=== PATIENT | female | born 1965 | race Caucasian/White ===

== ENCOUNTER 2018-09-11 09:31 | Observation (INO) | payer OTHER ==
--- NOTE | 2018-09-11 10:10 | RAD REPORT ---
EXAM DESCRIPTION: Roxy Single View09/11/2018 10:02 am CLINICAL HISTORY: Chest pain COMPARISON: 2014 FINDINGS: The lungs appear clear of acute infiltrate. The heart is mildly enlarged. Postsurgical changes involve the chest. IMPRESSION: No acute abnormalities displayed
[2018-09-11 10:14] LABS: Absolute Lymphocytes (CBC) 1.2 K/uL (0.7-4.9); Absolute Monocytes 0.4 K/uL (0.1-1.3); Absolute Neutrophil 3.2 K/uL (1.8-8.0); Basophils % 0.8 % (0-1.3); Eosinophils % 5.9 % (0-4.4); Lymphocytes % 23.7 % (15.3-44.8); MPV 9.1 fL (7.6-11.3); Monocytes % 7.4 % (3.3-12.3); Protime INR 0.99; RBC Red Blood Cell Count 4.22 M/uL (3.86-4.86)
[2018-09-11 10:28] LABS: ALT/SGPT 31 U/L (12-78); AST/SGOT 16 U/L (15-37); Albumin 3.8 g/dL (3.4-5.0); Alkaline Phosphatase 115 U/L (45-117); BUN Blood Urea Nitrogen 18 mg/dL (7-18); Bicarbonate 33 mmol/L (21-32); Bilirubin Direct 0.1 mg/dL (0-0.2); Bilirubin Total 0.5 mg/dL (0.2-1.0); Glucose Level 87 mg/dL (74-106); Magnesium 2.1 mg/dL (1.8-2.4); NT PRO-BNP 124 pg/mL (<125); Protein, Total 7.9 g/dL (6.4-8.2); Sodium Level 139 mmol/L (136-145); Troponin (Emerg Dept Use Only) < 0.02 ng/mL (0.0-0.045)
--- NOTE | 2018-09-11 10:39 | ER ---
Nurse's Notes [facility] Name: Julienne Tucker Age: 52 yrs Sex: Female : 1965 Arrival Date: 09/11/2018 Time: 09:32 Bed 8 Private MD: Diagnosis: Chest pain, unspecified Presentation: 09/11 09:34 Presenting complaint: EMS states: R SHOULDER PAIN AND SOB x4 DAYS. Transition of care: bp patient was not received from another setting of care. Onset of symptoms is unknown. Risk Assessment: Do you want to hurt yourself or someone else? Patient reports no desire to harm self or others. Initial Sepsis Screen: Does the patient meet any 2 criteria? No. Patient's initial sepsis screen is negative. Does the patient have a suspected source of infection? No. Patient's initial sepsis screen is negative. Care prior to arrival: Medication(s) given: ASA, 81 mg, x 4. 09:34 Method Of Arrival: EMS: [facility] bp 09:34 Acuity: RJ 3 bp Triage Assessment: 09:39 General: Appears in no apparent distress. comfortable, obese, Behavior is cooperative, bp appropriate for age, anxious. Pain: Complains of pain in anterior aspect of right shoulder. EENT: No deficits noted. Neuro: Level of Consciousness is awake, alert, obeys commands, Oriented to person, place, time, situation, Appropriate for age. Cardiovascular: No deficits noted. Respiratory: Reports shortness of breath at rest Onset: The symptoms/episode began/occurred 4 DAYS, the patient has mild shortness of breath. GI: No signs and/or symptoms were reported involving the gastrointestinal system. : No signs and/or symptoms were reported regarding the genitourinary system. Derm: No deficits noted. Musculoskeletal: Circulation, motion, and sensation intact. Range of motion: intact in all extremities. 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 - Social history:: Smoking status: Patient/guardian denies using tobacco, Patient/guardian denies using alcohol, street drugs, The patient lives with family. - Ebola Screening: : Patient negative for fever greater than or equal to 101.5 degrees Fahrenheit, and additional compatible Ebola Virus Disease symptoms Patient denies exposure to infectious person Patient denies travel to an Ebola-affected area in the 21 days before illness onset No symptoms or risks identified at this time. - Family history:: not pertinent. Screenin:42 Abuse screen: Denies threats or abuse. Denies injuries from another. Nutritional bp screening: No deficits noted. Tuberculosis screening: No symptoms or risk factors identified. Fall Risk None identified. Assessment: 09:42 General: SEE TRIAGE NOTE. Cardiovascular: Rhythm is sinus rhythm. Respiratory: Airway bp is patent Respiratory effort is even, unlabored, Respiratory pattern is regular, symmetrical, Breath sounds are clear bilaterally. Vital Signs: 09:39 BP 135 / 60; Pulse 63; Resp 21; Temp 98; Pulse Ox 96% ; Weight 181.44 kg; Height 5 ft. bp 9 in. (175.26 cm); 11:16 BP 123 / 68; Pulse 63; Resp 20; Pulse Ox 97% ; bp 11:47 BP 143 / 69; Pulse 65; Resp 18; Pulse Ox 97% ; bp 09:39 Body Mass Index 59.07 (181.44 kg, 175.26 cm) bp ED Course: 09:32 Patient arrived in ED. bp 09:34 Jorge Lawrence MD is Attending Physician. ma2 09:35 Triage completed. bp 09:39 Arm band placed on. bp 09:42 Patient has correct armband on for positive identification. Bed in low position. Call bp light in reach. Side rails up X2. 10:01 Tyrone Pringle, THOMAS is Primary Nurse. bp 10:02 XRAY Chest (1 view) In Process Unspecified. EDMS 10:02 Inserted saline lock: 22 gauge in right antecubital area, using aseptic technique. bp Blood collected. 10:05 X-ray completed. Portable x-ray completed in exam room. Patient tolerated procedure ls3 well. 10:38 Buddy French MD is Hospitalizing Provider. ma2 12:25 No provider procedures requiring assistance completed. Patient admitted, IV remains in bp place. Administered Medications: No medications were administered Outcome: 10:38 Decision to Hospitalize by Provider. ma2 12:28 Admitted to Tele accompanied by tech, via wheelchair, room 218, with chart, Report bp called to REGINALD GUZMAN 12:28 Condition: stable 12:28 Instructed on the need for admit. 12:40 Patient left the ED. bp Signatures: Dispatcher [employer] EDTyrone Tracey, RN RN bp Jorge Lawrence MD MD ma2 Marcy Fletcher ls3
--- NOTE | 2018-09-11 10:39 | EDPHYS ---
Physician Documentation [facility] Name: Julienne Tucker Age: 52 yrs Sex: Female : 1965 Arrival Date: 09/11/2018 Time: 09:32 Bed 8 Private MD: ED Physician Jorge Lawrence HPI: 09/11 10:35 This 52 yrs old Female presents to ER via EMS with complaints of Shoulder ma2 Pain, Shortness Of Breath. 10:35 right trapezius. Onset: The symptoms/episode began/occurred gradually, 1 day(s) ago. ma2 Associated signs and symptoms: Pertinent positives: chest pain, Pertinent negatives: dyspnea, neck pain, tingling. Severity of symptoms: At their worst the symptoms were mild, in the emergency department the symptoms are unchanged. Treatment prior to arrival includes: given 4 baby asa by ems . The patient has experienced similar episodes in the past. 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 - Social history:: Smoking status: Patient/guardian denies using tobacco, Patient/guardian denies using alcohol, street drugs, The patient lives with family. - Ebola Screening: : Patient negative for fever greater than or equal to 101.5 degrees Fahrenheit, and additional compatible Ebola Virus Disease symptoms Patient denies exposure to infectious person Patient denies travel to an Ebola-affected area in the 21 days before illness onset No symptoms or risks identified at this time. - Family history:: not pertinent. ROS: 10:35 Constitutional: Negative for fever, chills, and weight loss, Respiratory: Negative for ma2 shortness of breath, cough, wheezing, and pleuritic chest pain, Abdomen/GI: Negative for abdominal pain, nausea, diarrhea, and constipation, MS/Extremity: Negative for injury and deformity, Psych: Negative for depression, anxiety, suicide ideation, homicidal ideation, and hallucinations, Allergy/Immunology: Negative for hives, rash, and allergies. 10:35 Cardiovascular: Positive for chest pain, Negative for edema, orthopnea, paroxysmal nocturnal dyspnea. 10:35 All other systems are negative. Exam: 10:35 Constitutional: This is a well developed, well nourished patient who is awake, alert, ma2 and in no acute distress. Chest/axilla: Normal chest wall appearance and motion. Nontender with no deformity. No lesions are appreciated. Cardiovascular: Regular rate and rhythm with a normal S1 and S2. No gallops, murmurs, or rubs. Normal PMI, no JVD. No pulse deficits. Respiratory: Lungs have equal breath sounds bilaterally, clear to auscultation and percussion. No rales, rhonchi or wheezes noted. No increased work of breathing, no retractions or nasal flaring. Abdomen/GI: Soft, non-tender, with normal bowel sounds. No distension or tympany. No guarding or rebound. No evidence of tenderness throughout. MS/ Extremity: Pulses equal, no cyanosis. Neurovascular intact. Full, normal range of motion. Neuro: Awake and alert, GCS 15, oriented to person, place, time, and situation. Cranial nerves II-XII grossly intact. Motor strength 5/5 in all extremities. Sensory grossly intact. Cerebellar exam normal. Normal gait. Vital Signs: 09:39 BP 135 / 60; Pulse 63; Resp 21; Temp 98; Pulse Ox 96% ; Weight 181.44 kg; Height 5 ft. bp 9 in. (175.26 cm); 11:16 BP 123 / 68; Pulse 63; Resp 20; Pulse Ox 97% ; bp 11:47 BP 143 / 69; Pulse 65; Resp 18; Pulse Ox 97% ; bp 09:39 Body Mass Index 59.07 (181.44 kg, 175.26 cm) bp MDM: 09:34 Patient medically screened. ma2 10:35 Differential diagnosis: chest pain will admit for acs rule out discussed with dr. gloria rivero recommends admission and cards consult. Data reviewed: vital signs, nurses notes. Counseling: I had a detailed discussion with the patient and/or guardian regarding: the historical points, exam findings, and any diagnostic results supporting the discharge/admit diagnosis, the presence of at least one elevated blood pressure reading (>120/80) during this emergency department visit, the need for further work-up and treatment in the hospital. Response to treatment: the patient's symptoms have markedly improved after treatment. 09/11 09:34 Order name: Basic Metabolic Panel; Complete Time: 10:34 09/11 09:34 Order name: CBC with Diff; Complete Time: 10:34 09/11 09:34 Order name: LFT's; Complete Time: 10:34 09/11 09:34 Order name: Magnesium; Complete Time: 10:34 09/11 09:34 Order name: NT PRO-BNP; Complete Time: 10:34 09/11 09:34 Order name: PT-INR; Complete Time: 10:34 09/11 09:34 Order name: Troponin (emerg Dept Use Only); Complete Time: 10:34 [facility] 09/11 10:47 Order name: Basic Metabolic Panel [facility] 09/11 10:47 Order name: Basic Metabolic Panel [facility] 09/11 10:47 Order name: CBC with Automated Diff [facility] 09/11 10:47 Order name: CBC with Automated Diff [facility] 09/11 10:47 Order name: Troponin I [facility] 09/11 10:47 Order name: Troponin I [facility] 09/11 10:47 Order name: Troponin I [facility] 09/11 09:34 Order name: XRAY Chest (1 view); Complete Time: 10:34 nm09/11 09:34 Order name: EKG; Complete Time: 09:35 09/11 09:34 Order name: Cardiac monitoring; Complete Time: 10:02 09/11 09:34 Order name: EKG - Nurse/Tech; Complete Time: 09:43 09/11 09:34 Order name: IV Saline Lock; Complete Time: 10:01 09/11 09:34 Order name: Labs collected and sent; Complete Time: 10:02 09/11 09:34 Order name: O2 Per Protocol; Complete Time: 09:45 09/11 09:34 Order name: O2 Sat Monitoring; Complete Time: 09:44 09/11 10:47 Order name: CONS Physician Consult [facility] 09/11 10:47 Order name: Consistent Carb (ADA) 2000 Adarsh EDMS 09/11 10:47 Order name: EKG Electrocardiogram EDMS 09/11 10:47 Order name: EKG Electrocardiogram EDMS 09/11 10:47 Order name: EKG Electrocardiogram EDMS 09/11 10:47 Order name: EKG Electrocardiogram EDMS Administered Medications: No medications were administered Disposition: 09/11/18 10:38 Hospitalization ordered by Buddy French for Observation. Preliminary diagnosis is Chest pain, unspecified. - Bed requested for Telemetry/MedSurg (observation). - Status is Observation. bp - Condition is Stable. - Problem is new. - Symptoms are unchanged. UTI on Admission? No Signatures: Dispatcher [employer] EDWV Josseline Miner RN RN Tyrone Franco RN RN Jorge Cornejo MD MD ma2 Tammi Oliver Corrections: (The following items were deleted from the chart) 10:47 10:38 Hospitalization Ordered by Buddy French MD for Observation. Preliminary diagnosis eb is Chest pain, unspecified. Bed requested for Telemetry/MedSurg (observation). Status is Observation. Condition is Stable. Problem is new. Symptoms are unchanged. UTI on Admission? No. ma2 11:41 10:47 09/11/2018 10:38 Hospitalization Ordered by Buddy French MD for Observation. dw Preliminary diagnosis is Chest pain, unspecified. Bed requested for Telemetry/MedSurg (observation). Status is Observation. Condition is Stable. Problem is new. Symptoms are unchanged. UTI on Admission? No. eb 12:40 11:41 09/11/2018 10:38 Hospitalization Ordered by Buddy French MD for Observation. bp Preliminary diagnosis is Chest pain, unspecified. Bed requested for Telemetry/MedSurg (observation). Status is Observation. Condition is Stable. Problem is new. Symptoms are unchanged. UTI on Admission? No. dw
[2018-09-11] MEDS ORDERED: ACETAMINOPHEN 500 MG TAB PO PRN (10:42)
--- NOTE | 2018-09-11 11:19 | EKG ---
Test Date: 2018-09-11 Test Time: 09:36:42 Installer Molding And Trim: CÉSAR MEASUREMENT RESULTS: Intervals: Rate: 62 OK: 154 QRSD: 130 QT: 480 QTc: 487 [place]: P: 118 OK: 154 QRS: 63 T: 88 INTERPRETIVE STATEMENTS: Normal sinus rhythm Right bundle branch block Abnormal ECG Compared to ECG 08/27/2018 13:29:41 No significant changes Electronically Signed On 09-11-18 11:19:04 CDT by Mao Charles
[2018-09-11 12:51] VITALS: BMI 58.9
--- NOTE | 2018-09-11 14:23 | P.SSS ---
Patient History Date of Service: 09/11/18 Reason for admission: DYSPNEA History of Present Illness: MS. MARTINEZ IS A CARDIAC PATIENT WHO HAS DYSPNEA LATELY MORE THAN BEFORE. THIS IS ON EXERSION. SHE HAS NO ORTHOPNEA OR PND. SHE HAS R SHOULDER PAIN. SHE HAS SLEEP APNEA BUT CAN'T USE CPAP. SHE HAS TRIED ALL KINDS OF EQUIPMENTS. I SENT HER TO DR. WEBSTER FOR EZEKIEL SURGERY BUT HE SAID SHE DOES NOT QUALIFY PER HER THROAT CONFIGURATION. Allergies aluminum hydroxide [From Maalox] Allergy (Verified 07/12/16 09:00) Hives calcium carbonate [From Maalox] Allergy (Verified 07/12/16 09:00) Hives erythromycin base [Erythromycin Base] Allergy (Verified 07/12/16 09:00) Hives levofloxacin [From Levaquin] Allergy (Verified 09/11/18 13:42) Hives/Rash lidocaine [Lidocaine] Allergy (Verified 07/12/16 09:00) Hives? magnesium hydroxide [From Maalox] Allergy (Verified 07/12/16 09:00) Hives meperidine HCl [From Demerol] Allergy (Verified 07/12/16 09:00) Hives prochlorperazine edisylate [From Compazine] Allergy (Verified 07/12/16 09:00) Hives prochlorperazine maleate [From Compazine] Allergy (Verified 07/12/16 09:00) Hives simethicone [From Maalox] Allergy (Verified 07/12/16 09:00) Hives tetracycline [Tetracycline] Allergy (Verified 07/12/16 09:00) Hives Home Medications: Metoprolol Tartrate [Lopressor*] 50 mg PO BID 03/31/12 Atorvastatin Calcium [Lipitor] 20 mg PO DAILY #0 04/01/12 Lisinopril [Prinivil*] 20 mg PO BID #0 tab 04/01/12 Bupropion HCl [Bupropion HCl Sr] 150 mg PO TID 09/11/18 Cholecalciferol (Vitamin D3) [Vitamin D 5,000 IU Cap*] 5,000 mg PO DAILY Metoprolol Tartrate [Lopressor*] 25 mg PO BID 09/11/18 Naltrexone HCl/Bupropion HCl [Contrave ER 8-90 mg Tablet] 50 mg PO BID 09/11/18 Venlafaxine HCl [Effexor*] 37.5 mg PO DAILY 09/11/18 hydroCHLOROthiazide [Hydrochlorothiazide*] 12.5 mg PO DAILY 09/11/18 - Past Medical/Surgical History Has patient received pneumonia vaccine in the past: No Diabetic: No -: HPN -: Depression -: Cervical Cancer- survivor -: Hysterectomy - Social History Smoking Status: Never smoker Alcohol use: No CD- Drugs: No Caffeine use: Yes Place of Residence: Home Review of Systems 10-point ROS is otherwise unremarkable Respiratory: Shortness of Breath Physical Examination - Vital Signs Temperature: 97.1 F Blood Pressure: 149/67 Pulse: 76 Respirations: 19 Pulse Ox (%): 95 - Physical Exam General: Alert, In no apparent distress, Obese HEENT: Atraumatic, PERRLA, Mucous membr. moist/pink, EOMI, Sclerae nonicteric Neck: Supple, 2+ carotid pulse no bruit, No LAD, Without JVD or thyroid abnormality Respiratory: Clear to auscultation bilaterally, Normal air movement Cardiovascular: Regular rate/rhythm, Normal S1 S2 Gastrointestinal: Normal bowel sounds, No tenderness Musculoskeletal: No tenderness Integumentary: No rashes Neurological: Normal gait, Normal speech, Normal strength at 5/5 x4 extr, Normal tone, Normal affect Lymphatics: No axilla or inguinal lymphadenopathy - Studies Laboratory Data (last 24 hrs) 09/11/18 10:01: PT 11.7, INR 0.99 09/11/18 10:01: WBC 5.2, Hgb 13.0, Hct 38.0, Plt Count 245 09/11/18 10:01: Sodium 139, Potassium 4.0, BUN 18, Creatinine 0.98, Glucose 87, Magnesium 2.1, Total Bilirubin 0.5, AST 16, ALT 31, Alkaline Phosphatase 115 - Diagnosis (Problem(s)) (1) Dyspnea Current Visit: Yes Status: Acute Plan: ER DOCTOR INSISTED ON ADMISSION. I SEE NO REAL ACUTE REASON FOR ADMISSION. SHE CANHAVE DYSPNEA FROM SLEEP APNEA THAT IS NOT CONTROLLED, PULMONARY HYPERTENSION OR OBESITY ITSELF. SHE MAY HAVE ASTHMA BUT NO SIGNS OF WHEEZES. 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 CHECK CT ANGIO CHEST. ORDER 2D ECHO. - Disposition Disposition: ROUTINE DISCHARGE
--- NOTE | 2018-09-11 14:37 | RAD REPORT ---
EXAM DESCRIPTION: CT - Chest Angio - 09/11/2018 2:25 pm CLINICAL HISTORY: Chest pain, shortness of breath COMPARISON: Chest film same date, PE study 2007 TECHNIQUE: Dynamically enhanced 3 mm thick images of the chest were obtained during administration o f approximately 150mL Isovue 370 IV contrast. Coronal and oblique MIP reconstruction images were gene rated and reviewed. Exam utilizes a protocol to evaluate the pulmonary arterial tree. All CT scans are performed using dose optimization technique as appropriate and may include automated exposure control or mA/KV adjustment according to patient size. FINDINGS: No pulmonary emboli are identified. Motion and body habitus limitations are present. Far p eripheral branch assessment is limited but no PE suspected. The aorta as imaged shows no acute or suspicious finding. No pericardial thickening or effusion. Card iomegaly is present. No infiltrate or mass in the lung parenchyma. No pleural effusion or pleural thickening. No mediastinal or hilar suspicious masses. No chest wall masses or abnormal axillary lymphadenopathy. IMPRESSION: No pulmonary emboli identified. Cardiomegaly without pericardial thickening or effusion.
[2018-09-11 15:32] LABS: Arterial Blood Carboxyhemoglob 1.5 % (0-1.5); Blood Gas Oxyhemoglobin 91.3 % (94-97); Blood O2 Saturation 93.1 % (92-98.5)
[2018-09-11] MEDS ORDERED: CODEINE 30MG/APAP 300MG TAB PO PRN (20:35)
[2018-09-12 06:03] LABS: Absolute Lymphocytes (CBC) 1.4 K/uL (0.7-4.9); Absolute Monocytes 0.3 K/uL (0.1-1.3); Absolute Neutrophil 2.2 K/uL (1.8-8.0); Basophils % 0.8 % (0-1.3); Eosinophils % 6.3 % (0-4.4); Hematocrit 34.3 % (36.0-45.0); Lymphocytes % 33.7 % (15.3-44.8); MPV 9.4 fL (7.6-11.3); Monocytes % 6.9 % (3.3-12.3); RBC Red Blood Cell Count 3.79 M/uL (3.86-4.86)
[2018-09-12 06:21] LABS: Potassium 3.7 mmol/L (3.5-5.1)
[2018-09-12 08:59] VITALS: O2SAT 95
[2018-09-12] MEDS ORDERED: ASPIRIN EC 81 MG TAB PO SCH (09:00)
--- NOTE | 2018-09-12 10:52 | RAD REPORT ---
EXAM DESCRIPTION: RAD - Shoulder Right 2 View - 09/12/2018 10:43 am CLINICAL HISTORY: Right shoulder pain FINDINGS: No fracture or dislocation is seen. Mild to moderate osteoarthritis AC joint consisting of osteophytes and joint space narrowing
[2018-09-12 15:00] VITALS: BP 135/70; TEMP 97.9
[2018-09-12] MEDS ORDERED: NALTREXONE HCL PO SCH (21:00)
[2018-09-12] MEDS ORDERED: BUPROPION HCL PO SCH (21:00)
[2018-09-12] MEDS ORDERED: METOPROLOL TAR 25 MG TAB PO SCH (21:00)
[2018-09-13] MEDS ORDERED: ATORVASTATIN 10 MG TAB PO SCH (09:00)
[2018-09-13] MEDS ORDERED: VENLAFAXINE HCL 37.5 MG TAB PO SCH (09:00)
[2018-09-13] MEDS ORDERED: VITAMIN D 5,000 UNIT CAP PO SCH (09:00)
--- NOTE | 2018-09-13 14:08 | CON ---
Date of Consultation: 09/12/2018 The patient was admitted to Dr. French's service on 09/11/2018. The patient was seen on 09/12/2018. Reason For Consultation: Chest pain. History Of Present Illness: Ms. Tucker is a 52-year-old woman who has a history of bypass surgery al though this is kind of vague. Her surgery was done by Dr. Jung at [facility]. She was being f ollowed by Dr. Iqbal at that point. 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 She also has a history of hypertension, depression, morbid obe sity, and dyslipidemia. She has recently started Contrave for weight loss, but she has actually gain ed weight on it. She was recently started on Effexor as well. She typically takes Lipitor, lisinopr il, metoprolol, and hydrochlorothiazide at home. She apparently mostly complained of right-sided lyndsey ulder pain and chest pain. She is chronically short of breath, but she stated she has been extremely fatigued lately. History Of Present Illness: Ms. Tucker is still working. Denied any syncope. Has chronic pedal evette ma that has not worsened. Allergies: INCLUDE LEVAQUIN, ERYTHROMYCIN, LIDOCAINE, CALCIUM, MAGNESIUM, AND ALUMINUM. Medications: Listed earlier. Family History: Noncontributory. Social History: Noncontributory. Physical Examination: General: Ms. Tucker was not in any acute distress at that point. Her chief complaint to me was fati antoni. Her weight was 400 pounds. Her PO2 was 69, pCO2 was 49, pH of 7.40. HEENT: Negative. Neck: Supple. No bruit. Chest: Clear. Cardiac: Revealed regular rhythm and rate. No murmurs, gallops, or rubs. Abdomen: Obese, but benign. Extremities: Revealed 1+ edema. Diagnostic Data: Otherwise unremarkable. Impression And Plan: I think, Ms. Tucker's symptoms of shortness of breath and fatigue certainly cou ld be related to her weight, her CO2 retention and possibly related to metoprolol, and maybe her new medication Contrave and Effexor as well. I discussed the case with Dr. French. An echocardiogram has been done but not read yet. I would back off the metoprolol slowly. I will see what the echocardio gram shows. No further cardiac workup is indicated as far as I am concerned. Her chest pain and lyndsey ulder pain are definitely noncardiac in nature. I think Mrs. Tucker is on the right track as far as weight loss. She is on the right medication and apparently is trying to watch her diet. Her blood p ressure and dyslipidemia seemed to be well controlled. I am going to investigate her open-heart surg red further with Dr. Jung and Dr. Iqbal. She can go home whenever it is okay with Dr. French. ALF/RICA Voice ID: [id number] Report ID: [id number]
== END 2018-09-12 12:50 | disposition home or self-care (01) ==
LOC: ER 09:31 → ERHOLD 10:42 → 2ND 12:32
PROVIDERS: ADMIT Internal Medicine; ATTEND Internal Medicine
DX: E66.2 Morbid (severe) obesity with alveolar hypoventilation (principal); Z68.43 Body mass index [BMI] 50.0-59.9, adult; M25.511 Pain in right shoulder; G47.30 Sleep apnea, unspecified; F32.9 Major depressive disorder, single episode, unspecified; Z85.41 Personal history of malignant neoplasm of cervix uteri; I45.10 Unspecified right bundle-branch block
CPT/HCPCS: 36415; 71045; 71275; 80048; 80076; 82805; 83735; 83880; 84484; 85025; 85610; 93005; 93306; 99285; G0378; Q9967

== ENCOUNTER 2019-06-08 06:29 | Day surgery (SDC) | payer OTHER ==
[2019-06-07 11:06] LABS: Absolute Lymphocytes (CBC) 1.2 K/uL (0.7-4.9); Basophils % 1.2 % (0-1.3); Hematocrit 35.1 % (36.0-45.0); Lymphocytes % 22.4 % (15.3-44.8); MPV 8.8 fL (7.6-11.3); RBC Red Blood Cell Count 3.87 M/uL (3.86-4.86)
--- NOTE | 2019-06-07 11:10 | RAD REPORT ---
EXAM DESCRIPTION: Roxy Marcus (2 Views)06/07/2019 10:53 am CLINICAL HISTORY: Preop/hypertension COMPARISON: August 2018 FINDINGS: The lungs appear clear of acute infiltrate. The heart is mildly enlarged. Postsurgical changes involve the chest. IMPRESSION: No acute abnormalities displayed
[2019-06-07 11:11] LABS: Protime INR 0.9
[2019-06-07 11:17] LABS: Potassium 4.1 mmol/L (3.5-5.1)
[2019-06-08] MEDS ORDERED: NA CHLORIDE 0.9% 500 ML ONE (06:49)
[2019-06-08] MEDS ORDERED: NA CHLORIDE 0.9% 0 ML IV ONE (07:37)
[2019-06-08] MEDS ORDERED: MIDAZOLAM HCL 2 MG/2 ML INJ ONE ×2 (07:37→07:43)
[2019-06-08] MEDS ORDERED: FENTANYL CITR 100 MCG/2 ML ONE (07:37)
[2019-06-08] MEDS ORDERED: ATROPINE SULF 1 MG/10 ML SYR IV ONE (07:37)
[2019-06-08] MEDS ORDERED: HEPA 1000U/500MLS 2,000 UNIT/1,000 ML BAG IV ONE (08:20)
[2019-06-08] MEDS ORDERED: LIDOCAINE 1% MPF 30 ML VIAL ONE (08:20)
[2019-06-08 08:53] VITALS: TEMP 97
[2019-06-08 10:57] VITALS: O2SAT 100
[2019-06-08 12:04] VITALS: BP 113/53
--- NOTE | 2019-06-08 22:50 | OP ---
Surgeon: Mao Charles MD Mine Safety Director: Kizzy Jimenez History: Ms. Tucker is 53-year-old with history of CABG, obesity, hypertension, dyslipidemia, no stephan betes with recurrent unstable angina symptoms. She has had CABG x1 in the past by Dr. Morrison at [facility] in 2013, set up for an outpatient catheterization because of unstable angina. Procedures: Left heart catheterization, selective coronary arteriogram, injection of the GALINDO and ao rtic root shot. Description Of Procedure: A 6-[place] sheath was introduced in the right common femoral artery succes yaredy. Angio-Seal was used to close the case. Angiography there was normal. Carrington catheter left and right were used to inject the left main and the right main. She had perfectly normal coronaries without any focal stenosis. She had a mid LAD myocardial bridge. I looked for graft with an aortic root shot and I did not find any vein graft. Her RCA was perfectly normal. Her GALINDO was injected w ith JR4 and it showed that it was never used for bypass. I am actually at a loss of what kind of byp ass she had considering she had normal coronary, the GALINDO was not used. There was no graft. Neverth eless, a detailed operative report was not available to me, although we have tried to get it in the p ast. I will try to get it again. Patient had no complications. Blood Loss: 5 mL. 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 Plan: To continue medical therapy. Anesthesia: Total conscious sedation was 30 minutes. Patient will remain at bedrest for 4 hours and go home and I will see her in the office in about 2 we eks. ALF/RICA Voice ID: [id number] Report ID: [id number]
== END 2019-06-08 12:23 | disposition home or self-care (01) ==
LOC: CCL 06:29
DX: R07.9 Chest pain, unspecified (principal); Q24.5 Malformation of coronary vessels; R55 Syncope and collapse; R06.00 Dyspnea, unspecified; I10 Essential (primary) hypertension; E78.5 Hyperlipidemia, unspecified; E66.01 Morbid (severe) obesity due to excess calories; F32.9 Major depressive disorder, single episode, unspecified; Z95.1 Presence of aortocoronary bypass graft; Z88.1 Allergy status to other antibiotic agents; Z88.3 Allergy status to other anti-infective agents; Z88.6 Allergy status to analgesic agent; Z85.41 Personal history of malignant neoplasm of cervix uteri; Z82.49 Family history of ischemic heart disease and other diseases of the circulatory system
CPT/HCPCS: 85025; 80048; 36415; 85610; 85730; 71046; 93567; 93455; C1893; C1760; J2250 ×2; J3010; J7040; J0583

== ENCOUNTER 2019-12-19 12:49 | Emergency (ER) | payer OTHER ==
[2019-12-19] MEDS ORDERED: METOCLOPRAMIDE 10 MG/2mL INJ ONE ×2 (15:01→15:02)
[2019-12-19] MEDS ORDERED: KETOROLAC 30 MG/ML INJ ONE (15:02)
[2019-12-19] MEDS ORDERED: DIPHENHYDRAMINE 50 MG/ML VIAL ONE ×2 (15:02→15:04)
[2019-12-19] MEDS ORDERED: NA CHLORIDE 0.9% 1,000 ML ONE (15:02)
[2019-12-19 15:17] LABS: Absolute Lymphocytes (CBC) 1.8 K/uL (0.7-4.9); Basophils % 1.1 % (0-1.3); Hematocrit 38.6 % (36.0-45.0); Lymphocytes % 32.3 % (15.3-44.8); RBC Red Blood Cell Count 4.35 M/uL (3.86-4.86)
[2019-12-19 15:19] LABS: Protime INR 0.99
--- NOTE | 2019-12-19 15:25 | RAD REPORT ---
EXAM DESCRIPTION: CT - Head Brain Wo Cont - 12/19/2019 3:14 pm CLINICAL HISTORY: Headache COMPARISON: 2019 TECHNIQUE: Computed axial tomography of the head was obtained. IV contrast was not requested. All CT scans are performed using dose optimization technique as appropriate and may include automated exposure control or mA/KV adjustment according to patient size. FINDINGS: An intracranial bleed is not seen . The ventricles are normal in caliber. No extra-axial fluid collection is noted. Fluid within the sinuses/ mastoids is not seen. IMPRESSION: No acute intracranial abnormality is seen. If patient's symptoms persist MRI of the bra in would be recommended.
[2019-12-19 15:36] LABS: ALT/SGPT 48 U/L (12-78); AST/SGOT 24 U/L (15-37); Albumin 3.6 g/dL (3.4-5.0); Alkaline Phosphatase 127 U/L (45-117); BUN Blood Urea Nitrogen 14 mg/dL (7-18); Bicarbonate 28 mmol/L (21-32); Bilirubin Direct 0.1 mg/dL (0-0.2); Bilirubin Total 0.5 mg/dL (0.2-1.0); Glucose Level 124 mg/dL (74-106); Magnesium 1.9 mg/dL (1.8-2.4); NT PRO-BNP 115 pg/mL (<125); Potassium 3.7 mmol/L (3.5-5.1); Protein, Total 8.3 g/dL (6.4-8.2); Sodium Level 138 mmol/L (136-145); Troponin (Emerg Dept Use Only) < 0.02 ng/mL (0.0-0.045)
--- NOTE | 2019-12-19 15:50 | RAD REPORT ---
EXAM DESCRIPTION: Roxy Single View12/19/2019 3:28 pm CLINICAL HISTORY: congestion COMPARISON: May 2019 FINDINGS: The lungs appear clear of acute infiltrate. The heart is normal size Postsurgical changes involve the chest. IMPRESSION: No acute abnormalities displayed
[2019-12-19] MEDS ORDERED: HYDROMORPHONE HCL 1 MG/ML INJ ONE (17:07)
--- NOTE | 2019-12-19 17:49 | EDPHYS ---
Physician Documentation [facility] Name: Julienne Tucker Age: 54 yrs Sex: Female : 1965 Arrival Date: 12/19/2019 Time: 12:55 Bed 2 Private MD: ED Physician Jorge Lawrence HPI: 12/18 14:54 This 54 yrs old Female presents to ER via Ambulatory with complaints of Pain ma2 from Ear to collar bone. 14:54 The patient complains of pain to the forehead, left ear and left jaw. The patient ma2 describes the headache as aching. Onset: The symptoms/episode began/occurred gradually, 1 week(s) ago. Associated signs and symptoms: Pertinent negatives: dizziness, fever, neck stiffness, paresthesias, rash, vision loss, vomiting. Severity of symptoms: At its worst the pain was mild, in the emergency department the pain is unchanged. The patient has experienced similar episodes in the past. Historical: - Allergies: 13:14 Demerol; ll1 13:14 Erythromycin; ll1 13:14 Tetracycline; ll1 13:14 Vancomycin; ll1 - PMHx: 13:14 Hypertension; Depression; ll1 - PSHx: 13:14 CABG; Hysterectomy; ll1 - Immunization history:: Flu vaccine is up to date. - Social history:: Smoking status: Patient denies any tobacco usage or history of. Patient/guardian denies using alcohol, street drugs, tobacco products, Patient/guardian denies using The patient lives with family. - Family history:: not pertinent. ROS: 14:54 Constitutional: Negative for fever, chills, and weight loss, Cardiovascular: Negative ma2 for chest pain, palpitations, and edema, Respiratory: Negative for shortness of breath, cough, wheezing, and pleuritic chest pain, Abdomen/GI: Negative for abdominal pain, nausea, diarrhea, and constipation. 14:54 All other systems are negative. Exam: 14:54 Constitutional: This is a well developed, well nourished patient who is awake, alert, ma2 and in no acute distress. Neck: Trachea midline, no thyromegaly or masses palpated, and no cervical lymphadenopathy. Supple, full range of motion without nuchal rigidity, or vertebral point tenderness. No Meningismus. Chest/axilla: Normal chest wall appearance and motion. Nontender with no deformity. No lesions are appreciated. Cardiovascular: Regular rate and rhythm with a normal S1 and S2. No gallops, murmurs, or rubs. Normal PMI, no JVD. No pulse deficits. Respiratory: Lungs have equal breath sounds bilaterally, clear to auscultation and percussion. No rales, rhonchi or wheezes noted. No increased work of breathing, no retractions or nasal flaring. Abdomen/GI: Soft, non-tender, with normal bowel sounds. No distension or tympany. No guarding or rebound. No evidence of tenderness throughout. Skin: Warm, dry with normal turgor. Normal color with no rashes, no lesions, and no evidence of cellulitis. Neuro: Awake and alert, GCS 15, oriented to person, place, time, and situation. Cranial nerves II-XII grossly intact. Motor strength 5/5 in all extremities. Sensory grossly intact. Cerebellar exam normal. Normal gait. Vital Signs: 13:13 BP 166 / 86; Pulse 80; Resp 20; Temp 98.2; Pulse Ox 100% ; Weight 174.63 kg; Height 5 ll1 ft. 8 in. (172.72 cm); Pain 8/10; 15:45 BP 156 / 82; Pulse 76; Resp 16; Pulse Ox 99% on R/A; hb 16:45 BP 148 / 78; Pulse 74; Resp 15; Pulse Ox 100% on R/A; Pain 8/10; hb 13:13 Body Mass Index 58.54 (174.63 kg, 172.72 cm) ll1 [place] Coma Score: 14:54 Eye Response: spontaneous(4). Verbal Response: oriented(5). Motor Response: obeys ma2 commands(6). Total: 15. MDM: 14:33 Patient medically screened. ma2 14:54 Differential diagnosis: migraine, sinusitis, tension headache, traumatic injuries, ma2 uremia. Data reviewed: vital signs, nurses notes. Counseling: I had a detailed discussion with the patient and/or guardian regarding: the historical points, exam findings, and any diagnostic results supporting the discharge/admit diagnosis, the presence of at least one elevated blood pressure reading (>120/80) during this emergency department visit. 12/18 14:48 Order name: Basic Metabolic Panel; Complete Time: 16:20 ma2 12/18 14:48 Order name: CBC with Diff; Complete Time: 15:36 12/18 14:48 Order name: LFT's; Complete Time: 16:20 12/18 14:48 Order name: Magnesium; Complete Time: 16:20 12/18 14:48 Order name: NT PRO-BNP; Complete Time: 16:20 12/18 14:48 Order name: PT-INR; Complete Time: 15:36 12/18 14:48 Order name: XRAY Chest (1 view); Complete Time: 16:20 12/18 14:48 Order name: Troponin (emerg Dept Use Only); Complete Time: 16:20 12/18 14:48 Order name: CT Head Brain wo Cont; Complete Time: 15:36 12/18 14:48 Order name: EKG; Complete Time: 14:48 12/18 14:48 Order name: Cardiac monitoring; Complete Time: 15:11 12/18 14:48 Order name: EKG - Nurse/Tech; Complete Time: 15:11 12/18 14:48 Order name: IV Saline Lock; Complete Time: 15:11 12/18 14:48 Order name: Labs collected and sent; Complete Time: 15:11 12/18 14:48 Order name: O2 Per Protocol; Complete Time: 15:11 12/18 14:48 Order name: O2 Sat Monitoring; Complete Time: 15:11 ma2 Administered Medications: 15:07 Drug: NS 0.9% 1000 ml Route: IV; Rate: 1 bolus; Site: left antecubital; hb 16:54 Follow up: Response: No adverse reaction; IV Status: Completed infusion [id number] 15:07 Drug: Reglan 20 mg Route: IVP; Site: left antecubital; hb 15:33 Follow up: Response: No adverse reaction hb 15:07 Drug: Benadryl 50 mg Route: IVP; Site: left antecubital; hb 15:33 Follow up: Response: No adverse reaction hb 15:07 Drug: TORadol 30 mg Route: IVP; Site: left antecubital; hb 15:33 Follow up: Response: No adverse reaction hb 16:59 Drug: Dilaudid 1 mg Route: IVP; Site: left antecubital; 17:30 Follow up: Response: No adverse reaction hb Disposition: 12/19/19 17:49 Discharged to Home. Impression: Headache. - Condition is Stable. - Discharge Instructions: Migraine Headache, Form - Excuse from Work, School, or Physical Activity. - Prescriptions for Reglan 10 mg Oral Tablet - take 1 tablet by ORAL route every 6 hours take 30 minutes before meals and at bedtime; 20 tablet. Diclofenac Sodium 75 mg Oral Tablet Sustained Release - take 1 tablet by ORAL route 2 times per day; 30 tablet. - Medication Reconciliation Form, Thank You Letter, Antibiotic Education, Prescription Opioid Use, Work release form form. - Follow up: Private Physician; When: Tomorrow; Reason: Continuance of care. Signatures: Dispatcher [employer] EDMS Ayesha Avila RN RN Jorge Mcginnis MD MD ma2 Akua Dickson RN RN ll1 [place] RN [email or web address] Corrections: (The following items were deleted from the chart) 18:15 17:49 12/19/2019 17:49 Discharged to Home. Impression: Headache. Condition is Stable. Prescriptions for Reglan 10 mg Oral Tablet - take 1 tablet by ORAL route every 6 hours take 30 minutes before meals and at bedtime; 20 tablet, Diclofenac Sodium 75 mg Oral Tablet Sustained Release - take 1 tablet by ORAL route 2 times per day; 30 tablet. and Forms are Medication Reconciliation Form, Thank You Letter, Antibiotic Education, Prescription Opioid Use. Follow up: Private Physician; When: Tomorrow; Reason: Continuance of care. ma2
--- NOTE | 2019-12-19 17:49 | ER ---
Nurse's Notes [facility] Name: Julienne Tucker Age: 54 yrs Sex: Female : 1965 Arrival Date: 12/19/2019 Time: 12:55 Bed 2 Private MD: Diagnosis: Headache Presentation: 12/18 13:13 Coronavirus screen: Client denies travel out of the [place] in the last 14 days. At this ll1 time, the client does not indicate any symptoms associated with coronavirus-19. Ebola Screen: Patient denies travel to an Ebola-affected area in the 21 days before illness onset. Initial Sepsis Screen: Does the patient meet any 2 criteria? No. Patient's initial sepsis screen is negative. Risk Assessment: Do you want to hurt yourself or someone else? Patient reports no desire to harm self or others. Onset of symptoms was December 12, 2019. 13:13 Method Of Arrival: Ambulatory ll1 13:13 Acuity: RJ 3 ll1 13:15 Chief complaint: Patient states: [place] PAZ for 1 week. Severe pain left side of head down to ll1 left collar bone area. No fever. No cough. Sent in by telemed doctor. Historical: - Allergies: 13:14 Demerol; ll1 13:14 Erythromycin; ll1 13:14 Tetracycline; ll1 13:14 Vancomycin; ll1 - PMHx: 13:14 Hypertension; Depression; ll1 - PSHx: 13:14 CABG; Hysterectomy; ll1 - Immunization history:: Flu vaccine is up to date. - Social history:: Smoking status: Patient denies any tobacco usage or history of. Patient/guardian denies using alcohol, street drugs, tobacco products, Patient/guardian denies using The patient lives with family. - Family history:: not pertinent. Screenin:11 Abuse screen: Denies threats or abuse. Denies injuries from another. Nutritional hb screening: No deficits noted. Tuberculosis screening: No symptoms or risk factors identified. Fall Risk None identified. Assessment: 14:40 General: Appears in no apparent distress. Behavior is calm, cooperative. Pain: Pain hb currently is 8 out of 10 on a pain scale. Neuro: Level of Consciousness is awake, alert, obeys commands, Oriented to person, place, time, situation, Reports headache in left. Cardiovascular: Capillary refill < 3 seconds Patient's skin is warm and dry. Respiratory: Airway is patent Respiratory effort is even, unlabored, Respiratory pattern is regular, symmetrical. GI: No signs and/or symptoms were reported involving the gastrointestinal system. : No signs and/or symptoms were reported regarding the genitourinary system. EENT: No signs and/or symptoms were reported regarding the EENT system. Derm: Skin is pink, warm \T\ dry. Musculoskeletal: No signs and/or symptoms reported regarding the musculoskeletal system. 15:30 Reassessment: Patient appears in no apparent distress at this time. Patient and/or hb family updated on plan of care and expected duration. Pain level reassessed. Patient is alert, oriented x 3, equal unlabored respirations, skin warm/dry/pink. 16:21 Reassessment: Patient appears in no apparent distress at this time. Patient and/or hb family updated on plan of care and expected duration. Pain level reassessed. Patient is alert, oriented x 3, equal unlabored respirations, skin warm/dry/pink. 17:15 Reassessment: Patient appears in no apparent distress at this time. Patient and/or hb family updated on plan of care and expected duration. Pain level reassessed. Patient is alert, oriented x 3, equal unlabored respirations, skin warm/dry/pink. 18:00 Reassessment: Patient appears in no apparent distress at this time. Patient and/or hb family updated on plan of care and expected duration. Pain level reassessed. Patient is alert, oriented x 3, equal unlabored respirations, skin warm/dry/pink. Vital Signs: 13:13 BP 166 / 86; Pulse 80; Resp 20; Temp 98.2; Pulse Ox 100% ; Weight 174.63 kg; Height 5 ll1 ft. 8 in. (172.72 cm); Pain 8/10; 15:45 BP 156 / 82; Pulse 76; Resp 16; Pulse Ox 99% on R/A; hb 16:45 BP 148 / 78; Pulse 74; Resp 15; Pulse Ox 100% on R/A; Pain 8/10; hb 13:13 Body Mass Index 58.54 (174.63 kg, 172.72 cm) ll1 [place] Coma Score: 14:54 Eye Response: spontaneous(4). Verbal Response: oriented(5). Motor Response: obeys ma2 commands(6). Total: 15. ED Course: 12:55 Patient arrived in ED. bp1 13:14 Triage completed. ll1 13:14 Arm band placed on Patient notified of wait time. ll1 14:33 Jorge Lawrence MD is Attending Physician. ma2 14:45 Ayesha Avila, RN is Primary Nurse. hb 15:06 Inserted saline lock: 20 gauge in left antecubital area, using aseptic technique. Blood hb collected. 15:11 Patient has correct armband on for positive identification. Bed in low position. Call hb light in reach. 15:14 CT Head Brain wo Cont In Process Unspecified. EDMS 15:25 XRAY Chest (1 view) In Process Unspecified. EDMS 18:14 No provider procedures requiring assistance completed. IV discontinued, intact, hb bleeding controlled, No redness/swelling at site. Administered Medications: 15:07 Drug: NS 0.9% 1000 ml Route: IV; Rate: 1 bolus; Site: left antecubital; hb 16:54 Follow up: Response: No adverse reaction; IV Status: Completed infusion [id number] 15:07 Drug: Reglan 20 mg Route: IVP; Site: left antecubital; hb 15:33 Follow up: Response: No adverse reaction hb 15:07 Drug: Benadryl 50 mg Route: IVP; Site: left antecubital; hb 15:33 Follow up: Response: No adverse reaction hb 15:07 Drug: TORadol 30 mg Route: IVP; Site: left antecubital; hb 15:33 Follow up: Response: No adverse reaction hb 16:59 Drug: Dilaudid 1 mg Route: IVP; Site: left antecubital; hb 17:30 Follow up: Response: No adverse reaction hb Outcome: 17:49 Discharge ordered by . ma2 18:14 Discharged to home ambulatory. hb 18:14 Condition: stable 18:14 Discharge instructions given to patient, Instructed on discharge instructions, follow up and referral plans. medication usage, Demonstrated understanding of instructions, follow-up care, medications, Prescriptions given X 2. 18:15 Patient left the ED. hb Signatures: Dispatcher [employer] EDMS Ayesha Avila, RN RN hb Jorge Lawrence MD MD ma2 Akua Dcikson RN RN ll1 Gertrude Wong Jessica, RN RN [email or web address]
[2019-12-19 18:27] VITALS: TEMP 98.2
[2019-12-19 18:37] VITALS: BP 148/78; O2SAT 100
--- NOTE | 2019-12-21 11:07 | EKG ---
Test Date: 2019-12-19 Test Time: 15:06:06 Shipping Lead: ERIKA MEASUREMENT RESULTS: Intervals: Rate: 77 [place]: 174 QRSD: 160 QT: 458 QTc: 518 [place]: P: 35 OH: 174 QRS: 25 T: 46 INTERPRETIVE STATEMENTS: Normal sinus rhythm Right bundle branch block Abnormal ECG Compared to ECG 09/11/2018 09:36:42 No significant changes Electronically Signed On 12-21-19 11:03:12 CDT by Mao Charles
== END 2019-12-19 18:15 | disposition home or self-care (01) ==
LOC: ER 12:49
DX: R51 Headache (principal); Z95.1 Presence of aortocoronary bypass graft; Z88.1 Allergy status to other antibiotic agents; Z88.3 Allergy status to other anti-infective agents; Z88.5 Allergy status to narcotic agent
CPT/HCPCS: 96361; 93005; 85025; 80048; 36415; 83735; 85610; 80076; 84484; 83880; 70450; 71045; 96375; 96374; 99284; J2765 ×2; J1200 ×2; J1170; J7030

== ENCOUNTER 2022-02-15 07:48 | Day surgery (SDC) | payer OTHER ==
[2022-02-14 11:47] LABS: Absolute Lymphocytes (CBC) 1.6 K/uL (0.7-4.9); Hematocrit 36.7 % (36.0-45.0); Lymphocytes % 21.7 % (15.3-44.8); MCV 88.7 fL (80-100); MPV 8.5 fL (7.6-11.3); RBC Red Blood Cell Count 4.14 M/uL (3.86-4.86)
[2022-02-14 11:58] LABS: SARS-CoV-2 Antigen Rapid Res Negative (Negative)
--- NOTE | 2022-02-14 11:58 | RAD REPORT ---
EXAM DESCRIPTION: RAD - Chest Pa And Lat (2 Views) - 02/14/2022 11:50 am CLINICAL HISTORY: pre op for surgery COMPARISON: Chest Single View dated 12/19/2019; Chest Pa And Lat (2 Views) dated 06/07/2019; Chest Sing le View dated 09/11/2018; CHEST PA AND LAT 2 VIEW dated 12/20/2014 FINDINGS: Lines: None. Lungs: No evidence of edema or pneumonia. Pleural: No significant pleural effusions or pneumothorax. Cardiac: The heart size is within normal limits. Mediastinum: Within normal limits. Bones: No acute fractures. Sternotomy. Other: None IMPRESSION: No acute cardiopulmonary disease.
[2022-02-14 12:02] LABS: Potassium 3.9 mmol/L (3.5-5.1)
[2022-02-15] MEDS ORDERED: CEFAZOLIN SODIUM 1 GM/VIAL ONE (08:11)
[2022-02-15] MEDS ORDERED: Ringers Lactate 1,000 ML IV ONE (08:11)
[2022-02-15] MEDS ORDERED: BUPIVACAINE 0.5% PF 10 ML VIAL ONE (08:42)
[2022-02-15] MEDS ORDERED: HYDROCODONE/APAP 7.5/325 MG TAB PO PRN (10:57)
--- NOTE | 2022-02-15 11:02 | P.OP ---
Date of Service: 02/15/22 Preop diagnosis: Infected mass back Postop diagnosis: Same Procedure performed: Wide excision infected mass on the back 10 x 4 cm with layered closure Surgeon: Tony Rojas MD Salesperson [employer]: Cassandra JOSEPH Estimated blood loss: Minimal Specimen: Pus and cyst Findings: As above Anesthesia: General Complications: None Drains: Half-inch Deep Gap Fluids and blood products: Not applicable Disposition: Recovery room Operative note: Patient brought to the OR and placed in the supine position. General anesthesia begun. Patient placed in the left lateral position. Patient prepped and draped in usual sterile fashion. Marcaine 0.5% infiltrated locally for postop pain control. Then 15 blade used to make a 10 x 4 cm incision around this raised mass that was read, warm and fluctuant. The entire cyst was excised as 1 piece. There was moderate amount of pus present inside the cyst which was cultured. The cyst was sent to pathology. Wound irrigated and bleeding controlled with cautery. Flaps created. #1 chromic suture used to reapproximate the deep subcutaneous tissue. 0 chromic suture used to reapproximate the superficial subcutaneous tissue. Half inch Tomas drain was placed in the bed of the wound prior to this. The drain was secured with 3-0 nylon. 2-0 nylon used to close the skin loosely. Sterile dressing applied. Patient awakened and taken to recovery room in good general condition. CC: Dr. Rodriguez's office
[2022-02-15 14:01] VITALS: BP 131/61; O2SAT 92
[2022-02-15 14:04] VITALS: TEMP 97
--- NOTE | 2022-02-17 07:49 | EKG ---
Test Date: 2022-02-14 Test Time: 11:36:48 Thermal Intelligence Analyst: CAROLE MEASUREMENT RESULTS: Intervals: Rate: 73 AK: 138 QRSD: 150 QT: 442 QTc: 486 [place]: P: 22 AK: 138 QRS: 45 T: 66 INTERPRETIVE STATEMENTS: Normal sinus rhythm Right bundle branch block Abnormal ECG Compared to ECG 12/19/2019 15:06:06 No significant changes Electronically Signed On 02-17-22 07:44:52 CDT by Mao Charles
== END 2022-02-15 13:08 | disposition home or self-care (01) ==
LOC: OR 07:48
PROVIDERS: ATTEND Surgery
PROC: 0JB70ZZ Excision of Back Subcutaneous Tissue and Fascia, Open Approach (ICD-10-PCS; principal; 2022-02-15 10:15)
DX: L72.0 Epidermal cyst (principal); Z20.822 Contact with and (suspected) exposure to COVID-19
CPT/HCPCS: 93005; 87070; 85025; 80048; 36415; 87205 ×2; 88304; 87075; 71046; 87811; 11406; J7120; J0690

== ENCOUNTER 2022-05-29 14:28 | Observation (INO) | payer OTHER ==
--- OUTSIDE RECORDS SUMMARY | 2022-05-29 14:33 | XMS REPORT | Continuity of Care Document ---
:1965 Author Organization [facility] t Address [address] [place] [address] Care Team Providers Name Role Phone PRACHI RODRIGUEZ Attending Clinician Unavailable JUAN BAZAN Attending Clinician Unavailable JASSON AVALOS Attending Clinician Unavailable [id number] Attending Clinician Unavailable LAB90 Attending Clinician Unavailable Prachi Rodriguez DO Attending Clinician Payers Payer Name Policy Type Policy Number Effective Date Expiration Date [facility] 3 [id number] 2021 00:00:00 Problems Condition Condition Condition Status Onset Resolution Last Treating Co mments Source Name Details Category Date Date Treatment Clinician Date Acute Acute Disease Active 2021-05 Apurva left-sided left-sided 1-30 Se ybold low back low back 00:00: - pain with pain with 00 Exte rna left-sided left-sided l sciatica sciatica Infected Infected Disease Active Kelse y sebaceous sebaceous 02-12 Seyb old cyst cyst 00:00: - 00 Externa l Fatty Fatty Disease Active Apurva liver liver 02-12 Seybold 00:00: - 00 Externa l Prediabete Prediabete Disease Active Overview : Apurva hammonds s 01-16 Formattin Seybold 00:00: g of this note Externa might be l different from the original. 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 episode episode PSYC-Kailey n Class 3 Class 3 Disease Active Apurva severe severe 8-30 Seybold obesity obesity 00:00: - with with 00 Externa serious serious l comorbidit comorbidit y and body y and body mass index mass index (BMI) of (BMI) of 60.0 to 60.0 to 69.9 in 69.9 in adult adult EZEKIEL EZEKIEL Disease Active Apurva (obstructi (obstructi 8-30 Se ybold ve sleep ve sleep 00:00: - apnea) apnea) 00 Externa l Chronic Chronic Disease Active Apurva right right 8-30 Seybold shoulder shoulder 00:00: - pain pain 00 Externa l Allergies, Adverse Reactions, Alerts Allergy Allergy Status Severity Reaction(s) Onset Inactive Treating Comm ents Source Name Type Date Date Clinician Aluminum Propensi Active 2021-05 Other Apurva Hydroxid ty to 1-22 reaction( Seybo ld e adverse 00:00: s): Hives - reaction 00 Externa s l Calcium Propensi Active 2021-05 Other Apurva Carbonat ty to 1-22 reaction( Seybo ld e adverse 00:00: s): Hives - reaction 00 Externa s l Dimethic Propensi Active 2021-05 Other Apurva one ty to 1-22 reaction( Seybold Copolyol adverse 00:00: s): Hives - reaction 00 Externa s l Erythrom Propensi Active 2021-05 Other Apurva ycin ty to 1-22 reaction( Seybold Base adverse 00:00: s): Hives - reaction 00 Externa s l Levoflox Propensi Active 2021-05 Other Apurva acin ty to 06-09 reaction( Seybold adverse 00:00: s): - reaction 00 Hives/Bernard Exter na s h l Lidocain Propensi Active 2021-05 Other Apurva e Hcl ty to 06-09 reaction( Seybold adverse 00:00: s): - reaction 00 Hives? Exter na s l Magnesiu Propensi Active 2021-05 Other Apurva m ty to 06-09 reaction( Seybold Hydroxid adverse 00:00: s): Hives - e reaction 00 Externa s l Meperidi Propensi Active 2021-05 Other Apurva ne Hcl ty to 06-09 reaction( Seybold adverse 00:00: s): Hives - reaction 00 Externa s l Prochlor Propensi Active 2021-05 Other Apurva perazine ty to 06-09 reaction( Seybo ld Edisylat adverse 00:00: s): Hives - e reaction 00 Externa s l Prochlor Propensi Active 2021-05 Other Apurva perazine ty to 06-09 reaction( Seybo ld Maleate adverse 00:00: s): Hives - reaction 00 Externa s l Azithrom Propensi Active Rash 0 Apurva ycin ty to 8-30 Seybold adverse 00:00: - reaction 00 Externa s l Penicill Propensi Active Nausea Only 0 K elsey ins ty to 8-30 Seybold adverse 00:00: - reaction 00 Externa s l Tetracyc Propensi Active Rash 0 Apurva lines ty to 8-30 Seybold adverse 00:00: - reaction 00 Externa s l Social History Social Habit Start Date Stop Date Quantity Comments Source Tobacco use and 2022-05-27 2022-05-27 Smokeless tobacco Fili white Seybold - exposure 00:00:00 00:00:00 non-user External Alcohol intake 2022-05-27 2022-05-27 Ex-drinker Apurva logan - 00:00:00 00:00:00 (finding) External Education 2022-01-15 2022-01-15 13 Apurva Seybold - 00:00:00 00:00:00 External Sex [birth year] At [birth year] Apurva Se ybold - 00:00:00 00:00:00 External Smoking Status Start Date Stop Date Source Never smoked tobacco Apurva Mcmillanyb old - External Medications Ordered Filled Start Stop Current Ordering Indication Dosage Frequency Signature Comments Components Source Medication Medication Date Date Medication? Clinician (SIG) Name Name Metoprolol Yes 50mg Take 50 mg K elsey Tartrate 50 1-09 by mouth 2 Se ybold MG oral 15:41: times - Tablet 41 daily Externa l Guaifenesin Yes [id number] 1200mg Take 2 Apurva (Mucinex) -09 tablets Seybold 600 MG oral 00:00: (1,200 mg - Tablet 12 total) by Exter na Hour mouth 2 l Sustained times Release daily Amoxicillin Yes [id number] 500mg Take 1 Apurva 500 MG oral -09 capsule Seybo ld Capsule 00:00: (500 mg - 00 total) by Externa mouth 3 l times daily Albuterol Yes [id number] 2.5mg Take 2.5 Apurva Sulfate 2.5 -09 mg by Seybold MG/0.5ML 00:00: nebulizati - inhalation 00 on once [employer] a Inhalant for 1 dose l Solution guaiFENesin Yes [id number] 5mL [id number] Take 5 mL Apurva -Codeine - [id number] by mouth 3 Seybold (Cheratussi 00:00: 3D times - n AC) 00 daily as Externa 100-10 needed for l MG/5ML oral cough Syrup Semaglutide Yes [id number] 1mg Inject 1 Apurva (1 mg/dose) 1-03 mg into Seybo ld 2 mg/1.5 mL 00:00: the skin - SQ Solution 00 once a [employer] a Pen-Injecto week l r OZEMPIC (1 Yes Apurva mg/dose) 4 1-03 Seybold mg/3 mL SQ 00:00: - Solution 00 Externa Pen-Injecto l r Benzonatate Yes 200mg Take 200 K elsey 200 MG oral 1-02 mg by Seybold Capsule 00:00: mouth - 00 every 8 Externa hours l Metoprolol 2021-05 Yes 50mg Take 50 mg K elsey Tartrate 50 2-23 by mouth 2 Se ybold MG oral 09:43: times - Tablet 00 daily Externa l Losartan 2021-05 Yes [id number] 50mg Take 1 Arvin sey Potassium 2-23 tablet (50 Seyb old 50 MG oral 00:00: mg total) - Tablet 00 by mouth Externa daily l Losartan 2021-05 Yes [id number] 50mg Take 1 Arvin sey Potassium 2-23 tablet (50 Seyb old 50 MG oral 00:00: mg total) - Tablet 00 by mouth Externa daily l Losartan 2021-05- No [id number] 25mg Take 1 Ke lsey Potassium 2-14 12-23 tablet (25 Sey bold 25 MG oral 00:00: 00:00 mg total) - Tablet 00 :00 by mouth Externa daily l Metoprolol 2021-05 Yes 50mg Take 50 mg K elsey Tartrate 50 2-12 by mouth 2 Se ybold MG oral 16:31: times - Tablet 17 daily Externa l Losartan 2021-05 Yes [id number] 25mg Take 1 Arvin sey Potassium 2-12 tablet (25 Seyb old 25 MG oral 00:00: mg total) - Tablet 00 by mouth Externa daily l Cyclobenzap 2021-05 Yes [id number] 10mg Q.5D Take 1 Apurva rine HCl 10 2-12 tablet (10 Se ybold MG oral 00:00: mg total) - Tablet 00 by mouth 2 Externa times l daily as needed for muscle spasms Cyclobenzap 2021-05 Yes [id number] 10mg Q.5D Take 1 Apurva rine HCl 10 2-12 tablet (10 Se ybold MG oral 00:00: mg total) - Tablet 00 by mouth 2 Externa times l daily as needed for muscle spasms Cyclobenzap 2021-05 Yes [id number] 10mg Q.5D Take 1 Apurva rine HCl 10 2-12 tablet (10 Se ybold MG oral 00:00: mg total) - Tablet 00 by mouth 2 Externa times l daily as needed for muscle spasms Metoprolol 2021-05 Yes 50mg Take 50 mg K elsey Tartrate 50 1-30 by mouth 2 Se ybold MG oral 13:28: times - Tablet 16 daily Externa l Cyclobenzap 2021-05 Yes [id number] 10mg Q.5D Take 1 Apurva rine HCl 10 1-30 tablet (10 Se ybold MG oral 00:00: mg total) - Tablet 00 by mouth 2 Externa times l daily as needed for muscle spasms Tramadol 2021-05 Yes [id number] 50mg Q.5D Take 1 Ke lsey HCl 50 MG 1-30 tablet (50 Seyb old oral Tablet 00:00: mg total) - 00 by mouth 2 Externa times l daily as needed for pain Tramadol 2021-05 Yes [id number] 50mg Q.5D Take 1 Ke lsey HCl 50 MG 1-30 tablet (50 Seyb old oral Tablet 00:00: mg total) - 00 by mouth 2 Externa times l daily as needed for pain Tramadol 2021-05 Yes [id number] 50mg Q.5D Take 1 Ke lsey HCl 50 MG 1-30 tablet (50 Seyb old oral Tablet 00:00: mg total) - 00 by mouth 2 Externa times l daily as needed for pain Tramadol 2021-05 Yes [id number] 50mg Q.5D Take 1 Ke lsey HCl 50 MG 1-30 tablet (50 Seyb old oral Tablet 00:00: mg total) - 00 by mouth 2 Externa times l daily as needed for pain Cyclobenzap 2021-05- No [id number] 10mg Q.5D Take 1 Apurva rine HCl 10 1-30 12-12 tablet (10 S eybold MG oral 00:00: 00:00 mg total) - Tablet 00 :00 by mouth 2 Externa times l daily as needed for muscle spasms Metoprolol 2021-05 Yes 50mg Take 50 mg K elsey Tartrate 50 1-28 by mouth 2 Se ybold MG oral 13:48: times - Tablet 44 daily Externa l Semaglutide 2021-05 Yes [id number] .5mg Inject 0.5 Apurva (0.25 or 1-22 mg into Seybold 0.5 00:00: the skin - mg/dose) 2 00 once a Externa mg/1.5 mL week l SQ Solution Pen-Injecto r Semaglutide 2021-05 Yes [id number] .5mg Inject 0.5 Apurva (0.25 or 1-22 mg into Seybold 0.5 00:00: the skin - mg/dose) 2 00 once a Externa mg/1.5 mL week l SQ Solution Pen-Injecto r Semaglutide 2021-05 Yes [id number] .5mg Inject 0.5 Apurva (0.25 or 1-22 mg into Seybold 0.5 00:00: the skin - mg/dose) 2 00 once a Externa mg/1.5 mL week l SQ Solution Pen-Injecto r Semaglutide 2021-05 Yes [id number] .5mg Inject 0.5 Apurva (0.25 or 1-22 mg into Seybold 0.5 00:00: the skin - mg/dose) 2 00 once a Externa mg/1.5 mL week l SQ Solution Pen-Injecto r Semaglutide 2021-05 Yes [id number] .5mg Inject 0.5 Apurva (0.25 or 1-22 mg into Seybold 0.5 00:00: the skin - mg/dose) 2 00 once a Externa mg/1.5 mL week l SQ Solution Pen-Injecto r Sodium 2021-05 Yes USE Apurva Chloride 0-26 DIRECTED Seybold 0.9 % 00:00: FOR WET TO - irrigation 00 DRY Externa Solution DRESSING l CHANGES Sodium 2021-05 Yes USE Apurva Chloride 0-26 DIRECTED Seybold 0.9 % 00:00: FOR WET TO - irrigation 00 DRY Externa Solution DRESSING l CHANGES Sodium 2021-05 Yes USE Apurva Chloride 0-26 DIRECTED Seybold 0.9 % 00:00: FOR WET TO - irrigation 00 DRY Externa Solution DRESSING l CHANGES Sodium 2021-05- No USE Apurva Chloride 0-26 12-12 DIRECTED Seybol d 0.9 % 00:00: 00:00 FOR WET TO - irrigation 00 :00 DRY Externa Solution DRESSING l CHANGES Venlafaxine 2021-05- No 75mg Take 75 mg Apurva HCl 75 MG 0-25 10-25 by mouth Seybo ld oral 15:05: 00:00 daily - Capsule 24 13 :00 Externa Hour l Sustained Release Venlafaxine 2021-05 Yes [id number] 75mg Take 1 Apurva HCl 75 MG 0-25 capsule Seybold oral 00:00: (75 mg - Capsule 24 00 total) by Exte rna Hour mouth l Sustained daily Release Venlafaxine 2021-05 Yes [id number] 75mg Take 1 Apurva HCl 75 MG 0-25 capsule Seybold oral 00:00: (75 mg - Capsule 24 00 total) by Exte rna Hour mouth l Sustained daily Release Venlafaxine 2021-05 Yes [id number] 75mg Take 1 Apurva HCl 75 MG 0-25 capsule Seybold oral 00:00: (75 mg - Capsule 24 00 total) by Exte rna Hour mouth l Sustained daily Release Venlafaxine 2021-05 Yes [id number] 75mg Take 1 Apurva HCl 75 MG 0-25 capsule Seybold oral 00:00: (75 mg - Capsule 24 00 total) by Exte rna Hour mouth l Sustained daily Release Venlafaxine 2021-05 Yes [id number] 75mg Take 1 Apurva HCl 75 MG 0-25 capsule Seybold oral 00:00: (75 mg - Capsule 24 00 total) by Exte rna Hour mouth l Sustained daily Release Semaglutide 2021-05 Yes [id number] .25mg Inject Apurva (0.25 or 0-25 104 0.25 mg Seybold 0.5 00:00: into the - mg/dose) 2 00 skin once Exte rna mg/1.5 mL a week l SQ Solution Pen-Injecto r Venlafaxine 2021-05 Yes [id number] 75mg Take 1 Apurva HCl 75 MG 0-25 capsule Seybold oral 00:00: (75 mg - Capsule 24 00 total) by Exte rna Hour mouth l Sustained daily Release Venlafaxine 2021-05 Yes [id number] 75mg Take 1 Apurva HCl 75 MG 0-25 capsule Seybold oral 00:00: (75 mg - Capsule 24 00 total) by Exte rna Hour mouth l Sustained daily Release Semaglutide 2021-05- No [id number] .25mg Inject Apurva (0.25 or 0-25 11-22 104 0.25 mg Seybold 0.5 00:00: 00:00 into the - mg/dose) 2 00 :00 skin once Exte rna mg/1.5 mL a week l SQ Solution Pen-Injecto r Ciprofloxac 2021-05- No Shelly y in HCl 500 04-09 Seybold MG oral 00:00: 00:00 - Tablet 00 :00 Externa l Venlafaxine Yes 75mg Take 75 mg Apurva HCl 75 MG 02-12 by mouth Seybol d oral 13:50: daily - Capsule 24 48 Externa Hour l Sustained Release Metoprolol Yes 50mg Take 50 mg K elsey Tartrate 50 02-12 by mouth 2 Se ybold MG oral 13:50: times - Tablet 48 daily Externa l Metoprolol Yes 50mg Take 50 mg K elsey Tartrate 50 02-12 by mouth 2 Se ybold MG oral 13:50: times - Tablet 48 daily Externa l Metoprolol Yes 50mg Take 50 mg K elsey Tartrate 50 02-12 by mouth 2 Se ybold MG oral 13:50: times - Tablet 48 daily Externa l Lisdexamfet 2021- No 60mg Take 60 mg Apurva amine 02-12 by mouth Seybold Dimesylate 13:50: 00:00 every - (Vyvanse) 37 :00 morning Externa 60 MG oral l Capsule Mupirocin Yes [id number] Apply 1 Apurva (BACTROBAN) 02-12 applicatio Se ybold 2 % apply 00:00: n - externally 00 topically Exte rna Ointment 2 times l daily Mupirocin Yes [id number] Apply 1 Apurva (BACTROBAN) 02-12 applicatio Se ybold 2 % apply 00:00: n - externally 00 topically Exte rna Ointment 2 times l daily Mupirocin 0 2021- No [id number] Apply 1 Apurva (BACTROBAN) 02-12 applicatio S eybold 2 % apply 00:00: 00:00 n - externally 00 :00 topically Exte rna Ointment 2 times l daily TRIMETHOPRI 2021- No [id number] 1{tbl} Take 1 Apurva M-SULFAMETH 02-12 1005 tablet by Se ybold OXAZOLE 00:00: 04:59 mouth 2 - 800-160 MG 00 :00 times Externa oral Tablet daily for l 7 days Blood 2021- No [id number] Check BP Arvin sey Pressure 01-15 daily Seybold does not 00:00: 00:00 - apply Kit 00 :00 Externa l Immunizations Ordered Immunization Filled Immunization Date Status Commen ts Source Name Name Tdap- (Boostrix, 2022-01-15 Completed Apurva sen Adacel) 00:00:00 - External Tdap- (Boostrix, 2022-01-15 Completed Apurva sen Adacel) 00:00:00 - External Tdap- (Boostrix, 2022-01-15 Completed Apurva sen Adacel) 00:00:00 - External Tdap- (Boostrix, 2022-01-15 Completed Apurva sen Adacel) 00:00:00 - External Tdap- (Boostrix, 2022-01-15 Completed Apurva sen Adacel) 00:00:00 - External Tdap- (Boostrix, 2022-01-15 Completed Apurva sen Adacel) 00:00:00 - External Tdap- (Boostrix, 2022-01-15 Completed Apurva sen Adacel) 00:00:00 - External Tdap- (Boostrix, 2022-01-15 Completed Apurva sen Adacel) 00:00:00 - External Vital Signs Vital Name Observation Time Observation Value Comments Source Systolic blood 2022-05-27 21:36:00 134 mm[Hg] Apurva Mcmillanybold - pressure External Diastolic blood 2022-05-27 21:36:00 81 mm[Hg] Shelly mcelroy Seybold - pressure External Heart rate 2022-05-27 21:36:00 70 /min Apurva sen - External Body temperature 2022-05-27 21:36:00 37.33 Kimi Dot ey Seybold - External Respiratory rate 2022-05-27 21:36:00 14 /min Dot john Seybold - External Body height 2022-05-27 21:36:00 172.7 cm Apurva sen - External Body weight 2022-05-27 21:36:00 185.975 kg Apurva S eybold - External BMI 2022-05-27 21:36:00 62.34 kg/m2 Apurva S eybold - External Oxygen saturation in 2022-05-27 21:36:00 99 /min Apurva Seybold - Arterial blood by External Pulse oximetry Systolic blood 2022-05-10 15:39:00 148 mm[Hg] Apurva Seybold - pressure External Diastolic blood 2022-05-10 15:39:00 78 mm[Hg] Arvinse y Seybold - pressure External Heart rate 2022-05-10 15:39:00 87 /min Apurva S eybold - External Body temperature 2022-05-10 15:39:00 36 Kimi Dot ey Seybold - External Respiratory rate 2022-05-10 15:39:00 16 /min Dot ey Seybold - External Body height 2022-05-10 15:39:00 172.7 cm Apurva S eybold - External Body weight 2022-05-10 15:39:00 188.243 kg Apurva S eybold - External BMI 2022-05-10 15:39:00 63.10 kg/m2 Apurva S eybold - External Body weight 2022-04-29 22:51:00 188.243 kg Apurva S eybold - External BMI 2022-04-29 22:51:00 63.10 kg/m2 Apurva S eybold - External Systolic blood 2022-04-29 22:35:00 150 mm[Hg] Apurva Seybold - pressure External Diastolic blood 2022-04-29 22:35:00 88 mm[Hg] Arvinse y Seybold - pressure External Body temperature 2022-04-29 22:29:00 36.83 Kimi Dot ey Seybold - External Respiratory rate 2022-04-29 22:29:00 14 /min Dot ey Seybold - External Body height 2022-04-29 22:29:00 172.7 cm Apurva S eybold - External Oxygen saturation in 2022-04-29 22:29:00 99 /min Apurva Seybold - Arterial blood by External Pulse oximetry Systolic blood 2022-04-17 19:25:00 143 mm[Hg] Apurva Seybold - pressure External Diastolic blood 2022-04-17 19:25:00 82 mm[Hg] Kelse y Seybold - pressure External Heart rate 2022-04-17 19:25:00 71 /min Apurva S eybold - External Body temperature 2022-04-17 19:25:00 36.56 Kimi Dot ey Seybold - External Respiratory rate 2022-04-17 19:25:00 14 /min Dot ey Seybold - External Body height 2022-04-17 19:25:00 172.7 cm Apurva S eybold - External Body weight 2022-04-17 19:25:00 190.057 kg Apurva S eybold - External BMI 2022-04-17 19:25:00 63.71 kg/m2 Apurva S eybold - External Oxygen saturation in 2022-04-17 19:25:00 99 /min Apurva Seybold - Arterial blood by External Pulse oximetry Systolic blood 2022-04-15 19:47:00 205 mm[Hg] Apurva Seybold - pressure External Diastolic blood 2022-04-15 19:47:00 98 mm[Hg] Kelse y Seybold - pressure External Heart rate 2022-04-15 19:47:00 102 /min Apurva S eybold - External Body temperature 2022-04-15 19:47:00 36.44 Kimi Dot ey Seybold - External Respiratory rate 2022-04-15 19:47:00 22 /min Dot ey Seybold - External Body height 2022-04-15 19:47:00 172.7 cm Apurva S eybold - External Body weight 2022-04-15 19:47:00 187.245 kg Apurva S eybold - External BMI 2022-04-15 19:47:00 62.77 kg/m2 Apurva S eybold - External Oxygen saturation in 2022-04-15 19:47:00 93 /min Apurva Seybold - Arterial blood by External Pulse oximetry Body weight 2022-04-09 21:51:00 190.511 kg Apurva S eybold - External BMI 2022-04-09 21:51:00 63.86 kg/m2 Apurva S eybold - External Oxygen saturation in 2022-04-09 21:51:00 99 /min Apurva Seybold - Arterial blood by External Pulse oximetry Systolic blood 2022-04-09 21:51:00 154 mm[Hg] Apurva Seybold - pressure External Diastolic blood 2022-04-09 21:51:00 83 mm[Hg] Kelse y Seybold - pressure External Heart rate 2022-04-09 21:51:00 68 /min Apurva S eybold - External Body temperature 2022-04-09 21:51:00 36.83 Kimi Dot ey Seybold - External Respiratory rate 2022-04-09 21:51:00 14 /min Dot ey Seybold - External Body height 2022-04-09 21:51:00 172.7 cm Apurva S eybold - External Systolic blood 2022-03-12 19:49:00 147 mm[Hg] Apurva Seybold - pressure External Diastolic blood 2022-03-12 19:49:00 74 mm[Hg] Arvinse y Seybold - pressure External Heart rate 2022-03-12 19:49:00 84 /min Apurva S eybold - External Body temperature 2022-03-12 19:49:00 36.56 Kimi Dot ey Seybold - External Respiratory rate 2022-03-12 19:49:00 14 /min Dot ey Seybold - External Body height 2022-03-12 19:49:00 172.7 cm Apurva Hammonds eybold - External Body weight 2022-03-12 19:49:00 192.779 kg Apurva S eybold - External BMI 2022-03-12 19:49:00 64.62 kg/m2 Apurva S eybold - External Oxygen saturation in 2022-03-12 19:49:00 99 /min Apurva Mcmillanybold - Arterial blood by External Pulse oximetry Systolic blood 2022-02-12 18:46:00 164 mm[Hg] Apurva Seybold - pressure External Diastolic blood 2022-02-12 18:46:00 80 mm[Hg] Kelse y Seybold - pressure External Heart rate 2022-02-12 18:46:00 101 /min Apurva S eybold - External Body temperature 2022-02-12 18:46:00 36.56 Kimi Dot Yanes - External Respiratory rate 2022-02-12 18:46:00 16 /min Dot Yanes - External Body height 2022-02-12 18:46:00 172.7 cm Apurva sen - External Body weight 2022-02-12 18:46:00 191.872 kg Apurva sen - External BMI 2022-02-12 18:46:00 64.32 kg/m2 Apurva sen - External Procedures This patient has no known procedures. Encounters Start End Encounter Admission Attending Care Care Encounter Source Date/Time Date/Time Type Type Clinicians Facility Department ID 2022-06-21 2022-06-21 Outpatient APURVA RODRIGUEZ [id number] Apurva 13:45:00 13:45:00 PRACHI Seybol d 2022-05-29 2022-05-29 Outpatient APURVA BAZAN [id number] Apurva 00:00:00 00:00:00 JUAN Seybol d 2022-05-27 2022-05-27 Outpatient APURVA BAZAN [id number] Apurva 15:30:00 15:30:00 JUAN Seybol d 2022-05-24 2022-05-24 Outpatient APURVA RODRIGUEZ [id number] Apurva 00:00:00 00:00:00 PRACHI Seybol d 2022-05-21 2022-05-21 Outpatient APURVA RODRIGUEZ [id number] Apurva 00:00:00 00:00:00 PRACHI Seybol d 2022-05-21 2022-05-21 Outpatient APURVA RODRIGUEZ [id number] Apurva 00:00:00 00:00:00 PRACHI Seybol d 2022-05-19 2022-05-19 Outpatient APURVA RODRIGUEZ [id number] Apurva 00:00:00 00:00:00 PRACHI Seybol d 2022-05-10 2022-05-10 Outpatient APURVA RODRIGUEZ [id number] Apurva 09:45:00 09:45:00 PRACHI Seybol d 2022-05-07 2022-05-07 Outpatient APURVA RODRIGUEZ [id number] Apurva 16:15:00 16:15:00 PRACHI Seybol d 2022-05-01 2022-05-01 Outpatient PREZAS, APURVA HARVEY [id number] Apurva 00:00:00 00:00:00 PRACHI Seybol d 2022-05-01 2022-05-01 Outpatient ROBBIECAROLYNArnol HARVEY [id number] Apurva 00:00:00 00:00:00 Seybol d 2022-04-29 2022-04-29 Outpatient PREZAS, APURVA HARVEY [id number] Apurva 16:30:00 16:30:00 PRACHI Seybol d 2022-04-17 2022-04-17 Outpatient PREZAS, APURVA HARVEY [id number] Apurva 13:30:00 13:30:00 PRACHI Seybol d 2022-04-17 2022-04-17 Outpatient PREZASAPURVA [id number] Apurva 00:00:00 00:00:00 PRACHI Seybol d 2022-04-15 2022-04-15 Outpatient LAB53 APURVA HARVEY [id number] Apurva 14:35:00 14:35:00 Seybol d 2022-04-15 2022-04-15 Outpatient ROBBIE, JASSON APURVA HARVEY [id number] Apurva 14:00:00 14:00:00 Seybol d 2022-04-09 2022-04-09 Outpatient PREZAS, APURVA HARVEY [id number] Apurva 16:15:00 16:15:00 PRACHI Seybol d 2022-03-12 2022-03-12 Outpatient PREZASAPURVA [id number] Apurva 15:00:00 15:00:00 PRACHI Seybol d 2022-02-12 2022-02-12 Outpatient PREZASAPURVA [id number] Apurva 15:15:00 15:15:00 PRACHI Seybol d 2022-02-12 2022-02-12 Outpatient PREZASAPURVA [id number] Apurva 13:45:00 13:45:00 PRACHI Seybol d 2022-01-31 2022-01-31 Outpatient APURVA RODRIGUEZ [id number] Apurva 00:00:00 00:00:00 PRACHI Seybol d 2022-01-22 2022-01-22 Outpatient LAB90 APURVA HARVEY [id number] Apurva 08:50:00 08:50:00 Seybol d 2022-01-16 2022-01-16 Outpatient APURVA RODRIGUEZ [id number] Apurva 00:00:00 00:00:00 PRACHI Seybol d 2022-01-15 2022-01-15 Outpatient LAB90 APURVA HARVEY [id number] Apurva 08:55:00 08:55:00 Seybol d 2022-01-15 2022-01-15 Office Terry Rodriguez [id number] Apurva 08:00:00 08:30:00 Visit Prachi Mora [id number] Se grider [id number] Results This patient has no known results.
[2022-05-29] MEDS ORDERED: NA CHLORIDE 0.9% 1,000 ML ONE (15:06)
[2022-05-29 15:07] LABS: Absolute Lymphocytes (CBC) 1.5 K/uL (0.7-4.9); Hematocrit 38.5 % (36.0-45.0); Lymphocytes % 29.4 % (15.3-44.8); MCV 90.9 fL (80-100); MPV 8.1 fL (7.6-11.3); RBC Red Blood Cell Count 4.23 M/uL (3.86-4.86)
[2022-05-29] MEDS ORDERED: ONDANSETRON 4 MG/2 ML VIAL ONE (15:07)
[2022-05-29 15:23] LABS: Albumin 3.5 g/dL (3.4-5.0); Bilirubin Total 0.5 mg/dL (0.2-1.0); Protein, Total 8.3 g/dL (6.4-8.2)
--- NOTE | 2022-05-29 15:58 | RAD REPORT ---
EXAM DESCRIPTION: RAD - Chest Pa And Lat (2 Views) - 05/29/2022 3:37 pm CLINICAL HISTORY: Cough COMPARISON: Chest Pa And Lat (2 Views) dated 02/14/2022; Chest Single View dated 12/19/2019; Chest Pa A nd Lat (2 Views) dated 06/07/2019; Chest Single View dated 09/11/2018 FINDINGS: Lines: None. Lungs: No evidence of edema or pneumonia. Pleural: No significant pleural effusions or pneumothorax. Cardiac: The heart size is within normal limits. Mediastinum: Within normal limits. Bones: No acute fractures. Sternotomy. Other: None IMPRESSION: No acute cardiopulmonary disease.
[2022-05-29 16:07] LABS: Urine Blood Trace-intact (Negative); Urine Glucose Negative (Negative); Urine Protein Negative (Negative); Urine Specific Gravity <=1.005 (1.005-1.030)
[2022-05-29 16:19] LABS: Urine Bacteria <20 /HPF (<20); Urine Crystals Unidentified Few /HPF (None Seen)
[2022-05-29] MEDS ORDERED: FLUCONAZOLE 100 MG TAB ONE (17:05)
[2022-05-29 17:43] LABS: Troponin High Sensitivity 7.8 pg/mL (<58.9)
--- NOTE | 2022-05-29 19:19 | EDPHYS ---
Physician Documentation [facility] Name: Julienne Tucker Age: 56 yrs Sex: Female : 1965 Arrival Date: 05/29/2022 Time: 14:31 Bed 9 Private MD: Karan Rodriguez ED Physician Karlie Vaughn HPI: 05/29 19:08 This 56 yrs old Female presents to ER via Ambulatory with complaints of Fever, Nausea, kb Dizziness, Cough. 19:09 The patient or guardian reports cough, that is intermittent, described as moderate, kb difficulty breathing. Onset: The symptoms/episode began/occurred 7 day(s) ago. Severity of symptoms: At their worst the symptoms were moderate, in the emergency department the symptoms are unchanged. Modifying factors: The symptoms are alleviated by nothing, the symptoms are aggravated by exertion. Associated signs and symptoms: Pertinent positives: chest pain, with movement, nausea, vomiting. The patient has not experienced similar symptoms in the past. The patient has been recently seen by a physician: with similar presenting complaints, and apparently given a diagnosis of rsv, strep. Patient reports shortness of breath, cough, congestion, sore throat that started 7 days ago, was seen at urgent care, diagnosed with RSV and strep, given amoxicillin. Patient reports symptoms have not gotten any better, nausea and vomiting began last night and has been having chest pain upon exertion with increased shortness of breath.. CORRECTIONAL CAPTAIN: 20:50 LMP N/A - control method 5 Historical: - Allergies: 14:47 Demerol; aa5 14:47 Erythromycin; aa5 14:47 Tetracycline; aa5 14:47 Vancomycin; aa5 14:49 Compazine; aa5 - Home Meds: 14:49 Effexor Oral [Active]; Metoprolol Tartrate Oral [Active]; losartan oral [Active]; aa5 Ozempic subcutaneous [Active]; venlafaxine oral [Active]; - PMHx: 14:47 Depression; Hypertension; aa5 - Immunization history:: Adult Immunizations unknown. - Social history:: Smoking status: Patient denies any tobacco usage or history of. ROS: 17:16 Constitutional: Negative for fever, chills, and weight loss. kb 17:16 Cardiovascular: Positive for chest pain, Negative for edema, orthopnea, palpitations, paroxysmal nocturnal dyspnea. 17:16 Respiratory: Positive for cough, dyspnea on exertion, shortness of breath. 17:16 Abdomen/GI: Positive for nausea and vomiting, Negative for abdominal pain. 17:16 Neuro: Positive for dizziness. 17:16 All other systems are negative. Exam: 19:07 Constitutional: This is a well developed, well nourished patient who is awake, alert, kb and in no acute distress. Head/Face: Normocephalic, atraumatic. ENT: Moist Mucous membranes Cardiovascular: Regular rate and rhythm with a normal S1 and S2. No gallops, murmurs, or rubs. No pulse deficits. Respiratory: Respirations even and unlabored. No increased work of breathing. Talking in full sentences Abdomen/GI: Soft, non-tender. No distention Skin: Warm, dry with normal turgor. Normal color. MS/ Extremity: Pulses equal, no cyanosis. Neurovascular intact. Full, normal range of motion. Neuro: Awake and alert, GCS 15, oriented to person, place, time, and situation. Moves all extremities. Normal gait. Psych: Awake, alert, with orientation to person, place and time. Behavior, mood, and affect are within normal limits. 19:27 ECG was reviewed by the Attending Physician. kb Vital Signs: 14:45 BP 169 / 100; Pulse 86; Resp 20 S; Temp 97.7(TE); Pulse Ox 99% on R/A; Weight 185.97 kg aa5 (R); Height 5 ft. 8 in. (172.72 cm) (R); 15:20 Pulse 92; Resp 26; Pulse Ox 88% ; jh5 16:30 BP 166 / 94; Pulse 89; Resp 24; Pulse Ox 92% ; jh5 16:42 Pulse Ox 86% ; jh5 14:45 Body Mass Index 62.34 (185.97 kg, 172.72 cm) aa5 MDM: 14:48 Patient medically screened. kb 17:35 External Records Reviewed: Old EKG reviewed to compare. Right Bundle Branch Block seen kb on both. 19:07 Differential diagnosis: viral Infection, bacterial infection, URI, bronchitis, kb pneumonia. Data reviewed: vital signs, nurses notes. Management of patient was discussed with the following: Hospitalist: Beverly accepts pt for admission. Counseling: I had a detailed discussion with the patient and/or guardian regarding: the historical points, exam findings, and any diagnostic results supporting the discharge/admit diagnosis, lab results, radiology results, the need for further work-up and treatment in the hospital. ED course: Increased work of breathing noted upon exertion, decreased oxygen saturation to 86%, chest pain on exertion. Patient will be admitted for observation.. 05/29 14:48 Order name: CBC with Diff; Complete Time: 15:30 kb 05/29 14:48 Order name: CMP; Complete Time: 15:30 kb 05/29 14:48 Order name: Lipase; Complete Time: 15:30 kb 05/29 14:48 Order name: Urine Microscopic Only; Complete Time: 16:21 kb 05/29 16:07 Order name: Urine Dipstick-Ancillary; Complete Time: 16:11 EDMS 05/29 17:23 Order name: Troponin High Sensitivity; Complete Time: 17:51 kb 05/29 14:48 Order name: IV Saline Lock; Complete Time: 15:02 kb 05/29 14:49 Order name: Chest Pa And Lat (2 Views) XRAY; Complete Time: 15:59 kb 05/29 17:06 Order name: EKG; Complete Time: 17:06 kb 05/29 17:23 Order name: BNP; Complete Time: 17:51 kb 05/29 17:34 Order name: COVID-19/FLU A+B/RSV; Complete Time: 20:02 kb 05/29 14:48 Order name: Labs collected and sent; Complete Time: 15:02 kb 05/29 14:48 Order name: Urine Dipstick-Ancillary (obtain specimen); Complete Time: 16:06 kb 05/29 16:57 Order name: PO challenge; Complete Time: 17:07 kb 05/29 17:06 Order name: EKG - Nurse/Tech; Complete Time: 17:38 kb EC:27 Rate is 93 beats/min. Rhythm is regular. QRS [place] is Normal. NV interval is normal at kb 180 msec. QRS interval is normal at 144 msec. QT interval is prolonged at 509 msec. Administered Medications: 15:12 Drug: NS 0.9% 1000 ml Route: IV; Rate: 1 bolus; Site: left antecubital; jh5 15:12 Drug: Zofran (Ondansetron) 4 mg Route: IVP; Site: left antecubital; jh5 17:07 Drug: DiFLUcan (fluconazole) 150 mg Route: PO; ss Disposition Summary: 05/29/22 19:19 Hospitalization Ordered Hospitalization Status: Observation kb Provider: Jorge Cervantes Location: Telemetry/MedSurg (observation) kb Condition: Stable kb Problem: new kb Symptoms: are unchanged kb Bed/Room Type: Standard Room Assignment: [facility](05/29/22 20:40) cg Diagnosis - Chest pain, unspecified kb Forms: - Medication Reconciliation Form kb - SBAR form kb Signatures: Dispatcher [employer] EDMS Justina Mora, SCHOOL AIDE-C Briana Terrell RN RN aa5 Lo Hines RN RN Pamela Guajardo RN RN Mer Matias RN RN jh5 Gayathri Lowry PABetoC PAAngelica sb4 Corrections: (The following items were deleted from the chart) 20:40 19:19 kb cg
--- NOTE | 2022-05-29 19:19 | ER ---
Nurse's Notes [facility] Name: Julienne Tucker Age: 56 yrs Sex: Female : 1965 Arrival Date: 05/29/2022 Time: 14:31 Bed 9 Private MD: Karan Rodriguez Diagnosis: Chest pain, unspecified Presentation: 05/29 14:45 Chief complaint: Patient states: cough, vomiting. Reports was seen by Dr. Rodriguez and aa5 was prescribed Amoxicillin, pt reports tested positive for RSV. 14:45 Coronavirus screen: cough unrelated to allergies. Ebola Screen: Patient denies travel aa5 to an Ebola-affected area in the 21 days before illness onset. Initial Sepsis Screen: Does the patient meet any 2 criteria? No. Patient's initial sepsis screen is negative. Does the patient have a suspected source of infection? Yes:. Risk Assessment: Do you want to hurt yourself or someone else? Patient reports no desire to harm self or others. Onset of symptoms was 2022. 14:45 Acuity: RJ 3 aa5 14:45 Method Of Arrival: Ambulatory [facility] Triage Assessment: 20:50 General: Appears in no apparent distress. obese, well groomed, Behavior is calm, jh5 cooperative, appropriate for age. Pain: Denies pain. GI: Reports. IT LEAD: 20:50 LMP N/A - control method [facility] Historical: - Allergies: 14:47 Demerol; aa5 14:47 Erythromycin; aa5 14:47 Tetracycline; aa5 14:47 Vancomycin; aa5 14:49 Compazine; aa5 - Home Meds: 14:49 Effexor Oral [Active]; Metoprolol Tartrate Oral [Active]; losartan oral [Active]; aa5 Ozempic subcutaneous [Active]; venlafaxine oral [Active]; - PMHx: 14:47 Depression; Hypertension; aa5 - Immunization history:: Adult Immunizations unknown. - Social history:: Smoking status: Patient denies any tobacco usage or history of. Screenin:47 [facility] ED Fall Risk Assessment (Adult) History of falling in the last 3 months, [facility] including since admission No falls in past 3 months (0 pts) Confusion or Disorientation No (0 pts) Intoxicated or Sedated No (0 pts) Impaired Gait No (0 pts) Mobility Assist Device Used No (0 pt) Altered Elimination No (0 pt) Score/Fall Risk Level 0 - 2 = Low Risk. Abuse screen: Denies threats or abuse. Denies injuries from another. Nutritional screening: No deficits noted. Tuberculosis screening: No symptoms or risk factors identified. Assessment: 17:35 Reassessment: Pt has complained of chest pain on and off x3 since arriving; pt states jh5 the chest pain worsens after ambulating. Pt does become pale and SOB easily, and more so with ambulation. 17:37 Reassessment: Pt oxygen saturation drops periodically but she is able to come back up jh5 to 94-98% without oxygen when she is coached about slowing her breathing. 20:51 GI: jh5 Vital Signs: 14:45 BP 169 / 100; Pulse 86; Resp 20 S; Temp 97.7(TE); Pulse Ox 99% on R/A; Weight 185.97 kg aa5 (R); Height 5 ft. 8 in. (172.72 cm) (R); 15:20 Pulse 92; Resp 26; Pulse Ox 88% ; jh5 16:30 BP 166 / 94; Pulse 89; Resp 24; Pulse Ox 92% ; jh5 16:42 Pulse Ox 86% ; jh5 14:45 Body Mass Index 62.34 (185.97 kg, 172.72 cm) aa5 ED Course: 14:31 Patient arrived in ED. as 14:31 Karan Rodriguez DO is Private Physician. as 14:34 Justina [facility] F[facility]-C [facility] kb 14:34 Karlie Vaughn MD is Attending Physician. kb 14:47 Arm band placed on. aa5 14:49 Triage completed. aa5 15:02 CBC with Diff Sent. jh5 15:02 CMP Sent. jh5 15:02 Lipase Sent. jh5 15:02 Urine Microscopic Only Sent. jh5 15:03 Mer Amezquita, THOMAS is Primary Nurse. jh5 15:39 Chest Pa And Lat (2 Views) XRAY In Process Unspecified. EDMS 19:19 Jorge Cervantes MD is Hospitalizing Provider. kb 20:47 Patient has correct armband on for positive identification. Call light in reach. Side [facility] rails up X 1. Adult w/ patient. 20:47 No provider procedures requiring assistance completed. Inserted saline lock: 20 gauge. 5 Administered Medications: 15:12 Drug: NS 0.9% 1000 ml Route: IV; Rate: 1 bolus; Site: left antecubital; [facility] 15:12 Drug: Zofran (Ondansetron) 4 mg Route: IVP; Site: left antecubital; [facility] 17:07 Drug: DiFLUcan (fluconazole) 150 mg Route: PO; Medication: 20:51 VIS not applicable for this client. [facility] Outcome: 19:19 Decision to Hospitalize by Provider. kb 21:46 Patient left the ED. bb Signatures: Dispatcher [employer] EDMS Justina Mora, PAPITO-C EXTERIOR WORK HELPER-Josselin Parrish Brenda RN RN bb Briana Phelan, THOMAS RN aa5 Lo Hines RN RN ss Mer Amezquita RN RN jh5
--- NOTE | 2022-05-29 19:58 | P.HP ---
Certification for Inpatient Patient admitted to: Observation With expected LOS: <2 Midnights Patient will require the following post-hospital care: None Practitioner: I am a practitioner with admitting privileges, knowledge of patient current condition, hospital course, and medical plan of care. Services: Services provided to patient in accordance with Admission requirements found in Title 42 Section 412.3 of the Code of Federal Regulations Patient History Date of Service: 05/29/22 Primary Care Provider: Jennifer Reason for admission: Hypoxia, Chest Pain History of Present Illness: Patient is a 56-year-old female with past medical history of hypertension, depression, and morbid obesity who presented to the emergency department with complaints of fever, nausea, dizziness, and cough. Patient reports that she started experiencing the symptoms about 7 days ago, went to an urgent care where she was diagnosed with RSV and strep throat and prescribed amoxicillin. Patient reports that her symptoms have not gotten any better and she started experiencing nausea and vomiting last night. She states that when she walks around she starts experiencing shortness of breath and chest pain. COVID flu RSV are negative today. Chest x-ray negative. She was noted to desaturate to 86% when walking but saturating 96% on resting. No significant lab abnormalities. ED provider wishes admit patient for observation. Allergies aluminum hydroxide [From Maalox] Allergy (Verified 02/15/22 08:29) Hives calcium carbonate [From Maalox] Allergy (Verified 02/15/22 08:29) Hives erythromycin base [Erythromycin Base] Allergy (Verified 02/15/22 08:29) Hives levofloxacin [From Levaquin] Allergy (Verified 02/15/22 08:29) Hives/Rash lidocaine [Lidocaine] Allergy (Verified 02/15/22 08:29) Hives? magnesium hydroxide [From Maalox] Allergy (Verified 02/15/22 08:29) Hives meperidine HCl [From Demerol] Allergy (Verified 02/15/22 08:29) Hives prednisone Allergy (Verified 02/15/22 08:29) Hives prochlorperazine edisylate [From Compazine] Allergy (Verified 02/15/22 08:29) Hives prochlorperazine maleate [From Compazine] Allergy (Verified 02/15/22 08:29) Hives simethicone [From Maalox] Allergy (Verified 02/15/22 08:29) Hives tetracycline [Tetracycline] Allergy (Verified 02/15/22 08:29) Hives zpac Allergy (Uncoded 02/15/22 08:29) Hives Home medications list reviewed: Yes Home Medications: Metoprolol Tartrate [Lopressor*] 25 mg PO BID 09/11/18 Codeine/APAP [Tylenol #3*] 1 tab PO QID 02/14/22 Sulfamethoxazole/Trimethoprim [Bactrim 400-80 mg Tablet] 1 tab PO BID 02/14/22 Venlafaxine HCl [Effexor] 1 tab PO DAILY 02/14/22 - Past Medical/Surgical History Diabetic: No -: Hypertension -: Depression -: Cervical Cancer -: Obesity Hypoventilation Syndrome -: Hysterectomy -: CABG Psychosocial/ Personal History: Patient is . - Social History Smoking Status: Never smoker Alcohol use: No CD- Drugs: No Caffeine use: Yes Place of Residence: Home Review of Systems General: Fever ENT: Throat Pain Respiratory: Shortness of Breath, SOB with Excertion Cardiovascular: Chest Pain Gastrointestinal: Nausea, Vomiting Physical Examination - Vital Signs Temperature: 97.7 F Blood Pressure: 166/94 Pulse: 89 Respirations: 24 Pulse Ox (%): 92 - Physical Exam General: Alert, In no apparent distress, Obese HEENT: Atraumatic, PERRLA, EOMI, Sclerae nonicteric Neck: Supple, 2+ carotid pulse no bruit Respiratory: Clear to auscultation bilaterally, Normal air movement Cardiovascular: Regular rate/rhythm, Normal S1 S2 Gastrointestinal: Normal bowel sounds, No tenderness Musculoskeletal: No tenderness Integumentary: No rashes Neurological: Normal speech, Normal strength at 5/5 x4 extr, Normal tone, Normal affect - Studies Laboratory Data (last 24 hrs) 05/29/22 15:01: Sodium 136, Potassium 4.0, BUN 12, Creatinine 0.93, Glucose 120 H, Total Bilirubin 0.5, AST 40 H, ALT 72 H, Alkaline Phosphatase 99, Lipase 102 05/29/22 15:01: WBC 5.20, Hgb 13.2, Hct 38.5, Plt Count 259 Assessment and Plan - Problems (Diagnosis) (1) Hypoxia Current Visit: Yes Status: Acute (2) Chest pain Current Visit: Yes Status: Acute Qualifiers: Chest pain type: unspecified Qualified Code(s): R07.9 - Chest pain, unspecified (3) Morbid obesity Current Visit: Yes Status: Chronic (4) Hypertension Current Visit: Yes Status: Chronic Qualifiers: Hypertension type: primary hypertension Qualified Code(s): I10 - Essential (primary) hypertension - Plan Patient is admitted for observation for hypoxia/dyspnea on exertion. Continue with supportive measuressupplemental O2 as needed, antitussives, breathing treatments, decongestions, antipyretics. Patient has an allergy to prednisone, will hold off on steroid therapy. Physical therapy consult to have patient ambulate. Patient states that she is supposed to wear CPAP at night but cannot tolerate the mask. Will likely require nasal cannula while sleeping. Will repeat troponin morning given her chest pain with exertion. Unlikely cardiac. Monitor and replete electrolytes per protocol. Reconcile and continue home medications. Lovenox for VTE prophylaxis. Full code Discharge Plan: Home Plan to discharge in: 24 Hours - Advance Directives Does patient have a Living Will: No Does patient have a Durable POA for Healthcare: No - Code Status/Comfort Care Code Status Assessed: Yes Code Status: Full Code Physician Review: Patient Assessed, Agree with Above Assessment and Plan Critical Care: No Time Spent Managing Pts Care (In Minutes): 50
[2022-05-29 20:00] LABS: SARS-COV-2 RT PCR NEGATIVE (NEGATIVE)
[2022-05-29] MEDS ORDERED: IPRATROPIUM BROM 0.5MG/2.5ML NEB PRN (21:11)
[2022-05-29] MEDS ORDERED: ALBUTEROL 2.5 MG/3 ML NEB SOL NEB PRN (21:11)
[2022-05-29] MEDS ORDERED: MUCINEX DM 12HR.SR TAB PO PRN (21:11)
[2022-05-29 21:53] VITALS: BMI 60.9
[2022-05-29] MEDS ORDERED: VENLAFAXINE 50 MG PO SCH (22:18)
[2022-05-29] MEDS ORDERED: BENZONATATE 100 MG CAP PO PRN (22:18)
[2022-05-29] MEDS ORDERED: VENLAFAXINE HCL XR 75 MG CAP PO SCH (22:59)
[2022-05-29] MEDS: METOPROLOL TAR 25 MG TAB PO SCH (23:09)
[2022-05-29 23:58] VITALS: O2SAT 94
[2022-05-30] MEDS: ONDANSETRON 4 MG/2 ML VIAL IV PRN ×2 (01:48→08:49)
[2022-05-30] MEDS: ACETAMINOPHEN 500 MG TAB PO PRN ×3 (01:48→14:32)
[2022-05-30 06:12] LABS: Troponin High Sensitivity 7.4 pg/mL (<58.9)
[2022-05-30] MEDS: METOPROLOL TAR 25 MG TAB PO SCH (08:08)
[2022-05-30] MEDS ORDERED: ENOXAPARIN 40 MG/0.4 ML SQ SCH (09:00)
[2022-05-30] MEDS ORDERED: LOSARTAN POTASSIUM 50 MG TABLET PO SCH (09:00)
--- NOTE | 2022-05-30 11:03 | RAD REPORT ---
EXAM DESCRIPTION: CT - Chest For Pe Angio - 05/30/2022 10:42 am CLINICAL HISTORY: Hypoxia COMPARISON: 2019 TECHNIQUE: Dynamically enhanced axial 3 mm thick images of the chest were obtained during administra tion of <100> mL Isovue 370 IV contrast. Coronal and oblique reconstruction images were generated and reviewed. Exam utilizes a protocol for optimal evaluation of pulmonary arterial tree. Maximum intensity projections 3D imaging was utilized All CT scans are performed using dose optimization technique as appropriate and may include automated exposure control or mA/KV adjustment according to patient size. FINDINGS: A pulmonary embolus is not seen. A thoracic aortic aneurysm is not noted. A pleural effusion is not seen. A pericardial effusion is not seen. A lung consolidation is not present. IMPRESSION: Negative for a pulmonary embolism.
--- NOTE | 2022-05-30 12:20 | P.DS ---
Admission Date: 05/29/22 Discharge Date: 05/30/22 Primary Care Provider: Jennifer Disposition: [facility] HOME/HOME HEALTH CARE Discharge Condition: FAIR Reason for Admission: Hypoxia, Chest Pain - Problems (1) Upper respiratory infection Current Visit: Yes Status: Acute (2) Hypoxia Current Visit: Yes Status: Acute (3) Hypertension Current Visit: Yes Status: Chronic Qualifiers: Hypertension type: primary hypertension Qualified Code(s): I10 - Essential (primary) hypertension (4) Morbid obesity Current Visit: Yes Status: Chronic Brief History of Present Illness: Patient is a 56-year-old female with past medical history of hypertension, depression, and morbid obesity who presented to the emergency department with complaints of fever, nausea, dizziness, and cough. Patient reports that she started experiencing the symptoms about 7 days ago, went to an urgent care where she was diagnosed with RSV and strep throat and prescribed amoxicillin. Patient reports that her symptoms did not get any better and she started experiencing nausea and vomiting last night. She reported shortness of breath with exertion. COVID flu RSV are negative today. Chest x-ray negative. She was noted to desaturate to 86% when walking but saturating 96% on resting. No significant l ab abnormalities. Patient placed under observation for further management. Hospital Course: Patient placed on observation on the medical floor and treated with bronchodilators and other supportive treatment including antiemetics. Her troponin trended negative. Patient clinically improved and tolerated her diet. She was seen and evaluated by PT. She was able to ambulate. Her oxygen saturation was stable with ambulation, no hypoxia. CTA thorax was negative for pulmonary embolism or infiltrate or edema. Patient is deemed stable for discharge. She feels the nebulizers helped her shortness of breath. She is prescribed nebulizers for acute infective bronchitis. Vital Signs/Physical Exam: Temp Pulse Resp BP Pulse Ox 96.8 F 66 18 142/79 H 98 05/30/22 12:00 05/30/22 12:00 05/30/22 12:00 05/30/22 12:05/30/22 12:00 General: Alert, In no apparent distress, Oriented x3, Obese HEENT: Mucous membr. moist/pink Neck: JVD not distended Respiratory: Clear to auscultation bilaterally, Diminished Cardiovascular: Regular rate/rhythm, Normal S1 S2 Gastrointestinal: Soft and benign Musculoskeletal: No tenderness Integumentary: No cyanosis Neurological: Normal strength at 5/5 x4 extr Laboratory Data at Discharge: WBC 5.20 K/uL (4.3-10.9) 05/29/22 15:01 Hgb 13.2 g/dL (12.0-15.0) 05/29/22 15:01 Hct 38.5 % (36.0-45.0) 05/29/22 15:01 Plt Count 259 K/uL (152-406) 05/29/22 15:01 Sodium 136 mmol/L (136-145) 05/29/22 15:01 Potassium 4.0 mmol/L (3.5-5.1) 05/29/22 15:01 BUN 12 mg/dL (7-18) 05/29/22 15:01 Creatinine 0.93 mg/dL (0.55-1.02) 05/29/22 15:01 Glucose 120 mg/dL (74-106) H 05/29/22 15:01 Total Bilirubin 0.5 mg/dL (0.2-1.0) 05/29/22 15:01 AST 40 U/L (15-37) H 05/29/22 15:01 ALT 72 U/L (13-56) H 05/29/22 15:01 Alkaline Phosphatase 99 U/L (45-117) 05/29/22 15:01 Triglycerides 100 mg/dL (<150) 05/30/22 05:35 Cholesterol 165 mg/dL (<200) 05/30/22 05:35 HDL Cholesterol 37 mg/dL (40-60) L 05/30/22 05:35 Cholesterol/HDL Ratio 4.46 05/30/22 05:35 Lipase 102 U/L (73-393) 05/29/22 15:01 Home Medications: Metoprolol Tartrate [Lopressor*] 25 mg PO BID 09/11/18 Amoxicillin 500 mg PO TID 05/29/22 Losartan Potassium [Cozaar*] 50 mg PO DAILY 05/29/22 Venlafaxine HCl [Venlafaxine HCl ER] 75 mg PO BEDTIME 05/29/22 Albuterol Neb [Proventil 0.083% Neb Soln] 2.5 mg NEB Q6HP PRN #120 amp 05/30/22 Benzonatate [Tessalon Perle*] 100 mg PO TID PRN #30 cap 05/30/22 Ipratropium Neb [Atrovent*] 0.5 mg NEB [id number] PRN #120 amp 05/30/22 Nebulizer 1 each QID #1 kit 05/30/22 traMADol HCL [Ultram*] 50 mg PO Q6H PRN #15 tab 05/30/22 New Medications: Ipratropium Neb [Atrovent*] 0.5 mg NEB [id number] PRN #120 amp PRN Reason: Shortness Of Breath Albuterol Neb [Proventil 0.083% Neb Soln] 2.5 mg NEB Q6HP PRN #120 amp PRN Reason: Shortness Of Breath Nebulizer 1 each QID #1 kit Benzonatate [Tessalon Perle*] 100 mg PO TID PRN #30 cap PRN Reason: Cough traMADol HCL [Ultram*] 50 mg PO Q6H PRN #15 tab PRN Reason: Pain Diet: AHA Activity: Ad bobbi Followup: NONE,NONE [Primary Care Provider] -
--- NOTE | 2022-05-30 14:23 | EKG ---
Test Date: 2022-05-29 Test Time: 17:12:17 Pizza Cook: LOLLY MEASUREMENT RESULTS: Intervals: Rate: 93 VT: 180 QRSD: 144 QT: 410 QTc: 509 [place]: P: 60 VT: 180 QRS: 18 T: 43 INTERPRETIVE STATEMENTS: Normal sinus rhythm Right bundle branch block Abnormal ECG Compared to ECG 02/14/2022 11:36:48 No significant changes Electronically Signed On 05-30-22 14:21:16 GARDENING INSTRUCTOR by Eleazar Antonio
[2022-05-30 16:35] VITALS: BP 142/63; TEMP 96.9
== END 2022-05-30 16:46 | disposition home health service (06) ==
LOC: ER 14:28 → ERHOLD 19:50 → 2ND 20:58
PROVIDERS: ADMIT Internal Medicine; ATTEND Internal Medicine
DX: J06.9 Acute upper respiratory infection, unspecified (principal); R09.02 Hypoxemia; R07.9 Chest pain, unspecified; I10 Essential (primary) hypertension; E66.01 Morbid (severe) obesity due to excess calories; F32.A Depression, unspecified; Z68.44 Body mass index [BMI] 60.0-69.9, adult; Z88.1 Allergy status to other antibiotic agents; Z88.8 Allergy status to other drugs, medicaments and biological substances; Z85.41 Personal history of malignant neoplasm of cervix uteri; Z20.822 Contact with and (suspected) exposure to COVID-19
CPT/HCPCS: 93005; 85025; 36415; 80061; 84484 ×2; 83690; 80053; 83880; 0241U; 71275; 71046; 97161; 97530; 94010; 94760 ×2; 96374; 99284; Q9967; J1650; J7030; J2405 ×3; G0378 ×3; 81003; 81015

== ENCOUNTER 2023-01-29 10:01 | Emergency (ER) | payer BC, OTHER, SELFPAY ==
--- OUTSIDE RECORDS SUMMARY | 2023-01-29 10:06 | XMS REPORT | Continuity of Care Document ---
:1965 Author Organization [facility] t Address [address] [place] [address] Care Team Providers Name Role Phone PRACHI RODRIGUEZ Attending Clinician Unavailable JASSON AVALOS Attending Clinician Unavailable LAB90 Attending Clinician Unavailable TESTING, LJ TERESA FOWLER Attending Clinician Unavailable JUAN BAZAN Attending Clinician Unavailable LAB53 Attending Clinician Unavailable Prachi Rodriguez DO Attending Clinician Payers Payer Name Policy Type Policy Number Effective Date Expiration Date S marbin [facility] 2 [id number] 2022 00:00:00 [facility] 3 [id number] 2021 00:00:00 Problems Condition Condition Condition Status Onset Resolution Last Treating Co mments Source Name Details Category Date Date Treatment Clinician Date Ganglion Ganglion Disease Active Kelse y cyst cyst 12-24 Seybold 00:00: - 00 Externa l Acute Acute Disease Active 2021-05 Apurva left-sided [...] Disease Active Overview : Apurva hammonds s 8-31 Formattin Seybold 00:00: g of this - 00 note Externa might be l different from the original. Lab 01/07 A1c 5.8 Well adult Well adult Disease Active K elsey exam exam 8-30 Seybold 00:00: - 00 Externa l Primary [...] Externa s l Calcium Propensi Active 2021-05 Maryam Mixon Carbonat ty to 1-22 reaction( Seybo ld e adverse 00:00: s): Hives - reaction 00 Externa s l Dimethic Propensi Active 2021-05 Other Apurva one ty to 1-22 reaction( Seybold Copolyol adverse 00:00: s): Hives - reaction 00 Externa s l Erythrom Propensi Active 2021-05 Other Apurva ycin ty to 06-09 reaction( Seybold Base adverse 00:00: s): Hives [...] Externa s l Azithrom Propensi Active Rash Apurva ycin ty to 830 Seybold adverse 00:00: - reaction 00 Externa s l Penicill Propensi Active Nausea Only K elsey ins ty to 8-30 Seybold adverse 00:00: - reaction 00 Externa s l Tetracyc Propensi Active Rash Apurva lines ty to 8-30 Seybold adverse 00:00: - reaction 00 Externa s l Social History Social Habit Start Date Stop Date Quantity Comments Source History of tobacco Passive smoker Fili white Seybold use - External Gender identity Apurva Se ybold - External Sexual orientation Apurva Seybold - External Tobacco use and 2022-12-24 2022-12-24 Smokeless tobacco Ke cindy Yanes exposure 00:00:00 00:00:00 non-user - External Alcohol intake 2022-12-24 2022-12-24 Ex-drinker Apurva logan 00:00:00 00:00:00 (finding) - External History of Social 2022-12-24 2022-12-24 Apurva Yanes function 00:00:00 00:00:00 - External Education 2022-01-15 2022-01-15 13 Apurva Yanes 00:00:00 00:00:00 - External Sex [birth year] At [birth year] Apurva grider 00:00:00 00:00:00 - External Smoking Status Start Date Stop Date Source Never smoked tobacco Apurva Pelaez old - External Medications Ordered Filled Start Stop Current Ordering Indication Dosage Frequency Signature Comments Components Source Medication Medication Date Date Medication? Clinician (SIG) Name Name Metoprolol Yes 50mg Take 1 Kelse y Tartrate 50 8-08 tablet (50 Se ybold MG oral 08:39: mg total) - Tablet 22 by mouth 2 Externa times l daily Venlafaxine Yes [id number] 150mg Take 1 Apurva HCl 150 MG 8-08 capsule Seybol d oral 00:00: (150 mg - Capsule 24 00 total) by Exte rna Hour mouth l Sustained daily Release Alprazolam Yes [id number] .5mg QD Take 1 Apurva 0.5 MG oral 8-08 tablet Seybol d Tablet 00:00: (0.5 mg - 00 total) by Externa mouth l nightly as needed for sleep or anxiety Metoprolol Yes 50mg Take 50 mg K elsey Tartrate 50 2-28 by mouth 2 Se ybold MG oral 09:21: times - Tablet 40 daily Externa l Semaglutide Yes [id number] 2mg Inject 2 Apurva (2 mg/dose) 2-28 mg into Seybo ld 8 mg/3 mL 00:00: the skin - SQ Solution 00 once a Canned Food Reconditioning Inspector a Pen-Injecto week l r Semaglutide 2022- No [id number] 2mg Inject 2 Apurva (2 mg/dose) 2-28 08-08 mg into Seyb old 8 mg/3 mL 00:00: 00:00 the skin - SQ Solution 00 :00 once a Canned Food Reconditioning Inspector a Pen-Injecto week l r Benzonatate 2022-0 Yes TAKE 1 Dot ey 100 MG oral 05-30 TABLET Seybol d Capsule 00:00: (100MG) BY - 00 MOUTH Externa THREE l TIMES A DAY NEEDED FOR COUGH Ipratropium 2022-0 Yes USE 0.5 MG Apurva (ATROVENT) 05-30 VIA NEB Seybol d 0.02 % 00:00: EVERY 6 - inhalation 00 HOURS Exter na Solution NEEDED FOR l SHORTNESS OF BREATH Nebulizers 2022-0 Yes USE Shelly y (InnoSpire 05-30 DIRECTED Seybo ld Essence 00:00: FOUR TIMES - Nebulizer) 00 A DAY Externa does not l apply Misc Benzonatate 2022-0 202- No TAKE 1 Arvin sey 100 MG oral 05-30 TABLET Seybo ld Capsule 00:00: 00:00 (100MG) BY - 00 :00 MOUTH Externa THREE l TIMES A DAY NEEDED FOR COUGH Ipratropium 2022-0 202- No USE 0.5 MG Apurva (ATROVENT) 05-30- VIA NEB Seybo ld 0.02 % 00:00: 00:00 EVERY 6 - inhalation 00 :00 HOURS Exter na Solution NEEDED FOR l SHORTNESS OF BREATH Nebulizers 2022-0 2023- No USE Dot ey (InnoSpire 05-30 DIRECTED Seyb old Essence 00:00: 00:00 FOUR TIMES - Nebulizer) 00 :00 A DAY Externa does not l apply Misc Metoprolol 2022-0 Yes 50mg Take 50 mg K elsey Tartrate 50 -09 by mouth 2 Se ybold MG oral 15:41: times - Tablet 41 daily Externa l Guaifenesin 2022-0 Yes [id number] 1200mg Take 2 Apurva (Mucinex) -09 tablets Seybold 600 MG oral 00:00: (1,200 mg - Tablet 12 total) by Exter na Hour mouth 2 l Sustained times Release daily Amoxicillin 2022-0 Yes [id number] 500mg Take 1 Apurva 500 MG oral -09 capsule Seybo ld Capsule 00:00: (500 mg - 00 total) by Externa mouth 3 l times daily Albuterol 2022-0 Yes [id number] 2.5mg Take 2.5 Apurva Sulfate 2.5 -09 mg by Seybold MG/0.5ML 00:00: nebulizati - inhalation 00 on once Canned Food Reconditioning Inspector a Inhalant for 1 dose l Solution guaiFENesin 2022-0 Yes [id number] 5mL Q.[id number] Take 5 mL Apurva -Codeine 05-27 [id number] by mouth 3 Seybold (Cheratussi 00:00: 3D times - n AC) 00 daily as Externa 100-10 needed for l MG/5ML oral cough Syrup Guaifenesin 2022-0 2022- No [id number] 1200mg Take 2 Apurva (Mucinex) 05-27 tablets Seybol d 600 MG oral 00:00: 00:00 (1,200 mg - Tablet 12 00 :00 total) by Exter na Hour mouth 2 l Sustained times Release daily Amoxicillin 2022-0 2022- No [id number] 500mg Take 1 Apurva 500 MG oral 05-27 capsule Seyb old Capsule 00:00: 00:00 (500 mg - 00 :00 total) by Externa mouth 3 l times daily guaiFENesin 2022-0 2022- No [id number] 5mL Q.[id number] Take 5 mL Apurva -Codeine 05-27 [id number] by mouth 3 Seybold (Cheratussi 00:00: 00:00 3D times - n AC) 00 :00 daily as Externa 100-10 needed for l MG/5ML oral cough Syrup Albuterol 2022-0 2022- No [id number] 2.5mg Q4H Take 2.5 Apurva (PROVENTIL) 05-27 mg by Seybol d (2.5 00:00: 00:00 nebulizati - MG/3ML) 00 :00 on every 4 Canned Food Reconditioning Inspector a 0.083% hours as l inhalation needed for Inhalant wheezing Solution Semaglutide 2022-0 Yes [id number] 1mg Inject 1 Apurva (1 mg/dose) 1-03 mg into Seybo ld 2 mg/1.5 mL 00:00: the skin - SQ Solution 00 once a Canned Food Reconditioning Inspector a Pen-Injecto week l r OZEMPIC ( Yes Apurva mg/dose) 4 1-03 Seybold mg/3 mL SQ 00:00: - Solution 00 Externa Pen-Injecto l r Semaglutide 2022- No [id number] 1mg Inject 1 Apurva (1 mg/dose) 05-21-28 mg into Seyb old 2 mg/1.5 mL 00:00: 00:00 the skin - SQ Solution 00 :00 once a Canned Food Reconditioning Inspector a Pen-Injecto week l r OZEMPIC (2022- No Apurva mg/dose) 4 - 02-28 Seybold mg/3 mL SQ 00:00: 00:00 - Solution 00 :00 Externa Pen-Injecto l r Benzonatate Yes 200mg Take 200 K elsey 200 MG oral 1-02 mg by Seybold Capsule 00:00: mouth - 00 every 8 Externa hours l Benzonatate 2022- No 200mg Take 200 Apurva 200 MG oral -02 02-28 mg by Seybol d Capsule 00:00: 00:00 mouth - 00 :00 every 8 Externa hours l Metoprolol 2021-05 Yes 50mg Take 50 mg K elsey Tartrate 50 2-23 by mouth 2 Se ybold MG oral 09:43: times - Tablet 00 daily Externa l Losartan 2021-05 Yes [id number] 50mg Take 1 Arvin sey Potassium 2-23 tablet (50 Seyb old 50 MG oral 00:00: mg total) - Tablet 00 by mouth Externa daily l Losartan 2021-05 Yes [id number] 50mg Take 1 Arvin sey Potassium 2-23 tablet (50 Seyb old 50 MG oral 00:00: mg total) - Tablet 00 by mouth Externa daily l Losartan 2021-05 Yes [id number] 50mg Take 1 Arvin sey Potassium 2-23 tablet (50 Seyb old 50 MG oral 00:00: mg total) - Tablet 00 by mouth Externa daily l Losartan 2021-05- No [id number] 50mg Take 1 Ke lsey Potassium 2-23 08-08 tablet (50 Sey bold 50 MG oral 00:00: 00:00 mg total) - Tablet 00 :00 by mouth Externa daily l Losartan 2021-05- No [id number] 25mg Take 1 Ke lsey Potassium 2-14 12-23 tablet (25 Sey bold 25 MG oral 00:00: 00:00 mg total) - Tablet 00 :00 by mouth Externa daily l Metoprolol 2021-05 Yes 50mg Take 50 mg K elsey Tartrate 50 2-12 by mouth 2 Se ybold MG oral 16:31: times - Tablet 17 daily Externa l Losartan 2021-05 Yes [id number] 25mg Take 1 Arvin sey Potassium 2-12 tablet (25 Seyb old 25 MG oral 00:00: mg total) - Tablet 00 by mouth Externa daily l Cyclobenzap 2021-05 Yes [id number] 10mg Q.5D Take 1 Apurva rine HCl 10 2-12 tablet (10 Se ybold MG oral 00:00: mg total) - Tablet 00 by mouth 2 Externa times l daily as needed for muscle spasms Cyclobenzap 2021-05 Yes [id number] 10mg Q.5D Take 1 Apurva rine HCl 10 2-12 tablet (10 Se ybold MG oral 00:00: mg total) - Tablet 00 by mouth 2 Externa times l daily as needed for muscle spasms Cyclobenzap 2021-05 Yes [id number] 10mg Q.5D Take 1 Auprva rine HCl 10 2-12 tablet (10 Se ybold MG oral 00:00: mg total) - Tablet 00 by mouth 2 Externa times l daily as needed for muscle spasms Cyclobenzap 2021-05 Yes [id number] 10mg Q.5D Take 1 Apurva rine HCl 10 2-12 tablet (10 Se ybold MG oral 00:00: mg total) - Tablet 00 by mouth 2 Externa times l daily as needed for muscle spasms Cyclobenzap 2021-05- No [id number] 10mg Q.5D Take 1 Apurva rine HCl 10 2-12 08-08 tablet (10 S eybold MG oral 00:00: 00:00 mg total) - Tablet 00 :00 by mouth 2 Externa times l daily as needed for muscle spasms Metoprolol 2021-05 Yes 50mg Take 50 mg K elsey Tartrate 50 1-30 by mouth 2 Se ybold MG oral 13:28: times - Tablet 16 daily Externa l Cyclobenzap 2021-05 Yes [id number] 10mg Q.5D Take 1 Apurva rine HCl 10 1-30 tablet (10 Se ybold MG oral 00:00: mg total) - Tablet 00 by mouth 2 Externa times l daily as needed for muscle spasms Tramadol 2021-05 Yes [id number] 50mg Q.5D Take 1 Ke lsey HCl 50 MG 1-30 tablet (50 Seyb old oral Tablet 00:00: mg total) - 00 by mouth 2 Externa times l daily as needed for pain Tramadol 2021-05 Yes [id number] 50mg Q.5D Take 1 Ke lsey HCl 50 MG 1-30 tablet (50 Seyb old oral Tablet 00:00: mg total) - 00 by mouth 2 Externa times l daily as needed for pain Tramadol 2021-05 Yes [id number] 50mg Q.5D Take 1 Ke lsey HCl 50 MG 1-30 tablet (50 Seyb old oral Tablet 00:00: mg total) - 00 by mouth 2 Externa times l daily as needed for pain Tramadol 2021-05 Yes [id number] 50mg Q.5D Take 1 Ke lsey HCl 50 MG 1-30 tablet (50 Seyb old oral Tablet 00:00: mg total) - 00 by mouth 2 Externa times l daily as needed for pain Tramadol 2021-05 Yes [id number] 50mg Q.5D Take 1 Ke lsey HCl 50 MG 1-30 tablet (50 Seyb old oral Tablet 00:00: mg total) - 00 by mouth 2 Externa times l daily as needed for pain Tramadol 2021-05- No [id number] 50mg Q.5D Take 1 K elsey HCl 50 MG 1-30 08-08 tablet (50 Sey bold oral Tablet 00:00: 00:00 mg total) - 00 :00 by mouth 2 Externa times l daily as needed for pain Cyclobenzap 2021-05- No [id number] 10mg Q.5D Take 1 Apurva rine HCl [...] 44 daily Externa l Semaglutide 2021-05 Yes [id number] .5mg Inject 0.5 Apurva (0.25 or 1-22 mg into Seybold 0.5 00:00: the skin - mg/dose) 2 00 once a Externa mg/1.5 mL week l SQ Solution Pen-Injecto r Semaglutide 2021-05 Yes [id number] .5mg Inject 0.5 Apurva (0.25 or 1-22 mg into Seybold 0.5 00:00: the skin - mg/dose) 2 00 once a Externa mg/1.5 mL week l SQ Solution Pen-Injecto r Semaglutide 2021-05 Yes [id number] .5mg Inject 0.5 Apurva (0.25 or 1-22 mg into Seybold 0.5 00:00: the skin - mg/dose) 2 00 once a Externa mg/1.5 mL week l SQ Solution Pen-Injecto r Semaglutide 2021-05 Yes [id number] .5mg Inject 0.5 Apurva (0.25 or 1-22 mg into Seybold 0.5 00:00: the skin - mg/dose) 2 00 once a Externa mg/1.5 mL week l SQ Solution Pen-Injecto r Semaglutide 2021-05 Yes [id number] .5mg Inject 0.5 Apurva (0.25 or 1-22 [...] Externa Solution DRESSING l CHANGES Sodium 2021-05 USE Apurva Chloride 0-26 12-12 DIRECTED Seybol d 0.9 % 00:00: 00:00 FOR WET TO - irrigation 00 :00 DRY Externa Solution DRESSING l CHANGES Venlafaxine 2021-05- No 75mg Take 75 mg Apurva HCl 75 MG 0-25 10-25 by mouth Seybo ld oral 15:05: 00:00 daily - Capsule 24 13 :00 Externa Hour l Sustained Release Venlafaxine 2021-05 Yes [id number] 75mg Take 1 Apurva HCl 75 MG 0-25 capsule Seybold oral 00:00: (75 mg - Capsule 24 00 total) by Exte rna Hour mouth l Sustained daily Release Venlafaxine 2021-05 Yes [id number] 75mg Take 1 Apurva HCl 75 MG 0-25 capsule Seybold oral 00:00: (75 mg - Capsule 24 00 total) by Exte rna Hour mouth l Sustained daily Release Venlafaxine 2021-05 Yes [id number] 75mg Take 1 Apurva HCl 75 MG 0-25 capsule Seybold oral 00:00: (75 mg - Capsule 24 00 total) by Exte rna Hour mouth l Sustained daily Release Venlafaxine 2021-05 Yes [id number] 75mg Take 1 Apurva HCl 75 MG 0-25 capsule Seybold oral 00:00: (75 mg - Capsule 24 00 total) by Exte rna Hour mouth l Sustained daily Release Venlafaxine 2021-05 Yes [id number] 75mg Take 1 Apurva HCl 75 MG 0-25 capsule Seybold oral 00:00: (75 mg - Capsule 24 00 total) by Exte rna Hour mouth l Sustained daily Release Venlafaxine 2021-05 Yes [id number] 75mg Take 1 Apurva HCl 75 MG 0-25 capsule Seybold oral 00:00: (75 mg - Capsule 24 00 total) by Exte rna Hour mouth l Sustained daily Release Semaglutide 2021-05 Yes [id number] .25mg Inject Apurva (0.25 or 0-25 104 0.25 mg Seybold 0.5 00:00: into the - mg/dose) 2 00 skin once Exte rna mg/1.5 mL a week l SQ Solution Pen-Injecto r Venlafaxine 2021-05 Yes [id number] 75mg Take 1 Apurva HCl 75 MG 0-25 capsule Seybold oral 00:00: (75 mg - Capsule 24 00 total) by Exte rna Hour mouth l Sustained daily Release Venlafaxine 2021-05 Yes [id number] 75mg Take 1 Apurva HCl 75 MG 0-25 capsule Seybold oral 00:00: (75 mg - Capsule 24 00 total) by Exte rna Hour mouth l Sustained daily Release Venlafaxine 2021-05- No [id number] 75mg Take 1 Apurva HCl 75 MG 0-25 08-08 capsule Seybol d oral 00:00: 00:00 (75 mg - Capsule 24 00 :00 total) by Exte rna Hour mouth l Sustained daily Release Semaglutide 2021-05- No [id number] .25mg Inject Apurva (0.25 or 0-25 - 104 0.25 mg Seybold 0.5 00:00: 00:00 into the - mg/dose) 2 00 :00 skin once Exte rna mg/1.5 mL a week l SQ Solution Pen-Injecto r Ciprofloxac 2021-05- No Kelse y in HCl 500 0-17 - Seybold MG oral 00:00: 00:00 - Tablet 00 :00 Externa l Venlafaxine Yes 75mg Take 75 mg Apurva HCl 75 MG 02-12 by mouth Seybol d oral 13:50: daily - Capsule 24 48 Externa Hour l Sustained Release Metoprolol Yes 50mg Take 50 mg K elsey Tartrate 50 - by mouth 2 Se ybold MG oral 13:50: times - Tablet 48 daily Externa l Metoprolol Yes 50mg Take 50 mg K elsey Tartrate 50 9- by mouth 2 Se ybold MG oral 13:50: times - Tablet 48 daily Externa l Metoprolol Yes 50mg Take 50 mg K elsey Tartrate 50 9- by mouth 2 Se ybold MG oral 13:50: times - Tablet 48 daily Externa l Lisdexamfet 2021- No 60mg Take 60 mg Apurva amine 02-12- by mouth Seybold Dimesylate 13:50: 00:00 every - (Vyvanse) 37 :00 morning Externa 60 MG oral l Capsule Mupirocin Yes [id number] Apply 1 Apurva (BACTROBAN) 02-12 applicatio Se ybold 2 % apply 00:00: n - externally 00 topically Exte rna Ointment 2 times l daily Mupirocin Yes [id number] Apply 1 Apurva (BACTROBAN) 02-12 applicatio Se ybold 2 % apply 00:00: n - externally 00 topically Exte rna Ointment 2 times l daily Mupirocin 2021- No [id number] Apply 1 Apurva (BACTROBAN) 02-12 applicatio S eybold 2 % apply 00:00: 00:00 n - externally 00 :00 topically Exte rna Ointment 2 times l daily TRIMETHOPRI 2021- No [id number] 1{tbl} Take 1 Apurva M-SULFAMETH 02-12 tablet by marni OXAZOLE 00:00: 04:59 mouth 2 - 800-160 MG 00 :00 times Externa oral Tablet daily for l 7 days Blood 2021- No [id number] Check BP Arvin sey Pressure 01-15 daily [...] - External Tdap- (Boostrix, 2022-01-15 Completed Apurva Hammonds eybold Adacel) 00:00:00 - External Tdap- (Boostrix, 2022-01-15 Completed Apurva johnbold Adacel) 00:00:00 - External Tdap- (Boostrix, 2022-01-15 Completed Apurva Hammonds eybold Adacel) 00:00:00 - External Tdap- (Boostrix, 2022-01-15 Completed Apurva Hammonds eybold Adacel) 00:00:00 - External Vital Signs Vital Name Observation Time Observation Value Comments Source Systolic blood 2022-12-24 13:39:00 137 mm[Hg] Apurva Seybold - pressure External Diastolic blood 2022-12-24 13:39:00 84 mm[Hg] Shelly mcelroy Seybold - pressure External Heart rate 2022-12-24 13:39:00 59 /min Apurva Hammonds eybold - External Body temperature 2022-12-24 13:39:00 36.89 Kimi Dot john Seybold - External Respiratory rate 2022-12-24 13:39:00 21 /min Dot john Seybold - External Body height 2022-12-24 13:39:00 172.7 cm Apurva johnbopriyanka - External Body weight 2022-12-24 13:39:00 183.707 kg Apurva johnbopriyanka - External BMI 2022-12-24 13:39:00 61.58 kg/m2 Apurva johnbold - External Oxygen saturation in 2022-12-24 13:39:00 98 /min Apurva Seemilynehal - Arterial blood by External Pulse oximetry Systolic blood 2022-07-16 15:18:00 140 mm[Hg] Apurva Mcmillanybold - pressure External Diastolic blood 2022-07-16 15:18:00 78 mm[Hg] Arvinse navi Seybold - pressure External Heart rate 2022-07-16 15:18:00 82 /min Apurva johnbold - External Body temperature 2022-07-16 15:18:00 37.11 Kimi Dot ey Seybold - External Respiratory rate 2022-07-16 15:18:00 14 /min Dot john Seybold - External Body height 2022-07-16 15:18:00 172.7 cm Apurva S eybold - External Body weight 2022-07-16 15:18:00 184.16 kg Apurva S eybold - External BMI 2022-07-16 15:18:00 61.73 kg/m2 Apurva S eybold - External Oxygen saturation in 2022-07-16 15:18:00 99 /min Apurva Seybold - Arterial blood by External Pulse oximetry Systolic blood 2022-05-27 21:36:00 134 mm[Hg] Apurva Seybold - pressure External Diastolic blood 2022-05-27 21:36:00 81 mm[Hg] Arvinse y Seybold - pressure External Heart rate 2022-05-27 21:36:00 70 /min Apurva S eybold - External Body temperature 2022-05-27 21:36:00 37.33 Kimi Dot ey Seybold - External Respiratory rate 2022-05-27 21:36:00 14 /min Dot ey Seybold - External Body height 2022-05-27 21:36:00 172.7 cm Apurva S eybold - External Body weight 2022-05-27 21:36:00 185.975 [...] External Diastolic blood 2022-04-29 22:35:00 88 mm[Hg] Kelse y Seybold - pressure External Body temperature 2022-04-29 22:29:00 36.83 Kimi Dot ey Seybold - External Respiratory rate 2022-04-29 22:29:00 14 /min Dot ey Seybold - External Body height 2022-04-29 22:29:00 172.7 cm Apurva Hammonds eybold - External Oxygen saturation in 2022-04-29 22:29:00 99 /min Apurav Benignoold - Arterial blood by External Pulse oximetry Systolic blood 2022-04-17 19:25:00 143 mm[Hg] Apurva Seybold - pressure External Diastolic blood 2022-04-17 19:25:00 82 mm[Hg] Arvinse y Seybold - pressure External Heart rate 2022-04-17 19:25:00 71 /min Apurva S eybold - External Body temperature 2022-04-17 19:25:00 36.56 Kimi Dot ey Seybold - External Respiratory rate 2022-04-17 19:25:00 14 /min Dot ey Seybold - External Body height 2022-04-17 19:25:00 172.7 cm Apurva Hammonds eybold - External Body weight 2022-04-17 19:25:00 190.057 kg Apurva Hammonds eybold - External BMI 2022-04-17 19:25:00 63.71 kg/m2 Apurva Hammonds eybold - External Oxygen saturation in 2022-04-17 19:25:00 99 /min Apurva Seybold - Arterial blood by External Pulse oximetry Systolic blood 2022-04-15 19:47:00 205 mm[Hg] Apurva Seybold - pressure External Diastolic blood 2022-04-15 19:47:00 98 mm[Hg] Arvinse y Seybold - pressure External [...] External Diastolic blood 2022-04-09 21:51:00 83 mm[Hg] Shelly y Seybold - pressure External Heart rate [...] Body height 2022-03-12 19:49:00 172.7 cm Apurva S eybold - External Body weight 2022-03-12 19:49:00 192.779 kg Apurva S eybold - External BMI 2022-03-12 19:49:00 64.62 kg/m2 Apurva S eybold - External Oxygen saturation in 2022-03-12 19:49:00 99 /min Apurva Mcmillanemilynehal - Arterial blood by External Pulse oximetry Systolic blood 2022-02-12 18:46:00 164 mm[Hg] Apurva Seybold - pressure External Diastolic blood 2022-02-12 18:46:00 80 mm[Hg] Arvinse y Seybold - pressure External Heart rate 2022-02-12 18:46:00 101 /min Apurva S eybold - External Body temperature 2022-02-12 18:46:00 36.56 Kimi Dot ey Seybold - External Respiratory rate 2022-02-12 18:46:00 16 /min Dot ey Seybold - External Body height 2022-02-12 18:46:00 172.7 cm Apurva Hammonds eybold - External Body weight 2022-02-12 18:46:00 191.872 kg Apurva Hammonds eybold - External BMI 2022-02-12 18:46:00 64.32 kg/m2 Apurva Hammonds eybold - External Procedures This patient has no known procedures. Encounters Start End Encounter Admission Attending Care Care Encounter Source Date/Time Date/Time Type Type Clinicians Facility Department ID 2023-02-13 2023-02-13 Outpatient APURVA RODRIGUEZ [id number] Apurva 11:15:00 11:15:00 PRACHI nava 2023-01-22 2023-01-22 Outpatient APURVA RODRIGUEZ [id number] Apurva 11:15:00 11:15:00 PRACHI Pelaezol elijah 2023-01-15 2023-01-15 Outpatient PREZAS, APURVA MIXON [id number] Apurva 00:00:00 00:00:00 PRACHI Seybol d 2023-01-15 2023-01-15 Outpatient PREZAS, APURVA MIXON [id number] Apurva 00:00:00 00:00:00 PRACHI Seybol d 2023-01-15 2023-01-15 Outpatient PREZAS, APURVA MIXON [id number] Apurva 00:00:00 00:00:00 PRACHI Seybol d 2022-12-31 2022-12-31 Outpatient PREZAS, APURVA MIXON [id number] Apurva 00:00:00 00:00:00 PRACHI Seybol d 2022-12-25 2022-12-25 Outpatient ROBBIE, JASSON MIXON [id number] Apurva 00:00:00 00:00:00 Seybol d 2022-12-24 2022-12-24 Outpatient LAB90 APURVA MIXON [id number] Apurva 09:20:00 09:20:00 Seybol d 2022-12-24 2022-12-24 Outpatient PREZAS, APURVA MIXON [id number] Apurva 08:45:00 08:45:00 PRACHI Seybol d 2022-10-07 2022-10-07 Outpatient PREZAS, APURVA MIXON [id number] Apurva 15:45:00 15:45:00 PRACHI Seybol d 2022-08-26 2022-08-26 Outpatient TESTING, CAMILLE MIXON [id number] Apurva 14:00:00 14:00:00 Seybol d 2022-08-26 2022-08-26 Outpatient PREZAS, APURVA MIXON [id number] Apurva 00:00:00 00:00:00 PRACHI Seybol d 2022-08-07 2022-08-07 Outpatient ROBBIE, JASSON MIXON [id number] Apurva 00:00:00 00:00:00 Seybol d 2022-07-30 2022-07-30 Outpatient LAB90 APURVA MIXON [id number] Apurva 10:00:00 10:00:00 Seybol d 2022-07-16 2022-07-16 Outpatient PREZAS, APURVA MIXON [id number] Apurva 09:30:00 09:30:00 PRACHI Seybol d 2022-07-09 2022-07-09 Outpatient LAB90 APURVA MIXON [id number] Apurva 08:10:00 08:10:00 Seybol d 2022-06-21 2022-06-21 Outpatient PREZAS, APURVA MIXON [id number] Apurva 13:45:00 13:45:00 PRACHI Seybol d 2022-05-29 2022-05-29 Outpatient HUNDL, APURVA MIXON [id number] Paurva 00:00:00 00:00:00 JUAN Seybol d 2022-05-27 2022-05-27 Outpatient HUNDL, APURVA MIXON [id number] Apurva 15:30:00 15:30:00 JUAN Seybol d 2022-05-24 2022-05-24 Outpatient PREZAS, APURVA MIXON [id number] Apurva 00:00:00 00:00:00 PRACHI Seybol d 2022-05-21 2022-05-21 Outpatient PREZAS, APURVA MIXON [id number] Apurva 00:00:00 00:00:00 PRACHI Seybol d 2022-05-21 2022-05-21 Outpatient PREZAS, APURVA MIXON [id number] Apurva 00:00:00 00:00:00 PRACHI Seybol d 2022-05-19 2022-05-19 Outpatient PREZAS, APURVA MIXON [id number] Ap[facility] 00:00:00 00:00:00 PRACHI Seybol d 2022-05-10 2022-05-10 Outpatient PREZAS, APURVA MIXON [id number] Apurva 09:45:00 09:45:00 PRACHI Seybol d 2022-05-07 2022-05-07 Outpatient PREZAS, APURVA MIXON [id number] [facility] 16:15:00 16:15:00 PRACHI Seybol d 2022-05-01 2022-05-01 Outpatient PREZAS, APURVA MIXON [id number] [facility] 00:00:00 00:00:00 PRACHI Seybol d 2022-05-01 2022-05-01 Outpatient ROBBIEJASSON APURVA MIXON [id number] [facility] 00:00:00 00:00:00 Seybol d 2022-04-29 2022-04-29 Outpatient PREZAS APURVA MIXON [id number] [place] 16:30:00 16:30:00 PRACHI Seybol d 2022-04-17 2022-04-17 Outpatient PREZAS, APURVA MIXON [id number] [place] 13:30:00 13:30:00 PRACHI Seybol d 2022-04-17 2022-04-17 Outpatient PREZAS, APURVA MIXON [id number] Ap[facility] 00:00:00 00:00:00 PRACHI Seybol d 2022-04-15 2022-04-15 Outpatient [facility]53 APURVA MIXON [id number] [place] 14:35:00 14:35:00 Seybol d 2022-04-15 2022-04-15 Outpatient ROBBIE, JASSON APURVA MIXON [id number] [place] 14:00:00 14:00:00 Seybol d 2022-04-09 2022-04-09 Outpatient PREZAS, APURVA MIXON [id number] [place] 16:15:00 16:15:00 PRACHI Seybol d 2022-03-12 2022-03-12 Outpatient PREZAS, APURVA MIXON [id number] [place] 15:00:00 15:00:00 PRACHI Seybol d 2022-02-12 2022-02-12 Outpatient PREZAS, APURVA MIXON [id number] [place] 15:15:00 15:15:00 PRACHI Seybol d 2022-02-12 2022-02-12 Outpatient PREZAS, APURVA MIXON [id number] [place] 13:45:00 13:45:00 PRACHI Seybol d 2022-01-31 2022-01-31 Outpatient PREZAS, APURVA MIXON [id number] [place] 00:00:00 00:00:00 PRACHI Seybol d 2022-01-22 2022-01-22 Outpatient LAB90 APURVA MIXON [id number] [place] 08:50:00 08:50:00 Seybol d 2022-01-16 2022-01-16 Outpatient APURVA RODRIGUEZ [id number] [place] 00:00:00 00:00:00 PRACHI nava 2022-01-15 2022-01-15 Outpatient LAB90 APURVA MIXON [id number] [place] 08:55:00 08:55:00 Seybol d 2022-01-15 2022-01-15 Office Terry Rodriguez [id number] [place] 08:00:00 08:30:00 Visit Prachi Morgan [id number] Se grider [id number] Results This patient has no known results.
[2023-01-29 10:41] LABS: Absolute Lymphocytes (CBC) 1.6 K/uL (0.7-4.9); Hematocrit 41.3 % (36.0-45.0); Lymphocytes % 36.3 % (15.3-44.8); MCV 91.4 fL (80-100); MPV 8.4 fL (7.6-11.3); Platelets 216 thou/uL (152-406); RBC Red Blood Cell Count 4.52 M/uL (3.86-4.86)
[2023-01-29 10:41] LABS: Specific Gravity 1.019 (1.005-1.030); Urine Bacteria <20 /HPF (<20); Urine Bilirubin NEGATIVE (Negative); Urine Blood Negative (Negative); Urine Clarity Turbid (Clear); Urine Color Yellow (Yellow); Urine Glucose NEGATIVE (Negative); Urine Mucus 2+ /HPF (None Seen); Urine Protein TRACE (Negative); Urine RBC <5 /HPF (None Seen); Urine Urobilinogen 1+ (Normal); Urine pH 5.5 (5.0-7.0)
[2023-01-29 10:49] LABS: Protime INR 1.03
[2023-01-29 10:54] LABS: Barbiturates NEGATIVE (NEGATIVE); Benzodiazepines POSITIVE (NEGATIVE); Cocaine NEGATIVE (NEGATIVE); METHAMPHETAM NEGATIVE (NEGATIVE); Methadone NEGATIVE (NEGATIVE); Opiates NEGATIVE (NEGATIVE); Phencyclidine NEGATIVE (NEGATIVE); THC Cannibis NEGATIVE (NEGATIVE)
[2023-01-29 11:03] LABS: ALT/SGPT 83 U/L (13-56); AST/SGOT 50 U/L (15-37); Albumin 3.5 g/dL (3.4-5.0); Alkaline Phosphatase 95 U/L (45-117); BUN Blood Urea Nitrogen 7 mg/dL (7-18); Bicarbonate 32 mEq/L (21-32); Bilirubin Direct 0.2 mg/dL (0-0.2); Bilirubin Indirect, Calculated 0.4 mg/dL (0.2-0.8); Bilirubin Total 0.6 mg/dL (0.2-1.0); Glomerular Filtration Rate 64 ml/min (=/>90); Glucose Level 120 mg/dL (74-106); Potassium 3.8 mEq/L (3.5-5.1); Protein, Total 7.9 g/dL (6.4-8.2); Sodium Level 139 mEq/L (136-145)
--- NOTE | 2023-01-29 12:27 | EDPHYS ---
Physician Documentation [facility] Name: Julienne Tucker Age: 57 yrs Sex: Female : 1965 Arrival Date: 01/29/2023 Time: 10:01 Bed 8 Private MD: ED Physician Samson Sagastume HPI: 01/29 10:35 This 57 yrs old Female presents to ER via EMS with complaints of Suicidal Ideation. rt 10:35 Patient presents to the ED with suicidal ideation. Patient reportedly took about 12 rt Xanax pills yesterday at about 9 PM. Patient stated that she wished to go to sleep and not wake up. She does report depression but denies HI, A/V hallucinations. She reports that she has tried to overdose in the past. Patient denies any physical symptoms at this time. Symptoms are moderate in severity, no other aggravating or alleviating factors.. Historical: - Allergies: 10:09 Compazine; ld1 10:09 Demerol; ld1 10:09 Erythromycin; ld1 10:09 Tetracycline; ld1 10:09 Vancomycin; ld1 - PMHx: 10:09 Depression; Hypertension; ld1 - Immunization history:: Adult Immunizations up to date. - Social history:: Smoking status: Patient denies any tobacco usage or history of. - Family history:: not pertinent. ROS: 10:35 Constitutional: Negative for fever, chills, and weight loss, Cardiovascular: Negative rt for chest pain, palpitations, and edema, Respiratory: Negative for shortness of breath, cough, wheezing, and pleuritic chest pain, Abdomen/GI: Negative for abdominal pain, nausea, vomiting, diarrhea, and constipation, Skin: Negative for injury, rash, and discoloration, Neuro: Negative for headache, weakness, numbness, tingling, and seizure. 10:35 Psych: Positive for suicidal ideation, Negative for auditory hallucinations, visual hallucinations. Exam: 10:35 Constitutional: This is a well developed, well nourished patient who is awake, alert, rt and in no acute distress. Head/Face: Normocephalic, atraumatic. Chest/axilla: Normal chest wall appearance and motion. Nontender with no deformity. No lesions are appreciated. Cardiovascular: Regular rate and rhythm with a normal S1 and S2. No gallops, murmurs, or rubs. Normal PMI, no JVD. No pulse deficits. Respiratory: Lungs have equal breath sounds bilaterally, clear to auscultation and percussion. No rales, rhonchi or wheezes noted. No increased work of breathing, no retractions or nasal flaring. Abdomen/GI: Soft, non-tender, with normal bowel sounds. No distension or tympany. No guarding or rebound. No evidence of tenderness throughout. Skin: Warm, dry with normal turgor. Normal color with no rashes, no lesions, and no evidence of cellulitis. MS/ Extremity: Pulses equal, no cyanosis. Neurovascular intact. Full, normal range of motion. Neuro: Awake and alert, GCS 15, oriented to person, place, time, and situation. Cranial nerves II-XII grossly intact. Motor strength 5/5 in all extremities. Sensory grossly intact. Cerebellar exam normal. Normal gait. 10:35 ECG was reviewed by the Attending Physician. 10:35 Psych: Mood depressed, affect congruent, positive for suicidal ideation. Vital Signs: 10:15 BP 162 / 92; Pulse 103; Resp 18; Pulse Ox 97% on R/A; ld1 10:16 Weight 176.9 kg; ld1 11:16 BP 159 / 86; Pulse 99; Resp 18; Pulse Ox 98% on R/A; ld1 13:24 BP 156 / 88; Pulse 95; Resp 18; Pulse Ox 97% on R/A; ld1 13:24 Temp 97.9(O); ld1 MDM: 10:06 Patient medically screened. rt 12:27 Differential diagnosis: depression, Intentional overdose. Data reviewed: vital signs, rt nurses notes. Consideration of Admission/Observation Patient requires transfer for psychiatric stabilization. Care significantly affected by the following chronic conditions: Hypertension. Counseling: I had a detailed discussion with the patient and/or guardian regarding the historical points, exam findings, and any diagnostic results supporting the discharge/admit diagnosis, lab results, the need to transfer to another facility. 01/29 10:14 Order name: Acetaminophen; Complete Time: 11: rt 01/29 10:14 Order name: Basic Metabolic Panel; Complete Time: 11: rt 01/29 10:14 Order name: CBC with Diff; Complete Time: 11: rt 01/29 10:14 Order name: ETOH Level; Complete Time: 11: rt 01/29 10:14 Order name: Hepatic Function; Complete Time: 11:09 rt 01/29 10:14 Order name: PT-INR; Complete Time: 11: rt 01/29 10:14 Order name: Ptt, Activated; Complete Time: 11: rt 01/29 10:14 Order name: Salicylate; Complete Time: 11:09 rt 01/29 10:14 Order name: Urinalysis w/ reflexes; Complete Time: 11: rt 01/29 10:14 Order name: Urine Drug Screen; Complete Time: 11: rt 01/29 10:14 Order name: EKG; Complete Time: 10:16 rt 01/29 10:39 Order name: Diet Finger Food; Complete Time: 10:40 db 01/29 10:14 Order name: EKG - Nurse/Tech; Complete Time: 10:19 rt 01/29 10:14 Order name: IV Saline Lock; Complete Time: 10:42 rt 01/29 10:14 Order name: Labs collected and sent; Complete Time: 10:42 rt 01/29 10:14 Order name: Suicide Precautions; Complete Time: 10: rt 01/29 10:14 Order name: Suicide Screening ([place]); Complete Time: 10:42 rt EC:35 Rate is 104 beats/min. Rhythm is regular, Normal Sinus Rhythm with Right bundle branch rt block. QRS [place] is Normal. DE interval is normal. QT interval is normal. No Q waves. T waves are Normal. Administered Medications: No medications were administered Disposition Summary: 01/29/23 12:27 Transfer Ordered Transfer Location: [facility] Facility rt Reason: Higher level of care rt Condition: Stable rt Problem: new rt Symptoms: have improved rt Accepting Physician: (01/29/23 13:26) ld1 Diagnosis - Suicidal ideations rt - Intentional overdose of benzodiazepines rt Forms: - Medication Reconciliation Form rt - SBAR form rt Signatures: Dispatcher [employer] EDKenia Bermudez RN RN ld1 Samson Sagastume MD MD rt Corrections: (The following items were deleted from the chart) 13:26 12:27 rt ld1
--- NOTE | 2023-01-29 12:27 | ER ---
Nurse's Notes [facility] Name: Julienne Tucker Age: 57 yrs Sex: Female : 1965 Arrival Date: 01/29/2023 Time: 10:01 Bed 8 Private MD: Diagnosis: Suicidal ideations;Intentional overdose of benzodiazepines Presentation: 01/29 10:06 Chief complaint: EMS states: toned out to patient home for female who took 10-12 Xanax ld1 at 2200 last night. Upon arrival to pt home - sternal rub woke up patient. Upon arrival to ER pt AAOx4 - reports "I took them and wanted to go to sleep and not wake up.". Coronavirus screen: At this time, the client does not indicate any symptoms associated with coronavirus-19. Ebola Screen: No symptoms or risks identified at this time. Initial Sepsis Screen: Does the patient meet any 2 criteria? No. Patient's initial sepsis screen is negative. Does the patient have a suspected source of infection? No. Patient's initial sepsis screen is negative. Risk Assessment: Do you want to hurt yourself or someone else? Patient reports no desire to harm self or others. Onset of symptoms was January 29, 2023. 10:06 Method Of Arrival: EMS: [facility] ld1 10:06 Acuity: RJ 2 ld1 Triage Assessment: 10:09 General: Appears in no apparent distress. comfortable, Behavior is calm, cooperative, ld1 appropriate for age. Pain: Denies pain. EENT: No signs and/or symptoms were reported regarding the EENT system. Neuro: Level of Consciousness is awake, alert, obeys commands, Oriented to person, place, time, situation. Cardiovascular: Capillary refill < 3 seconds Patient's skin is warm and dry. Rhythm is sinus rhythm. Respiratory: Airway is patent Respiratory effort is even, unlabored. GI: Abdomen is round non-distended. : No signs and/or symptoms were reported regarding the genitourinary system. Derm: No signs and/or symptoms reported regarding the dermatologic system. Musculoskeletal: No signs and/or symptoms reported regarding the musculoskeletal system. Historical: - Allergies: 10: Compazine; ld1 10:09 Demerol; ld1 10:09 Erythromycin; ld1 10:09 Tetracycline; ld1 10:09 Vancomycin; ld1 - PMHx: 10:09 Depression; Hypertension; ld1 - Immunization history:: Adult Immunizations up to date. - Social history:: Smoking status: Patient denies any tobacco usage or history of. - Family history:: not pertinent. Screenin:[facility] ED Fall Risk Assessment (Adult) History of falling in the last 3 months, ld1 including since admission No falls in past 3 months (0 pts). Abuse screen: Denies threats or abuse. Denies injuries from another. Nutritional screening: No deficits noted. Tuberculosis screening: No symptoms or risk factors identified. Assessment: 10:10 Reassessment: See triage assessmet. ld1 10:10 Reassessment: ERP at bedside assessing patient. ld1 10:17 Reassessment: Poison control - medically clear patient for psych - lab results, UDS, ld1 psych workup. No need for observation period. Clara - . 11:16 Reassessment: Patient appears in no apparent distress at this time. No changes from ld1 previously documented assessment. Patient and/or family updated on plan of care and expected duration. Pain level reassessed. Patient is alert, oriented x 3, equal unlabored respirations, skin warm/dry/pink. 11:17 Reassessment: Pt resting in bed. RR 18 - sitter at bedside. SI documentation completed, ld1 SI precautions initiated. Pt belongings with security at this time. 13:12 Reassessment: Patient denies pain at this time. Report given to [facility]. [facility] 13:24 Reassessment: Patient appears in no apparent distress at this time. No changes from ld1 previously documented assessment. Patient and/or family updated on plan of care and expected duration. Pain level reassessed. Patient is alert, oriented x 3, equal unlabored respirations, skin warm/dry/pink. Psych: 10:15 [place] Suicide Severity Screening: In the past month, have you wished you were ld1 or wished you could go to sleep and not wake up? Patient responds "yes." "In the past month, have you actually had any thoughts of killing yourself?" Patient responds "yes." "In your lifetime, have you ever done anything, started to do anything, or prepared to do anything to end your life?" Patient responds "yes.". Subjective: Patient's mood is sad. Objective: Speech is normal. Interventions: Removed personal items and placed in bag. Patient placed in hospital gown. Searched person for dangerous items. Urine collected and sent for urine drug test. Belonging list filled out. Safety Checks: Personal items have been removed. Door is open. Visitors are present. Patient uses benzodiazepines 12 Last use was 1 days ago. Commitment: Patient will be a voluntary commitment. Vital Signs: 10:15 BP 162 / 92; Pulse 103; Resp 18; Pulse Ox 97% on R/A; ld1 10:16 Weight 176.9 kg; ld1 11:16 BP 159 / 86; Pulse 99; Resp 18; Pulse Ox 98% on R/A; ld1 13:24 BP 156 / 88; Pulse 95; Resp 18; Pulse Ox 97% on R/A; ld1 13:24 Temp 97.9(O); ld1 ED Course: 10:05 Patient arrived in ED. ld1 10:06 Samson Sagastume MD is Attending Physician. rt 10:09 Triage completed. ld1 10:09 Arm band placed on right wrist. ld1 10:10 Patient has correct armband on for positive identification. Bed in low position. Call ld1 light in reach. Side rails up X2. court recording monitor on. Pulse ox on. NIBP on. Sitter at bedside. Noise minimized. Warm blanket given. Patient is placed in psych hold. 10:10 No provider procedures requiring assistance completed. ld1 10:19 Urinalysis w/ reflexes Sent. ld1 10:19 Urine Drug Screen Sent. ld1 11:16 Kenia Moreno, THOMAS is Primary Nurse. ld1 11:16 PT belongings given to security. ds4 11:41 faxed chart to [facility]. bd 13:14 pt accepted in transfer to [facility]. bd 13:26 Patient transferred, IV remains in place. ld1 Administered Medications: No medications were administered Medication: 10:10 VIS not applicable for this client. ld1 Outcome: 12:27 ER care complete, transfer ordered by MD. rt 13:25 Transferred by ground EMS EMS . Transfer form completed. Note: [facility] 13:25 Condition: stable 13:25 Instructed on the need for transfer. 13:26 Patient left the ED. ld1 Signatures: Maryse Donaldson Irene, RN RN iw Joaquín Pelayo ds4 Kenia Moreno RN RN ld1 Wen Minaya RN RN mb9 Samson Sagastume MD MD rt Corrections: (The following items were deleted from the chart) 14:34 13:25 Transferred by helicopter ld1 alesia
[2023-01-29 13:49] VITALS: BP 156/88; TEMP 97.9; O2SAT 97
--- NOTE | 2023-01-30 13:04 | EKG ---
Test Date: 2023-01-29 Test Time: 10:21:35 Maintenance Technician 2Nd Shift: GUS MEASUREMENT RESULTS: Intervals: Rate: 104 KS: 180 QRSD: 144 QT: 388 QTc: 510 [place]: P: 63 KS: 180 QRS: 30 T: 76 INTERPRETIVE STATEMENTS: Sinus tachycardia Right bundle branch block Inferior infarct, age undetermined Abnormal ECG Compared to ECG 05/29/2022 17:12:17 Myocardial infarct finding now present Sinus rhythm no longer present Electronically Signed On 01-30-23 13:01:22 CDT by Eleazar Antonio
== END 2023-01-29 13:26 ==
LOC: ER 10:01
DX: T42.4X2A Poisoning by benzodiazepines, intentional self-harm, initial encounter (principal); F32.A Depression, unspecified; Z88.1 Allergy status to other antibiotic agents; Z88.3 Allergy status to other anti-infective agents; Z88.5 Allergy status to narcotic agent
CPT/HCPCS: 36415; 80048; 80076; 80143; 80179; 80307; 81001; 82077; 85025; 85610; 85730; 93005; 99285

== ENCOUNTER → 2023-05-25 | Emergency (ER) | payer BC ==
[~2023-05-25] MED LIST: ASPIRIN 81 MG CHEWABLE TABLET ONE; FAMOTIDINE 20 MG/2 ML VIAL IV ONE; Levofloxacin 750mg IV 750 MG/150 ML BAG IV ONE; METHYLPREDNISOLONE 125 MG INJ ONE; NA CHLORIDE 0.9% 1,000 ML ONE; NA CHLORIDE 0.9% 2,000 ML ONE; OSELTAMIVIR 75 MG CAP PO ONE; POTASSIUM 25 MEQ EFFERV TAB ONE
--- OUTSIDE RECORDS SUMMARY | 2023-05-25 19:16 | XMS REPORT | Continuity of Care Document ---
Author Name Unknown Address [address] [facility] [address] [place] [address] [facility] Address [address] [facility] [address] [place] [address] Care Team Providers Care Bench Assembly Inspector Name Role Phone PRACHI RODRIGUEZ Attending Clinician Unavailable MD LAUREN Attending Clinician Unavailab JASSON Beltrán Attending Clinician Unavailable LAB90 Attending Clinician Unavailable TESTING, CAMILLE FOWLER Attending Clinician U JUAN Alva Attending Clinician Unavailable LAB53 Attending Clinician Unavailable Prachi Rodriguez DO Attending Clinician Payers Payer Name Policy Type Policy Number Effective Date Expirati on Date Source [facility] 2 [id number] 2022 00:00:00 [facility] 3 [id number] 2021 00:00:00 Problems Condition Name Condition Details Condition Category Status Onset Date Resolution Date Last Treatment Date Treating Clinician Comments Source Ganglion cyst Ganglion cyst Disease Active 12-24 00:00: 00 Apurva simeon Acute left-sided low back pain with left-sided sciatica Acute left-sided low back pain with left-sided sciatica Disease Active 2021-05 00:00: 00 Apurva simeon Infected sebaceous cyst Infected sebaceous cyst Disease Active 02-12 00:00: 00 Apurva Seybold - Externa l Fatty liver Fatty liver Disease Active 9- 00:00: 00 Apurva Yanes - Externa l Prediabete s Prediabete s Disease Active 01-16 00:00: 00 Overview: Formattin g of this note might be different from the original. Lab 01/07 A1c 5.8 Apurva Yanes - Externa cailin Well adult exam Well adult exam Disease Active 01-15 00:00: 00 Apurva Yanes - Externa l Primary hypertensi on Primary hypertensi on Disease Active 01-15 00:00: 00 Apurva Yanes - Externa l Attention deficit hyperactiv ity disorder (ADHD), predominan tly inattentiv e type Attention deficit hyperactiv ity disorder (ADHD), predominan tly inattentiv e type Disease Active 01-15 00:00: 00 Apurva Yanes - Externa l Current mild episode of major depressive disorder without prior episode Current mild episode of major depressive disorder without prior episode Disease Active 01-15 00:00: 00 Overview: Formattin g of this note might be different from the original. PSYC-Kailey n Apurva Yanes - Externa l Class 3 severe obesity with serious comorbidit y and body mass index (BMI) of 60.0 to 69.9 in adult Class 3 severe obesity with serious comorbidit y and body mass index (BMI) of 60.0 to 69.9 in adult Disease Active 01-15 00:00: 00 Apurva Pérez Externa l EZEKIEL (obstructi ve sleep apnea) EZEKIEL (obstructi ve sleep apnea) Disease Active 01-15 00:00: 00 Apurva Yanes - Externa l Chronic right shoulder pain Chronic right shoulder pain Disease Active 01-15 00:00: 00 Apurva Yanes - Externa l Allergies, Adverse Reactions, Alerts Allergy Name Allergy Type Status Severity Reaction(s) Onset Date Inactive Date Treating Clinician Comments Source Aluminum Hydroxid e Propensi ty to adverse reaction s Active 2021-05 00:00: 00 Other reaction( s): Hives Apurva Yanes - Externa l Calcium Carbonat e Propensi ty to adverse reaction s Active 2021-05 00:00: 00 Other reaction( s): Alma simeon Dimethic one Copolyol Propensi ty to adverse reaction s Active 2021-05 00:00: 00 Other reaction( s): Alma Ramireza cailin Erythrom ycin Base Propensi ty to adverse reaction s Active 2021-05 00:00: 00 Other reaction( s): Alma Ramireza l Levoflox acin Propensi ty to adverse reaction s Active 2021-05 00:00: 00 Other reaction( s): Hives/Bernard danitza Yanes - Jamesa l Lidocain e Hcl Propensi ty to adverse reaction s Active 2021-05 00:00: 00 Other reaction( s): Hives? Apurva Ramireza l Magnesiu m Hydroxid e Propensi ty to adverse reaction s Active 2021-05 00:00: 00 Other reaction( s): Alma Ramireza l Meperidi ne Hcl Propensi ty to adverse reaction s Active 2021-05 00:00: 00 Other reaction( s): Alma simeon Prochlor perazine Edisylat e Propensi ty to adverse reaction s Active 2021-05 00:00: 00 Other reaction( s): Alma simeon Prochlor perazine Maleate Propensi ty to adverse reaction s Active 2021-05 00:00: 00 Other reaction( s): Alma Pérez Externa l Azithrom ycin Propensi ty to adverse reaction s Active Rash 01-15 00:00: 00 Apurva Mcmillanmarni Ramireza cailin Penicill ins Propensi ty to adverse reaction s Active Nausea Only 01-15 00:00: 00 Apurva Farzana Pérez Externa l Tetracyc lines Propensi ty to adverse reaction s Active Rash 01-15 00:00: 00 Apurva Farzana Ramireza cailin Social History Social Habit Start Date Stop Date Quantity Comments Source History of tobacco use Passive smoker Apurva nava - External Gender identity Dot john Farzana - External Sexual orientation Dustin culver Farzana - External Alcohol intake 2023-03-18 00:00:00 2023-03-18 00:00:00 Ex-drinker (finding) Apurva Yanes - External Tobacco use and exposure 2022-12-24 00:00:00 2022-12-24 00:00:00 Smokeless tobacco non-user Apurva Yanes - External History of Social function 2022-12-24 00:00:00 2022-12-24 00:00:00 Apurva Yanes - External Education 2022-01-15 00:00:00 2022-01-15 00:00:00 13 Apurva Yanes - External Sex Ass[birth year] At 1965 00:00:00 1965 00:00:00 Apurva Yanes - External Smoking Status Start Date Stop Date Source Never smoked tobacco Apurva Yanes - External Medications Ordered Medication Name Filled Medication Name Start Date Stop Date Current Medication? Ordering Clinician Indication Dosage Frequency Signature (SIG) Comments Components Source Aspirin 81 MG oral Tablet Delayed Response 2022-05 11:29: 43 03-18 00:00 :00 No 81mg Take 1 tablet (81 mg total) by mouth daily. Apurva simeon hydrOXYzine HCl 50 MG oral Tablet 2022-05 00:00: 00 Yes [id number] 50mg QD Take 1 tablet (50 mg total) by mouth nightly as needed for anxiety (insomnia) . Apurva simeon Ketoconazol e 2 % apply externally Cream 2022-05 00:00: 00 Yes [id number] Apply to the skin twice daily. Apurva simeon Duloxetine HCl [address] Particles 2022-05 00:00: 00 Yes [id number] 60mg Take 1 capsule (60 mg total) by mouth daily. Apurva simeon Folic Acid 1 MG oral tablet 2022-05 00:00: 00 Yes [id number] 1mg Take 1 tablet (1 mg total) by mouth daily. Apurva simeon Aspirin 81 MG oral Tablet Delayed Response 2022-05 00:00: 00 Yes [id number] 81mg Take 1 tablet (81 mg total) by mouth daily. Apurva simeon Duloxetine HCl [address] Particles 02-14 00:00: 00 03-18 00:00 :00 No 60mg Take 1 capsule (60 mg total) by mouth daily. Apurva simeon hydrOXYzine HCl 50 MG oral Tablet 02-13 00:00: 00 03-18 00:00 :00 No 50mg [id number] 3D Take 1 tablet (50 mg total) by mouth every 8 hours as needed. Apurva simeon Folic Acid 1 MG oral tablet 02-13 00:00: 00 03-18 00:00 :00 No 1mg Take 1 tablet (1 mg total) by mouth daily. Apurva simeon Venlafaxine HCl 150 MG oral Capsule 24 Hour Sustained Release 01-15 00:00: 00 03-18 00:00 :00 No [id number] 150mg Take 1 capsule (150 mg total) by mouth daily. Apurva simeon Metoprolol Tartrate 50 MG oral Tablet 12-24 08:39: 22 Yes 50mg Take 1 tablet (50 mg total) by mouth 2 times daily Apurva simeon Metoprolol Tartrate 50 MG oral Tablet 12-24 08:39: 22 Yes 50mg Take 1 tablet (50 mg total) by mouth 2 times daily Apurva simeon Venlafaxine HCl 150 MG oral Capsule 24 Hour Sustained Release 12-24 00:00: 00 Yes [id number] 150mg Take 1 capsule (150 mg total) by mouth daily Apurva simeon Alprazolam 0.5 MG oral Tablet 12-24 00:00: 00 Yes [id number] .5mg QD Take 1 tablet (0.5 mg total) by mouth nightly as needed for sleep or anxiety Apurva simeon Alprazolam 0.5 MG oral Tablet 12-24 00:00: 00 03-18 00:00 :00 No [id number] .5mg QD Take 1 tablet (0.5 mg total) by mouth nightly as needed for sleep or anxiety Apurva Yanes - Externa l Metoprolol Tartrate 50 MG oral Tablet 07-16 09:21: 40 Yes 50mg Take 50 mg by mouth 2 times daily Apurva Yanes - Jamesa l Semaglutide (2 mg/dose) 8 mg/3 mL SQ Solution Pen-Injecto r 07-16 00:00: 00 Yes [id number] 2mg Inject 2 mg into the skin once a week Apurva Yanes - Externa l Semaglutide (2 mg/dose) 8 mg/3 mL SQ Solution Pen-Injecto r 07-16 00:00: 00 12-24 00:00 :00 No [id number] 2mg Inject 2 mg into the skin once a week Apurva Yanes - Externa l Benzonatate 100 MG oral Capsule 05-30 00:00: 00 Yes TAKE 1 TABLET (100MG) BY MOUTH THREE TIMES A DAY NEEDED FOR COUGH Apurva Pérez Externa l Ipratropium (ATROVENT) 0.02 % inhalation Solution 05-30 00:00: 00 Yes USE 0.5 MG VIA NEB EVERY 6 HOURS NEEDED FOR SHORTNESS OF BREATH Apurva Yanes - Externa l Nebulizers (AkippaoSpire Essence Nebulizer) does not apply [facility] 05-30 00:00: 00 Yes USE DIRECTED FOUR TIMES A DAY Apurva Yanes - Externa l Benzonatate 100 MG oral Capsule 05-30 00:00: 00 12-24 00:00 :00 No TAKE 1 TABLET (100MG) BY MOUTH THREE TIMES A DAY NEEDED FOR COUGH Apurva Yanes - Externa l Ipratropium (ATROVENT) 0.02 % inhalation Solution 05-30 00:00: 00 12-24 00:00 :00 No USE 0.5 MG VIA NEB EVERY 6 HOURS NEEDED FOR SHORTNESS OF BREATH Apurva Yanes - Externa l Nebulizers (AkippaoSpire Essence Nebulizer) does not apply Misc 05-30 00:00: 00 12-24 00:00 :00 No USE DIRECTED FOUR TIMES A DAY Apurva simeon Metoprolol Tartrate 50 MG oral Tablet 05-27 15:41: 41 Yes 50mg Take 50 mg by mouth 2 times daily Apurva simeon Guaifenesin (Mucinex) 600 MG oral Tablet 12 Hour Sustained Release 05-27 00:00: 00 Yes [id number] 1200mg Take 2 tablets (1,200 mg total) by mouth 2 times daily Apurva simeon Amoxicillin 500 MG oral Capsule 05-27 00:00: 00 Yes [id number] 500mg Take 1 capsule (500 mg total) by mouth 3 times daily Apurva simeon Albuterol Sulfate 2.5 MG/0.5ML inhalation Inhalant Solution 05-27 00:00: 00 Yes [id number] 2.5mg Take 2.5 mg by nebulizati on once for 1 dose Apurva simeon guaiFENesin -Codeine (Cheratussi n AC) 100-10 MG/5ML oral Syrup 05-27 00:00: 00 Yes [id number] 5mL Q.[id number] 3D Take 5 mL by mouth 3 times daily as needed for cough Apurva simeon Guaifenesin (Mucinex) 600 MG oral Tablet 12 Hour Sustained Release 05-27 00:00: 00 07-16 00:00 :00 No [id number] 1200mg Take 2 tablets (1,200 mg total) by mouth 2 times daily Apurva simeon Amoxicillin 500 MG oral Capsule 05-27 00:00: 00 07-16 00:00 :00 No [id number] 500mg Take 1 capsule (500 mg total) by mouth 3 times daily Apurva simeon guaiFENesin -Codeine (Cheratussi n AC) 100-10 MG/5ML oral Syrup 05-27 00:00: 00 07-16 00:00 :00 No [id number] 5mL Q.[id number] 3D Take 5 mL by mouth 3 times daily as needed for cough Apurva simeon Albuterol (PROVENTIL) (2.5 MG/3ML) 0.083% inhalation Inhalant Solution 1-09 00:00: 00 07-16 00:00 :00 No [id number] 2.5mg Q4H Take 2.5 mg by nebulizati on every 4 hours as needed for wheezing Apurva simeon Semaglutide (1 mg/dose) 2 mg/1.5 mL SQ Solution Pen-Injecto r 05-21 00:00: 00 Yes [id number] 1mg Inject 1 mg into the skin once a week Apurva simeon OZEMPIC (1 mg/dose) 4 mg/3 mL SQ Solution Pen-Injecto r 05-21 00:00: 00 Yes Apurva simeon Semaglutide (1 mg/dose) 2 mg/1.5 mL SQ Solution Pen-Injecto r - 00:00: 00 07-16 00:00 :00 No [id number] 1mg Inject 1 mg into the skin once a week Apurva simeon OZEMPIC (1 mg/dose) 4 mg/3 mL SQ Solution Pen-Injecto r - 00:00: 00 07-16 00:00 :00 No Apurva simeon Benzonatate 200 MG oral Capsule 05-20 00:00: 00 Yes 200mg Take 200 mg by mouth every 8 hours Apurva simeon Benzonatate 200 MG oral Capsule 05-20 00:00: 00 07-16 00:00 :00 No 200mg Take 200 mg by mouth every 8 hours Apurva simeon Metoprolol Tartrate 50 MG oral Tablet 2021-05 09:43: 00 Yes 50mg Take 50 mg by mouth 2 times daily pAurva simeon Losartan Potassium 50 MG oral Tablet 2021-05 00:00: 00 Yes [id number] 50mg Take 1 tablet (50 mg total) by mouth daily Apurva Pérez Externa cailin Losartan Potassium 50 MG oral Tablet 2021-05 00:00: 00 Yes [id number] 50mg Take 1 tablet (50 mg total) by mouth daily Apurva Yanes - Externa l Losartan Potassium 50 MG oral Tablet 2021-05 00:00: 00 Yes [id number] 50mg Take 1 tablet (50 mg total) by mouth daily Apurva Pérez Externa l Losartan Potassium 50 MG oral Tablet 2021-05 00:00: 00 12-24 00:00 :00 No [id number] 50mg Take 1 tablet (50 mg total) by mouth daily Apurva Pérez Externa cailin Losartan Potassium 25 MG oral Tablet 2021-05 00:00: 00 05-10 00:00 :00 No [id number] 25mg Take 1 tablet (25 mg total) by mouth daily Apurva Pérez Externa l Metoprolol Tartrate 50 MG oral Tablet 2021-05 16:31: 17 Yes 50mg Take 50 mg by mouth 2 times daily Apurva Pérez Externa l Losartan Potassium 25 MG oral Tablet 2021-05 00:00: 00 Yes [id number] 25mg Take 1 tablet (25 mg total) by mouth daily Apurva Pérez Externa l Cyclobenzap rine HCl 10 MG oral Tablet 2021-05 00:00: 00 Yes [id number] 10mg Q.5D Take 1 tablet (10 mg total) by mouth 2 times daily as needed for muscle spasms Apurva Yanes - Externa l Cyclobenzap rine HCl 10 MG oral Tablet 2021-05 00:00: 00 Yes [id number] 10mg Q.5D Take 1 tablet (10 mg total) by mouth 2 times daily as needed for muscle spasms Apurva Yanes - Externa l Cyclobenzap rine HCl 10 MG oral Tablet 2021-05 00:00: 00 Yes [id number] 10mg Q.5D Take 1 tablet (10 mg total) by mouth 2 times daily as needed for muscle spasms Apurva Yanes - Externa l Cyclobenzap rine HCl 10 MG oral Tablet 2021-05 00:00: 00 Yes [id number] 10mg Q.5D Take 1 tablet (10 mg total) by mouth 2 times daily as needed for muscle spasms Apurva Seybold - Externa l Cyclobenzap rine HCl 10 MG oral Tablet 2021-05 00:00: 00 12-24 00:00 :00 No [id number] 10mg Q.5D Take 1 tablet (10 mg total) by mouth 2 times daily as needed for muscle spasms Apurva Seybold - Externa l Metoprolol Tartrate 50 MG oral Tablet 2021-05 13:28: 16 Yes 50mg Take 50 mg by mouth 2 times daily Apurva Seybold - Externa l Cyclobenzap rine HCl 10 MG oral Tablet 2021-05 00:00: 00 Yes [id number] 10mg Q.5D Take 1 tablet (10 mg total) by mouth 2 times daily as needed for muscle spasms Apurva Seybold - Externa l Tramadol HCl 50 MG oral Tablet 2021-05 00:00: 00 Yes [id number] 50mg Q.5D Take 1 tablet (50 mg total) by mouth 2 times daily as needed for pain Apurva Seybold - Externa l Tramadol HCl 50 MG oral Tablet 2021-05 00:00: 00 Yes [id number] 50mg Q.5D Take 1 tablet (50 mg total) by mouth 2 times daily as needed for pain Apurva Seybold - Externa l Tramadol HCl 50 MG oral Tablet 2021-05 00:00: 00 Yes [id number] 50mg Q.5D Take 1 tablet (50 mg total) by mouth 2 times daily as needed for pain Apurva Seybold - Externa l Tramadol HCl 50 MG oral Tablet 2021-05 00:00: 00 Yes [id number] 50mg Q.5D Take 1 tablet (50 mg total) by mouth 2 times daily as needed for pain Apurva Seybold - Externa l Tramadol HCl 50 MG oral Tablet 2021-05 00:00: 00 Yes [id number] 50mg Q.5D Take 1 tablet (50 mg total) by mouth 2 times daily as needed for pain Apurva Seybold - Externa l Tramadol HCl 50 MG oral Tablet 2021-05 00:00: 00 12-24 00:00 :00 No [id number] 50mg Q.5D Take 1 tablet (50 mg total) by mouth 2 times daily as needed for pain Apurva Seemilyold - Externa l Cyclobenzap rine HCl 10 MG oral Tablet 2021-05 00:00: 00 04-29 00:00 :00 No [id number] 10mg Q.5D Take 1 tablet (10 mg total) by mouth 2 times daily as needed for muscle spasms Apurva Seybold - Externa l Metoprolol Tartrate 50 MG oral Tablet 2021-05 13:48: 44 Yes 50mg Take 50 mg by mouth 2 times daily Apurva Benignoold - Externa l Semaglutide (0.25 or 0.5 mg/dose) 2 mg/1.5 mL SQ Solution Pen-Injecto r 2021-05 00:00: 00 Yes [id number] .5mg Inject 0.5 mg into the skin once a week Apurva Pelaezold - Externa l Semaglutide (0.25 or 0.5 mg/dose) 2 mg/1.5 mL SQ Solution Pen-Injecto r 2021-05 00:00: 00 Yes [id number] .5mg Inject 0.5 mg into the skin once a week Apurva Seybold - Externa l Semaglutide (0.25 or 0.5 mg/dose) 2 mg/1.5 mL SQ Solution Pen-Injecto r 2021-05 00:00: 00 Yes [id number] .5mg Inject 0.5 mg into the skin once a week Apurva Seybold - Externa l Semaglutide (0.25 or 0.5 mg/dose) 2 mg/1.5 mL SQ Solution Pen-Injecto r 2021-05 00:00: 00 Yes [id number] .5mg Inject 0.5 mg into the skin once a week Apurva Seemilyold - Externa l Semaglutide (0.25 or 0.5 mg/dose) 2 mg/1.5 mL SQ Solution Pen-Injecto r 2022-1 1-22 00:00: 00 Yes [id number] .5mg Inject 0.5 mg into the skin once a week Apurva Mcmillanemilynehal Ramireza cailin Sodium Chloride 0.9 % irrigation Solution 2021-05 0 00:00: 00 Yes USE DIRECTED FOR WET TO DRY DRESSING CHANGES Apurva simeon Sodium Chloride 0.9 % irrigation Solution 2021-05 0- 00:00: 00 Yes USE DIRECTED FOR WET TO DRY DRESSING CHANGES Apurva Jacob l Sodium Chloride 0.9 % irrigation Solution 2021-05 0 00:00: 00 Yes USE DIRECTED FOR WET TO DRY DRESSING CHANGES Apurva simeon Sodium Chloride 0.9 % irrigation Solution 2021-05 0 00:00: 00 04-29 00:00 :00 No USE DIRECTED FOR WET TO DRY DRESSING CHANGES Apurva Semarni simeon Venlafaxine HCl 75 MG oral Capsule 24 Hour Sustained Release 2021-05 0 15:05: 13 03-12 00:00 :00 No 75mg Take 75 mg by mouth daily Apurva Ramireza cailin Venlafaxine HCl 75 MG oral Capsule 24 Hour Sustained Release 2021-05 0-25 00:00: 00 Yes [id number] 75mg Take 1 capsule (75 mg total) by mouth daily Apurva simeon Venlafaxine HCl 75 MG oral Capsule 24 Hour Sustained Release 2021-05 0-25 00:00: 00 Yes [id number] 75mg Take 1 capsule (75 mg total) by mouth daily Apurva Ramireza cailin Venlafaxine HCl 75 MG oral Capsule 24 Hour Sustained Release 2021-05 0-25 00:00: 00 Yes [id number] 75mg Take 1 capsule (75 mg total) by mouth daily Apurva Pérez Externa cailin Venlafaxine HCl 75 MG oral Capsule 24 Hour Sustained Release 2021-05 0-25 00:00: 00 Yes [id number] 75mg Take 1 capsule (75 mg total) by mouth daily Apurva Pérez Externa cailin Venlafaxine HCl 75 MG oral Capsule 24 Hour Sustained Release 2021- 0-25 00:00: 00 Yes [id number] 75mg Take 1 capsule (75 mg total) by mouth daily Apurva simeon Venlafaxine HCl 75 MG oral Capsule 24 Hour Sustained Release 2021-05 0- 00:00: 00 Yes [id number] 75mg Take 1 capsule (75 mg total) by mouth daily Apurva simeon Semaglutide (0.25 or 0.5 mg/dose) 2 mg/1.5 mL SQ Solution Pen-Injecto r 2021-05 0-25 00:00: 00 Yes [id number] 104 .25mg Inject 0.25 mg into the skin once a week Apurva simeon Venlafaxine HCl 75 MG oral Capsule 24 Hour Sustained Release 2021-05 0 00:00: 00 Yes [id number] 75mg Take 1 capsule (75 mg total) by mouth daily Apurva simeon Venlafaxine HCl 75 MG oral Capsule 24 Hour Sustained Release 2021-05 0 00:00: 00 Yes [id number] 75mg Take 1 capsule (75 mg total) by mouth daily Apurva simeon Venlafaxine HCl 75 MG oral Capsule 24 Hour Sustained Release 2021-05 0 00:00: 00 12-24 00:00 :00 No [id number] 75mg Take 1 capsule (75 mg total) by mouth daily Apurva simeon Semaglutide (0.25 or 0.5 mg/dose) 2 mg/1.5 mL SQ Solution Pen-Injecto r 2021-05 0 00:00: 00 04-09 00:00 :00 No [id number] 104 .25mg Inject 0.25 mg into the skin once a week Apurva simeon Ciprofloxac in HCl 500 MG oral Tablet 2021-05 00:00: 00 04-09 00:00 :00 No Apurva simeon Venlafaxine HCl 75 MG oral Capsule 24 Hour Sustained Release 02-12 13:50: 48 Yes 75mg Take 75 mg by mouth daily Apurva simeon Metoprolol Tartrate 50 MG oral Tablet 02-12 13:50: 48 Yes 50mg Take 50 mg by mouth 2 times daily Apurva simeon Metoprolol Tartrate 50 MG oral Tablet 02-12 13:50: 48 Yes 50mg Take 50 mg by mouth 2 times daily Apurva simeon Metoprolol Tartrate 50 MG oral Tablet 02-12 13:50: 48 Yes 50mg Take 50 mg by mouth 2 times daily Apurva Ramireza cailin Lisdexamfet amine Dimesylate (Vyvanse) 60 MG oral Capsule 02-12 13:50: 37 02-12 00:00 :00 No 60mg Take 60 mg by mouth every morning Apurva simeon Mupirocin (BACTROBAN) 2 % apply externally Ointment 02-12 00:00: 00 Yes [id number] Apply 1 applicatio n topically 2 times daily Apurva simeon Mupirocin (BACTROBAN) 2 % apply externally Ointment 02-12 00:00: 00 Yes [id number] Apply 1 applicatio n topically 2 times daily Apurva simeon Mupirocin (BACTROBAN) 2 % apply externally Ointment 02-12 00:00: 00 04-09 00:00 :00 No [id number] Apply 1 applicatio n topically 2 times daily Apurva simeon TRIMETHOPRI M-SULFAMETH OXAZOLE 800-160 MG oral Tablet 02-12 00:00: 00 02-20 04:59 :00 No [id number] 1{tbl} Take 1 tablet by mouth 2 times daily for 7 days Apurva simeon Blood Pressure does not apply Kit 01-15 00:00: 00 02-12 00:00 :00 No [id number] Check BP daily Apurva simeon Immunizations Ordered Immunization Name Filled Immunization Name Date Status Comments Source Tdap- (Boostrix, Adacel) 2022-01-15 00:00:00 Completed Apurva Pérez External Tdap- (Boostrix, Adacel) 2022-01-15 00:00:00 Completed Apurva Seybold - External Tdap- (Boostrix, Adacel) 2022-01-15 00:00:00 Completed Apurva Seybold - External Tdap- (Boostrix, Adacel) 2022-01-15 00:00:00 Completed Apurva Seybold - External Tdap- (Boostrix, Adacel) 2022-01-15 00:00:00 Completed Apurva Seybold - External Tdap- (Boostrix, Adacel) 2022-01-15 00:00:00 Completed Apurva Seybold - External Tdap- (Boostrix, Adacel) 2022-01-15 00:00:00 Completed Apurva Seybold - External Tdap- (Boostrix, Adacel) 2022-01-15 00:00:00 Completed Apurva Seybold - External Tdap- (Boostrix, Adacel) 2022-01-15 00:00:00 Completed Apurva Seybold - External Tdap- (Boostrix, Adacel) 2022-01-15 00:00:00 Completed Apurva Seybold - External Tdap- (Boostrix, Adacel) Unknown Completed Apurva Seybold - External Vital Signs Vital Name Observation Time Observation Value Comments S ource Systolic blood pressure 2023-03-18 16:12:00 158 mm[Hg] Apurva Seybo ld - External Diastolic blood pressure 2023-03-18 16:12:00 75 mm[Hg] Apurva Mcmillanybo ld - External Heart rate 2023-03-18 16:12:00 57 /min Shelly mcelroy Seybold - External Body temperature 2023-03-18 16:12:00 37.06 Kimi Apurva Seybold - External Respiratory rate 2023-03-18 16:12:00 20 /min Apurva Seybold - External Body height 2023-03-18 16:12:00 172.7 cm Dot john Seybold - External Body weight 2023-03-18 16:12:00 179.624 kg Dot ey Seybold - External BMI 2023-03-18 16:12:00 60.21 kg/m2 Dot ey Seybold - External Oxygen saturation in Arterial blood by Pulse oximetry 2023-03-18 16:12:00 99 /min Apurva Mcmillanybo ld - External Systolic blood pressure 2022-12-24 13:39:00 137 mm[Hg] Apurva Seybo ld - External Diastolic blood pressure 2022-12-24 13:39:00 84 mm[Hg] Apurva Seybo ld - External Heart rate 2022-12-24 13:39:00 59 /min Kelse y Seybold - External Body temperature 2022-12-24 13:39:00 36.89 Kimi Apurva Seybold - External Respiratory rate 2022-12-24 13:39:00 21 /min Apurva Seybold - External Body height 2022-12-24 13:39:00 172.7 cm Dot ey Seybold - External Body weight 2022-12-24 13:39:00 183.707 kg Dot ey Seybold - External BMI 2022-12-24 13:39:00 61.58 kg/m2 Dot ey Seybold - External Oxygen saturation in Arterial blood by Pulse oximetry 2022-12-24 13:39:00 98 /min Apurva Seybo ld - External Systolic blood pressure 2022-07-16 15:18:00 140 mm[Hg] Apurva Seybo ld - External Diastolic blood pressure 2022-07-16 15:18:00 78 mm[Hg] Apurva Seybo ld - External Heart rate 2022-07-16 15:18:00 82 /min Shelly y Seybold - External Body temperature 2022-07-16 15:18:00 37.11 Kimi Apurva Seybold - External Respiratory rate 2022-07-16 15:18:00 14 /min Apurva Seybold - External Body height 2022-07-16 15:18:00 172.7 cm Dot ey Seybold - External Body weight 2022-07-16 15:18:00 184.16 kg Dot ey Seybold - External BMI 2022-07-16 15:18:00 61.73 kg/m2 Dot ey Seybold - External Oxygen saturation in Arterial blood by Pulse oximetry 2022-07-16 15:18:00 99 /min Apurva Seybo ld - External Systolic blood pressure 2022-05-27 21:36:00 134 mm[Hg] Apurva Seybo ld - External Diastolic blood pressure 2022-05-27 21:36:00 81 mm[Hg] Apurva Seybo ld - External Heart rate 2022-05-27 21:36:00 70 /min Kelse y Seybold - External Body temperature 2022-05-27 21:36:00 37.33 Kimi Apurva Seybold - External Respiratory rate 2022-05-27 21:36:00 14 /min Apurva Seybold - External Body height 2022-05-27 21:36:00 172.7 cm Dot ey Seybold - External Body weight 2022-05-27 21:36:00 185.975 kg Dot ey Seybold - External BMI 2022-05-27 21:36:00 62.34 kg/m2 Dot ey Seybold - External Oxygen saturation in Arterial blood by Pulse oximetry 2022-05-27 21:36:00 99 /min Apurva Seybo ld - External Systolic blood pressure 2022-05-10 15:39:00 148 mm[Hg] Apurva Seybo ld - External Diastolic blood pressure 2022-05-10 15:39:00 78 mm[Hg] Apurva Seybo ld - External Heart rate 2022-05-10 15:39:00 87 /min Arvinse y Seybold - External Body temperature 2022-05-10 15:39:00 36 Kimi Apurva Seybold - External Respiratory rate 2022-05-10 15:39:00 16 /min Apurva Seybold - External Body height 2022-05-10 15:39:00 172.7 cm Dot ey Seybold - External Body weight 2022-05-10 15:39:00 188.243 kg Dot ey Seybold - External BMI 2022-05-10 15:39:00 63.10 kg/m2 Dot ey Seybold - External Body weight 2022-04-29 22:51:00 188.243 kg Dot ey Seybold - External BMI 2022-04-29 22:51:00 63.10 kg/m2 Dot ey Seybold - External Systolic blood pressure 2022-04-29 22:35:00 150 mm[Hg] Apurva Seybo ld - External Diastolic blood pressure 2022-04-29 22:35:00 88 mm[Hg] Apurva Seybo ld - External Body temperature 2022-04-29 22:29:00 36.83 Kimi Apurva Seybold - External Respiratory rate 2022-04-29 22:29:00 14 /min Apurva Seybold - External Body height 2022-04-29 22:29:00 172.7 cm Dot ey Seybold - External Oxygen saturation in Arterial blood by Pulse oximetry 2022-04-29 22:29:00 99 /min Apurva Seybo ld - External Systolic blood pressure 2022-04-17 19:25:00 143 mm[Hg] Apurva Seybo ld - External Diastolic blood pressure 2022-04-17 19:25:00 82 mm[Hg] Apurva Seybo ld - External Heart rate 2022-04-17 19:25:00 71 /min Kelse y Seybold - External Body temperature 2022-04-17 19:25:00 36.56 Kimi Apurva Seybold - External Respiratory rate 2022-04-17 19:25:00 14 /min Apurva Seybold - External Body height 2022-04-17 19:25:00 172.7 cm Dot ey Seybold - External Body weight 2022-04-17 19:25:00 190.057 kg Dot ey Seybold - External BMI 2022-04-17 19:25:00 63.71 kg/m2 Dot ey Seybold - External Oxygen saturation in Arterial blood by Pulse oximetry 2022-04-17 19:25:00 99 /min Apurva Seybo ld - External Systolic blood pressure 2022-04-15 19:47:00 205 mm[Hg] Apurva Seybo ld - External Diastolic blood pressure 2022-04-15 19:47:00 98 mm[Hg] Apurva Seybo ld - External Heart rate 2022-04-15 19:47:00 102 /min Kelse y Seybold - External Body temperature 2022-04-15 19:47:00 36.44 Kimi Apurva Seybold - External Respiratory rate 2022-04-15 19:47:00 22 /min Apurva Seybold - External Body height 2022-04-15 19:47:00 172.7 cm Dot ey Seybold - External Body weight 2022-04-15 19:47:00 187.245 kg Dot ey Seybold - External BMI 2022-04-15 19:47:00 62.77 kg/m2 Dot ey Seybold - External Oxygen saturation in Arterial blood by Pulse oximetry 2022-04-15 19:47:00 93 /min Apurva Mcmillanybo ld - External Body weight 2022-04-09 21:51:00 190.511 kg Dot ey Seybold - External BMI 2022-04-09 21:51:00 63.86 kg/m2 Dot ey Seybold - External Oxygen saturation in Arterial blood by Pulse oximetry 2022-04-09 21:51:00 99 /min Apurva Seybo ld - External Systolic blood pressure 2022-04-09 21:51:00 154 mm[Hg] Apurva Seybo ld - External Diastolic blood pressure 2022-04-09 21:51:00 83 mm[Hg] Apurva Seybo ld - External Heart rate 2022-04-09 21:51:00 68 /min Kelse y Seybold - External Body temperature 2022-04-09 21:51:00 36.83 Kimi Apurav Seybold - External Respiratory rate 2022-04-09 21:51:00 14 /min Apurva Seybold - External Body height 2022-04-09 21:51:00 172.7 cm Dot ey Seybold - External Systolic blood pressure 2022-03-12 19:49:00 147 mm[Hg] Apurva Seybo ld - External Diastolic blood pressure 2022-03-12 19:49:00 74 mm[Hg] Apurva Seybo ld - External Heart rate 2022-03-12 19:49:00 84 /min Kelse y Seybold - External Body temperature 2022-03-12 19:49:00 36.56 Kimi Apurva Seybold - External Respiratory rate 2022-03-12 19:49:00 14 /min Apurva Seybold - External Body height 2022-03-12 19:49:00 172.7 cm Dot ey Seybold - External Body weight 2022-03-12 19:49:00 192.779 kg Dot ey Seybold - External BMI 2022-03-12 19:49:00 64.62 kg/m2 Dot ey Seybold - External Oxygen saturation in Arterial blood by Pulse oximetry 2022-03-12 19:49:00 99 /min Apurva Bell ld - External Systolic blood pressure 2022-02-12 18:46:00 164 mm[Hg] Apurva Pelaezo ld - External Diastolic blood pressure 2022-02-12 18:46:00 80 mm[Hg] Apurva Pelaezo ld - External Heart rate 2022-02-12 18:46:00 101 /min Shelly y Seemilyold - External Body temperature 2022-02-12 18:46:00 36.56 Kimi Apurva Mcmillanybold - External Respiratory rate 2022-02-12 18:46:00 16 /min Apurva Yanes - External Body height 2022-02-12 18:46:00 172.7 cm Dot ey Seybold - External Body weight 2022-02-12 18:46:00 191.872 kg Dot ey Seybold - External BMI 2022-02-12 18:46:00 64.32 kg/m2 Dot ey Seybold - External Encounters Start Date/Time End Date/Time Encounter Type Admission Type Attending Rust Care Department Encounter ID Source 2023-04-22 00:00:00 2023-04-22 00:00:00 Outpatient PRACHI RODRIGUEZ [id number] Apurva Yanes 2023-04-16 00:00:00 2023-04-16 00:00:00 Outpatient MD APURVA MOLINA [id number] Apurva Yanes 2023-03-18 11:00:00 2023-03-18 11:00:00 Outpatient PRACHI RODRIGUEZ [id number] Apurva Yanes 2023-02-13 11:15:00 2023-02-13 11:15:00 Outpatient PRACHI RODRIGUEZ [id number] Apurva Yanes 2023-01-22 11:15:00 2023-01-22 11:15:00 Outpatient PRACHI RODRIGUEZ [id number] Apurva Yanes 2023-01-15 00:00:00 2023-01-15 00:00:00 Outpatient PREZAS, PRACHI HARVEY APURVA [id number] [facility] 2023-01-15 00:00:00 2023-01-15 00:00:00 Outpatient PREZAS, PRACHI HARVEY APURVA [id number] [facility] 2023-01-15 00:00:00 2023-01-15 00:00:00 Outpatient PREZAS, PRACHI APURVA APURVA [id number] [facility] 2022-12-31 00:00:00 2022-12-31 00:00:00 Outpatient PREZAS, PRACHI HARVEY APURVA [id number] [facility] 2022-12-25 00:00:00 2022-12-25 00:00:00 Outpatient ROBBIE, JASSONArnol HARVEY [id number] [facility] 2022-12-24 09:20:00 2022-12-24 09:20:00 Outpatient LAB90 APURVA HARVEY [id number] Apurva [facility] 2022-12-24 08:45:00 2022-12-24 08:45:00 Outpatient PREZAS, PRACHI APURVA APURVA [id number] Ap[facility]va [facility] 2022-10-07 15:45:00 2022-10-07 15:45:00 Outpatient PREZAS, PRACHI APURVA HARVEY [id number] [facility] 2022-08-26 14:00:00 2022-08-26 14:00:00 Outpatient TESTING, CAMILLE HARVEY [id number] [facility] 2022-08-26 00:00:00 2022-08-26 00:00:00 Outpatient PREZAS, PRACHI APURVA HARVEY [id number] Apurva [facility] 2022-08-07 00:00:00 2022-08-07 00:00:00 Outpatient ROBBIE, JASSONArnol HARVE[facility] [id number] [facility]22-07-30 10:00:00 2022-07-30 10:00:00 Outpatient LAB90 APURVA HARVEY [id number] Apurva [facility] 2022-07-16 09:30:00 2022-07-16 09:30:00 Outpatient PREZAS, PRACHI AHRVEY [id number] [facility] 2022-07-09 08:10:00 2022-07-09 08:10:00 Outpatient NATHAN [facility] [id number] [facility] 2022-06-21 13:45:00 2022-06-21 13:45:00 Outpatient PREZAS, PRACHI [facility]VA [facility] [id number] [facility] 2022-05-29 00:00:00 2022-05-29 00:00:00 Outpatient HUNDL, JUAN APURVA HAR[facility] [id number] [facility] 2022-05-27 15:30:00 2022-05-27 15:30:00 Outpatient HUNDL, JUAN [facility] [id number] [facility] 2022-05-24 00:00:00 2022-05-24 00:00:00 Outpatient PREZAS, PRACHI [facility]VA [facility] [id number] [facility] 2022-05-21 00:00:00 2022-05-21 00:00:00 Outpatient PREZAS, PRACHI [facility]VA [facility] [id number] [facility]22-05-21 00:00:00 2022-05-21 00:00:00 Outpatient PREZAS, PRACHI [facility]VA [facility] [id number] [facility] 2022-05-19 00:00:00 2022-05-19 00:00:00 Outpatient PREZAS, PRACHI [facility] [id number] [facility] 2022-05-10 09:45:00 2022-05-10 09:45:00 Outpatient PREZAS, PRACHI APURVA HARVEY [id number] Apurva Seybold 2022-05-07 16:15:00 2022-05-07 16:15:00 Outpatient PREZAS, PRACHI HARVEY [id number] Apurva Seybold 2022-05-01 00:00:00 2022-05-01 00:00:00 Outpatient PREZAS, PRACHI HARVEY [id number] Apurva Seybold 2022-05-01 00:00:00 2022-05-01 00:00:00 Outpatient ROBBIE, JASSON HARVEY [id number] Apurva Seybold 2022-04-29 16:30:00 2022-04-29 16:30:00 Outpatient PREZAS, PRACHI HARVEY APURVA [id number] Apurva [facility] 2022-04-17 13:30:00 2022-04-17 13:30:00 Outpatient PREZAS, PRACHI HARVEY APURVA [id number] Apurva [facility] 2022-04-17 00:00:00 2022-04-17 00:00:00 Outpatient PREZAS, PRACHI HARVEY APURVA [id number] Ap[facility]va [facility] 2022-04-15 14:35:00 2022-04-15 14:35:00 Outpatient LAB53 APURVA APURVA [id number] Apurva [facility] 2022-04-15 14:00:00 2022-04-15 14:00:00 Outpatient ROBBIE, JASSON APURVA HARVEY [id number] [facility] 2022-04-09 16:15:00 2022-04-09 16:15:00 Outpatient PREZAS, PRACHI HARVEY APURVA [id number] [facility] 2022-03-12 15:00:00 2022-03-12 15:00:00 Outpatient PREZAS, PRACHI HARVEY APURVA [id number] [facility] 2022-02-12 15:15:00 2022-02-12 15:15:00 Outpatient PREZAS, PRACHI APURVA HARVEY [id number] [facility] 2022-02-12 13:45:00 2022-02-12 13:45:00 Outpatient PREZAS, PRACHI HARVEY APURVA [id number] [facility] 2022-01-31 00:00:00 2022-01-31 00:00:00 Outpatient PREZAS, PRACHI APURVA HARVEY [id number] Apurva [facility] 2022-01-22 08:50:00 2022-01-22 08:50:00 Outpatient LAB90 [facility]URVA HARVEY [id number] [facility] 2022-01-16 00:00:00 2022-01-16 00:00:00 Outpatient PREZAS, PRACHI [facility]VA HARVYE [id number] [facility] 2022-01-15 08:55:00 2022-01-15 08:55:00 Outpatient LAB90 APURVA HARVEY [id number] Apurva Yanes 2022-01-15 08:00:00 2022-01-15 08:30:00 Office Visit Prachi Rodriguez Jackson [id number] Apurva Yanes
[2023-05-25 20:01] LABS: Hematocrit 38.6 % (36.0-45.0); MCV 89.2 fL (80-100); MPV 8.1 fL (7.6-11.3); Platelets 189 thou/uL (152-406); RBC Red Blood Cell Count 4.33 M/uL (3.86-4.86)
[2023-05-25 20:05] LABS: SARS-CoV-2 Antigen Rapid Res Negative (Negative)
[2023-05-25 20:11] LABS: Protime INR 1.21
[2023-05-25 20:20] LABS: Albumin 3.3 g/dL (3.4-5.0); Bilirubin Direct 0.2 mg/dL (0-0.2); Bilirubin Indirect, Calculated 0.6 mg/dL (0.2-0.8); Bilirubin Total 0.8 mg/dL (0.2-1.0); Magnesium 1.7 mg/dL (1.6-2.4); Potassium 3.3 mEq/L (3.5-5.1); Protein, Total 7.9 g/dL (6.4-8.2)
--- NOTE | 2023-05-25 20:41 | RAD REPORT ---
EXAM DESCRIPTION: RADChest Single View05/25/2023 8:32 pm CLINICAL HISTORY: Chest pain;Congestion COMPARISON: Chest Pa And Lat (2 Views) dated 05/29/2022; Chest Pa And Lat (2 Views) dated 02/14/2022; Chest Single View dated 12/19/2019; Chest Pa And Lat (2 Views) dated 06/07/2019 TECHNIQUE: Portable AP view of the chest. FINDINGS: The lungs are clear. No pneumothorax or effusion. The cardiomediastinal contours are unre markable. IMPRESSION: No acute cardiopulmonary process.
--- NOTE | 2023-05-25 21:20 | RAD REPORT ---
EXAM DESCRIPTION: CT - Chest For Pe Angio - 05/25/2023 8:53 pm CLINICAL HISTORY: Chest pain;Dyspnea COMPARISON: Chest For Pe Angio dated 05/30/2022; Chest Angio dated 09/11/2018; CTANGIO CHEST FOR PE da kayden 12/31/2007; Chest Single View dated 05/25/2023 TECHNIQUE: Thin axial CT images of the chest were obtained following administration of 100 mL Isovue 370 IV contrast. Multiplanar reconstructions, and maximum intensity projection reconstructions were generated and reviewed. Exam utilizes a protocol for optimal evaluation of pulmonary arterial tree. All CT scans are performed using dose optimization technique as appropriate and may include automated exposure control or mA/KV adjustment according to patient size. FINDINGS: Main pulmonary artery is prominent in caliber, exceeding caliber of the aorta. No emboli o r other suspicious finding. No acute or significant aorta findings. No mass or infiltrate in the lung parenchyma. No pleural thickening or pleural effusion. No pneumotho rax. No abnormal mediastinal or hilar masses or lymphadenopathy seen. No chest wall mass or abnormal axill iary lymphadenopathy. No suspicious osseous abnormality. Sternal plating results in some streak artifact somewhat limits ev aluation despite attempts to remedy the artifact. IMPRESSION: No evidence of acute central pulmonary emboli. Prominent caliber of the main pulmonary artery, may suggest pulmonary hypertension in the appropriate clinical setting.
--- NOTE | 2023-05-25 21:53 | ER ---
Nurse's Notes [facility] Name: Julienne Tucker Age: 57 yrs Sex: Female : 1965 Arrival Date: 05/25/2023 Time: 19:11 Bed 4 Private MD: Karan Rodriguez Diagnosis: Acute upper respiratory infection, unspecified;Cough;Influenza due to identified novel influenza A virus with other respiratory manifestations;Obesity, unspecified;Hypokalemia;Dehydration Presentation: 05/25 19:26 Chief complaint: Patient states: Cough, congestion, nausea onset 1 week ago. Pt also cm10 reports generalized body aches. Coronavirus screen: Vaccine status: Patient reports receiving the 2nd dose of the covid vaccine. Client denies travel out of the [place] in the last 14 days. Ebola Screen: Patient denies travel to an Ebola-affected area in the 21 days before illness onset. No symptoms or risks identified at this time. Initial Sepsis Screen: Does the patient meet any 2 criteria? HR > 90 bpm. Does the patient have a suspected source of infection? No. Patient's initial sepsis screen is negative. Risk Assessment: Do you want to hurt yourself or someone else? Patient reports no desire to harm self or others. Onset of symptoms was May 25, 2023. 19:26 Method Of Arrival: Ambulatory cm10 19:26 Acuity: RJ 3 cm10 Historical: - Allergies: 19:28 Compazine; cm10 19:28 Demerol; cm10 19:28 Erythromycin; cm10 19:28 Tetracycline; cm10 19:28 Vancomycin; cm10 19:28 Amoxicillin; cm10 19:28 Azithromycin; cm10 - PMHx: 19:28 Depression; Hypertension; cm10 - PSHx: 19:28 Coronary artery bypass graft; cm10 - Immunization history:: Adult Immunizations unknown. - Social history:: Smoking status: Patient denies any tobacco usage or history of. Screenin:29 [facility] ED Fall Risk Assessment (Adult) History of falling in the last 3 months, rv including since admission No falls in past 3 months (0 pts) Score/Fall Risk Level 0 - 2 = Low Risk Oriented to surroundings, Maintained a safe environment, Educated pt \T\ family on fall prevention, incl call for assistance when getting out of bed, Assessed \T\ reinforced patient's understanding of fall precautions. Abuse screen: Denies threats or abuse. Denies injuries from another. Nutritional screening: No deficits noted. Tuberculosis screening: No symptoms or risk factors identified. Assessment: 20:29 VAN Scoring: Arm Drift: Patients demonstrates NO arm weakness. Patient is VAN Negative. rv [place] Swallow Protocol Brief Cognitive Screen What is your name? Normal, Where are you right now? Normal, What year is it? Normal. Oral Mechanism Examination Facial Symmetry: Normal, Motion: Normal, Lip Closure: Normal, Oral Mechanism Result: Normal. 3 oz Water Swallow Challenge: Pt able to drink all water without stopping, coughing, choking or throat clearing: Yes Result: PASS Notified: Alex Johnson MD. TNKase (Tenecteplase) Screening: Contraindications: Other: not appllicable at this time. General: Appears in no apparent distress. comfortable, Behavior is calm, cooperative. Pain: Complains of pain in head. Neuro: Level of Consciousness is awake, alert, obeys commands, Oriented to person, place, time, situation. Cardiovascular: Capillary refill < 3 seconds Patient's skin is warm and dry. Respiratory: Reports shortness of breath cough that is Airway is patent Respiratory effort is even, unlabored. GI: No signs and/or symptoms were reported involving the gastrointestinal system. : No signs and/or symptoms were reported regarding the genitourinary system. Derm: Skin is intact. 21:15 Reassessment: Patient and/or family updated on plan of care and expected duration. Pain tm6 level reassessed. Patient is alert, oriented x 3, equal unlabored respirations, skin warm/dry/pink. 21:57 Reassessment: Patient appears in no apparent distress at this time. No changes from tm6 previously documented assessment. 22:53 Reassessment: Patient appears in no apparent distress at this time. No changes from tm6 previously documented assessment. Vital Signs: 19:26 BP 179 / 97; Pulse 124; Resp 18; Temp 98.5(O); Pulse Ox 97% on R/A; Weight 181.44 kg cm10 (R); Height 5 ft. 8 in. (R); Pain 8/10; 20:36 Weight 174.18 kg; rv 21:07 BP 131 / 82; Pulse 103; Resp 20; Pulse Ox 99% on R/A; rv 21:15 BP 131 / 82; Pulse 99; Pulse Ox 97% on R/A; tm6 21:56 BP 144 / 75; Pulse 96; Resp 19; Pulse Ox 99% on R/A; tm6 22:52 BP 157 / 69; Pulse 95; Pulse Ox 100% on R/A; tm6 19:26 Body Mass Index 60.82 (174.18 kg, 172.72 cm) cm10 19:26 Pain Scale: Adult cm10 [place] Coma Score: 21:07 Eye Response: spontaneous(4). Motor Response: obeys commands(6). Verbal Response: rv oriented(5). Total: 15. NIH Stroke Scale Scores: 20:29 NIHSS Score: 0 rv ED Course: 19:17 Patient arrived in ED. gm2 19:20 Karan Rodriguez DO is Private Physician. gm2 19:28 Triage completed. cm10 19:29 Arm band placed on Patient placed in an exam room, on a stretcher. cm10 19:30 Alex Johnson MD is Attending Physician. catracho 19:45 Inserted saline lock: 20 gauge in left antecubital area, using aseptic technique. Blood rv collected. 20:03 Inserted saline lock: 20 gauge in right forearm, using aseptic technique. Blood rv collected. 20:28 Ata Moraes, THOMAS is Primary Nurse. rv 20:34 XRAY Chest (1 view) In Process Unspecified. EDMS 20:54 CT Chest For PE Angio In Process Unspecified. EDMS 21:35 US Extremity Venous W Compression Anthony In Process Unspecified. EDMS 21:52 Karan Rodriguez DO is Referral Physician. catracho 21:52 Edenilson Cruz MD is Referral Physician. catracho 22:53 No provider procedures requiring assistance completed. IV discontinued, intact, tm6 bleeding controlled, No redness/swelling at site. Pressure dressing applied. Administered Medications: 20:12 Drug: levofloxacin IVPB 750 mg 150 ml IVPB once over 90 mins Volume: 150 ml; Route: rv IVPB; Infused Over: 90 mins; Site: right forearm; 20:13 Drug: NS 0.9% IV 1000 ml IV at 1 bolus Per protocol; 1000 mL bolus Route: IV; Rate: 1 rv bolus; Site: right forearm; 22:55 Follow up: Response: No adverse reaction; IV Intake: 1000ml tm6 20:13 Drug: Famotidine IVP 20 mg IVP once; dilute with 10 mL 0.9% NaCl; give over 2 minutes rv Route: IVP; Site: right forearm; 21:07 Drug: Oseltamivir PO 75 mg PO once Route: PO; rv 21:07 Drug: Potassium PO Effervescent Tablet 50 mEq PO once; dissolve in 4 ounces of water or rv juice Route: PO; 21:07 Drug: NS 0.9% IV 1000 ml IV at 1 bolus Per protocol; 1000 mL bolus Route: IV; Rate: 1 rv bolus; Site: left antecubital; 22:54 Follow up: Response: No adverse reaction; IV Intake: 1000ml tm6 21:07 Drug: NS 0.9% IV 1000 ml IV at 1 bolus Per protocol; 1000 mL bolus Route: IV; Rate: 1 rv bolus; Site: left antecubital; 22:54 Follow up: Response: No adverse reaction; IV Intake: 1000ml tm6 Medication: 20:29 VIS not applicable for this client. rv Intake: 22:54 IV: 1000ml; Total: 1000ml. tm6 22:54 IV: 1000ml; Total: 2000ml. tm6 22:55 IV: 1000ml; Total: 3000ml. tm6 Outcome: 21:52 Discharge ordered by . catracho 22:53 Discharged to home ambulatory, with family, tm6 22:53 Condition: stable 22:53 Discharge instructions given to patient, Instructed on discharge instructions, follow up and referral plans. medication usage, 22:54 Patient left the ED. tm6 NIH Stroke Scale - NIH Stroke Score Date: 05/25/2023 Time: 20:29 Total Score = 0 10. Dysarthria (speech clarity - read or repeat words) - 0(Normal) 11. Extinction and Inattention (visual/tactile/auditory/spatial/personal) - 0(No abnormality) 1a. Level of Consciousness (LOC) - 0(Alert) 1b. Level of Consciousness (LOC) (Month \T\ Age) - 0(Both) 1c. LOC Commands (Open \T\ Closes Eyes/Car Hostler) - 0(Both) 2. Best Gaze (Lateral Gaze Paresis) - 0(Normal) 3. Visual Field Loss - 0(No visual loss) 4. Facial Palsy - 0(Normal) 5a. Left Arm: Motor (10-second hold) - 0(No drift) 5b. Right Arm: Motor (10-second hold) - 0(No drift) 6a. Left Leg: Motor (5-second hold - always test supine) - 0(No drift) 6b. Right Leg: Motor (5-second hold - always test supine) - 0(No drift) 7. Limb Ataxia (finger/nose \T\ heel/black - test with eyes open) - 0(Absent) 8. Sensory Loss (pinprick arms/legs/face) - 0(Normal) 9. Best Language: Aphasia (description/naming/reading) - 0(No aphasia) Initials: rv Signatures: Dispatcher [employer] EDAlex Hall MD MD cha Vicente, Ronaldo RN RN rv Emma Castro RN RN cm10 Sunita Dominguez 2 Ani Zaman RN RN tm6 Corrections: (The following items were deleted from the chart) 19:28 19:26 Chief complaint: Patient states: Cough, congestion, nausea onset 1 week cm10 ago. cm10
--- NOTE | 2023-05-25 21:53 | EDPHYS ---
Physician Documentation [facility] Name: Julienne Tucker Age: 57 yrs Sex: Female : 1965 Arrival Date: 05/25/2023 Time: 19:11 Bed 4 Private MD: Kaarn Rodriguez ED Physician Alex Johnson HPI: 05/25 20:46 This 57 yrs old Female presents to ER via Ambulatory with complaints of catracho Cough, Chest Congestion, Weakness, Dizziness. 20:46 The patient or guardian reports airway noise, cough, flu symptoms, arthralgias, catracho low-grade fever, myalgias. Onset: The symptoms/episode began/occurred 2 day(s) ago. Severity of symptoms: At their worst the symptoms were moderate, in the emergency department the symptoms are unchanged. Modifying factors: The symptoms are alleviated by nothing, the symptoms are aggravated by nothing. Associated signs and symptoms: Pertinent positives: fever, rhinorrhea, sore throat. The patient has experienced similar episodes in the past, a few times. Historical: - Allergies: 19:28 Compazine; cm10 19:28 Demerol; cm10 19:28 Erythromycin; cm10 19:28 Tetracycline; cm10 19:28 Vancomycin; cm10 19:28 Amoxicillin; cm10 19:28 Azithromycin; cm10 - PMHx: 19:28 Depression; Hypertension; cm10 - PSHx: 19:28 Coronary artery bypass graft; cm10 - Immunization history:: Adult Immunizations unknown. - Social history:: Smoking status: Patient denies any tobacco usage or history of. ROS: 20:48 Constitutional: Negative for fever, chills, and weight loss, Eyes: Negative for injury, catracho pain, redness, and discharge, ENT: Negative for injury, pain, and discharge, Neck: Negative for injury, pain, and swelling, Cardiovascular: Negative for chest pain, palpitations, and edema, Abdomen/GI: Negative for abdominal pain, nausea, vomiting, diarrhea, and constipation, Back: Negative for injury and pain, : Negative for injury, bleeding, discharge, and swelling, MS/Extremity: Negative for injury and deformity, Skin: Negative for injury, rash, and discoloration, Neuro: Negative for headache, weakness, numbness, tingling, and seizure, Psych: Negative for depression, anxiety, suicide ideation, homicidal ideation, and hallucinations, Allergy/Immunology: Negative for hives, rash, and allergies, Endocrine: Negative for neck swelling, polydipsia, polyuria, polyphagia, and marked weight changes, Hematologic/Lymphatic: Negative for swollen nodes, abnormal bleeding, and unusual bruising, 20:48 Cardiovascular: Positive for palpitations, 20:48 Respiratory: Positive for cough, "sounds productive", 20:48 Neuro: Positive for weakness, Exam: 20:48 Constitutional: This is a well developed, well nourished patient who is awake, alert, catracho and in no acute distress. Head/Face: Normocephalic, atraumatic. Eyes: Pupils equal round and reactive to light, extra-ocular motions intact. Lids and lashes normal. Conjunctiva and sclera are non-icteric and not injected. Cornea within normal limits. Periorbital areas with no swelling, redness, or edema. ENT: Nares patent. No nasal discharge, no septal abnormalities noted. Tympanic membranes are normal and external auditory canals are clear. Oropharynx with no redness, swelling, or masses, exudates, or evidence of obstruction, uvula midline. Mucous membranes moist. Neck: Trachea midline, no thyromegaly or masses palpated, and no cervical lymphadenopathy. Supple, full range of motion without nuchal rigidity, or vertebral point tenderness. No Meningismus. Chest/axilla: Normal chest wall appearance and motion. Nontender with no deformity. No lesions are appreciated. Respiratory: Lungs have equal breath sounds bilaterally, clear to auscultation and percussion. No rales, rhonchi or wheezes noted. No increased work of breathing, no retractions or nasal flaring. Abdomen/GI: Soft, non-tender, with normal bowel sounds. No distension or tympany. No guarding or rebound. No evidence of tenderness throughout. Back: No spinal tenderness. No costovertebral tenderness. Full range of motion. Skin: Warm, dry with normal turgor. Normal color with no rashes, no lesions, and no evidence of cellulitis. MS/ Extremity: Pulses equal, no cyanosis. Neurovascular intact. Full, normal range of motion. Neuro: Awake and alert, GCS 15, oriented to person, place, time, and situation. Cranial nerves II-XII grossly intact. Motor strength 5/5 in all extremities. Sensory grossly intact. Cerebellar exam normal. Normal gait. Psych: Awake, alert, with orientation to person, place and time. Behavior, mood, and affect are within normal limits. 20:48 Cardiovascular: Rate: tachycardic, actual rate is 124 bpm, Rhythm: regular, Pulses: Pulses are 4+ in bilateral radial, brachial, femoral, popliteal, posterior tibial and and dorsalis pedis arteries.. Heart sounds: normal, Edema: is not appreciated, JVD: is not appreciated, 20:48 ECG was reviewed by the Attending Physician. 20:48 Musculoskeletal/extremity: ROM: no acute changes, intact in all extremities, full active range of motion, full passive range of motion, Circulation is intact in all extremities. Sensation intact. Compartment Syndrome exam of affected extremity: is normal. Weight bearing: able to fully bear weight, DVT Exam: No signs of deep vein thrombosis. no pain, no swelling, no tenderness, negative Homans' sign noted on exam, no appreciated bluish discoloration, no erythema, no increased warmth, Vital Signs: 19:26 BP 179 / 97; Pulse 124; Resp 18; Temp 98.5(O); Pulse Ox 97% on R/A; Weight 181.44 kg cm10 (R); Height 5 ft. 8 in. (R); Pain 8/10; 20:36 Weight 174.18 kg; rv 21:07 BP 131 / 82; Pulse 103; Resp 20; Pulse Ox 99% on R/A; rv 21:15 BP 131 / 82; Pulse 99; Pulse Ox 97% on R/A; tm6 21:56 BP 144 / 75; Pulse 96; Resp 19; Pulse Ox 99% on R/A; tm6 22:52 BP 157 / 69; Pulse 95; Pulse Ox 100% on R/A; tm6 19:26 Body Mass Index 60.82 (174.18 kg, 172.72 cm) cm10 19:26 Pain Scale: Adult cm10 NIH Stroke Scale Scores: 20:29 NIHSS Score: 0 rv Yuli Coma Score: 21:07 Eye Response: spontaneous(4). Motor Response: obeys commands(6). Verbal Response: rv oriented(5). Total: 15. MDM: 19:30 Patient medically screened. catracho 20:52 Differential diagnosis: tracheal injury, bronchitis, flu, URI. Antibiotic catracho administration: The patient is discharged and will get outpatient antibiotics, Levaquin. Differential Diagnosis: Obstructed Airway Bronchitis Influenza Upper Respiratory Infection Sinusitis Asthma Exacerbation Viral Syndrome Pneumonia Tracheal Injury. Data reviewed: vital signs, nurses notes, lab test result(s), EKG, radiologic studies, CT scan, plain films. Consideration of Admission/Observation Escalation of care including admission/observation considered. I considered the following discharge prescriptions or medication management in the emergency department Medications were administered in the Emergency Department. See MAR. Independent interpretation of the following test(s) in the Emergency Department EKG: See my EKG interpretation above. Test considered but Not performed: Ultrasound no usg of legs. MRI: . 21:00 Care significantly affected by the following chronic conditions: Hypertension, obese, catracho depression. Counseling: I had a detailed discussion with the patient and/or guardian regarding the historical points, exam findings, and any diagnostic results supporting the discharge/admit diagnosis, lab results, radiology results, the need for outpatient follow up, for definitive care, a family practitioner. 05/25 19:32 Order name: Basic Metabolic Panel; Complete Time: 20:44 [facility] 05/25 19:32 Order name: CBC with Diff; Complete Time: 20:44 [facility] 05/25 19:32 Order name: LFT's; Complete Time: 20:44 [facility] 05/25 19:32 Order name: Magnesium; Complete Time: 20:44 [facility] 05/25 19:32 Order name: NT PRO-BNP; Complete Time: 20:44 [facility] 05/25 19:32 Order name: PT-INR; Complete Time: 20:44 [facility] 05/25 19:32 Order name: Troponin HS; Complete Time: 20:44 [facility] 05/25 19:32 Order name: Blood Culture Adult (2) [facility] 05/25 19:32 Order name: SARS RAPID; Complete Time: 20:44 [facility] 05/25 19:32 Order name: Flu; Complete Time: 20:44 [facility] 05/25 19:32 Order name: Strep; Complete Time: 20:44 [facility] 05/25 19:32 Order name: Lactate w/ 2H reflex if indic.; Complete Time: 21:51 [facility] 05/25 19:33 Order name: Lipase; Complete Time: 20:44 [facility] 05/25 20:08 Order name: Throat Culture EDGA 05/25 22:03 Order name: Lactate w/ 2H reflex if indic.; Complete Time: 22:31 05/25 19:32 Order name: XRAY Chest (1 view); Complete Time: 20:44 [facility] 05/25 19:32 Order name: CT Chest For PE Angio; Complete Time: 21:51 [facility] 05/25 21:08 Order name: US Extremity Venous W Compression Anthony; Complete Time: 22:31 [facility] 05/25 19:32 Order name: Cardiac monitoring; Complete Time: 20:12 [facility] 05/25 19:32 Order name: EKG - Nurse/Tech; Complete Time: 20:12 [facility] 05/25 19:32 Order name: IV Saline Lock; Complete Time: 20:12 [facility] 05/25 19:32 Order name: Labs collected and sent; Complete Time: 20:12 [facility] 05/25 19:32 Order name: O2 Per Protocol; Complete Time: 20:12 [facility] 05/25 19:32 Order name: O2 Sat Monitoring; Complete Time: 20:12 [facility] 05/25 21:30 Order name: Misc. Order: repeat lactate, protocol; Complete Time: 21:39 [facility] EC:48 Rate is 102 beats/min. Rhythm is regular. QRS [place] is Normal. MI interval is normal. [facility] QRS interval is normal. QT interval is normal. No Q waves. T waves are Normal. No ST changes noted. Clinical impression: NSR w/ Non-specific ST/T Changes, Abnormal EKG without significant change, and No evidence of ischemia. Interpreted by me. Reviewed by me. Administered Medications: 20:12 Drug: levofloxacin IVPB 750 mg 150 ml IVPB once over 90 mins Volume: 150 ml; Route: rv IVPB; Infused Over: 90 mins; Site: right forearm; 20:13 Drug: NS 0.9% IV 1000 ml IV at 1 bolus Per protocol; 1000 mL bolus Route: IV; Rate: 1 rv bolus; Site: right forearm; 22:55 Follow up: Response: No adverse reaction; IV Intake: 1000ml tm6 20:13 Drug: Famotidine IVP 20 mg IVP once; dilute with 10 mL 0.9% NaCl; give over 2 minutes rv Route: IVP; Site: right forearm; 21:07 Drug: Oseltamivir PO 75 mg PO once Route: PO; rv 21:07 Drug: Potassium PO Effervescent Tablet 50 mEq PO once; dissolve in 4 ounces of water or rv juice Route: PO; 21:07 Drug: NS 0.9% IV 1000 ml IV at 1 bolus Per protocol; 1000 mL bolus Route: IV; Rate: 1 rv bolus; Site: left antecubital; 22:54 Follow up: Response: No adverse reaction; IV Intake: 1000ml tm6 21:07 Drug: NS 0.9% IV 1000 ml IV at 1 bolus Per protocol; 1000 mL bolus Route: IV; Rate: 1 rv bolus; Site: left antecubital; 22:54 Follow up: Response: No adverse reaction; IV Intake: 1000ml tm6 Disposition Summary: 05/25/23 21:52 Discharge Ordered Notes: Location: Home [facility] Problem: new [facility] Symptoms: have improved catracho Condition: Stable catracho Diagnosis - Acute upper respiratory infection, unspecified catracho - Cough catracho - Influenza due to identified novel influenza A virus with other respiratory [facility] manifestations - Obesity, unspecified catracho - Hypokalemia catracho - Dehydration catracho Followup: [facility] - With: Karan Rodriguez DO - When: 1 - 2 days - Reason: Recheck today's complaints, Continuance of care, Re-evaluation by your physician Followup: [facility] - With: Edenilson Cruz MD - When: - Reason: Recheck today's complaints, Re-evaluation by your physician Discharge Instructions: - Discharge Summary Sheet catracho - Dehydration, Adult catracho - Potassium Content of Foods catracho - Influenza, Adult catracho - Obesity, Adult catracho - Upper Respiratory Infection, Adult catracho - Cool Mist Vaporizer catracho - Upper Respiratory Infection, Adult, [id number] catracho - Cough, Adult [facility] Forms: - Medication Reconciliation Form [facility] - Thank You Letter [facility] - Antibiotic Education [facility] - Prescription Opioid Use [facility] - Patient Portal Instructions [facility] - Leadership Thank You Letter [facility] Prescriptions: - albuterol sulfate 90 mcg/actuation Inhalation HFA Aerosol Inhaler - inhale 2 puff INHALATION route every 6-8 hours as needed for shortness of catracho breath or wheezing; until breathing returns to target peak flow/parameters; 1 unit; Refills: 0, Product Selection Permitted - Tessalon Perles 100 mg Oral capsule - take 2 capsule ORAL route every 8 hours As needed; 30 capsule; Refills: 0, [facility] Product Selection Permitted - Tamiflu 75 mg Oral capsule - take 1 tablet ORAL route every 12 hours for 5 days; 10 tablet; Refills: 0, [facility] Product Selection Permitted - levofloxacin 500 mg Oral tablet - take 1 tablet ORAL route once daily for 7 days; 7 tablet; Refills: 0, Product catracho Selection Permitted NIH Stroke Scale - NIH Stroke Score Date: 05/25/2023 Time: 20:29 Total Score = 0 10. Dysarthria (speech clarity - read or repeat words) - 0(Normal) 11. Extinction and Inattention (visual/tactile/auditory/spatial/personal) - 0(No abnormality) 1a. Level of Consciousness (LOC) - 0(Alert) 1b. Level of Consciousness (LOC) (Month \\T\\ Age) - 0(Both) 1c. LOC Commands (Open \\T\\ Closes Eyes/Educational Resource Coordinator) - 0(Both) 2. Best Gaze (Lateral Gaze Paresis) - 0(Normal) 3. Visual Field Loss - 0(No visual loss) 4. Facial Palsy - 0(Normal) 5a. Left Arm: Motor (10-second hold) - 0(No drift) 5b. Right Arm: Motor (10-second hold) - 0(No drift) 6a. Left Leg: Motor (5-second hold - always test supine) - 0(No drift) 6b. Right Leg: Motor (5-second hold - always test supine) - 0(No drift) 7. Limb Ataxia (finger/nose \\T\\ heel/black - test with eyes open) - 0(Absent) 8. Sensory Loss (pinprick arms/legs/face) - 0(Normal) 9. Best Language: Aphasia (description/naming/reading) - 0(No aphasia) Initials: rv Signatures: Dispatcher [employer] Alex Jalloh MD MD cha Vicente, Ronaldo RN RN Emma Dow RN RN cm10 Ani Zaman RN tm6
--- NOTE | 2023-05-25 22:21 | RAD REPORT ---
EXAM DESCRIPTION: US - Extrem Venous W Compress Anthony - 05/25/2023 9:33 pm CLINICAL HISTORY: Pain, swelling COMPARISON: None. TECHNIQUE: Real-time sonographic evaluation of the bilateral lower extremity deep venous systems was performed. FINDINGS: Normal compressibility, flow augmentation, phasic flow and spontaneous flow is identified in both the left and right lower extremity deep venous systems. No intraluminal filling defects seen. IMPRESSION: No DVT in either lower extremity.
[2023-05-25 23:31] VITALS: TEMP 98.5
[2023-05-25 23:45] VITALS: BP 157/69; O2SAT 100
--- NOTE | 2023-05-26 12:21 | EKG ---
Test Date: 2023-05-25 Test Time: 20:17:01 Audio Visual Aide: RV MEASUREMENT RESULTS: Intervals: Rate: 102 NC: 156 QRSD: 140 QT: 396 QTc: 516 [place]: P: 53 NC: 156 QRS: -89 T: 58 INTERPRETIVE STATEMENTS: Sinus tachycardia Right bundle branch block Left anterior fascicular block Bifascicular block Possible Inferior infarct, age undetermined Abnormal ECG Compared to ECG 01/29/2023 10:21:35 Left anterior fascicular block now present Bifascicular block now present Myocardial infarct finding still present Electronically Signed On 05-26-23 12:19:07 C D STILL OPERATOR by Eleazar Antonio
== END ==
LOC: ER 19:11
DX: J10.1 Influenza due to other identified influenza virus with other respiratory manifestations (principal); E87.6 Hypokalemia; E86.0 Dehydration; Z11.52 Encounter for screening for COVID-19; E66.9 Obesity, unspecified; Z68.44 Body mass index [BMI] 60.0-69.9, adult; Z88.1 Allergy status to other antibiotic agents; Z88.3 Allergy status to other anti-infective agents; Z88.5 Allergy status to narcotic agent
CPT/HCPCS: 93005; 87040 ×2; 87070; 85025; 80048; 36415; 83735; 85610; 80076; 87081; 83605 ×2; 84484; 83690; 83880; 87804 ×2; 71275; 71045; 93970; 96375; 96374; 99285; 87811; Q9967; J7030 ×2

== ENCOUNTER 2023-05-26 15:25 | Inpatient (IN) | payer BC, SELFPAY ==
--- OUTSIDE RECORDS SUMMARY | 2023-05-26 15:29 | XMS REPORT | Continuity of Care Document ---
Author Name Unknown Address [address] [facility] [address] [place] [address] [facility] thconnect Address [address] [facility]. [address] [place] [address] Care Team Providers Care Account Services Coordinator Name Role Phone PRACHI RODRIGUEZ Attending Clinician Unavailable MD LAUREN Attending Clinician Unavailab JASSON Beltrán Attending Clinician Unavailable LAB90 Attending Clinician Unavailable TESTING, CAMILLE FOWLER Attending Clinician U JUAN Alva Attending Clinician Unavailable LAB53 Attending Clinician Unavailable Prachi Rodriguez DO Attending Clinician Payers Payer Name Policy Type Policy Number Effective Date Expirati on Date Source [facility] 2 [id number] 2022 00:00:00 [facility] 3 [id number] 2021 00:00:00 Problems Condition Name Condition Details [...] 01-15 00:00: 00 Apurva Pérez Externa l EZEKEIL (obstructi ve sleep apnea) EZEKIEL (obstructi ve [...] MG oral Tablet 2022-05 00:00: 00 Yes [id number] 50mg QD Take 1 tablet (50 mg total) by mouth nightly as needed for anxiety (insomnia) . Apurva simeon Ketoconazol e 2 % apply externally Cream 2022-05 00:00: 00 Yes [id number] Apply to the skin twice daily. Apurva simeon Duloxetine HCl [address] Particles 2022-05 00:00: 00 Yes [id number] 60mg Take 1 capsule (60 mg total) by mouth daily. Apurva simeon Folic Acid 1 MG oral tablet 2022-05 00:00: 00 Yes [id number] 1mg Take 1 tablet (1 mg total) by mouth daily. Apurva simeon Aspirin 81 MG oral Tablet Delayed Response 2022-05 00:00: 00 Yes [id number] 81mg Take 1 tablet (81 mg total) by mouth daily. Apurva simeon Duloxetine HCl [address] Particles 02-14 00:00: 00 03-18 00:00 :00 No 60mg Take 1 capsule (60 mg total) by mouth daily. Apurva simeon hydrOXYzine HCl 50 MG oral Tablet 02-13 00:00: 00 03-18 00:00 :00 No 50mg Q.[id number] 3D Take 1 tablet (50 mg total) by mouth every 8 hours as needed. Apurva simeon Folic Acid 1 MG oral tablet 02-13 00:00: 00 03-18 00:00 :00 No 1mg Take 1 tablet (1 mg total) by mouth daily. Apurva simeon Venlafaxine HCl 150 MG oral Capsule 24 Hour Sustained Release 01-15 00:00: 00 03-18 00:00 :00 No [id number] 150mg Take 1 capsule (150 mg total) [...] Hour Sustained Release 12-24 00:00: 00 Yes [id number] 150mg Take 1 capsule (150 mg total) by mouth daily Apurva simeon Alprazolam 0.5 MG oral Tablet 12-24 00:00: 00 Yes [id number] .5mg QD Take 1 tablet (0.5 mg total) by mouth nightly as needed for sleep or anxiety Apurva simeon Alprazolam 0.5 MG oral Tablet 12-24 00:00: 00 03-18 00:00 :00 No [id number] .5mg QD Take 1 tablet (0.5 mg total) by mouth nightly as needed for sleep or anxiety Apurva Yanes - Externa l Metoprolol Tartrate 50 MG oral Tablet 07-16 09:21: 40 Yes 50mg Take 50 mg by mouth 2 times daily Apurva Yanes - Jamesa l Semaglutide (2 mg/dose) 8 mg/3 mL SQ Solution Pen-Injecto r 07-16 00:00: 00 Yes [id number] 2mg Inject 2 mg into the skin once a week Apurva Yanes - Externa l Semaglutide (2 mg/dose) 8 mg/3 mL SQ Solution Pen-Injecto r 07-16 00:00: 00 12-24 00:00 :00 No [id number] 2mg Inject 2 mg into the skin [...] BREATH Apurva Yanes - Externa l Nebulizers (ALKALINE WATERoSpire Essence Nebulizer) does not apply [facility] 05-30 00:00: 00 Yes USE DIRECTED FOUR [...] BREATH Apurva Yanes - Externa l Nebulizers (ALKALINE WATERoSpire Essence Nebulizer) does not apply Misc 05-30 00:00: 00 12-24 00:00 :00 No USE DIRECTED FOUR TIMES A DAY Apurva simeon Metoprolol Tartrate 50 MG oral Tablet 05-27 15:41: 41 Yes 50mg Take 50 mg by mouth 2 times daily Apurva simeon Guaifenesin (Mucinex) 600 MG oral Tablet 12 Hour Sustained Release 05-27 00:00: 00 Yes [id number] 1200mg Take 2 tablets (1,200 mg total) by mouth 2 times daily Apurva simeon Amoxicillin 500 MG oral Capsule 05-27 00:00: 00 Yes [id number] 500mg Take 1 capsule (500 mg total) by mouth 3 times daily Apurva simeon Albuterol Sulfate 2.5 MG/0.5ML inhalation Inhalant Solution 05-27 00:00: 00 Yes [id number] 2.5mg Take 2.5 mg by nebulizati on once for 1 dose Apurva simeon guaiFENesin -Codeine (Cheratussi n AC) 100-10 MG/5ML oral Syrup 05-27 00:00: 00 Yes [id number] 5mL Q.[id number] 3D Take 5 mL by mouth 3 times daily as needed for cough Apurva simeon Guaifenesin (Mucinex) 600 MG oral Tablet 12 Hour Sustained Release 05-27 00:00: 00 07-16 00:00 :00 No [id number] 1200mg Take 2 tablets (1,200 mg total) by mouth 2 times daily Apurva simeon Amoxicillin 500 MG oral Capsule 05-27 00:00: 00 07-16 00:00 :00 No [id number] 500mg Take 1 capsule (500 mg total) by mouth 3 times daily Apurva simeon guaiFENesin -Codeine (Cheratussi n AC) 100-10 MG/5ML oral Syrup 05-27 00:00: 00 07-16 00:00 :00 No [id number] 5mL Q.[id number] 3D Take 5 mL by mouth 3 times daily as needed for cough Apurva simeon Albuterol (PROVENTIL) (2.5 MG/3ML) 0.083% inhalation Inhalant Solution 1-09 00:00: 00 07-16 00:00 :00 No [id number] 2.5mg Q4H Take 2.5 mg by nebulizati on every 4 hours as needed for wheezing Apurva simeon Semaglutide (1 mg/dose) 2 mg/1.5 mL SQ Solution Pen-Injecto r 05-21 00:00: 00 Yes [id number] 1mg Inject 1 mg into the skin once a week Apurva simeon OZEMPIC (1 mg/dose) 4 mg/3 mL SQ Solution Pen-Injecto r 05-21 00:00: 00 Yes Apurva simeon Semaglutide (1 mg/dose) 2 mg/1.5 mL SQ Solution Pen-Injecto r - 00:00: 00 07-16 00:00 :00 No [id number] 1mg Inject 1 mg into the skin [...] by mouth 2 times daily Apurva simeon Losartan Potassium 50 MG oral Tablet 2021-05 00:00: 00 Yes [id number] 50mg Take 1 tablet (50 mg total) by mouth daily Apurva Pérez Externa cailin Losartan Potassium 50 MG oral Tablet 2021-05 00:00: 00 Yes [id number] 50mg Take 1 tablet (50 mg total) by mouth daily Apurva Yanes - Externa l Losartan Potassium 50 MG oral Tablet 2021-05 00:00: 00 Yes [id number] 50mg Take 1 tablet (50 mg total) by mouth daily Apurva Pérez Externa l Losartan Potassium 50 MG oral Tablet 2021-05 00:00: 00 12-24 00:00 :00 No [id number] 50mg Take 1 tablet (50 mg total) by mouth daily Apurva Pérez Externa cailin Losartan Potassium 25 MG oral Tablet 2021-05 00:00: 00 05-10 00:00 :00 No [id number] 25mg Take 1 tablet (25 mg total) by mouth daily Apurva Pérez Externa l Metoprolol Tartrate 50 MG oral Tablet 2021-05 16:31: 17 Yes 50mg Take 50 mg by mouth 2 times daily Apurva Pérez Externa l Losartan Potassium 25 MG oral Tablet 2021-05 00:00: 00 Yes [id number] 25mg Take 1 tablet (25 mg total) by mouth daily Apurva Pérez Externa l Cyclobenzap rine HCl 10 MG oral Tablet 2021-05 00:00: 00 Yes [id number] 10mg Q.5D Take 1 tablet (10 mg total) by mouth 2 times daily as needed for muscle spasms Apurva Yanes - Externa l Cyclobenzap rine HCl 10 MG oral Tablet 2021-05 00:00: 00 Yes [id number] 10mg Q.5D Take 1 tablet (10 mg total) by mouth 2 times daily as needed for muscle spasms Apurva Yanes - Externa l Cyclobenzap rine HCl 10 MG oral Tablet 2021-05 00:00: 00 Yes [id number] 10mg Q.5D Take 1 tablet (10 mg total) by mouth 2 times daily as needed for muscle spasms Apurva Yanes - Externa l Cyclobenzap rine HCl 10 MG oral Tablet 2021-05 00:00: 00 Yes [id number] 10mg Q.5D Take 1 tablet (10 mg total) by mouth 2 times daily as needed for muscle spasms Apurva Seybold - Externa l Cyclobenzap rine HCl 10 MG oral Tablet 2021-05 00:00: 00 12-24 00:00 :00 No [id number] 10mg Q.5D Take 1 tablet (10 mg total) by mouth 2 times daily as needed for muscle spasms Apurva Seybold - Externa l Metoprolol Tartrate 50 MG oral Tablet 2021-05 13:28: 16 Yes 50mg Take 50 mg by mouth 2 times daily Apurva Seybold - Externa l Cyclobenzap rine HCl 10 MG oral Tablet 2021-05 00:00: 00 Yes [id number] 10mg Q.5D Take 1 tablet (10 mg total) by mouth 2 times daily as needed for muscle spasms Apurva Seybold - Externa l Tramadol HCl 50 MG oral Tablet 2021-05 00:00: 00 Yes [id number] 50mg Q.5D Take 1 tablet (50 mg total) by mouth 2 times daily as needed for pain Apurva Seybold - Externa l Tramadol HCl 50 MG oral Tablet 2021-05 00:00: 00 Yes [id number] 50mg Q.5D Take 1 tablet (50 mg total) by mouth 2 times daily as needed for pain Apurva Seybold - Externa l Tramadol HCl 50 MG oral Tablet 2021-05 00:00: 00 Yes [id number] 50mg Q.5D Take 1 tablet (50 mg total) by mouth 2 times daily as needed for pain Apurva Seybold - Externa l Tramadol HCl 50 MG oral Tablet 2021-05 00:00: 00 Yes [id number] 50mg Q.5D Take 1 tablet (50 mg total) by mouth 2 times daily as needed for pain Apurva Seybold - Externa l Tramadol HCl 50 MG oral Tablet 2021-05 00:00: 00 Yes [id number] 50mg Q.5D Take 1 tablet (50 mg total) by mouth 2 times daily as needed for pain Apurva Seybold - Externa l Tramadol HCl 50 MG oral Tablet 2021-05 00:00: 00 12-24 00:00 :00 No [id number] 50mg Q.5D Take 1 tablet (50 mg total) by mouth 2 times daily as needed for pain Apurva Seemilyold - Externa l Cyclobenzap rine HCl 10 MG oral Tablet 2021-05 00:00: 00 04-29 00:00 :00 No [id number] 10mg Q.5D Take 1 tablet (10 mg total) by mouth 2 times daily as needed for muscle spasms Apurva Seybold - Externa l Metoprolol Tartrate 50 MG oral Tablet 2021-05 13:48: 44 Yes 50mg Take 50 mg by mouth 2 times daily Apurva Benignoold - Externa l Semaglutide (0.25 or 0.5 mg/dose) 2 mg/1.5 mL SQ Solution Pen-Injecto r 2021-05 00:00: 00 Yes [id number] .5mg Inject 0.5 mg into the skin once a week Apurva Pelaezold - Externa l Semaglutide (0.25 or 0.5 mg/dose) 2 mg/1.5 mL SQ Solution Pen-Injecto r 2021-05 00:00: 00 Yes [id number] .5mg Inject 0.5 mg into the skin once a week Apurva Seybold - Externa l Semaglutide (0.25 or 0.5 mg/dose) 2 mg/1.5 mL SQ Solution Pen-Injecto r 2021-05 00:00: 00 Yes [id number] .5mg Inject 0.5 mg into the skin once a week Apurva Seybold - Externa l Semaglutide (0.25 or 0.5 mg/dose) 2 mg/1.5 mL SQ Solution Pen-Injecto r 2021-05 00:00: 00 Yes [id number] .5mg Inject 0.5 mg into the skin once a week Apurva Seemilyold - Externa l Semaglutide (0.25 or 0.5 mg/dose) 2 mg/1.5 mL SQ Solution Pen-Injecto r 2022-1 1-22 00:00: 00 Yes [id number] .5mg Inject 0.5 mg into the skin once a week Apurva Mcmillanemilynheal Ramireza cailin Sodium Chloride 0.9 % irrigation [...] Sustained Release 2021-05 0-25 00:00: 00 Yes [id number] 75mg Take 1 capsule (75 mg total) by mouth daily Apurva simeon Venlafaxine HCl 75 MG oral Capsule 24 Hour Sustained Release 2021-05 0-25 00:00: 00 Yes [id number] 75mg Take 1 capsule (75 mg total) by mouth daily Apurva Ramireza cailin Venlafaxine HCl 75 MG oral Capsule 24 Hour Sustained Release 2021-05 0-25 00:00: 00 Yes [id number] 75mg Take 1 capsule (75 mg total) by mouth daily Apurva Pérez Externa cailin Venlafaxine HCl 75 MG oral Capsule 24 Hour Sustained Release 2021-05 0-25 00:00: 00 Yes [id number] 75mg Take 1 capsule (75 mg total) by mouth daily Apurva Pérez Externa cailin Venlafaxine HCl 75 MG oral Capsule 24 Hour Sustained Release 2021- 0-25 00:00: 00 Yes [id number] 75mg Take 1 capsule (75 mg total) by mouth daily Apurva simeon Venlafaxine HCl 75 MG oral Capsule 24 Hour Sustained Release 2021-05 0- 00:00: 00 Yes [id number] 75mg Take 1 capsule (75 mg total) by mouth daily Apurva simeon Semaglutide (0.25 or 0.5 mg/dose) 2 mg/1.5 mL SQ Solution Pen-Injecto r 2021-05 0-25 00:00: 00 Yes [id number] 104 .25mg Inject 0.25 mg into the skin once a week Apurva simeon Venlafaxine HCl 75 MG oral Capsule 24 Hour Sustained Release 2021-05 0 00:00: 00 Yes [id number] 75mg Take 1 capsule (75 mg total) by mouth daily Apurva simeon Venlafaxine HCl 75 MG oral Capsule 24 Hour Sustained Release 2021-05 0 00:00: 00 Yes [id number] 75mg Take 1 capsule (75 mg total) by mouth daily Apurva simeon Venlafaxine HCl 75 MG oral Capsule 24 Hour Sustained Release 2021-05 0 00:00: 00 12-24 00:00 :00 No [id number] 75mg Take 1 capsule (75 mg total) by mouth daily Apurva simeon Semaglutide (0.25 or 0.5 mg/dose) 2 mg/1.5 mL SQ Solution Pen-Injecto r 2021-05 0 00:00: 00 04-09 00:00 :00 No [id number] 104 .25mg Inject 0.25 mg into the [...] apply externally Ointment 02-12 00:00: 00 Yes [id number] Apply 1 applicatio n topically 2 times daily Apurva simeon Mupirocin (BACTROBAN) 2 % apply externally Ointment 02-12 00:00: 00 Yes [id number] Apply 1 applicatio n topically 2 times daily Apurva simeon Mupirocin (BACTROBAN) 2 % apply externally Ointment 02-12 00:00: 00 04-09 00:00 :00 No [id number] Apply 1 applicatio n topically 2 times daily Apurva simeon TRIMETHOPRI M-SULFAMETH OXAZOLE 800-160 MG oral Tablet 02-12 00:00: 00 02-20 04:59 :00 No [id number] 1{tbl} Take 1 tablet by mouth 2 times daily for 7 days Apurva simeon Blood Pressure does not apply Kit 01-15 00:00: 00 02-12 00:00 :00 No [id number] Check BP daily Apurva simeon Immunizations Ordered [...] External Body temperature 2022-04-09 21:51:00 36.83 Kimi Apurva Seybold - External Respiratory rate 2022-04-09 21:51:00 [...] End Date/Time Encounter Type [facility] Encounter ID Source 2023-04-22 00:00:00 2023-04-22 00:00:00 Outpatient PRACHI RODRIGUEZ [id number] Apurva Yanes 2023-04-16 00:00:00 2023-04-16 00:00:00 Outpatient MD APURVA MOLINA [id number] Apurva Yanes 2023-03-18 11:00:00 2023-03-18 11:00:00 Outpatient PRACHI RODRIGUEZ [id number] Apurva Yanes 2023-02-13 11:15:00 2023-02-13 11:15:00 Outpatient PRACHI RODRIGUEZ [id number] Apurva Yanes 2023-01-22 11:15:00 2023-01-22 11:15:00 Outpatient PRACHI RODRIGUEZ [id number] Apurva Yanes 2023-01-15 00:00:00 2023-01-15 00:00:00 Outpatient PREZAS, PRACHI HARVEY APURVA [id number] [facility] 00:00:00 2023-01-15 00:00:00 Outpatient PREZAS, PRACHI HARVEY APURVA [id number] [facility] 2023-01-15 00:00:00 2023-01-15 00:00:00 Outpatient PREZAS, PRACHI APURVA APURVA [id number] [facility] 2022-12-31 00:00:00 2022-12-31 00:00:00 Outpatient PREZAS, PRACHI HARVEY APURVA [id number] [facility] 2022-12-25 00:00:00 2022-12-25 00:00:00 Outpatient ROBBIE, JASSONArnol HARVEY [id number] [facility] 2022-12-24 09:20:00 2022-12-24 09:20:00 Outpatient LAB90 APURVA HARVEY [id number] [facility] 2022-12-24 08:45:00 2022-12-24 08:45:00 Outpatient PREZAS, PRACHI APURVA APURVA [id number] [facility] 2022-10-07 15:45:00 2022-10-07 15:45:00 Outpatient PREZAS, PRACHI APUVRA HARVEY [id number] [facility] 2022-08-26 14:00:00 2022-08-26 14:00:00 Outpatient TESTING, CAMILLE HARVEY [id number] [facility] 2022-08-26 00:00:00 2022-08-26 00:00:00 Outpatient PREZAS, PRACHI APURVA HARVEY [id number] Apurva [facility] 2022-08-07 00:00:00 2022-08-07 00:00:00 Outpatient ROBBIE, JASSONArnol [facility]VE[facility] [id number] [facility]22-[facility]-30 10:00:00 2022-07-30 10:00:00 Outpatient LAB90 APURVA HARVEY [id number] Apurva [facility] 2022-07-16 09:30:00 2022-07-16 09:30:00 Outpatient PREZAS, PRACHI HAR[facility] [id number] [facility] 2022-07-09 08:10:00 2022-07-09 08:10:00 Outpatient NATHAN [facility]URVA [facility] [id number] [facility] 2022-06-21 13:45:00 2022-06-21 13:45:00 Outpatient PREZAS, PRACHI APURVA HAR[facility] [id number] [facility] 2022-05-29 00:00:00 2022-05-29 00:00:00 Outpatient HUNDL, JUAN APURVA HARVEY [id number] [facility] 2022-05-27 15:30:00 2022-05-27 15:30:00 Outpatient HUNDL, JUAN HARVE[facility] [id number] [facility] 2022-05-24 00:00:00 2022-05-24 00:00:00 Outpatient PREZAS, PRACHI APURVA HAR[facility] [id number] [facility] 2022-05-21 00:00:00 2022-05-21 00:00:00 Outpatient PREZAS, PRACHI APURVA HAR[facility] [id number] [facility] 2022-05-21 00:00:00 2022-05-21 00:00:00 Outpatient PREZAS, PRACHI APURVA HARVEY [id number] [facility] 2022-05-19 00:00:00 2022-05-19 00:00:00 Outpatient PREZAS, PRACHI APURVA HARVE[facility] [id number] [facility] 2022-05-10 09:45:00 2022-05-10 09:45:00 Outpatient PREZAS, PRACHI APURVA HARVEY [id number] Apurva Seybold 2022-05-07 16:15:00 2022-05-07 16:15:00 Outpatient PREZAS, PRACHI HARVEY [id number] Apurva Seybold 2022-05-01 00:00:00 2022-05-01 00:00:00 Outpatient PREZAS, PRACHI HARVEY [id number] Apurva Seybold 2022-05-01 00:00:00 2022-05-01 00:00:00 Outpatient ROBBIE, JASSON HARVEY [id number] Apurva Seybold 2022-04-29 16:30:00 2022-04-29 16:30:00 Outpatient PREZAS, PRACHI HARVEY APURVA [id number] Apurva [facility] 2022-04-17 13:30:00 2022-04-17 13:30:00 Outpatient PREZAS, PRACHI HARVEY APURVA [id number] Ap[facility]va [facility] 2022-04-17 00:00:00 2022-04-17 00:00:00 Outpatient PREZAS, PRACHI HARVEY APURVA [id number] Ap[facility]va [facility] 2022-04-15 14:35:00 2022-04-15 14:35:00 Outpatient LAB53 APURVA APURVA [id number] Apurva [facility] 2022-04-15 14:00:00 2022-04-15 14:00:00 Outpatient ROBBIE, JASSON APURVA HARVEY [id number] [facility] 2022-04-09 16:15:00 2022-04-09 16:15:00 Outpatient PREZAS, PRACHI HARVEY APURVA [id number] [facility] 2022-03-12 15:00:00 2022-03-12 15:00:00 Outpatient PREZAS, PRACHI HARVEY APURVA [id number] [facility] 2022-02-12 15:15:00 2022-02-12 15:15:00 Outpatient PREZAS, PRACHI APURVA HARVEY [id number] [facility] 2022-02-12 13:45:00 2022-02-12 13:45:00 Outpatient PREZAS, PRACHI HARVEY APURVA [id number] [facility] 2022-01-31 00:00:00 2022-01-31 00:00:00 Outpatient PREZAS, PRACHI APURVA HARVEY [id number] Apurva [facility] 2022-01-22 08:50:00 2022-01-22 08:50:00 Outpatient LAB90 APURVA HARVEY [id number] [facility] 2022-01-16 00:00:00 2022-01-16 00:00:00 Outpatient PREZAS, PRACHI [id number] [facility] 08:55:00 2022-01-15 08:55:00 Outpatient LAB90 APURVA HARVEY [id number] Apurva Yanes 2022-01-15 08:00:00 2022-01-15 08:30:00 Office Visit Prachi Rodriguez Jackson [id number] Apurva Yanes
[2023-05-26 16:47] LABS: Absolute Lymphocytes (CBC) 1.2 K/uL (0.7-4.9); Hematocrit 39.3 % (36.0-45.0); Lymphocytes % 27.5 % (15.3-44.8); MCV 89.6 fL (80-100); MPV 8.6 fL (7.6-11.3); Platelets 196 thou/uL (152-406); RBC Red Blood Cell Count 4.39 M/uL (3.86-4.86)
[2023-05-26 16:51] LABS: Protime INR 1.15
[2023-05-26] MEDS ORDERED: MORPHINE 4 MG/ML SYR ONE (17:00)
[2023-05-26] MEDS ORDERED: ONDANSETRON 4 MG/2 ML VIAL ONE (17:00)
[2023-05-26 17:12] LABS: Albumin 3.4 g/dL (3.4-5.0); Bilirubin Indirect, Calculated 0.6 mg/dL (0.2-0.8); Bilirubin Total 1.6 mg/dL (0.2-1.0); Potassium 3.3 mEq/L (3.5-5.1); Troponin High Sensitivity 15.3 pg/mL (<58.9)
--- NOTE | 2023-05-26 17:19 | RAD REPORT ---
EXAM DESCRIPTION: RADChest Single View05/26/2023 4:49 pm CLINICAL HISTORY: CHEST PAIN COMPARISON: Chest Single View dated 05/25/2023; Chest Pa And Lat (2 Views) dated 05/29/2022; Chest Pa A nd Lat (2 Views) dated 02/14/2022; Chest Single View dated 12/19/2019 TECHNIQUE: Portable AP view of the chest. FINDINGS: The lungs are clear. Decreased inspiratory effort somewhat limits evaluation. No pneumotho rax or effusion. The cardiomediastinal contours are unremarkable. IMPRESSION: No acute cardiopulmonary process.
--- NOTE | 2023-05-26 19:59 | RAD REPORT ---
EXAM DESCRIPTION: CT - Chest For Pe Angio - 05/26/2023 6:56 pm CLINICAL HISTORY: CHEST PAIN COMPARISON: Chest For Pe Angio dated 05/25/2023; Chest For Pe Angio dated 05/30/2022; Chest Angio dated 09/11/2018; CTANGIO CHEST FOR PE dated 12/31/2007 TECHNIQUE: Thin axial CT images of the chest were obtained following administration of 100 mL Isovue 370 IV contrast. Multiplanar reconstructions, and maximum intensity projection reconstructions were generated and reviewed. Exam utilizes a protocol for optimal evaluation of pulmonary arterial tree. All CT scans are performed using dose optimization technique as appropriate and may include automated exposure control or mA/KV adjustment according to patient size. FINDINGS: Motion artifact slightly suboptimal contrast evaluation. Streak artifact resulting from st ernal plating hardware is also seen. No central pulmonary emboli or other suspicious finding. Limited evaluation of the peripheral pulmonary vessels. No acute or significant aorta findings. No mass or infiltrate in the lung parenchyma. No pleural thickening or pleural effusion. No pneumotho rax. No abnormal mediastinal or hilar masses or lymphadenopathy seen. No chest wall mass or abnormal axill iary lymphadenopathy. IMPRESSION: No evidence of acute central pulmonary emboli for limitations mentioned above. No other acute pulmonary process.
--- NOTE | 2023-05-26 20:04 | RAD REPORT ---
EXAM DESCRIPTION: CT - Abdomen Pelvis W Contrast - 05/26/2023 6:57 pm CLINICAL HISTORY: elevated lfts COMPARISON: CT ABD PELVIS W CONTRAST dated 03/06/2008; CT ABD PELVIS W CONTRAST dated 11/04/2007; Cookie st For Pe Angio dated 05/26/2023 TECHNIQUE: Thin cut axial CT imaging of the abdomen and pelvis was performed following intravenous a dministration of 100 mL Isovue 370. Multiplanar reformats were generated and reviewed. All CT scans are performed using dose optimization technique as appropriate and may include automated exposure control or mA/KV adjustment according to patient size. FINDINGS: No suspicious findings in the lung bases. The liver again demonstrates diffuse parenchymal hypoattenuation suggesting steatosis. Adrenal glands and spleen show no suspicious findings. Gallbladder shows layering hyperdense noncalcified material suggestive sludge or possibly large burden of tiny calculi. Allowing for Some motion artifact in the upper abdomen, there appears be mild inflammatory stranding throughout the entirety of the pancreas. No appreciable fluid collections. Symmetric renal function is seen with no hydronephrosis or suspicious renal mass. No dilated bowel loops or bowel wall thickening. No free air, free fluid or inflammatory stranding. N o hernia, mass or bulky lymphadenopathy. The urinary bladder is without significant finding. No suspicious bony findings. IMPRESSION: Questionable mild inflammatory stranding throughout the entirety of the pancreas. Motion artifact somewhat limits limits evaluation. Please correlate clinically and with pancreatic enzyme l evels. Diffuse hepatic parenchymal hypoattenuation suggesting steatosis.
--- NOTE | 2023-05-26 20:12 | EDPHYS ---
Physician Documentation [facility] Name: Julienne Tucker Age: 57 yrs Sex: Female : 1965 Arrival Date: 05/26/2023 Time: 15:25 Bed 17 Private MD: Karan Rodriguez ED Physician Juan F Moreno HPI: 05/26 16:29 This 57 yrs old Female presents to ER via Ambulatory with complaints of Allergic sb4 Reaction. 18:50 Patient was seen at this facility last night and diagnosed with influenza A, given sb4 Levaquin and discharged with Tamiflu. She states that she forgot to mention that she has an allergy to Levaquin. She woke up today with a rash on her left hand. Later, she started developing chest pain and shortness of breath. Historical: - Allergies: 15:45 Amoxicillin; bp 15:45 Azithromycin; bp 15:45 Compazine; bp 15:45 Demerol; bp 15:45 Erythromycin; bp 15:45 Tetracycline; bp 15:45 Vancomycin; bp 16:29 Levofloxacin; sb4 - PMHx: 15:45 Depression; Hypertension; bp - PSHx: 15:45 Coronary artery bypass graft; bp - Immunization history:: Adult Immunizations up to date. - Social history:: Smoking status: unknown. ROS: 18:50 Constitutional: Negative for fever, chills, and weight loss, sb4 18:50 Cardiovascular: Positive for chest pain, 18:50 Respiratory: Positive for shortness of breath, 18:50 Abdomen/GI: Positive for nausea, 18:50 Skin: Positive for rash, 18:50 All other systems are negative, Exam: 18:50 Head/Face: Normocephalic, atraumatic. Eyes: Extra-ocular motions intact. Periorbital sb4 areas with no swelling, redness, or edema. ENT: Mucous membranes moist. Cardiovascular: Regular rate and rhythm with a normal S1 and S2. Respiratory: Lungs have equal breath sounds bilaterally, clear to auscultation and percussion. No rales, rhonchi or wheezes noted. No increased work of breathing, no retractions or nasal flaring. Abdomen/GI: Soft, non-tender, no distension. MS/ Extremity: Pulses equal, no cyanosis. Neurovascular intact. Full, normal range of motion. Neuro: Awake and alert, GCS 15, oriented to person, place, time, and situation. Motor strength 5/5 in all extremities. Sensory grossly intact. 18:50 Constitutional: The patient appears alert, awake, diaphoretic, obese, uncomfortable, 18:50 Skin: rash a mild rash is noted, on the left hand, Vital Signs: 15:41 BP 175 / 80; Pulse 77; Resp 16; Temp 98; Pulse Ox 96% ; bp 16:43 BP 117 / 61; Pulse 60; Resp 18 S; Pulse Ox 94% on R/A; kc6 18:22 BP 166 / 104; Pulse 84; Resp 19 S; Pulse Ox 93% on R/A; kc6 19:19 BP 183 / 105; Pulse 90; Resp 28; Pulse Ox 93% on R/A; tm6 19:19 Pain 0/10; tm6 19:46 Pulse Ox 88% on R/A; tm6 19:46 Pulse Ox 96% on 2 lpm NC; tm6 20:11 BP 179 / 124; Pulse 89; Resp 14; Pulse Ox 97% on R/A; tm6 20:17 Temp 98.2(O); tm6 21:44 BP 193 / 105; Pulse 92; Resp 19; Pulse Ox 95% on R/A; tm6 21:48 Weight 160.5 kg; Height 5 ft. 8 in. ; tm6 21:48 Body Mass Index 53.80 (160.50 kg, 172.72 cm) tm6 19:19 Pain Scale: Adult tm6 MDM: 15:53 Patient medically screened. sb4 18:50 Differential diagnosis: anaphylaxis, angioedema, Arrhythmias Myocardial Ischemia non sb4 IgE mediated drug reaction Status Asthmaticus. 20:10 Data reviewed: vital signs, nurses notes, lab test result(s), EKG, radiologic studies, sb4 and as a result, I will admit patient. Consideration of Admission/Observation Patient was admitted/placed on observation. Management of patient was discussed with the following: Hospitalist: dr. hassan. Counseling: I had a detailed discussion with the patient and/or guardian regarding the historical points, exam findings, and any diagnostic results supporting the discharge/admit diagnosis, the presence of at least one elevated blood pressure reading (>120/80) during this emergency department visit, lab results, radiology results, the need for further work-up and treatment in the hospital. 05/26 16:11 Order name: Basic Metabolic Panel; Complete Time: 17:42 sb4 05/26 16:11 Order name: CBC with Diff; Complete Time: 17:13 sb4 05/26 16:11 Order name: LFT's; Complete Time: 17:42 sb4 05/26 16:11 Order name: Magnesium; Complete Time: 17:42 sb4 05/26 16:11 Order name: NT PRO-BNP; Complete Time: 17:42 sb4 05/26 16:11 Order name: PT-INR; Complete Time: 17:13 sb4 05/26 16:11 Order name: Troponin HS; Complete Time: 17:42 sb4 05/26 16:38 Order name: Glucose, Ancillary Testing; Complete Time: 16:40 EDMS 05/26 19:40 Order name: Troponin High Sensitivity; Complete Time: 20:24 sb4 05/26 20:57 Order name: Lipase EDMS 05/26 21:03 Order name: Lactate w/ 2H reflex if indic. EDMS 05/26 21:04 Order name: Urinalysis w/ reflexes EDMS 05/26 21:04 Order name: CBC with Automated Diff EDMS 05/26 21:04 Order name: CBC with Automated Diff EDMS 05/26 21:04 Order name: Comprehensive Metabolic Panel EDMS 05/26 21:04 Order name: Comprehensive Metabolic Panel EDMS 05/26 16:11 Order name: XRAY Chest (1 view); Complete Time: 17:20 sb4 05/26 17:45 Order name: CT Chest For PE Angio; Complete Time: 20:01 sb4 05/26 17:45 Order name: CT Abd/Pelvis - IV Contrast Only; Complete Time: 20:04 sb4 05/26 21:00 Order name: Abdomen Exam Limited EDMS 05/26 16:11 Order name: EKG; Complete Time: 16:11 sb4 05/26 16:11 Order name: Cardiac monitoring; Complete Time: 16:41 sb4 05/26 16:11 Order name: EKG - Nurse/Tech; Complete Time: 16:41 sb4 05/26 16:11 Order name: IV Saline Lock; Complete Time: 16:41 sb4 05/26 16:11 Order name: Labs collected and sent; Complete Time: 16:41 sb4 05/26 16:11 Order name: O2 Per Protocol; Complete Time: : sb4 05/26 16:11 Order name: O2 Sat Monitoring; Complete Time: 16: sb4 EC:53 Rate is 83 beats/min. Rhythm is regular, Normal Sinus Rhythm with Right bundle branch sb4 block. IA interval is normal at 162 msec. QRS interval is normal at 144 msec. QT interval is normal at 454 msec. No Q waves. T waves are Normal. No ST changes noted. Clinical impression: Abnormal EKG without significant change. Interpreted by me. Reviewed by me. Administered Medications: 16:41 Drug: Aspirin PO Chewable Tablet 324 mg PO once; 81 mg tablets x 4 Route: PO; kc6 18:25 Follow up: Response: No adverse reaction kc6 16:41 Drug: MethylPrednisoLONE IVP 125 mg IVP once Route: IVP; Site: left antecubital; kc6 18:25 Follow up: Response: No adverse reaction 6 16:41 Drug: Famotidine IVP 20 mg IVP once; dilute with 10 mL 0.9% NaCl; give over 2 minutes kc6 Route: IVP; Site: left antecubital; 18:25 Follow up: Response: No adverse reaction kc6 17:06 Drug: morphine IVP or IV 4 mg IVP once over 4 mins Route: IVP; Infused Over: 4 mins; kc6 Site: left antecubital; 18:25 Follow up: Response: No adverse reaction; Pain is decreased; RASS: Alert and Calm (0) kc6 17:06 Drug: Ondansetron IVP 4 mg IVP once; over 2 minutes Route: IVP; Site: left antecubital; kc6 18:26 Follow up: Response: No adverse reaction; Nausea is decreased kc6 20:17 Drug: Oseltamivir PO 75 mg PO once Route: PO; tm6 20:17 Drug: Acetaminophen PO 1000 mg PO once Route: PO; tm6 Disposition: 18:02 I was immediately available on-site in the Emergency Department for consultation in the ms3 care of the patient. Disposition Summary: 05/26/23 20:12 Hospitalization Ordered Notes: Hospitalization Status: Inpatient Admission sb4 Provider: Junaid Hassan sb4 Condition: Fair sb4 Problem: new sb4 Symptoms: have worsened sb4 Bed/Room Type: Standard sb4 Location: Telemetry/MedSurg (Inpatient)(05/27/23 13:03) bd Room Assignment: 223(05/27/23 13:03) bd Diagnosis - Acute and chronic respiratory failure with hypoxia sb4 - Influenza due to identified novel influenza A virus with other respiratory sb4 manifestations - Chest pain, unspecified sb4 Discharge Instructions: - Discharge Summary Sheet sb4 Forms: - Medication Reconciliation Form sb4 - SBAR form sb4 - Leadership Thank You Letter sb4 Prescriptions: - Pepcid 20 mg Oral Tablet - take 1 tablet ORAL route every 12 hours for 10 days; 20 tablet; Refills: 0, sb4 Product Selection Permitted - Prednisone 20 mg Oral Tablet - take 1 tablet ORAL route every 12 hours for 5 days; 10 tablet; Refills: 0, sb4 Product Selection Permitted Signatures: Dispatcher [employer] EDMS Maryse Donaldson Brian, RN RN bp Juan F Moreno DO DO ms3 Fiona Louise RN RN vc1 Erum Chavis RN RN kc6 Gayathri Lowry PA-C PAAngelica sb4 Ani Zaman RN RN tm6 Corrections: (The following items were deleted from the chart) 22:55 20:12 Telemetry/MedSurg (Inpatient) sb4 vc1 22:55 20:12 sb4 vc1 05/27 13:03 05/26 22:55 [facility] [[email or web address]] ER HOLD vc1 bd 05/27 13:03 05/26 22:55 ERHOLD- vc1 bd
--- NOTE | 2023-05-26 20:12 | ER ---
Nurse's Notes [facility] Name: Julienne Tucker Age: 57 yrs Sex: Female : 1965 Arrival Date: 05/26/2023 Time: 15:25 Bed 17 Private MD: Karan Rodriguez Diagnosis: Acute and chronic respiratory failure with hypoxia;Influenza due to identified novel influenza A virus with other respiratory manifestations;Chest pain, unspecified Presentation: 05/26 15:41 Chief complaint: Patient states: "I WAS HERE LAST NIGHT FOR THE FLU AND I WAS SO OUT OF bp IT I FORGOT TO TELL THEM I WAS ALLERGIC TO LEVAQUIN, NOW I GOT THIS BLISTER ON MY HAND. Coronavirus screen: At this time, the client does not indicate any symptoms associated with coronavirus-19. Ebola Screen: No symptoms or risks identified at this time. Onset: The symptoms/episode began/occurred this morning. Anaphylaxis evaluation, no signs or symptoms of anaphylaxis were noted. Initial Sepsis Screen: Does the patient meet any 2 criteria? No. Patient's initial sepsis screen is negative. Does the patient have a suspected source of infection? No. Patient's initial sepsis screen is negative. Risk Assessment: Do you want to hurt yourself or someone else?. Onset of symptoms was May 26, 2023. 15:41 Method Of Arrival: Ambulatory bp 15:41 Acuity: RJ 3 bp Triage Assessment: 15:45 General: Appears in no apparent distress. Behavior is cooperative, appropriate for age, bp anxious. Pain: Complains of pain in left hand. Historical: - Allergies: 15:45 Amoxicillin; bp 15:45 Azithromycin; bp 15:45 Compazine; bp 15:45 Demerol; bp 15:45 Erythromycin; bp 15:45 Tetracycline; bp 15:45 Vancomycin; bp 16:29 Levofloxacin; sb4 - PMHx: 15:45 Depression; Hypertension; bp - PSHx: 15:45 Coronary artery bypass graft; bp - Immunization history:: Adult Immunizations up to date. - Social history:: Smoking status: unknown. Screenin:43 [facility] ED Fall Risk Assessment (Adult) History of falling in the last 3 months, kc6 including since admission No falls in past 3 months (0 pts) Confusion or Disorientation No (0 pts) Intoxicated or Sedated No (0 pts) Impaired Gait No (0 pts) Mobility Assist Device Used No (0 pt) Altered Elimination No (0 pt) Score/Fall Risk Level 0 - 2 = Low Risk. Abuse screen: Denies threats or abuse. Denies injuries from another. Nutritional screening: No deficits noted. Tuberculosis screening: No symptoms or risk factors identified. Assessment: 16:25 General: Appears in no apparent distress. uncomfortable, obese, well groomed, well kc6 developed. Pain: Complains of pain in chest. Neuro: Level of Consciousness is awake, alert, obeys commands, Oriented to person, place, time, situation, Appropriate for age Reports dizziness. Cardiovascular: Reports chest pain, Capillary refill < 3 seconds. Respiratory: Airway is patent Trachea midline Respiratory effort is even, unlabored, Respiratory pattern is regular, symmetrical, Breath sounds are clear bilaterally. GI: No signs and/or symptoms were reported involving the gastrointestinal system. : No signs and/or symptoms were reported regarding the genitourinary system. EENT: No signs and/or symptoms were reported regarding the EENT system. Derm: Skin is intact, is healthy with good turgor, Skin is diaphoretic, Skin is pale, Skin temperature is cool. Musculoskeletal: No signs and/or symptoms reported regarding the musculoskeletal system. Circulation, motion, and sensation intact. Capillary refill < 3 seconds, Range of motion: intact in all extremities. 16:30 Reassessment: pt expresses the need to go to the bathroom. pt diaphoretic, lightheaded kc6 and dizzy upon ambulation. pt placed back in bed, side rails up x2, call light within reach. 17:30 Reassessment: Patient appears in no apparent distress at this time. No changes from kc6 previously documented assessment. Patient and/or family updated on plan of care and expected duration. Pain level reassessed. Patient is alert, oriented x 3, equal unlabored respirations, skin warm/dry/pink. 18:22 Reassessment: Patient appears in no apparent distress at this time. No changes from kc6 previously documented assessment. Patient and/or family updated on plan of care and expected duration. Pain level reassessed. Patient is alert, oriented x 3, equal unlabored respirations, skin warm/dry/pink. 19:20 Reassessment: Patient appears in no apparent distress at this time. Patient and/or tm6 family updated on plan of care and expected duration. Pain level reassessed. 21:44 Reassessment: Patient appears in no apparent distress at this time. Patient and/or tm6 family updated on plan of care and expected duration. Pain level reassessed. Patient is alert, oriented x 3, equal unlabored respirations, skin warm/dry/pink. Vital Signs: 15:41 BP 175 / 80; Pulse 77; Resp 16; Temp 98; Pulse Ox 96% ; bp 16:43 BP 117 / 61; Pulse 60; Resp 18 S; Pulse Ox 94% on R/A; kc6 18:22 BP 166 / 104; Pulse 84; Resp 19 S; Pulse Ox 93% on R/A; kc6 19:19 BP 183 / 105; Pulse 90; Resp 28; Pulse Ox 93% on R/A; tm6 19:19 Pain 0/10; tm6 19:46 Pulse Ox 88% on R/A; tm6 19:46 Pulse Ox 96% on 2 lpm NC; tm6 20:11 BP 179 / 124; Pulse 89; Resp 14; Pulse Ox 97% on R/A; tm6 20:17 Temp 98.2(O); tm6 21:44 BP 193 / 105; Pulse 92; Resp 19; Pulse Ox 95% on R/A; tm6 21:48 Weight 160.5 kg; Height 5 ft. 8 in. ; tm6 21:48 Body Mass Index 53.80 (160.50 kg, 172.72 cm) tm6 19:19 Pain Scale: Adult tm6 ED Course: 15:27 Patient arrived in ED. rg4 15:27 Karan Rodriguez DO is Private Physician. rg4 15:36 Gayathri Lowry PA-C is PHCP. sb4 15:36 Juan F Moreno DO is Attending Physician. sb4 15:45 Triage completed. bp 15:45 Arm band placed on. bp 16:16 Erum Chavis, RN is Primary Nurse. kc6 16:41 Basic Metabolic Panel Sent. bc6 16:41 CBC with Diff Sent. bc6 16:41 LFT's Sent. bc6 16:41 Magnesium Sent. bc6 16:41 NT PRO-BNP Sent. bc6 16:41 PT-INR Sent. bc6 16:41 Troponin HS Sent. bc6 16:41 Inserted saline lock: 20 gauge in left antecubital area, using aseptic technique. Blood bc6 collected. 16:42 Patient maintains SpO2 saturation greater than 95% on room air. kc6 16:43 Patient has correct armband on for positive identification. Placed in gown. Bed in low kc6 position. Call light in reach. Side rails up X2. Client placed on continuous cardiac and pulse oximetry monitoring. NIBP monitoring applied. engine monitor on. 16:51 XRAY Chest (1 view) In Process Unspecified. EDMS 18:58 CT Chest For PE Angio In Process Unspecified. EDMS 18:59 CT Abd/Pelvis - IV Contrast Only In Process Unspecified. EDMS 19:00 Report given to THOMAS Law. kc6 20:11 Junaid Malloy MD is Hospitalizing Provider. sb4 20:15 Provided Education on: need for admit. tm6 20:15 Patient admitted, IV remains in place. tm6 05/27 04:05 No provider procedures requiring assistance completed. tm6 Administered Medications: 05/26 16:41 Drug: Aspirin PO Chewable Tablet 324 mg PO once; 81 mg tablets x 4 Route: PO; kc6 18:25 Follow up: Response: No adverse reaction kc6 16:41 Drug: MethylPrednisoLONE IVP 125 mg IVP once Route: IVP; Site: left antecubital; kc6 18:25 Follow up: Response: No adverse reaction kc6 16:41 Drug: Famotidine IVP 20 mg IVP once; dilute with 10 mL 0.9% NaCl; give over 2 minutes kc6 Route: IVP; Site: left antecubital; 18:25 Follow up: Response: No adverse reaction kc6 17:06 Drug: morphine IVP or IV 4 mg IVP once over 4 mins Route: IVP; Infused Over: 4 mins; kc6 Site: left antecubital; 18:25 Follow up: Response: No adverse reaction; Pain is decreased; RASS: Alert and Calm (0) kc6 17:06 Drug: Ondansetron IVP 4 mg IVP once; over 2 minutes Route: IVP; Site: left antecubital; kc6 18:26 Follow up: Response: No adverse reaction; Nausea is decreased kc6 20:17 Drug: Oseltamivir PO 75 mg PO once Route: PO; tm6 20:17 Drug: Acetaminophen PO 1000 mg PO once Route: PO; tm6 Medication: 05/27 04:05 VIS not applicable for this client. tm6 Outcome: 05/26 20:12 Decision to Hospitalize by Provider. sb4 20:15 Admitted to ER Hold. Please see [facility] for further documentation. tm6 20:15 Condition: unchanged 20:15 Instructed on the need for admit, Demonstrated understanding of instructions, 05/27 15:07 Patient left the ED. iw Signatures: Dispatcher [employer] EDMelodie Posada, THOMAS RN Rose Marie Page rg4 Tyrone Pringle RN RN bp Erum Chaivs RN RN kc6 Gayathri Lowry, PA-Don PA-C sb4 Margy Tran bc6 Ani Zaman RN RN tm6
[2023-05-26] MEDS ORDERED: ACETAMINOPHEN 500 MG TAB ONE (20:13)
[2023-05-26] MEDS ORDERED: OSELTAMIVIR 75 MG CAP PO ONE (20:13)
--- NOTE | 2023-05-26 20:54 | P.HP ---
Certification for Inpatient Patient admitted to: Inpatient With expected LOS: >2 Midnights Practitioner: I am a practitioner with admitting privileges, knowledge of patient current condition, hospital course, and medical plan of care. Services: Services provided to patient in accordance with Admission requirements found in Title 42 Section 412.3 of the Code of Federal Regulations Patient History Date of Service: 05/26/23 Reason for admission: Possible allergy reaction to levofloxacin History of Present Illness: 57-year-old female with past medical history of hypertension, depression, obesity, congenital heart disease status post correction surgery who was brought to the ER yesterday and was diagnosed with influenza A and was discharged home with Tamiflu and Levaquin. Patient was allergic to Levaquin and she took 1 medication that caused rashes on the palm of the hand of left side. She also feels generalized weakness and tired and lethargic and was brought to ER. Denies any fever or chills. No nausea vomiting or diarrhea. Patient also has complaints of some chest pain and shortness of breath and was brought to ER. Patient was assessed in the ER and was admitted for further management Allergies aluminum hydroxide [From Maalox] Allergy (Verified 02/15/22 08:29) Hives calcium carbonate [From Maalox] Allergy (Verified 02/15/22 08:29) Hives erythromycin base [Erythromycin Base] Allergy (Verified 02/15/22 08:29) Hives levofloxacin [From Levaquin] Allergy (Verified 02/15/22 08:29) Hives/Rash lidocaine [Lidocaine] Allergy (Verified 02/15/22 08:29) Hives? magnesium hydroxide [From Maalox] Allergy (Verified 02/15/22 08:29) Hives meperidine HCl [From Demerol] Allergy (Verified 02/15/22 08:29) Hives prednisone Allergy (Verified 02/15/22 08:29) Hives prochlorperazine edisylate [From Compazine] Allergy (Verified 02/15/22 08:29) Hives prochlorperazine maleate [From Compazine] Allergy (Verified 02/15/22 08:29) Hives simethicone [From Maalox] Allergy (Verified 02/15/22 08:29) Hives tetracycline [Tetracycline] Allergy (Verified 09/30/22 08:29) Hives zpac Allergy (Uncoded 02/15/22 08:29) Hives Home medications list reviewed: Yes Home Medications: Metoprolol Tartrate [Lopressor*] 25 mg PO BID 09/11/18 Amoxicillin 500 mg PO TID 05/29/22 Losartan Potassium [Cozaar*] 50 mg PO DAILY 05/29/22 Venlafaxine HCl [Venlafaxine HCl ER] 75 mg PO BEDTIME 05/29/22 Albuterol Neb [Proventil 0.083% Neb Soln] 2.5 mg NEB Q6HP PRN #120 amp 05/30/22 Benzonatate [Tessalon Perle*] 100 mg PO TID PRN #30 cap 05/30/22 Ipratropium Neb [Atrovent*] 0.5 mg NEB [id number] PRN #120 amp 05/30/22 Nebulizer 1 each MC QID #1 kit 05/30/22 traMADol HCL [Ultram*] 50 mg PO Q6H PRN #15 tab 05/30/22 - Past Medical/Surgical History Diabetic: No Past Medical History: Reviewed- Non-Contributory -: Hypertension -: Depression -: Cervical Cancer -: Obesity Hypoventilation Syndrome -: Fatty Liver Past Surgical History: Reviewed- Non-Contributory -: Hysterectomy -: CABG -: Brackets on sternum from CABG Sx -: Cyst removal on back Psychosocial/ Personal History: Patient is . - Family History Family History: Reviewed- Non-Contributory - Family History Father -: Heart disease - Social History Smoking Status: Never smoker Alcohol use: No CD- Drugs: No Caffeine use: Yes Review of Systems 10-point ROS is otherwise unremarkable General: Weakness, Malaise Eyes: Unremarkable ENT: Unremarkable Respiratory: Cough, Dry, SOB with Excertion Cardiovascular: Chest Pain Gastrointestinal: Nausea Genitourinary: Unremarkable Musculoskeletal: Unremarkable Integumentary: Unremarkable Neurological: Unremarkable Physical Examination - Vital Signs Temperature: 98.8 F Blood Pressure: 180/112 Pulse: 78 Respirations: 18 Pulse Ox (%): 97 - Physical Exam General: Alert, Oriented x3, Mild distress, Obese HEENT: Atraumatic, Normocephalic Neck: Supple, 2+ carotid pulse no bruit Respiratory: Diminished, Crackles/rales, Expiratory wheezes Cardiovascular: Normal pulses, Regular rate/rhythm, Normal S1 S2 Capillary refill: <2 Seconds Gastrointestinal: Soft and benign, No tenderness, No rebound, No guarding Musculoskeletal: No clubbing, No swelling, No contractures Integumentary: No rashes Neurological: Normal speech, Normal strength at 5/5 x4 extr, Sensation intact, Cranial nerves 3-12 intact, Normal reflexes 2+ Lymphatics: No axilla or inguinal lymphadenopathy - Studies Laboratory Data (last 24 hrs) 05/26/23 05/26/23 05/26/23 16:30 16:30 16:30 WBC 4.30 Hgb 13.6 Hct 39.3 Plt Count 196 PT 12.6 H INR 1.15 Sodium 138 Potassium 3.3 L BUN 7 Creatinine 1.19 H Glucose 145 H Magnesium 2.0 Total Bilirubin 1.6 H AST 251 H ALT 203 H Alkaline Phosphatase 212 H D Assessment and Plan - Problems (Diagnosis) (1) Influenza A Current Visit: Yes Status: Acute Plan: Tamiflu Supportive management Tylenol as needed Antitussives (2) COPD exacerbation Current Visit: Yes Status: Acute Plan: Bronchodilators Start oral steroids Antitussives Monitor closely on telemetry (3) Allergic drug rash Current Visit: Yes Status: Acute Plan: Patient had a bullous lesion in the left palm Continue steroids and Benadryl Topical steroids (4) Dyspnea Current Visit: No Status: Acute Plan: Monitor closely on telemetry Oxygen supplementation Will try to wean down oxygen requirement (5) Morbid obesity Current Visit: No Status: Chronic Plan: Lifestyle modification (6) Elevated LFTs Current Visit: Yes Status: Chronic Plan: Patient has any history of SON Monitor LFTs Will get a ultrasound of the abdomen CT abdomen pelvis findings noted Will get a lipase level Monitor closely Discharge Plan: Home Plan to discharge in: 48 Hours - Advance Directives Does patient have a Living Will: No Does patient have a Durable POA for Healthcare: No - Code Status/Comfort Care Code Status: Full Code Time Spent Managing Pts Care (In Minutes): 48
[2023-05-26] MEDS ORDERED: ACETAMINOPHEN 325 MG TABLET PO PRN (21:00)
[2023-05-26] MEDS: NA CHLORIDE 0.9% 1,000 ML IV SCH (21:00)
[2023-05-26] MEDS ORDERED: ONDANSETRON 4 MG/2 ML VIAL IV PRN (21:00)
[2023-05-26] MEDS ORDERED: ALBUTEROL 2.5 MG/3 ML NEB SOL NEB PRN (21:47)
[2023-05-26] MEDS ORDERED: IPRATROPIUM BROM 0.5MG/2.5ML NEB PRN (21:47)
[2023-05-26] MEDS ORDERED: BENZONATATE 100 MG CAP PO PRN (21:47)
[2023-05-26] MEDS ORDERED: DIPHENHYDRAMINE 50 MG/ML VIAL IV PRN (21:49)
[2023-05-26 21:58] VITALS: BMI 53.8
--- NOTE | 2023-05-26 22:34 | RAD REPORT ---
EXAM DESCRIPTION: US - Abdomen Exam Limited - 05/26/2023 10:12 pm CLINICAL HISTORY: gall stones COMPARISON: Abdomen Pelvis W Contrast dated 05/26/2023 TECHNIQUE: Sonographic grayscale and color flow images of the right upper abdominal quadrant were o btained. FINDINGS: The gallbladder demonstrates layering sludge and shadowing dependently layering small ston es. Evaluation somewhat limited by over shadowing gas. No pericholecystic fluid or gallbladder wall t hickening. The common bile duct is normal measuring 5mm. The liver demonstrates no findings of intrahepatic biliary dilatation. IMPRESSION: Cholelithiasis and sludge. No findings to suggest acute cholecystitis.
[2023-05-27] MEDS ORDERED: METOPROLOL TAR 25 MG TAB PO ONE (00:37)
[2023-05-27] MEDS ORDERED: TRAMADOL HCL 50 MG TAB ONE (00:44)
[2023-05-27] MEDS ORDERED: METHYLPREDNISOLONE 40 MG INJ ONE ×2 (00:44→08:33)
[2023-05-27] MEDS ORDERED: METOPROLOL TAR 25 MG TAB ONE ×2 (00:44→08:32)
[2023-05-27] MEDS: METHYLPREDNISOLONE 40 MG INJ IV SCH ×3 (00:57→16:15)
[2023-05-27] MEDS: TRAMADOL HCL 50 MG TAB PO PRN (00:57)
[2023-05-27 05:13] LABS: Absolute Lymphocytes (CBC) 0.6 K/uL (0.7-4.9); Hematocrit 36.5 % (36.0-45.0); Lymphocytes % 16.2 % (15.3-44.8); MCV 89.9 fL (80-100); MPV 8.8 fL (7.6-11.3); Platelets 187 thou/uL (152-406); RBC Red Blood Cell Count 4.06 M/uL (3.86-4.86)
[2023-05-27 05:51] LABS: Bilirubin Total 1.6 mg/dL (0.2-1.0); Protein, Total 7.3 g/dL (6.4-8.2)
[2023-05-27] MEDS ORDERED: FAMOTIDINE 20 MG TAB ONE (08:32)
[2023-05-27] MEDS ORDERED: OSELTAMIVIR 75 MG CAP PO ONE (08:32)
[2023-05-27] MEDS ORDERED: LOSARTAN POTASSIUM 50 MG TABLET ONE (08:33)
[2023-05-27] MEDS: FAMOTIDINE 20 MG TAB PO SCH ×2 (09:00→20:23)
[2023-05-27] MEDS: OSELTAMIVIR 75 MG CAP PO SCH ×2 (09:00→20:24)
[2023-05-27] MEDS: LOSARTAN POTASSIUM 50 MG TABLET PO SCH (09:00)
[2023-05-27] MEDS: METOPROLOL TAR 25 MG TAB PO SCH ×2 (09:00→20:23)
[2023-05-27] MEDS ORDERED: INFLUENZA VACCINE (for 6+ mo) 0.5 ML DOSE IMVAC ONE (11:00)
[2023-05-27] MEDS ORDERED: NA CHLORIDE 0.9% 1,000 ML ONE (12:35)
[2023-05-27] MEDS: NA CHLORIDE 0.9% 1,000 ML IV SCH (12:40)
[2023-05-27] MEDS ORDERED: LORazepam 2 MG/ML VIAL IV ONE ×2 (13:56→14:05)
[2023-05-27] MEDS ORDERED: LORazepam 2 MG/ML VIAL ONE (14:06)
--- NOTE | 2023-05-27 15:13 | RAD REPORT ---
EXAM DESCRIPTION: MRI - Cholangiogram - 05/27/2023 2:57 pm CLINICAL HISTORY: choledocholithiasis COMPARISON: Abdomen Exam Limited dated 05/26/2023; Abdomen Pelvis W Contrast dated 05/26/2023 FINDINGS: Three-dimensional MRCP was performed using maximum intensity projection reconstruction on the same work station. Cholelithiasis is present. No evidence of choledocholithiasis. Normal caliber common bile duct. No in trahepatic biliary duct dilatation. Subcentimeter T2 hyperintense lesion in the hepatic dome is likel y benign. No pancreatic ductal dilatation. Limited T2 sequences through the abdomen demonstrates no bulky adenopathy, significant free fluid or abscess. IMPRESSION: Cholelithiasis but no choledocholithiasis. No intra- or extrahepatic biliary duct dilata tion.
[2023-05-27] MEDS ORDERED: METOPROLOL TARTRATE 5 MG/5 ML INJ IV PRN (17:08)
--- NOTE | 2023-05-27 17:10 | EKG ---
Test Date: 2023-05-26 Test Time: 23:48:15 Residential Property Manager: LIUDMILA MEASUREMENT RESULTS: Intervals: Rate: 92 IL: 176 QRSD: 146 QT: 438 QTc: 541 [place]: P: 60 IL: 176 QRS: 24 T: 74 INTERPRETIVE STATEMENTS: Normal sinus rhythm Right bundle branch block Cannot rule out Inferior infarct, age undetermined Abnormal ECG Compared to ECG 05/26/2023 15:55:50 No significant changes Electronically Signed On 05-27-23 17:10:04 PHYTOPATHOLOGIST by Eleazar Antonio
--- NOTE | 2023-05-27 17:12 | EKG ---
Test Date: 2023-05-26 Test Time: 15:55:50 Kettle Cook: NARCISO MEASUREMENT RESULTS: Intervals: Rate: 83 MN: 162 QRSD: 144 QT: 454 QTc: 533 [place]: P: 44 MN: 162 QRS: -8 T: 50 INTERPRETIVE STATEMENTS: Normal sinus rhythm Possible Left atrial enlargement Right bundle branch block Possible Lateral infarct, age undetermined Abnormal ECG Compared to ECG 05/25/2023 20:17:01 Sinus tachycardia no longer present Left anterior fascicular block no longer present Bifascicular block no longer present Myocardial infarct finding still present Electronically Signed On 05-27-23 17:10:20 TOP IRONER by Eleazar Antonio
[2023-05-27] MEDS ORDERED: ALBUTEROL 2.5 MG/3 ML NEB SOL NEB PRN (18:09)
[2023-05-27 19:43] LABS: Albumin 3.2 g/dL (3.4-5.0); Bilirubin Total 0.8 mg/dL (0.2-1.0)
[2023-05-27 19:45] LABS: Potassium 4.1 mEq/L (3.5-5.1)
[2023-05-27] MEDS: VENLAFAXINE HCL XR 75 MG CAP PO SCH (20:24)
[2023-05-28] MEDS: METHYLPREDNISOLONE 40 MG INJ IV SCH ×3 (00:25→16:31)
[2023-05-28] MEDS: NA CHLORIDE 0.9% 1,000 ML IV SCH ×4 (00:31→13:00)
[2023-05-28 07:12] LABS: Absolute Lymphocytes (CBC) 0.6 K/uL (0.7-4.9); Hematocrit 36.4 % (36.0-45.0); Lymphocytes % 9.3 % (15.3-44.8); MCV 90.4 fL (80-100); MPV 8.8 fL (7.6-11.3); Platelets 200 thou/uL (152-406); RBC Red Blood Cell Count 4.02 M/uL (3.86-4.86)
[2023-05-28 07:40] LABS: Blood Morphology Comment NOT SEEN (NOT SEEN); Platelet Estimate ADEQ; White Blood Cell Scan OK (OK)
--- NOTE | 2023-05-28 07:48 | P.PN ---
Subjective Date of Service: 05/28/23 Chief Complaint: Possible allergy reaction to levofloxacin reports mild right upper quadrant pain, reports shortness of breath with exertion, nonproductive cough - Physical Exam General: Alert, Oriented x3, Mild distress, Obese HEENT: Atraumatic, Normocephalic Neck: Supple, 2+ carotid pulse no bruit Respiratory: Diminished, Crackles/rales, Expiratory wheezes Cardiovascular: Normal pulses, Regular rate/rhythm, Normal S1 S2 Capillary refill: <2 Seconds Gastrointestinal: RUQ tenderness, No guarding Musculoskeletal: No clubbing, No swelling, No contractures Integumentary: No rashes Neurological: Normal speech, Normal strength at 5/5 x4 extr, Sensation intact, Cranial nerves 3-12 intact, Normal reflexes 2+ Lymphatics: No axilla or inguinal lymphadenopathy Review of Systems per HPI Physical Examination - Vital Signs Temperature: 97.3 F Blood Pressure: 169/86 Pulse: 61 Respirations: 17 Pulse Ox (%): 95 Assessment And Plan - Plan Assessment plan acute hypoxic respiratory failure secondary to COPD exacerbation Influenza type a O2 2 L keep sats greater than 90 Steroids, bronchodilators, antitussives, Tamiflu CTA chest IMPRESSION: No evidence of acute central pulmonary emboli for limitations mentioned above. No other acute pulmonary process Hypertensive urgency As needed antihypertensives, telemetry Acute on chronic kidney injury unknown baseline improving BUN7/CR 1.9->bun 9/1.26-> Elevated lipase Cholelithiasis Pancreatitis IV fluids, as needed analgesics, as needed antiemetics 5000-> 398 trend lipase, 77 MRCP ordered IMPRESSION: Cholelithiasis but no choledocholithiasis. No intra- or extrahepatic biliary duct dilatation Abdominal CT of the pelvis IMPRESSION: Questionable mild inflammatory stranding throughout the entirety of the pancreas. Motion artifact somewhat limits limits evaluation. Please correlate clinically and with pancreatic enzyme levels. Diffuse hepatic parenchymal hypoattenuation suggesting steatosis. Allergic drug reaction Transaminitis Trend LFT, telemetry AST 251->545, ALT 449 ALT 203->498, 594 Alk phos 212->238, repeat 238 Full code DVT Diet cardiac Discharge Plan: Home - Code Status/Comfort Care Code Status: Full Code Critical Care: No Time Spent Managing PTS Care (In Minutes): 35
[2023-05-28 07:49] LABS: Albumin 2.9 g/dL (3.4-5.0); Bilirubin Total 0.6 mg/dL (0.2-1.0); Potassium 4.2 mEq/L (3.5-5.1)
[2023-05-28] MEDS ORDERED: HYDRALAZINE HCL 20 MG/ML VIAL IV PRN (07:49)
[2023-05-28 09:40] VITALS: O2SAT 96
[2023-05-28] MEDS: LOSARTAN POTASSIUM 50 MG TABLET PO SCH (11:13)
[2023-05-28] MEDS: METOPROLOL TAR 25 MG TAB PO SCH ×2 (11:13→20:34)
[2023-05-28] MEDS: FAMOTIDINE 20 MG TAB PO SCH ×2 (11:13→20:33)
[2023-05-28] MEDS: OSELTAMIVIR 75 MG CAP PO SCH ×2 (11:13→20:34)
[2023-05-28] MEDS: TRAMADOL HCL 50 MG TAB PO PRN ×2 (13:27→20:34)
[2023-05-28] MEDS ORDERED: MORPHINE 4 MG/ML SYR IV PRN (13:57)
[2023-05-28] MEDS ORDERED: ONDANSETRON 4 MG/2 ML VIAL IV PRN (13:57)
[2023-05-28] MEDS: VENLAFAXINE HCL XR 75 MG CAP PO SCH (20:34)
[2023-05-28] MEDS ORDERED: predniSONE 20 MG TAB PO SCH (21:00)
[2023-05-29] MEDS: NA CHLORIDE 0.9% 1,000 ML IV SCH ×2 (01:13→08:41)
[2023-05-29 06:52] LABS: Absolute Lymphocytes (CBC) 1.2 K/uL (0.7-4.9); Hematocrit 33.2 % (36.0-45.0); Lymphocytes % 19.9 % (15.3-44.8); MPV 9.2 fL (7.6-11.3); Platelets 186 thou/uL (152-406); RBC Red Blood Cell Count 3.69 M/uL (3.86-4.86)
[2023-05-29 07:02] LABS: Protime INR 1.07
[2023-05-29 07:16] LABS: Albumin 2.8 g/dL (3.4-5.0); Bilirubin Total 0.5 mg/dL (0.2-1.0); Phosphorus 3.1 mg/dL (2.5-4.9); Potassium 3.9 mEq/L (3.5-5.1); Protein, Total 6.7 g/dL (6.4-8.2)
--- NOTE | 2023-05-29 07:51 | P.PN ---
Subjective Date of Service: 05/29/23 Chief Complaint: Possible allergy reaction to levofloxacin reports mild right upper quadrant pain, reports shortness of breath with exertion, nonproductive cough - Physical Exam General: Alert, Oriented x3, Mild distress, Obese HEENT: Atraumatic, Normocephalic Neck: Supple, 2+ carotid pulse no bruit Respiratory: Diminished, Crackles/rales, Expiratory wheezes Cardiovascular: Normal pulses, Regular rate/rhythm, Normal S1 S2 Capillary refill: <2 Seconds Gastrointestinal: RUQ tenderness, No guarding Musculoskeletal: No clubbing, No swelling, No contractures Integumentary: No rashes Neurological: Normal speech, Normal strength at 5/5 x4 extr, Sensation intact, Cranial nerves 3-12 intact, Normal reflexes 2+ Lymphatics: No axilla or inguinal lymphadenopathy Physical Examination - Vital Signs Temperature: 99.8 F Blood Pressure: 123/58 Pulse: 100 Respirations: 18 Pulse Ox (%): 99 Assessment And Plan - Plan Assessment plan acute hypoxic respiratory failure secondary to COPD exacerbation Influenza type a O2 2 L keep sats greater than 90 Steroids, bronchodilators, antitussives, Tamiflu CTA chest IMPRESSION: No evidence of acute central pulmonary emboli for limitations mentioned above. No other acute pulmonary process Hypertensive urgency As needed antihypertensives, telemetry Acute on chronic kidney injury unknown baseline improving BUN7/CR 1.9->bun 9/1.26-> Elevated lipase Cholelithiasis Pancreatitis IV fluids, as needed analgesics, as needed antiemetics 5000-> 398 trend lipase, 77 MRCP ordered IMPRESSION: Cholelithiasis but no choledocholithiasis. No intra- or extrahepatic biliary duct dilatation Abdominal CT of the pelvis IMPRESSION: Questionable mild inflammatory stranding throughout the entirety of the pancreas. Motion artifact somewhat limits limits evaluation. Please correlate clinically and with pancreatic enzyme levels. Diffuse hepatic parenchymal hypoattenuation suggesting steatosis. Allergic drug reaction Transaminitis improving Trend LFT, telemetry AST 251->545, ALT 449->121 ALT 203->498, 594->331 Alk phos 212->238, repeat 238->166 Microcytic anemia acute 05/29 12.6, 11.6 Trend H&H Full code DVT Diet cardiac Discharge Plan: Home - Code Status/Comfort Care Code Status: Full Code Critical Care: No Time Spent Managing PTS Care (In Minutes): 35
[2023-05-29] MEDS: METOPROLOL TAR 25 MG TAB PO SCH (08:42)
[2023-05-29] MEDS: FAMOTIDINE 20 MG TAB PO SCH (08:43)
[2023-05-29] MEDS: OSELTAMIVIR 75 MG CAP PO SCH (08:43)
[2023-05-29] MEDS: LOSARTAN POTASSIUM 50 MG TABLET PO SCH (08:43)
--- NOTE | 2023-05-29 08:43 | P.DS ---
Admission Date: 05/26/23 Discharge Date: 05/29/23 Disposition: ROUTINE DISCHARGE Discharge Condition: FAIR Reason for Admission: Possible allergy reaction to levofloxacin Brief History of Present Illness: 57-year-old female with past medical history of hypertension, depression, obesity, congenital heart disease status post correction surgery who was brought to the ER yesterday and was diagnosed with influenza A and was discharged home with Tamiflu and Levaquin. Patient was allergic to Levaquin and she took 1 medication that caused rashes on the palm of the hand of left side. She also feels generalized weakness and tired and lethargic and was brought to ER. Denies any fever or chills. No nausea vomiting or diarrhea. - Physical Exam General: Alert, Oriented x3, Mild distress, Obese HEENT: Atraumatic, Normocephalic Neck: Supple, 2+ carotid pulse no bruit Respiratory: Diminished, Crackles/rales, Expiratory wheezes Cardiovascular: Normal pulses, Regular rate/rhythm, Normal S1 S2 Capillary refill: <2 Seconds Gastrointestinal: Soft and benign, No tenderness, No rebound, No guarding Musculoskeletal: No clubbing, No swelling, No contractures Integumentary: No rashes Neurological: Normal speech, Normal strength at 5/5 x4 extr, Sensation intact, Cranial nerves 3-12 intact, Normal reflexes 2+ Lymphatics: No axilla or inguinal lymphadenopathy Hospital Course: 57-year-old patient presented with influenza, shortness of breath. Was noted to have elevated liver enzymes, elevated blood pressure, influenza type a . Was seen by consult surgery for MRCP with elevated liver enzymes. Was treated with Tamiflu, steroids, bronchodilators. Condition improved with treatment plan. Liver enzymes are trending down with MRCP. Stable for discharge with follow-up appointment with surgery for elevated liver enzymes. PROBLEM: Influenza type a Hypertension elevated lipase Cholelithiasis Elevated liver enzymes GOAL: Clear understanding of disease process Follow-up with surgery for her elevated liver enzymes INSTRUCTIONS: Physician Discharge Instructions: -DC IV and DC home -Follow-up with PCP in 1 to 2 weeks -Please call Dr. Cervantes at [phone] if any questions regarding hospital stay -Please call nursing station at [phone] if any nursing or medication questions -Return to the emergency room if symptoms worsen Diet: ADA, low sodium Activity: Fall precautions DME: Date Ordered: Name of Company: [employer] Services Needed: None Date or Referral: IMMUNIZATION Influenza Vaccine Indicated: Influenza Vaccine Given: Date Given: Pneumonia Vaccine Indicated: Pneumonia Vaccine Given: Date Given: Patient... Vital Signs/Physical Exam: Temp Pulse Resp BP Pulse Ox 99.8 F 100 H 18 123/58 L 99 05/29/23 07:50 05/29/23 07:50 05/29/23 07:50 05/29/23 07:50 05/29/23 07:50 Laboratory Data at Discharge: WBC 6.10 thou/uL (4.3-10.9) 05/29/23 06:28 Hgb 11.6 g/dL (12.0-15.0) L 05/29/23 06:28 Hct 33.2 % (36.0-45.0) L 05/29/23 06:28 Plt Count 186 thou/uL (152-406) 05/29/23 06:28 PT 11.8 SECONDS (9.5-12.5) 05/29/23 06:28 INR 1.07 05/29/23 06:28 APTT 30.3 SECONDS (24.3-36.9) 05/29/23 06:28 Sodium 137 mEq/L (136-145) 05/29/23 06:28 Potassium 3.9 mEq/L (3.5-5.1) 05/29/23 06:28 BUN 17 mg/dL (7-18) 05/29/23 06:28 Creatinine 0.81 mg/dL (0.55-1.02) 05/29/23 06:28 Glucose 109 mg/dL (74-106) H 05/29/23 06:28 Phosphorus 3.1 mg/dL (2.5-4.9) 05/29/23 06:28 Magnesium 2.0 mg/dL (1.6-2.4) 05/28/23 16:22 Total Bilirubin 0.5 mg/dL (0.2-1.0) 05/29/23 06:28 AST 121 U/L (15-37) H 05/29/23 06:28 ALT 331 U/L (13-56) H 05/29/23 06:28 Alkaline Phosphatase 166 U/L (45-117) H 05/29/23 06:28 Triglycerides 97 mg/dL (<150) 05/28/23 07:02 Cholesterol 142 mg/dL (<200) 05/28/23 07:02 HDL Cholesterol 34 mg/dL (40-60) L 05/28/23 07:02 Cholesterol/HDL Ratio 4.18 05/28/23 07:02 Lipase 30 U/L (13-75) 05/29/23 06:28 Home Medications: Metoprolol Tartrate [Lopressor*] 50 mg PO BID 09/11/18 Losartan Potassium [Cozaar*] 50 mg PO DAILY 05/29/22 Venlafaxine HCl [Venlafaxine HCl ER] 75 mg PO BEDTIME 05/29/22 Albuterol Neb [Proventil 0.083% Neb Soln] 2.5 mg NEB Q6HP PRN #120 amp 05/30/22 Benzonatate [Tessalon Perle*] 100 mg PO TID PRN #30 cap 05/30/22 Ipratropium Neb [Atrovent*] 0.5 mg NEB [id number] PRN #120 amp 05/30/22 Nebulizer 1 each QID #1 kit 05/30/22 traMADol HCL [Ultram*] 50 mg PO Q6H PRN #15 tab 05/30/22 Duloxetine [Cymbalta *] See Rx Instructions .ROUTE .COMPLEX 05/27/23 Albuterol Sulfate [Albuterol Sulfate Hfa] 8.5 gm IH Q4H PRN 14 Days #1 inh NS 05/29/23 Famotidine [Pepcid*] 20 mg PO BID tab 05/29/23 Oseltamivir [Tamiflu*] 75 mg PO BID cap 05/29/23 Followup: Karan Rodriguez DO [Primary Care Provider] -
[2023-05-29 12:24] VITALS: BP 175/79; TEMP 97.3
== END 2023-05-29 13:05 | disposition home or self-care (01) | DRG 193 ==
LOC: ER 15:25 → ERHOLD 20:58 → 2ND 05-27 13:12
PROVIDERS: ADMIT Family Medicine; ATTEND Hospitalist
DX: J09.X2 Influenza due to identified novel influenza A virus with other respiratory manifestations (principal); J96.21 Acute and chronic respiratory failure with hypoxia; Z68.43 Body mass index [BMI] 50.0-59.9, adult; J44.1 Chronic obstructive pulmonary disease with (acute) exacerbation; N17.9 Acute kidney failure, unspecified; E66.01 Morbid (severe) obesity due to excess calories; L27.0 Generalized skin eruption due to drugs and medicaments taken internally; I10 Essential (primary) hypertension; I16.0 Hypertensive urgency; K80.20 Calculus of gallbladder without cholecystitis without obstruction; F32.A Depression, unspecified; T36.8X5A Adverse effect of other systemic antibiotics, initial encounter; R74.01 Elevation of levels of liver transaminase levels; R79.89 Other specified abnormal findings of blood chemistry; Z88.8 Allergy status to other drugs, medicaments and biological substances; Z88.5 Allergy status to narcotic agent; Z95.1 Presence of aortocoronary bypass graft; Z88.1 Allergy status to other antibiotic agents; Z85.41 Personal history of malignant neoplasm of cervix uteri; Z79.899 Other long term (current) drug therapy; Z90.710 Acquired absence of both cervix and uterus
CPT/HCPCS: 36415; 71045; 71275; 74177; 74181; 76705; 80048; 80053; 80061; 80076; 82947; 83605; 83690; 83735; 83880; 84100; 84484; 85025; 85610; 85730; 93005; 94760; 96374; 96375; 99285; J2405; J2920; J7030; Q9967

== ENCOUNTER → 2023-06-10 | Emergency (ER) | payer SELFPAY ==
[~2023-06-10] MED LIST changes: -ASPIRIN 81 MG CHEWABLE TABLET ONE; -FAMOTIDINE 20 MG/2 ML VIAL IV ONE; -Levofloxacin 750mg IV 750 MG/150 ML BAG IV ONE; -METHYLPREDNISOLONE 125 MG INJ ONE; -NA CHLORIDE 0.9% 2,000 ML ONE; -OSELTAMIVIR 75 MG CAP PO ONE; -POTASSIUM 25 MEQ EFFERV TAB ONE
--- OUTSIDE RECORDS SUMMARY | 2023-06-10 12:32 | XMS REPORT | Continuity of Care Document ---
Author Name Unknown Address [address] [facility] [address]. [address] [place] [address] [facility] thconnect Address [address] [facility]. [address] [place] [address] Care Team Providers Care Coiled Coil Inspector Name Role Phone PRACHI RODRIGUEZ Attending Clinician Unavailable MD LAUREN Attending Clinician Unavailab JASSON Beltrán Attending Clinician Unavailable LAB90 Attending Clinician Unavailable TESTING, CAMILLE FOWLER Attending Clinician U JUAN Alva Attending Clinician Unavailable LAB53 Attending Clinician Unavailable Prachi Rodriguez DO Attending Clinician Payers Payer Name Policy Type Policy Number Effective Date Expirati on Date Source [facility] 2 [id number] 2022 00:00:00 [facility] 3 [id number] 2021 00:00:00 Problems Condition Name Condition Details Condition Category Status Onset Date Resolution Date Last Treatment Date Treating Clinician Comments Source Ganglion cyst Ganglion cyst Disease Active 12-24 00:00: 00 Apurva Yanes - Externa l Acute left-sided low back pain with left-sided sciatica Acute left-sided low back pain with left-sided sciatica Disease Active 2021-05 00:00: 00 Apurva Yanes - Externa l Infected sebaceous cyst Infected sebaceous cyst Disease Active 02-12 00:00: 00 Apurva Seybold - Externa l Fatty liver Fatty liver Disease Active 9- 00:00: 00 Apurva Yanes - Externa l Prediabete s Prediabete s Disease Active 01-16 00:00: 00 Overview: Formattin g of this note might be different from the original. Lab 01/07 A1c 5.8 Apurva Yanes - Externa l Well adult exam Well adult exam Disease [...] 00 Other reaction( s): Alma Ramireza cailin Dimethic one Copolyol Propensi ty to adverse reaction s Active 2021-05 00:00: 00 Other reaction( s): Alma Yanes - Externa cailin Erythrom ycin Base Propensi ty to adverse reaction s Active 2021-05 00:00: 00 Other reaction( s): Alma Ramireza l Levoflox acin Propensi ty to adverse reaction s Active 2021-05 00:00: 00 Other reaction( s): Hives/Bernard danitza Yanes - Externa l Lidocain e Hcl Propensi ty to adverse reaction s Active 2021-05 00:00: 00 Other reaction( s): Hives? Apurva Pérez Externa l Magnesiu m Hydroxid e Propensi ty to adverse reaction s Active 2021-05 00:00: 00 Other reaction( s): Alma Ramireza l Meperidi ne Hcl Propensi ty to adverse reaction s Active 2021-05 00:00: 00 Other reaction( s): Alma Ramireza l Prochlor perazine Edisylat e Propensi ty to adverse reaction s Active 2021-05 00:00: 00 Other reaction( s): Alma Ramireza l Prochlor perazine Maleate Propensi ty to adverse reaction s Active 2021-05 00:00: 00 Other reaction( s): Alma Pérez Externa l Azithrom ycin Propensi ty to adverse reaction s Active Rash 01-15 00:00: 00 Apurva Mcmillanmarni - Jamesa cailin Penicill ins Propensi ty to adverse reaction s Active Nausea Only 01-15 00:00: 00 Apurvakyle Yanes - Externa l Tetracyc lines Propensi ty to adverse reaction s Active Rash 01-15 00:00: 00 Apurva Farzana Ramireza l Social History Social Habit Start Date [...] MG oral Tablet 2022-05 00:00: 00 Yes [id number] 50mg QD Take 1 tablet (50 mg total) by mouth nightly as needed for anxiety (insomnia) . Apurva simeon Ketoconazol e 2 % apply externally Cream 2022-05 00:00: 00 Yes [id number] Apply to the skin twice daily. Apurva simeon Duloxetine HCl [address] Particles 2022-05 00:00: 00 Yes [id number] 60mg Take 1 capsule (60 mg total) by mouth daily. Apurva simeon Folic Acid 1 MG oral tablet 2022-05 00:00: 00 Yes [id number] 1mg Take 1 tablet (1 mg total) by mouth daily. Apurva simeon Aspirin 81 MG oral Tablet Delayed Response 2022-05 00:00: 00 Yes [id number] 81mg Take 1 tablet (81 mg total) by mouth daily. Apurva simeon Duloxetine HCl [address] Particles 02-14 00:00: 00 03-18 00:00 :00 No 60mg Take 1 capsule (60 mg total) by mouth daily. Apurva simeon hydrOXYzine HCl 50 MG oral Tablet 02-13 00:00: 00 03-18 00:00 :00 No 50mg [id number] 3D Take 1 tablet (50 mg total) by mouth every 8 hours as needed. Apurva simeon Folic Acid 1 MG oral tablet 02-13 00:00: 00 03-18 00:00 :00 No 1mg Take 1 tablet (1 mg total) by mouth daily. Apurva simeon Venlafaxine HCl 150 MG oral Capsule 24 Hour Sustained Release 01-15 00:00: 00 03-18 00:00 :00 No [id number] 150mg Take 1 capsule (150 mg total) [...] Hour Sustained Release 12-24 00:00: 00 Yes [id number] 150mg Take 1 capsule (150 mg total) by mouth daily Apurva simeon Alprazolam 0.5 MG oral Tablet 12-24 00:00: 00 Yes [id number] .5mg QD Take 1 tablet (0.5 mg total) by mouth nightly as needed for sleep or anxiety Apurva simeon Alprazolam 0.5 MG oral Tablet 12-24 00:00: 00 03-18 00:00 :00 No [id number] .5mg QD Take 1 tablet (0.5 mg total) by mouth nightly as needed for sleep or anxiety Apurva Yanes - Externa l Metoprolol Tartrate 50 MG oral Tablet 07-16 09:21: 40 Yes 50mg Take 50 mg by mouth 2 times daily Apurva Yanes - Jamesa l Semaglutide (2 mg/dose) 8 mg/3 mL SQ Solution Pen-Injecto r 07-16 00:00: 00 Yes [id number] 2mg Inject 2 mg into the skin once a week Apurva Yanes - Externa l Semaglutide (2 mg/dose) 8 mg/3 mL SQ Solution Pen-Injecto r 07-16 00:00: 00 12-24 00:00 :00 No [id number] 2mg Inject 2 mg into the skin [...] BREATH Apurva Yanes - Externa l Nebulizers (InnoSpire Essence Nebulizer) does not apply [facility] 05-30 00:00: 00 Yes [...] BREATH Apurva Yanes - Externa l Nebulizers (InnoSpire Essence Nebulizer) does not apply Misc 05-30 00:00: 00 12-24 00:00 :00 No USE DIRECTED FOUR TIMES A DAY Apurva simeon Metoprolol Tartrate 50 MG oral Tablet 05-27 15:41: 41 Yes 50mg Take 50 mg by mouth 2 times daily Apurva simeon Guaifenesin (Mucinex) 600 MG oral Tablet 12 Hour Sustained Release 05-27 00:00: 00 Yes [id number] 1200mg Take 2 tablets (1,200 mg total) by mouth 2 times daily Apurva simeon Amoxicillin 500 MG oral Capsule 05-27 00:00: 00 Yes [id number] 500mg Take 1 capsule (500 mg total) by mouth 3 times daily Apurva simeon Albuterol Sulfate 2.5 MG/0.5ML inhalation Inhalant Solution 05-27 00:00: 00 Yes [id number] 2.5mg Take 2.5 mg by nebulizati on once for 1 dose Apurva simeon guaiFENesin -Codeine (Cheratussi n AC) 100-10 MG/5ML oral Syrup 05-27 00:00: 00 Yes [id number] 5mL Q.[id number] 3D Take 5 mL by mouth 3 times daily as needed for cough Apurva simeon Guaifenesin (Mucinex) 600 MG oral Tablet 12 Hour Sustained Release 05-27 00:00: 00 07-16 00:00 :00 No [id number] 1200mg Take 2 tablets (1,200 mg total) by mouth 2 times daily Apurva simeon Amoxicillin 500 MG oral Capsule 05-27 00:00: 00 07-16 00:00 :00 No [id number] 500mg Take 1 capsule (500 mg total) by mouth 3 times daily Apurva simeon guaiFENesin -Codeine (Cheratussi n AC) 100-10 MG/5ML oral Syrup 05-27 00:00: 07-16 00:00 :00 No [id number] 5mL Q.[id number] 3D Take 5 mL by mouth 3 times daily as needed for cough Apurva simeon Albuterol (PROVENTIL) (2.5 MG/3ML) 0.083% inhalation Inhalant Solution -09 00:00: 00 07-16 00:00 :00 No [id number] 2.5mg Q4H Take 2.5 mg by nebulizati on every 4 hours as needed for wheezing Apurva simeon Semaglutide (1 mg/dose) 2 mg/1.5 mL SQ Solution Pen-Injecto r 05-21 00:00: 00 Yes [id number] 1mg Inject 1 mg into the skin once a week Apurva simeon OZEMPIC (1 mg/dose) 4 mg/3 mL SQ Solution Pen-Injecto r 05-21 00:00: 00 Yes Apurva simeon Semaglutide (1 mg/dose) 2 mg/1.5 mL SQ Solution Pen-Injecto r - 00:00: 00 07-16 00:00 :00 No [id number] 1mg Inject 1 mg into the skin once a week Apurva simeon OZEMPIC (1 mg/dose) 4 mg/3 mL SQ Solution Pen-Injecto r - 00:00: 00 07-16 00:00 :00 No Apurva simeon Benzonatate 200 MG oral Capsule - 00:00: 00 Yes 200mg Take 200 mg by mouth every 8 hours Apurva simeon Benzonatate 200 MG oral Capsule 05-20 00:00: 00 07-16 00:00 :00 No 200mg Take 200 mg by mouth every 8 hours Apurva simeon Metoprolol Tartrate 50 MG oral Tablet 2021-05 2-23 09:43: 00 Yes 50mg Take 50 mg by mouth 2 times daily Apurva simeon Losartan Potassium 50 MG oral Tablet 2021-05 00:00: 00 Yes [id number] 50mg Take 1 tablet (50 mg total) by mouth daily Apurva Pérez Externa cailin Losartan Potassium 50 MG oral Tablet 2021-05 00:00: 00 Yes [id number] 50mg Take 1 tablet (50 mg total) by mouth daily Apurva Yanes - Externa l Losartan Potassium 50 MG oral Tablet 2021-05 00:00: 00 Yes [id number] 50mg Take 1 tablet (50 mg total) by mouth daily Apurva Yanes - Externa l Losartan Potassium 50 MG oral Tablet 2021-05 00:00: 00 12-24 00:00 :00 No [id number] 50mg Take 1 tablet (50 mg total) by mouth daily Apurva Pérez Externa l Losartan Potassium 25 MG oral Tablet 2021-05 00:00: 00 05-10 00:00 :00 No [id number] 25mg Take 1 tablet (25 mg total) by mouth daily Apurva Pérez Externa l Metoprolol Tartrate 50 MG oral Tablet 2021-05 16:31: 17 Yes 50mg Take 50 mg by mouth 2 times daily Apurva Pérez Externa l Losartan Potassium 25 MG oral Tablet 2021-05 00:00: 00 Yes [id number] 25mg Take 1 tablet (25 mg total) by mouth daily Apurva Pérez Externa l Cyclobenzap rine HCl 10 MG oral Tablet 2021-05 00:00: 00 Yes [id number] 10mg Q.5D Take 1 tablet (10 mg total) by mouth 2 times daily as needed for muscle spasms Apurva Yanes - Externa l Cyclobenzap rine HCl 10 MG oral Tablet 2021-05 00:00: 00 Yes [id number] 10mg Q.5D Take 1 tablet (10 mg total) by mouth 2 times daily as needed for muscle spasms Apurva Yanes - Externa l Cyclobenzap rine HCl 10 MG oral Tablet 2021-05 00:00: 00 Yes [id number] 10mg Q.5D Take 1 tablet (10 mg total) by mouth 2 times daily as needed for muscle spasms Apurva Seybold - Externa l Cyclobenzap rine HCl 10 MG oral Tablet 2021-05 00:00: 00 Yes [id number] 10mg Q.5D Take 1 tablet (10 mg total) by mouth 2 times daily as needed for muscle spasms Apurva Seybold - Externa l Cyclobenzap rine HCl 10 MG oral Tablet 2021-05 00:00: 00 12-24 00:00 :00 No [id number] 10mg Q.5D Take 1 tablet (10 mg total) by mouth 2 times daily as needed for muscle spasms Apurva Seybold - Externa l Metoprolol Tartrate 50 MG oral Tablet 2021-05 13:28: 16 Yes 50mg Take 50 mg by mouth 2 times daily Apurva Seybold - Externa l Cyclobenzap rine HCl 10 MG oral Tablet 2021-05 00:00: 00 Yes [id number] 10mg Q.5D Take 1 tablet (10 mg total) by mouth 2 times daily as needed for muscle spasms Apurva Seybold - Externa l Tramadol HCl 50 MG oral Tablet 2021-05 00:00: 00 Yes [id number] 50mg Q.5D Take 1 tablet (50 mg total) by mouth 2 times daily as needed for pain Apurva Seybold - Externa l Tramadol HCl 50 MG oral Tablet 2021-05 00:00: 00 Yes [id number] 50mg Q.5D Take 1 tablet (50 mg total) by mouth 2 times daily as needed for pain Apurva Seybold - Externa l Tramadol HCl 50 MG oral Tablet 2021-05 00:00: 00 Yes [id number] 50mg Q.5D Take 1 tablet (50 mg total) by mouth 2 times daily as needed for pain Apurva Seybold - Externa l Tramadol HCl 50 MG oral Tablet 2021-05 00:00: 00 Yes [id number] 50mg Q.5D Take 1 tablet (50 mg total) by mouth 2 times daily as needed for pain Apurva Seybold - Externa l Tramadol HCl 50 MG oral Tablet 2021-05 00:00: 00 Yes [id number] 50mg Q.5D Take 1 tablet (50 mg total) by mouth 2 times daily as needed for pain Apurva Seybold - Externa l Tramadol HCl 50 MG oral Tablet 2021-05 00:00: 00 12-24 00:00 :00 No [id number] 50mg Q.5D Take 1 tablet (50 mg total) by mouth 2 times daily as needed for pain Apurva Seybold - Externa l Cyclobenzap rine HCl 10 MG oral Tablet 2021-05 00:00: 00 04-29 00:00 :00 No [id number] 10mg Q.5D Take 1 tablet (10 mg total) by mouth 2 times daily as needed for muscle spasms Apurva Seybold - Externa l Metoprolol Tartrate 50 MG oral Tablet 2021-05 13:48: 44 Yes 50mg Take 50 mg by mouth 2 times daily Apurva Seybold - Externa l Semaglutide (0.25 or 0.5 mg/dose) 2 mg/1.5 mL SQ Solution Pen-Injecto r 2021-05 00:00: 00 Yes [id number] .5mg Inject 0.5 mg into the skin once a week Apurva Seybold - Externa l Semaglutide (0.25 or 0.5 mg/dose) 2 mg/1.5 mL SQ Solution Pen-Injecto r 2021-05 00:00: 00 Yes [id number] .5mg Inject 0.5 mg into the skin once a week Apurva Seybold - Externa l Semaglutide (0.25 or 0.5 mg/dose) 2 mg/1.5 mL SQ Solution Pen-Injecto r 2021-05 00:00: 00 Yes [id number] .5mg Inject 0.5 mg into the skin once a week Apurva Seybold - Externa l Semaglutide (0.25 or 0.5 mg/dose) 2 mg/1.5 mL SQ Solution Pen-Injecto r 2021-05 00:00: 00 Yes [id number] .5mg Inject 0.5 mg into the skin once a week Apurva Seybold - Externa l Semaglutide (0.25 or 0.5 mg/dose) 2 mg/1.5 mL SQ Solution Pen-Injecto r 2021-05 00:00: 00 Yes [id number] .5mg Inject 0.5 mg into the skin once a week Apurva Mcmillanemilynehal Ramireza cailin Sodium Chloride 0.9 % irrigation Solution 2021-05 026 00:00: 00 Yes USE DIRECTED FOR WET TO DRY DRESSING CHANGES Apurva Ramireza l Sodium Chloride 0.9 % irrigation Solution 2021-05 0- 00:00: 00 Yes USE DIRECTED FOR WET TO DRY DRESSING CHANGES Apurva Ramireza l Sodium Chloride 0.9 % irrigation Solution 2021-05 0 00:00: 00 Yes USE DIRECTED FOR WET TO DRY DRESSING CHANGES Apurva Ramireza l Sodium Chloride 0.9 % irrigation Solution 2021-05 0- 00:00: 00 04-29 00:00 :00 No USE DIRECTED FOR WET TO DRY DRESSING CHANGES Apurva Semarni Ramireza l Venlafaxine HCl 75 MG oral Capsule 24 Hour Sustained Release 2021-05 0 15:05: 13 03-12 00:00 :00 No 75mg Take 75 mg by mouth daily Apurva Ramireza cailin Venlafaxine HCl 75 MG oral Capsule 24 Hour Sustained Release 2021-05 0-25 00:00: 00 Yes [id number] 75mg Take 1 capsule (75 mg total) by mouth daily Apurva Ramireza cialin Venlafaxine HCl 75 MG oral Capsule 24 Hour Sustained Release 2021-05 0-25 00:00: 00 Yes [id number] 75mg Take 1 capsule (75 mg total) by mouth daily Apurva Ramireza cailin Venlafaxine HCl 75 MG oral Capsule 24 Hour Sustained Release 2021-05 0-25 00:00: 00 Yes [id number] 75mg Take 1 capsule (75 mg total) by mouth daily Apurva Pérez Externa l Venlafaxine HCl 75 MG oral Capsule 24 Hour Sustained Release 2021-05 0-25 00:00: 00 Yes [id number] 75mg Take 1 capsule (75 mg total) by mouth daily Apurva Pérez Externa cailin Venlafaxine HCl 75 MG oral Capsule 24 Hour Sustained Release 2021- 0-25 00:00: 00 Yes [id number] 75mg Take 1 capsule (75 mg total) by mouth daily Apurva simeon Venlafaxine HCl 75 MG oral Capsule 24 Hour Sustained Release 2021-05 0-25 00:00: 00 Yes [id number] 75mg Take 1 capsule (75 mg total) by mouth daily Apurva simeon Semaglutide (0.25 or 0.5 mg/dose) 2 mg/1.5 mL SQ Solution Pen-Injecto r 2021-05 0-25 00:00: 00 Yes [id number] 104 .25mg Inject 0.25 mg into the skin once a week Apurva simeon Venlafaxine HCl 75 MG oral Capsule 24 Hour Sustained Release 2021-05 0 00:00: 00 Yes [id number] 75mg Take 1 capsule (75 mg total) by mouth daily Apurva simeon Venlafaxine HCl 75 MG oral Capsule 24 Hour Sustained Release 2021-05 0 00:00: 00 Yes [id number] 75mg Take 1 capsule (75 mg total) by mouth daily Apurva simeon Venlafaxine HCl 75 MG oral Capsule 24 Hour Sustained Release 2021-05 0 00:00: 00 12-24 00:00 :00 No [id number] 75mg Take 1 capsule (75 mg total) by mouth daily Apurva simeon Semaglutide (0.25 or 0.5 mg/dose) 2 mg/1.5 mL SQ Solution Pen-Injecto r 2021-05 0 00:00: 00 04-09 00:00 :00 No [id number] 104 .25mg Inject 0.25 mg into the [...] by mouth 2 times daily Apurva simeon Lisdexamfet amine Dimesylate (Vyvanse) 60 MG oral Capsule 02-12 13:50: 37 02-12 00:00 :00 No 60mg Take 60 mg by mouth every morning Apurva simeon Mupirocin (BACTROBAN) 2 % apply externally Ointment 02-12 00:00: 00 Yes [id number] Apply 1 applicatio n topically 2 times daily Apurva simeon Mupirocin (BACTROBAN) 2 % apply externally Ointment 02-12 00:00: 00 Yes [id number] Apply 1 applicatio n topically 2 times daily Apurva simeon Mupirocin (BACTROBAN) 2 % apply externally Ointment 02-12 00:00: 00 04-09 00:00 :00 No [id number] Apply 1 applicatio n topically 2 times daily Apurva simeon TRIMETHOPRI M-SULFAMETH OXAZOLE 800-160 MG oral Tablet 02-12 00:00: 00 02-20 04:59 :00 No [id number] 1{tbl} Take 1 tablet by mouth 2 times daily for 7 days Apurva simeon Blood Pressure does not apply Kit 01-15 00:00: 00 02-12 00:00 :00 No [id number] Check BP daily Apurva simeon Immunizations Ordered [...] blood pressure 2023-03-18 16:12:00 75 mm[Hg] Apurva Seybo ld - External Heart rate 2023-03-18 16:12:00 [...] blood pressure 2022-07-16 15:18:00 78 mm[Hg] Apurva Mcmillanybo ld - External Heart rate 2022-07-16 15:18:00 [...] End Date/Time Encounter Type Admission Type Attending [facility] Care Department Encounter ID Source 2023-04-22 00:00:00 2023-04-22 00:00:00 Outpatient PRACHI RODRIGUEZ [id number] Apurva Yanes 2023-04-16 00:00:00 2023-04-16 00:00:00 Outpatient MD APURVA MOLINA [id number] Apurva Yanes 2023-03-18 11:00:00 2023-03-18 11:00:00 Outpatient PRACHI RODRIGUEZ [id number] Apurva Yanes 2023-02-13 11:15:00 2023-02-13 11:15:00 Outpatient PRACHI RODRIGUEZ [id number] Apurva Yanes 2023-01-22 11:15:00 2023-01-22 11:15:00 Outpatient PRACHI RODRIGUEZ [id number] Apurva Yanes 2023-01-15 00:00:00 2023-01-15 00:00:00 Outpatient PREZAS, PRACHI HARVEY APURVA [id number] [facility] 2023-01-15 00:00:00 2023-01-15 00:00:00 Outpatient PREZAS, PRACHI HARVEY APURVA [id number] [facility] 2023-01-15 00:00:00 2023-01-15 00:00:00 Outpatient PREZAS, PRACHI APURVA HARVEY [id number] [facility] 2022-12-31 00:00:00 2022-12-31 00:00:00 Outpatient PREZAS, PRACHI APURVA APURVA [id number] [facility] 2022-12-25 00:00:00 2022-12-25 00:00:00 Outpatient ROBBIE, JASSONArnol HARVEY [id number] [facility] 2022-12-24 09:20:00 2022-12-24 09:20:00 Outpatient LAB90 APURVA HARVEY [id number] [facility] 2022-12-24 08:45:00 2022-12-24 08:45:00 Outpatient PREZAS, PRACHI APURVA HARVEY [id number] Apurva [facility] 2022-10-07 15:45:00 2022-10-07 15:45:00 Outpatient PREZAS, PRACHI APURVA HARVEY [id number] [facility] 2022-08-26 14:00:00 2022-08-26 14:00:00 Outpatient TESTING, CAMILLE HARVEY [id number] [facility] 2022-08-26 00:00:00 2022-08-26 00:00:00 Outpatient PREZAS, PRACHI APURVA HARVEY [id number] Apurva [facility] 2022-08-07 00:00:00 2022-08-07 00:00:00 Outpatient ROBBIE, JASSONArnol HARVEY [id number] [facility] 2022-07-30 10:00:00 2022-07-30 10:00:00 Outpatient LAB90 APURVA HARVEY [id number] [facility] 2022-07-16 09:30:00 2022-07-16 09:30:00 Outpatient PREZAS, PRACHI HARVEY [id number] [facility] 2022-07-09 08:10:00 2022-07-09 08:10:00 Outpatient LABLinus APURVA HARVEY [id number] [facility] 2022-06-21 13:45:00 2022-06-21 13:45:00 Outpatient PREZAS, PRACHI HARVEY APURVA [id number] [facility] 2022-05-29 00:00:00 2022-05-29 00:00:00 Outpatient HUNDL, JUAN APURVA HRAVEY [id number] [facility] 2022-05-27 15:30:00 2022-05-27 15:30:00 Outpatient HUNDL, JUAN HARVEY [id number] [facility] 2022-05-24 00:00:00 2022-05-24 00:00:00 Outpatient PREZAS, PRACHI APURVA HARVEY [id number] [facility] 2022-05-21 00:00:00 2022-05-21 00:00:00 Outpatient PREZAS, PRACHI APURVA HARVEY [id number] [facility] 2022-05-21 00:00:00 2022-05-21 00:00:00 Outpatient PREZAS, PRACHI APURVA HARVEY [id number] [facility] 2022-05-19 00:00:00 2022-05-19 00:00:00 Outpatient PREZAS, PRACHI APURVA HARVEY [id number] [facility] 2022-05-10 09:45:00 2022-05-10 09:45:00 Outpatient PREZAS, PRACHI APURVA HARVEY [id number] [facility] 2022-05-07 16:15:00 2022-05-07 16:15:00 Outpatient PREZAS, PRACHI HARVEY [id number] [facility] 2022-05-01 00:00:00 2022-05-01 00:00:00 Outpatient PREZAS, PRACHI APURVA HARVEY [id number] Apurva [facility] 2022-05-01 00:00:00 2022-05-01 00:00:00 Outpatient ROBBIE, JASSON HARVEY [id number] Apurva [facility] 2022-04-29 16:30:00 2022-04-29 16:30:00 Outpatient PREZAS, PRACHI HARVEY APURVA [id number] Apurva [facility] 2022-04-17 13:30:00 2022-04-17 13:30:00 Outpatient PREZAS, PRACHI HARVEY APURVA [id number] Apurva [facility] 2022-04-17 00:00:00 2022-04-17 00:00:00 Outpatient PREZAS, PRACHI HARVEY APURVA [id number] Apurva [facility] 2022-04-15 14:35:00 2022-04-15 14:35:00 Outpatient LAB53 APURVA APURVA [id number] Apurva [facility] 2022-04-15 14:00:00 2022-04-15 14:00:00 Outpatient ROBBIE, JASSON APURVA HARVEY [id number] [facility] 2022-04-09 16:15:00 2022-04-09 16:15:00 Outpatient PREZAS, PRACHI HARVEY APURVA [id number] [facility] 2022-03-12 15:00:00 2022-03-12 15:00:00 Outpatient PREZAS, PRACHI HARVEY APURVA [id number] [facility] 2022-02-12 15:15:00 2022-02-12 15:15:00 Outpatient PREZAS, PRACHI [facility]VA [id number] [facility] 13:45:00 2022-02-12 13:45:00 Outpatient PREZAS, PRACHI HARVEY APURVA [id number] [facility] 2022-01-31 00:00:00 2022-01-31 00:00:00 Outpatient PREZAS, PRACHI APURVA HARVEY [id number] Apurva [facility] 2022-01-22 08:50:00 2022-01-22 08:50:00 Outpatient LAB90 [facility] [id number] [facility]22-[facility]-16 00:00:00 2022-01-16 00:00:00 Outpatient PREZAS, PRACHI APURVA HARVEY [id number] [facility] 2022-01-15 08:55:00 2022-01-15 08:55:00 Outpatient LAB90 APURVA HARVEY [id number] Apurva Yanes 2022-01-15 08:00:00 2022-01-15 08:30:00 Office Visit Prachi Rodriguez Jackson [id number] Apurva Yanes
[2023-06-10 13:04] LABS: Absolute Lymphocytes (CBC) 1.1 K/uL (0.7-4.9); Hematocrit 38.6 % (36.0-45.0); Lymphocytes % 18.5 % (15.3-44.8); MCV 89.3 fL (80-100); MPV 8.8 fL (7.6-11.3); Platelets 258 thou/uL (152-406); RBC Red Blood Cell Count 4.32 M/uL (3.86-4.86)
[2023-06-10 13:09] LABS: SARS-CoV-2 Antigen Rapid Res Negative (Negative)
[2023-06-10 13:31] LABS: Albumin 3.3 g/dL (3.4-5.0); Bilirubin Direct 0.2 mg/dL (0-0.2); Bilirubin Indirect, Calculated 0.5 mg/dL (0.2-0.8); Bilirubin Total 0.7 mg/dL (0.2-1.0); Potassium 3.8 mEq/L (3.5-5.1); Protein, Total 7.8 g/dL (6.4-8.2)
--- NOTE | 2023-06-10 14:17 | RAD REPORT ---
EXAM DESCRIPTION: RAD - Chest Single View - 06/10/2023 2:11 pm CLINICAL HISTORY: COUGH Chest pain. COMPARISON: Chest Single View dated 05/26/2023; Chest Single View dated 05/25/2023; Chest Pa And Lat (2 Views) dated 05/29/2022; Chest Pa And Lat (2 Views) dated 02/14/2022 FINDINGS: Portable technique limits examination quality. The lungs are grossly clear. The heart is normal in size. No displaced fractures.Sternotomy. IMPRESSION: No acute intrathoracic process suspected.
--- NOTE | 2023-06-10 14:20 | EDPHYS ---
Physician Documentation [facility] Name: Julienne Tucker Age: 57 yrs Sex: Female : 1965 Arrival Date: 06/10/2023 Time: 12:27 Bed 10 Private MD: ED Physician Karlie Vaughn HPI: 06/10 13:06 This 57 yrs old Female presents to ER via Ambulatory with complaints of Nausea, Fever, sp3 Cough. 13:06 57-year-old female with a history of hypertension, psychiatric history including sp3 depression now presents to the ED with chief complaint cough, congestion subjective fever and malaise. Patient was recently in the hospital for GI workup for right upper quadrant symptoms. Patient did have an MRCP which was negative and did not have any surgical intervention. Patient states she is still having mild abdominal pain but the main reason she is here is the upper respiratory presentation. She denies objective measured fever, known sick contacts, travel history, headache, sore throat, shortness of breath, chest pain, back pain, rash, bleeding, or any other signs or symptoms on ROS at this time.. PULL UP HAND: 14:32 LMP N/A - Post-menopause, Not cp4 Historical: - Allergies: 12:41 Amoxicillin; iw 12:41 Azithromycin; iw 12:41 Compazine; iw 12:41 Demerol; iw 12:41 Erythromycin; iw 12:41 Levofloxacin; iw 12:41 Tetracycline; iw 12:41 Vancomycin; iw - PMHx: 12:41 Depression; Hypertension; iw - PSHx: 12:41 Coronary artery bypass graft; iw - Immunization history:: Adult Immunizations up to date. - Social history:: Smoking status: Patient denies any tobacco usage or history of. ROS: 13:07 Constitutional: Negative for fever, chills, and weight loss, Eyes: Negative for injury, sp3 pain, redness, and discharge, Neck: Negative for injury, pain, and swelling, Cardiovascular: Negative for chest pain, palpitations, and edema, Back: Negative for injury and pain, MS/Extremity: Negative for injury and deformity, Skin: Negative for injury, rash, and discoloration, Neuro: Negative for headache, weakness, numbness, tingling, and seizure, Psych: Negative for depression, anxiety, suicide ideation, homicidal ideation, and hallucinations, Allergy/Immunology: Negative for hives, rash, and allergies, Endocrine: Negative for neck swelling, polydipsia, polyuria, polyphagia, and marked weight changes, Hematologic/Lymphatic: Negative for swollen nodes, abnormal bleeding, and unusual bruising, 13:07 All other systems are negative, Exam: 13:08 Constitutional: This is a well developed, well nourished patient who is awake, alert, sp3 and in no acute distress. Head/Face: Normocephalic, atraumatic. Eyes: Pupils equal round and reactive to light, extra-ocular motions intact. Lids and lashes normal. Conjunctiva and sclera are non-icteric and not injected. Cornea within normal limits. Periorbital areas with no swelling, redness, or edema. ENT: Nares patent. No nasal discharge, no septal abnormalities noted. External auditory canals are clear. Oropharynx with no redness, swelling, or masses, exudates, or evidence of obstruction, uvula midline. Mucous membranes moist. Neck: Trachea midline, no thyromegaly or masses palpated, and no cervical lymphadenopathy. Supple, full range of motion without nuchal rigidity, or vertebral point tenderness. No Meningismus. Chest/axilla: Normal chest wall appearance and motion. Nontender with no deformity. No lesions are appreciated. Cardiovascular: Regular rate and rhythm with a normal S1 and S2. No gallops, murmurs, or rubs. Normal PMI, no JVD. No pulse deficits. Abdomen/GI: Soft, non-tender, with normal bowel sounds. No distension or tympany. No guarding or rebound. No evidence of tenderness throughout. Back: No spinal tenderness. No costovertebral tenderness. Full range of motion. Skin: Warm, dry with normal turgor. Normal color with no rashes, no lesions, and no evidence of cellulitis. MS/ Extremity: Pulses equal, no cyanosis. Neurovascular intact. Full, normal range of motion. Neuro: Awake and alert, GCS 15, oriented to person, place, time, and situation. Cranial nerves II-XII grossly intact. Motor strength 5/5 in all extremities. Sensory grossly intact. Cerebellar exam normal. Normal gait. Psych: Awake, alert, with orientation to person, place and time. Behavior, mood, and affect are within normal limits. 13:08 Respiratory: Mild cough noted., Vital Signs: 12:40 BP 151 / 88; Pulse 113; Resp 20; Temp 97; Pulse Ox 98% on R/A; Pain 8/10; iw 13:18 BP 178 / 78; Pulse 99; Resp 20; Pulse Ox 96% ; iw 12:40 Pain Scale: Adult iw MDM: 12:41 Patient medically screened. sp3 13:08 Data reviewed: vital signs, nurses notes, lab test result(s), radiologic studies. ED sp3 course: 57-year-old female with upper respiratory symptoms. Differential diagnosis includes pneumonia, bronchitis, viral syndrome, COVID-19, influenza, among others. I am not highly suspicious for critical abdominal pathology or any other critical pathology for her respiratory complaints including CHF, sepsis, shock, PE. Workup will include chest x-ray, swabs, lab work and general observation. Disposition pending workup and patient course.. 14:18 ED course: Workup is negative including chest x-ray and swabs. Will place patient on sp3 precautionary antibiotics given the duration and extent of her symptoms. Levaquin p.o. will be ordered along with follow back up with her PCP.. 06/10 12:42 Order name: Basic Metabolic Panel; Complete Time: 13:32 sp3 06/10 12:42 Order name: CBC with Diff; Complete Time: 13:32 sp3 06/10 12:42 Order name: LFT's; Complete Time: 13:32 sp3 06/10 12:42 Order name: Flu; Complete Time: 13:32 sp3 06/10 12:42 Order name: SARS RAPID; Complete Time: 13:32 sp3 06/10 12:42 Order name: XRAY Chest (1 view); Complete Time: 14:18 sp3 06/10 12:42 Order name: IV Saline Lock; Complete Time: 12:57 sp3 06/10 12:42 Order name: Labs collected and sent; Complete Time: 12:57 sp3 Administered Medications: 13:01 Drug: NS 0.9% IV 1000 ml IV at 1 bolus Per protocol; 1000 mL bolus Route: IV; Rate: 1 iw bolus; Site: right antecubital; Disposition Summary: 06/10/23 14:19 Discharge Ordered Notes: Location: Home sp3 Condition: Stable sp3 Diagnosis - Bronchitis, upper respiratory infection sp3 Followup: sp3 - With: Private Physician - When: Upon discharge from the Emergency Department - Reason: Continuance of care Discharge Instructions: - Discharge Summary Sheet sp3 - Upper Respiratory Infection, Adult sp3 Forms: - Medication Reconciliation Form sp3 - Thank You Letter sp3 - Antibiotic Education sp3 - Prescription Opioid Use sp3 - Patient Portal Instructions sp3 - Leadership Thank You Letter sp3 Prescriptions: - cefdinir 300 mg Oral capsule - take 1 capsule ORAL route every 12 hours for 5 days; 10 capsule; Refills: 0, sp3 Product Selection Permitted Signatures: Dispatcher [employer] EDMelodie Posada RN RN iw Kralie Vaughn MD MD sp3 Kizzy Ochoa cp4 Corrections: (The following items were deleted from the chart) 13:10 13:08 ED course: 57-year-old female with upper respiratory symptoms. Differential sp3 diagnosis includes pneumonia, bronchitis, viral syndrome, COVID-19, influenza, among others. I am not highly suspicious for critical abdominal pathology or any other critical pathology for her respiratory complaints including CHF, sepsis, shock, PE, or any other critical pathology.. sp3
--- NOTE | 2023-06-10 14:20 | ER ---
Nurse's Notes [facility] Name: Julienne Tucker Age: 57 yrs Sex: Female : 1965 Arrival Date: 06/10/2023 Time: 12:27 Bed 10 Private MD: Diagnosis: Bronchitis, upper respiratory infection Presentation: 06/10 12:40 Chief complaint: Patient states: has had cough, congestion, coughing up green mucous, iw also has nausea, dizziness, SOB. Coronavirus screen: Client presents with at least one sign or symptom that may indicate coronavirus-19. Ebola Screen: Patient negative for fever greater than or equal to 101.5 degrees Fahrenheit, and additional compatible Ebola Virus Disease symptoms Patient denies exposure to infectious person. Patient denies travel to an Ebola-affected area in the 21 days before illness onset. No symptoms or risks identified at this time. Initial Sepsis Screen: Does the patient meet any 2 criteria? HR > 90 bpm. Does the patient have a suspected source of infection?. Risk Assessment: Do you want to hurt yourself or someone else? Patient reports no desire to harm self or others. Onset of symptoms was June 08, 2023. 12:40 Method Of Arrival: Ambulatory iw 12:40 Acuity: RJ 3 iw Triage Assessment: 14:31 General: Appears. General: Appears in no apparent distress. Behavior is calm, cp4 cooperative, appropriate for age. Pain: Denies pain. GI: Reports nausea. ORCHESTRATOR: 14:32 LMP N/A - Post-menopause, Not cp4 Historical: - Allergies: 12:41 Amoxicillin; iw 12:41 Azithromycin; iw 12:41 Compazine; iw 12:41 Demerol; iw 12:41 Erythromycin; iw 12:41 Levofloxacin; iw 12:41 Tetracycline; iw 12:41 Vancomycin; iw - PMHx: 12:41 Depression; Hypertension; iw - PSHx: 12:41 Coronary artery bypass graft; iw - Immunization history:: Adult Immunizations up to date. - Social history:: Smoking status: Patient denies any tobacco usage or history of. Screenin:18 [facility] ED Fall Risk Assessment (Adult) Score/Fall Risk Level 0 - 2 = Low Risk. Abuse iw screen: Denies threats or abuse. Denies injuries from another. Nutritional screening: No deficits noted. Tuberculosis screening: No symptoms or risk factors identified. Assessment: 13:18 Reassessment: Patient appears in no apparent distress at this time. Patient and/or iw family updated on plan of care and expected duration. Pain level reassessed. Patient is alert, oriented x 3, equal unlabored respirations, skin warm/dry/pink. 14:32 GI: Abdomen is round obese. cp4 Vital Signs: 12:40 BP 151 / 88; Pulse 113; Resp 20; Temp 97; Pulse Ox 98% on R/A; Pain 8/10; iw 13:18 BP 178 / 78; Pulse 99; Resp 20; Pulse Ox 96% ; iw 12:40 Pain Scale: Adult iw ED Course: 12:31 Patient arrived in ED. mr 12:33 Karlie Vaughn MD is Attending Physician. sp3 12:41 Triage completed. iw 12:42 Arm band placed on. iw 12:50 Initial lab(s) drawn, by me, sent to lab. Inserted saline lock: 22 gauge. iw 12:58 Melodie Jackson RN is Primary Nurse. iw 14:12 XRAY Chest (1 view) In Process Unspecified. EDMS 14:30 Bed in low position. Call light in reach. Side rails up X 1. Provided Education on: cp4 upper repiratory infection. 14:30 No provider procedures requiring assistance completed. intact, bleeding controlled, No cp4 redness/swelling at site. Pressure dressing applied. Administered Medications: 13:01 Drug: NS 0.9% IV 1000 ml IV at 1 bolus Per protocol; 1000 mL bolus Route: IV; Rate: 1 iw bolus; Site: right antecubital; Medication: 14:30 VIS not applicable for this client. cp4 Outcome: 14:19 Discharge ordered by . sp3 14:30 Discharged to home ambulatory, cp4 14:30 Condition: stable 14:30 Discharge instructions given to patient, Instructed on discharge instructions, follow up and referral plans. medication usage, Demonstrated understanding of instructions, follow-up care, medications, Prescriptions given X 1, 14:33 Patient left the ED. cp4 Signatures: Dispatcher [employer] EDWA Sergio Wen, Reg Reg mr Melodie Jackson, THOMAS RN iw Karlie Vaughn MD MD sp3 Kizzy Ochoa cp4 Corrections: (The following items were deleted from the chart) 13:20 13:18 Pulse 99bpm; Resp 20bpm; Pulse Ox 96%; iw iw
[2023-06-10 16:15] VITALS: BP 178/78; TEMP 97; O2SAT 96
== END ==
LOC: ER 12:27
DX: J40 Bronchitis, not specified as acute or chronic (principal); Z11.52 Encounter for screening for COVID-19
CPT/HCPCS: 36415; 71045; 80048; 80076; 85025; 87804; 87811; 99284; J7030

== ENCOUNTER 2024-07-29 11:19 | Emergency (ER) | payer SELFPAY ==
--- OUTSIDE RECORDS SUMMARY | 2024-07-29 11:23 | XMS REPORT | Continuity of Care Document ---
Author Name Unknown Address [address] [facility] [address] [place] [address] [facility] Address [address] 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 Primary Care Physician [id number] PRACHI RODRIGUEZ Attending Clinician Unavailable MD LAUREN Attending Clinician Unavailab JASSON Beltrán Attending Clinician Unavailable LAB90 Attending Clinician Unavailable TESTING, CAMILLE FOWLER Attending Clinician U JUAN Alva Attending Clinician Unavailable LAB53 Attending Clinician Unavailable Prachi Rodriguez DO Attending Clinician [phone] Payers Payer Name Policy Type Policy Number Effective Date Expirati on Date Source [facility] 2 [id number] 2022 00:00:00 [facility] 3 [id number] 2021 00:00:00 Problems Condition Name Condition Details [...] l Fatty liver Fatty liver Disease Active 02-12 00:00: 00 Apurva Seybold - Externa l Prediabete s Prediabete s Disease Active 01-16 00:00: 00 Overview: Formattin g of this note might be different from the original. Lab 01/07 A1c 5.8 Apurva Seybold - Externa l Well adult exam Well adult exam Disease Active 01-15 00:00: 00 Apurva Seybold - Externa l Primary hypertensi on Primary hypertensi on Disease Active 01-15 00:00: 00 Apurva Seybold - Externa l Attention deficit hyperactiv ity disorder (ADHD), predominan tly inattentiv e type Attention deficit hyperactiv ity disorder (ADHD), predominan tly inattentiv e type Disease Active 01-15 00:00: 00 Apurva Pelaezold - Externa l Current mild episode of major depressive disorder without prior episode Current mild episode of major depressive disorder without prior episode Disease Active 01-15 00:00: 00 Overview: Formattin g of this note might be different from the original. PSYC-Kailey n Apurva Seybold - Externa l Class 3 severe obesity with serious comorbidit y and body mass index (BMI) of 60.0 to 69.9 in adult Class 3 severe obesity with serious comorbidit y and body mass index (BMI) of 60.0 to 69.9 in adult Disease Active 01-15 00:00: 00 Apurva Seybold - Externa l EZEKIEL (obstructi ve sleep apnea) EZEKIEL (obstructi ve sleep apnea) Disease Active 01-15 00:00: 00 Apurva Seybold - Externa l Chronic right shoulder pain Chronic right shoulder pain Disease Active 01-15 00:00: 00 Apurva Seybold - Externa l Allergies, Adverse Reactions, Alerts Allergy Name Allergy Type Status Severity Reaction(s) Onset Date Inactive Date Treating Clinician Comments Source demol (Not Checked) Propensi ty to adverse reaction to drug Active 12-09 00:00: 00 Shravan Crocker Aluminum Hydroxid e Propensi ty to adverse reaction s Active 2021-05 00:00: 00 Other reaction( s): Alma Pérez Jamesa l Calcium Carbonat e Propensi ty to adverse reaction s Active 2021-05 00:00: 00 Other reaction( s): Alma Pérez Jamesa l Dimethic one Copolyol Propensi ty to adverse reaction s Active 2021-05 00:00: 00 Other reaction( s): Alma Mixon Seemilynehal - Jamesa l Erythrom ycin Base Propensi ty to adverse reaction s Active 2021-05 00:00: 00 Other reaction( s): Alma Mixon Seemilynehal Pérez Jamesa l Levoflox acin Propensi ty to adverse reaction s Active 2021-05 00:00: 00 Other reaction( s): Hives/Bernard danitza Mixon Semarni Ramireza l Lidocain e Hcl Propensi ty to adverse reaction s Active 2021-05 00:00: 00 Other reaction( s): Hives? Apurva Mcmillanmarni Beto Jamesa l Magnesiu m Hydroxid e Propensi ty to adverse reaction s Active 2021-05 00:00: 00 Other reaction( s): Alma Mixon Seemilynehal Pérez Jamesa l Meperidi ne Hcl Propensi ty to adverse reaction s Active 2021-05 00:00: 00 Other reaction( s): Alma Mixon Semarni Ramireza l Prochlor perazine Edisylat e Propensi ty to adverse reaction s Active 2021-05 00:00: 00 Other reaction( s): Alma Mixon Semarni Ramireza cailin Prochlor perazine Maleate Propensi ty to adverse reaction s Active 2021-05 00:00: 00 Other reaction( s): Alma Mixon Semarni - Jamesa l Azithrom ycin Propensi ty to adverse reaction s Active Rash 01-15 00:00: 00 Apurva Ramireza cailin Penicill ins Propensi ty to adverse reaction s Active Nausea Only 01-15 00:00: 00 Apurva simeon Tetracyc lines Propensi ty to adverse reaction s Active Rash 01-15 00:00: 00 Apurva simeon Social History Social Habit Start Date Stop Date Quantity Comments Source History of tobacco use Passive smoker Apurva nava - External Gender identity Dot Yanes - External Sexual orientation Dustin culver Farzana [...] Dosage Frequency Signature (SIG) Comments Components Source benzonatate 100 mg capsule 12-09 00:00: 00 Yes 1mg Shravan Crocker TAKE 1 CAPSULE BY MOUTH EVERY 12 HOURS FOR 5 DAYS 06-10 00:00: 00 Yes Shravan Emelyn Obi PLEASE SEE ATTACHED FOR DETAILED DIRECTIONS 2022-05 00:00: 00 Yes Shravan Emelyn Obi Aspirin 81 MG oral Tablet Delayed Response 2022-05 11:29: 43 03-18 00:00 :00 No 81mg Take 1 tablet (81 mg total) by mouth daily. Apurva Jacob l TAKE 1 TABLET BY MOUTH EVERY DAY 2022-05 00:00: 00 Yes Shravan Emelyn Obi APPLY TO THE SKIN TWICE DAILY. 2022-05 00:00: 00 Yes Shravan Emelyn Obi TAKE 1 CAPSULE BY MOUTH EVERY DAY 2022-05 00:00: 00 Yes Shravan Crocker hydrOXYzine HCl 50 MG oral Tablet 2022-05 00:00: 00 Yes [id number] 50mg QD Take 1 tablet (50 mg total) by mouth nightly as needed for anxiety (insomnia) . Apurva simeon Duloxetine HCl [address] Particles 2022-05 00:00: 00 Yes [id number] 60mg Take 1 capsule (60 mg total) by mouth daily. Apurva simeon Folic Acid 1 MG oral tablet 2022-05 00:00: 00 Yes [id number] 1mg Take 1 tablet (1 mg total) by mouth daily. Apurva simeon Aspirin 81 MG oral Tablet Delayed Response 2022-05 00:00: 00 Yes [id number] 81mg Take 1 tablet (81 mg total) by mouth daily. Apurva simeon Duloxetine HCl [address] Particles 02-14 00:00: 00 03-18 00:00 :00 No 60mg Take 1 capsule (60 mg total) by mouth daily. Apurva simeon TAKE ONE CAPSULE BY MOUTH EVERY DAY. 02-13 00:00: 00 Yes Shravan Crocker TAKE 1 TABLET BY MOUTH EVERY 8 HOURS NEEDED FOR ANXIETY 02-13 00:00: 00 Yes Shravan Crocker TAKE 1 TABLET BY MOUTH EVERY NIGHT AT BEDTIME 02-13 00:00: 00 Yes Shravan Crocker hydrOXYzine HCl 50 MG oral Tablet 02-13 00:00: 00 03-18 00:00 :00 No 50mg [id number] 3D Take 1 tablet (50 mg total) by mouth every 8 hours as needed. Apurva simeon Folic Acid 1 MG oral tablet 02-13 00:00: 00 03-18 00:00 :00 No 1mg Take 1 tablet (1 mg total) by mouth daily. Apurva simeon Venlafaxine HCl 150 MG oral Capsule 24 Hour Sustained Release 01-15 00:00: 00 03-18 00:00 :00 No [id number] 150mg Take 1 capsule (150 mg total) by mouth daily. Apurva simeon PREDNISOLON E AC 1% EYE DROP 12-27 00:00: 00 Yes Shravan Crocker APPLY 1 DROP INTO LEFT EYE FOUR TIMES A DAY STARTING THE DAY OF SURGERY.... ....AFTER SURGERY 12-27 00:00: 00 Yes Shravan Crocker APPLY 1 DROP INTO LEFT EYE FOUR TIMES A DAY STARTING THE DAY OF SURGERY.... ..AFTER SURGERY 12-27 00:00: 00 Yes Shravan Crocker Metoprolol Tartrate 50 MG oral Tablet 12-24 08:39: 22 Yes 50mg Take 1 tablet (50 mg total) by mouth 2 times daily Apurva simeon Venlafaxine HCl 150 MG oral Capsule 24 Hour Sustained Release 12-24 00:00: 00 Yes [id number] 150mg Take 1 capsule (150 mg total) by mouth daily Apurva simeon Alprazolam 0.5 MG oral Tablet 12-24 00:00: 00 Yes [id number] .5mg QD Take 1 tablet (0.5 mg total) by mouth nightly as needed for sleep or anxiety Apurva simeon TAKE 1 CAPSULE BY MOUTH EVERY DAY 12-24 00:00: 00 Yes Shravan Crocker TAKE 1 TABLET BY MOUTH NIGHTLY NEEDED FOR SLEEP OR ANXIETY. 12-24 00:00: 00 Yes Shravan Crocker TAKE ONE TABLET BY MOUTH EVERY 8 HOURS 08-26 00:00: 00 Yes Shravan Crocker BROMPHEN-PS E-DM 2-30-10 MG/5ML 10 00:00: 00 Yes [id number] Shravan Crocker Metoprolol Tartrate 50 MG oral Tablet 07-16 09:21: 40 Yes 50mg Take 50 mg by mouth 2 times daily Apurva simeon Semaglutide (2 mg/dose) 8 mg/3 mL SQ Solution Pen-Injecto r 07-16 00:00: 00 Yes [id number] 2mg Inject 2 mg into the skin once a week Apurva simeon VENLAFAXINE HCL ER 75 MG 06-08 00:00: 00 Yes 75 Shravan Crocker Nebulizers (InnoSpire Essence Nebulizer) does not apply Misc 05-30 00:00: 00 Yes USE DIRECTED FOUR TIMES A DAY Apurva simeon TAKE 1 TABLET BY MOUTH EVERY 6 HOURS NEEDED FOR PAIN 05-30 00:00: 00 Yes Shravan Crocker ALBUTEROL SUL 2.5 MG/3 ML SOLN 05-30 00:00: 00 Yes 253 Shravan Crocker BENZONATATE 100 MG CAPSULE 05-30 00:00: 00 Yes 100 Shravan Crocker IPRATROPIUM BR 0.02% SOLN 05-30 00:00: 00 Yes 2 Shravan Crocker GUAIFEN-COD EINE 100-10 MG/5 ML 05-28 00:00: 00 Yes [id number] Shravan Crocker Metoprolol Tartrate 50 MG oral Tablet 05-27 15:41: 41 Yes 50mg Take 50 mg by mouth 2 times daily Apurva simeon Guaifenesin (Mucinex) 600 MG oral Tablet 12 Hour Sustained Release 05-27 00:00: 00 Yes [id number] 1200mg Take 2 tablets (1,200 mg total) by mouth 2 times daily Apurva simeon Amoxicillin 500 MG oral Capsule 05-27 00:00: 00 Yes [id number] 500mg Take 1 capsule (500 mg total) by mouth 3 times daily Apurva simeon Albuterol Sulfate 2.5 MG/0.5ML inhalation Inhalant Solution 05-27 00:00: 00 Yes [id number] 2.5mg Take 2.5 mg by nebulizati on once for 1 dose Apurva simeon guaiFENesin -Codeine (Cheratussi n AC) 100-10 MG/5ML oral Syrup 05-27 00:00: 00 Yes [id number] 5mL Q.[id number] 3D Take 5 mL by mouth 3 times daily as needed for cough Apurva simeon TAKE 1 CAPSULE (500 MG TOTAL) BY MOUTH 3 TIMES DAILY 05-27 00:00: 00 Yes Shravan Crocker Albuterol (PROVENTIL) (2.5 MG/3ML) 0.083% inhalation Inhalant Solution 05-27 00:00: 00 07-16 00:00 :00 No [id number] 2.5mg Q4H Take 2.5 mg by nebulizati on every 4 hours as needed for wheezing Apurva simeon Semaglutide (1 mg/dose) 2 mg/1.5 mL SQ Solution Pen-Injecto r 05-21 00:00: 00 Yes [id number] 1mg Inject 1 mg into the skin once a week Apurva simeon OZEMPIC 1 MG/DOSE (4 MG/3 ML) 05-21 00:00: 00 Yes [id number] Shravan Crocker Benzonatate 200 MG oral Capsule 05-20 00:00: 00 Yes 200mg Take 200 mg by mouth every 8 hours Apurva simeon BENZONATATE 200 MG CAPSULE 05-20 00:00: 00 Yes 200 Shravan Crocker Metoprolol Tartrate 50 MG oral Tablet 2021-05 09:43: 00 Yes 50mg Take 50 mg by mouth 2 times daily Apurva simeon LOSARTAN POTASSIUM 50 MG 2021-05 00:00: 00 Yes 50 Shravan Crocker Losartan Potassium 50 MG oral Tablet 2021-05 00:00: 00 12-24 00:00 :00 No [id number] 50mg Take 1 tablet (50 mg total) by mouth daily Apurva simeon Losartan Potassium 25 MG oral Tablet 2021-05- 00:00: 00 05-10 00:00 :00 No [id number] 25mg Take 1 tablet (25 mg total) by mouth daily Apurva simeon Metoprolol Tartrate 50 MG oral Tablet 2021-05 16:31: 17 Yes 50mg Take 50 mg by mouth 2 times daily Apurva simeon Losartan Potassium 25 MG oral Tablet 2021-05 00:00: 00 Yes [id number] 25mg Take 1 tablet (25 mg total) by mouth daily Apurva Seemilyold - Externa l TAKE 1 TABLET (25 MG TOTAL) BY MOUTH DAILY. 2021-05 00:00: 00 Yes Shravan Crocker Cyclobenzap rine HCl 10 MG oral Tablet 2021-05 00:00: 00 12-24 00:00 :00 No [id number] 10mg Q.5D Take 1 tablet (10 mg total) by mouth 2 times daily as needed for muscle spasms Apurva Semarni - Externa l Metoprolol Tartrate 50 MG oral Tablet 2021-05 13:28: 16 Yes 50mg Take 50 mg by mouth 2 times daily Apurva Yanes - Externa l Cyclobenzap rine HCl 10 MG oral Tablet 2021-05 00:00: 00 Yes [id number] 10mg Q.5D Take 1 tablet (10 mg total) by mouth 2 times daily as needed for muscle spasms Apurva Yanes - Externa l CYCLOBENZAP RINE 10 MG 2021-05 00:00: 00 Yes 10 Shravan Crocker Tramadol HCl 50 MG oral Tablet 2021-05 00:00: 00 12-24 00:00 :00 No [id number] 50mg Q.5D Take 1 tablet (50 mg total) by mouth 2 times daily as needed for pain Auprva Pérez Externa l Metoprolol Tartrate 50 MG oral Tablet 2021-05 13:48: 44 Yes 50mg Take 50 mg by mouth 2 times daily Apurva Pérez Externa l OZEMPIC 0.25-0.5 MG/DOSE PEN 2021-05 00:00: 00 Yes 255 Shravan Crocker Semaglutide (0.25 or 0.5 mg/dose) 2 mg/1.5 mL SQ Solution Pen-Injecto r 2021-05 00:00: 00 Yes [id number] .5mg Inject 0.5 mg into the skin once a week Apurva Yanes - Externa l SODIUM CHLORIDE 0.9% IRRIG. 2021-05 00:00: 00 Yes 9 Shravan Dunaway Obi Venlafaxine HCl 75 MG oral Capsule 24 Hour Sustained Release 2021-05 0 15:05: 13 03-12 00:00 :00 No 75mg Take 75 mg by mouth daily Apurva simeon Semaglutide (0.25 or 0.5 mg/dose) 2 mg/1.5 mL SQ Solution Pen-Injecto r 2021-05 0- 00:00: 00 Yes [id number] 104 .25mg Inject 0.25 mg into the skin once a week Apurva simeon Venlafaxine HCl 75 MG oral Capsule 24 Hour Sustained Release 2021-05 0 00:00: 00 12-24 00:00 :00 No [id number] 75mg Take 1 capsule (75 mg total) by mouth daily Apurva simeon Semaglutide (0.25 or 0.5 mg/dose) 2 mg/1.5 mL SQ Solution Pen-Injecto r 2021-05 0 00:00: 00 04-09 00:00 :00 No [id number] 104 .25mg Inject 0.25 mg into the skin once a week Apurva simeon Ciprofloxac in HCl 500 MG oral Tablet 2021-05 00:00: 00 04-09 00:00 :00 No Apurva simeon SULFAMETHOX AZOLE-TMP DS 2021-05 0-03 00:00: 00 Yes [id number] Shravan Crocker Venlafaxine HCl 75 MG oral Capsule 24 [...] 02-12 00:00: 00 04-09 00:00 :00 No [id number] Apply 1 applicatio n topically 2 times daily Apurva simeon TRIMETHOPRI M-SULFAMETH OXAZOLE 800-160 MG oral Tablet 02-12 00:00: 00 02-20 04:59 :00 No [id number] 1{tbl} Take 1 tablet by mouth 2 times daily for 7 days Apurva simeon Blood Pressure does not apply Kit 01-15 00:00: 00 02-12 00:00 :00 No [id number] Check BP daily Apurva Ramireza cailin Immunizations Ordered Immunization Name Filled Immunization Name Date Status Comments Source Tdap- (Boostrix, Adacel) 2022-01-15 00:00:00 Completed Apurva Yanes - External Tdap- (Boostrix, Adacel) 2022-01-15 00:00:00 Completed Apurva Yanes - External Tdap- (Boostrix, Adacel) 2022-01-15 00:00:00 Completed Apurva Pelaezold - External Tdap- (Boostrix, Adacel) 2022-01-15 00:00:00 Completed Apurva Pelaezold - External Tdap- (Boostrix, Adacel) 2022-01-15 00:00:00 Completed Apurva Mcmillanybold - External Tdap- (Boostrix, Adacel) 2022-01-15 00:00:00 Completed Apurva Mcmillanybold - External Tdap- (Boostrix, Adacel) 2022-01-15 00:00:00 Completed Apurva Mcmillanybold - External Tdap- (Boostrix, Adacel) 2022-01-15 00:00:00 Completed Apurva Mcmillanybold - External Tdap- (Boostrix, Adacel) 2022-01-15 00:00:00 Completed Apurva Mcmillanybold - External Tdap- (Boostrix, Adacel) 2022-01-15 00:00:00 Completed Apurva Mcmillanybnehal - External Tdap- (Boostrix, Adacel) Unknown Completed Apurva Yanes - External Vital Signs Vital Name Observation Time Observation Value Comments S ource Systolic blood pressure 2023-03-18 16:12:00 158 mm[Hg] Apurva Seybo ld - External Diastolic blood pressure 2023-03-18 16:12:00 75 mm[Hg] Apurva Seybo ld - External Heart rate 2023-03-18 16:12:00 57 /min Kelse y Seybold - External Body temperature 2023-03-18 16:12:00 37.06 Kimi Apurva Seybold - External Respiratory rate 2023-03-18 16:12:00 20 /min Apurva Seybold - External Body height 2023-03-18 16:12:00 172.7 cm Dot ey Seybold - External Body weight 2023-03-18 16:12:00 179.624 kg Dot ey Seybold - External BMI 2023-03-18 16:12:00 60.21 kg/m2 Dot ey Seybold - External Oxygen saturation in Arterial blood by Pulse oximetry 2023-03-18 16:12:00 99 /min Apurva Seybo ld - External Systolic blood pressure 2022-12-24 [...] External Heart rate 2022-07-16 15:18:00 82 /min Kelse y Seybold - External Body temperature 2022-07-16 [...] External Heart rate 2022-05-27 21:36:00 70 /min Arvinse y Seybold - External Body temperature 2022-05-27 [...] External Heart rate 2022-05-10 15:39:00 87 /min Kelse y Seybold - External Body temperature 2022-05-10 [...] Pulse oximetry 2022-03-12 19:49:00 99 /min Apurva Seybo ld - External Systolic blood pressure 2022-02-12 18:46:00 164 mm[Hg] Apurva Seybo ld - External Diastolic blood pressure 2022-02-12 18:46:00 80 mm[Hg] Apurva Seybo ld - External Heart rate 2022-02-12 18:46:00 101 /min Kelse y Seybold - External Body temperature 2022-02-12 18:46:00 36.56 Kimi Apurva Seybold - External Respiratory rate 2022-02-12 18:46:00 16 /min Apurva Seybold - External Body height 2022-02-12 18:46:00 172.7 cm Dot ey Seybold - External Body weight 2022-02-12 18:46:00 191.872 kg Dot ey Seybold - External BMI 2022-02-12 18:46:00 64.32 kg/m2 Dot ey Seybold - External Encounters Start Date/Time End Date/Time Encounter Type Admission Type Attending [facility] Care Department Encounter ID Source 2023-12-10 15:24:37 2023-12-10 15:24:37 Outpatient SFA SFA [id number] Shravan Crocker 2023-12-10 00:00:00 2023-12-10 00:00:00 Outpatient Visit SFA [id number] Shravan Crocker 2023-04-22 00:00:00 2023-04-22 00:00:00 Outpatient PREZAS, PRACHI MIXON [id number] [facility] 2023-04-16 00:00:00 2023-04-16 00:00:00 Outpatient MD APURVA MOLINA [id number] [facility] 2023-03-18 11:00:00 2023-03-18 11:00:00 Outpatient PREZAS, PRACHI MIXON [id number] [facility] 2023-02-13 11:15:00 2023-02-13 11:15:00 Outpatient PREZAS, PRACHI MIXON [id number] [facility] 2023-01-22 11:15:00 2023-01-22 11:15:00 Outpatient PREZAS, PRACHI MIXON [id number] [facility] 2023-01-15 00:00:00 2023-01-15 00:00:00 Outpatient PREZAS, PRACHI MIXON [id number] [facility] 2023-01-15 00:00:00 2023-01-15 00:00:00 Outpatient PREZAS, PRACHI MIXON [id number] [facility] 2023-01-15 00:00:00 2023-01-15 00:00:00 Outpatient PREZAS, PRACHI MIXON [id number] [facility] 2022-12-31 00:00:00 2022-12-31 00:00:00 Outpatient PREZAS, PRACHI MIXON [id number] [facility] 2022-12-25 00:00:00 2022-12-25 00:00:00 Outpatient JASSON AVALOS [id number] Apurva Yanes 2022-12-24 09:20:00 2022-12-24 09:20:00 Outpatient LAB90 APURVA MIXON [id number] Apurva Yanes 2022-12-24 08:45:00 2022-12-24 08:45:00 Outpatient PREZAS, PRACHI APURVA MIXON [id number] Apurva Yanes 2022-10-07 15:45:00 2022-10-07 15:45:00 Outpatient PREZAS, PRACHI APURVA APURVA [id number] Apurva Mcmillanybnehal 2022-08-26 14:00:00 2022-08-26 14:00:00 Outpatient TESTING, CAMILLE MIXON [id number] Apurva Mcmillanybnehal 2022-08-26 00:00:00 2022-08-26 00:00:00 Outpatient PREZAS, PRACHI APURVA MIXON [id number] Apurva Mcmillannehal 2022-08-07 00:00:00 2022-08-07 00:00:00 Outpatient ROBBIE, JASSON APURVA MIXON [id number] Apurva Mcmillanybnehal 2022-07-30 10:00:00 2022-07-30 10:00:00 Outpatient LAB90 APURVA MIXON [id number] Apurva Mcmillanybnehal 2022-07-16 09:30:00 2022-07-16 09:30:00 Outpatient PREZAS, PRACHI APURVA MIXON [id number] Apurva Yanes 2022-07-09 08:10:00 2022-07-09 08:10:00 Outpatient LAB90 APURVA MIXON [id number] [facility] 2022-06-21 13:45:00 2022-06-21 13:45:00 Outpatient PREZAS, PRACHI APURVA MIXON [id number] [facility] 2022-05-29 00:00:00 2022-05-29 00:00:00 Outpatient JUAN BAZAN [id number] [facility] 2022-05-27 15:30:00 2022-05-27 15:30:00 Outpatient JUAN BAZAN [id number] [facility] 2022-05-24 00:00:00 2022-05-24 00:00:00 Outpatient PREZAS, PRACHI HARRISONSEY [id number] Apurva Seybold 2022-05-21 00:00:00 2022-05-21 00:00:00 Outpatient PREZAS, PRACHI MIXON [id number] Apurva Seybold 2022-05-21 00:00:00 2022-05-21 00:00:00 Outpatient PREZAS, PRACHI MIXON [id number] [facility] 2022-05-19 00:00:00 2022-05-19 00:00:00 Outpatient PREZAS, PRACHI MIXON APURVA [id number] [facility] 2022-05-10 09:45:00 2022-05-10 09:45:00 Outpatient PREZAS, PRACHI MIXON APURVA [id number] [facility] 2022-05-07 16:15:00 2022-05-07 16:15:00 Outpatient PREZAS, PRACHI MIXON APURVA [id number] [facility] 2022-05-01 00:00:00 2022-05-01 00:00:00 Outpatient PREZAS, PRACHI MIXON APURVA [id number] [facility] 2022-05-01 00:00:00 2022-05-01 00:00:00 Outpatient ROBBIE, JASSON MIXON APURVA [id number] [facility] 2022-04-29 16:30:00 2022-04-29 16:30:00 Outpatient PREZAS, PRACHI MIXON APURVA [id number] Apurva Seybold 2022-04-17 13:30:00 2022-04-17 13:30:00 Outpatient PREZAS, PRACHI APURVA APURVA [id number] Apurva Seybold 2022-04-17 00:00:00 2022-04-17 00:00:00 Outpatient PREZAS, PRACHI APURVA APURVA [id number] Apurva Seybold 2022-04-15 14:35:00 2022-04-15 14:35:00 Outpatient LABMiguel Angel MIXON [id number] Apurva Seybold 2022-04-15 14:00:00 2022-04-15 14:00:00 Outpatient ROBBIEJASSON Santos [id number] [facility] 2022-04-09 16:15:00 2022-04-09 16:15:00 Outpatient PRACHI RODRIGUEZ [id number] [facility] 2022-03-12 15:00:00 2022-03-12 15:00:00 Outpatient PREZAPRACHI Herron APURVA [id number] [facility] 2022-02-12 15:15:00 2022-02-12 15:15:00 Outpatient PREZASPRACHI APURVA [id number] [facility] 2022-02-12 13:45:00 2022-02-12 13:45:00 Outpatient PRACHI RODRIGUEZ [id number] [facility] 2022-01-31 00:00:00 2022-01-31 00:00:00 Outpatient PRACHI RODRIGUEZ APURVA [id number] [facility] 2022-01-22 08:50:00 2022-01-22 08:50:00 Outpatient LAB90 APURVA MIXON [id number] [facility] 2022-01-16 00:00:00 2022-01-16 00:00:00 Outpatient PRACHI RODRIGUEZ [id number] [facility] 2022-01-15 08:55:00 2022-01-15 08:55:00 Outpatient LAB90 APURVA APURVA [id number] [facility] 2022-01-15 08:00:00 2022-01-15 08:30:00 Office Visit Prachi Rodriguez [id number] Apurva [facility] Notes Date/Time Note Provider Source Shravan Tripp [facility]
[2024-07-29 12:09] LABS: Absolute Eosinophils 0.2 K/uL (0-0.5); Absolute Lymphocytes (CBC) 1.2 K/uL (0.7-4.9); Absolute Monocytes 0.2 K/uL (0.1-1.3); Eosinophils % 3.5 % (0-4.4); Hemoglobin 13.4 g/dL (12.0-15.0); Lymphocytes % 25.5 % (15.3-44.8); MCH 31.2 pg (27.0-35.0); MCHC 35.3 g/dL (32.0-36.0); MCV 88.5 fL (80-100); MPV 8.2 fL (7.6-11.3); Monocytes % 5.3 % (3.3-12.3); Neutrophils % 64.7 % (41.7-73.7); Platelets 217 thou/uL (152-406); RBC Red Blood Cell Count 4.29 M/uL (3.86-4.86); Red Cell Distribution Width 12.5 % (12.1-15.2)
[2024-07-29 12:17] LABS: PT Prothrombin Time 11.4 SECONDS (10-13.0); PTT, Activated Partial Thromb 34.4 SECONDS (27.2-37.4)
--- NOTE | 2024-07-29 12:20 | RAD REPORT ---
EXAMINATION: ONE VIEW CHEST XR CLINICAL INDICATION: Female, 58 years old.,syncope TECHNIQUE: Frontal chest projection is submitted. Examination is limited by patient positioning and t echnique. COMPARISON: 12/04/2023 FINDINGS: The lungs are well inflated and clear. No pneumothorax or sizable effusion. The heart is normal in s ize. Mediastinal contours are unchanged with sequelae of median sternotomy and surgical clips along the right suprahilar region. IMPRESSION: No acute intrathoracic abnormalities.
[2024-07-29] MEDS ORDERED: ONDANSETRON 4 MG/2 ML VIAL ONE (12:25)
[2024-07-29 12:27] LABS: ALT/SGPT 31 U/L (13-56); AST/SGOT 19 U/L (15-37); Albumin 3.1 g/dL (3.4-5.0); Albumin/Globulin Ratio 0.7 (1.1-1.8); Alkaline Phosphatase 100 U/L (45-117); Anion Gap 5.8 mEq/L (5.0-15.0); BUN Blood Urea Nitrogen 14 mg/dL (7-18); Bicarbonate 32 mEq/L (21-32); Bilirubin Total 0.5 mg/dL (0.2-1.0); Globulin 4.2 g/dL (2.3-3.5); Glomerular Filtration Rate 70 ml/min (=/>90); Glucose Level 114 mg/dL (74-106); Magnesium 2.1 mg/dL (1.6-2.4); Potassium 3.8 mEq/L (3.5-5.1); Protein, Total 7.3 g/dL (6.4-8.2); Sodium Level 136 mEq/L (136-145); Troponin High Sensitivity 4.3 pg/mL (<58.9)
[2024-07-29 12:28] LABS: Bilirubin Direct < 0.2 mg/dL (0-0.2); Bilirubin Indirect, Calculated 0.3 mg/dL (0.2-0.8)
--- NOTE | 2024-07-29 13:45 | RAD REPORT ---
EXAM: CT brain without contrast HISTORY: syncope, fall, sternal and mid scapular pain COMPARISON: None TECHNIQUE: Multiple contiguous axial images were obtained and a CT of the brain without contrast. Sag ittal and coronal reformats were performed. One or more of the following dose reduction techniques were used: Automated exposure control, adjust ment of the mA and/or kV according to patient size, and/or iterative reconstruction. FINDINGS: No evidence of hydrocephalus, intracranial hemorrhage, or extra-axial fluid collection. The brain is normal in morphology. No evidence of midline shift or areas of brain edema. The calvarium is intact. The visualized paranasal sinuses and mastoid air cells are essentially clear . IMPRESSION: No evidence of acute intracranial abnormality. EXAM: CT of the cervical spine without contrast HISTORY: Neck pain, injury syncope, fall, sternal and mid scapular pain TECHNIQUE: Multiple contiguous axial images were obtained in a CT of the cervical spine without contr ast. Sagittal and coronal reformats were performed. FINDINGS: The vertebral bodies demonstrate normal height and alignment. No evidence of acute fracture or subluxation.. Mild to moderate lower cervical degenerative changes. No prevertebral soft tissue swelling is seen. The posterior facets are well aligned. Normal alignment of the skull base with the cervical spine is seen. The lung apices are unremarkable. IMPRESSION: No evidence of acute osseous abnormality of the cervical spine.
--- NOTE | 2024-07-29 13:47 | RAD REPORT ---
EXAM: CT CHEST, ABDOMEN AND PELVIS WITH CONTRAST CLINICAL INDICATION: FALL INJURY TECHNIQUE: CT chest, abdomen and pelvis was performed, following the administration of contrast, as p er department protocol. Axial, sagittal and coronal reconstructions were obtained. One or more of the following dose reduction techniques were used: Automated exposure control, adjustment of the mA a nd/or kV according to patient size, and/or iterative reconstruction. Unless otherwise specified, incidental findings do not require dedicated imaging follow-up. COMPARISON: No prior exam. FINDINGS: LUNGS: No evidence of airspace or interstitial process. No nodules. PLEURA: No pleural effusion. No pneumothorax. MEDIASTINUM AND LYMPH NODES: No mediastinal mass or fluid collection. Normal size mediastinal, hilar, and axillary lymph nodes. OSSEOUS STRUCTURES AND CHEST WALL: Intact. Sternotomy wires. LIVER: Normal in size and contour. No focal lesion or biliary dilatation. Cholelithiasis. PANCREAS: No mass, ductal dilation, or chin-pancreatic fluid. SPLEEN: Normal size. No focal lesion. ADRENALS: Normal; no mass. KIDNEYS: Normal size and contour. No hydronephrosis. URINARY BLADDER: Normal contour. GASTROINTESTINAL TRACT: No bowel obstruction, free air, significant free fluid or abscess. APPENDIX: Normal appendix. LYMPH NODES: No lymphadenopathy. MUSCULOSKELETAL: No acute finding. IMPRESSION: No acute or significant abnormalities seen in the chest, abdomen or pelvis. Cholelithiasis.
--- NOTE | 2024-07-29 14:05 | EDPHYS ---
Physician Documentation [facility] Name: Julienne Tucker Age: 58 yrs Sex: Female : 1965 Arrival Date: 07/29/2024 Time: 11:19 Bed 15 Private MD: ED Physician Shmuel Holm HPI: 07/29 13:22 This 58 yrs old Female presents to ER via Ambulatory with complaints of Passed Out rn Prior To Arrival, Fall Injury. 13:22 The patient has experienced syncope. Onset: The symptoms/episode began/occurred just rn prior to arrival. Duration: This was a single episode. Associated injury: Chest: Back:. Current symptoms: Currently, the patient is not experiencing any symptoms. The patient has experienced similar episodes in the past. Patient reports was in vehicle, just gotten off the vehicle, was walking to her house when had single syncopal episode. Denies any recent illness. Reports when fell she has mild pain to anterior chest wall as well as back. No injuries to either extremity. Unsure if hit her head. Reports had cardiac bypass 13 years ago and she is concerned about injuring the sternal wires. Currently denies any dizziness or focal neurological deficits. No new medication. No vomiting or diarrhea. No abdominal pain.. Historical: - Allergies: 11:42 Amoxicillin; aa5 11:42 Azithromycin; aa5 11:42 Compazine; aa5 11:42 Demerol; aa5 11:42 Erythromycin; aa5 11:42 Levofloxacin; aa5 11:42 Tetracycline; aa5 11:42 Vancomycin; aa5 - PMHx: 11:42 Depression; Hypertension; aa5 - PSHx: 11:42 Appendectomy; Coronary artery bypass graft; hysterectomy; left foot; aa5 - Immunization history:: Adult Immunizations unknown. - Infectious Disease History:: Denies. - Social history:: Smoking status: Patient denies any tobacco usage or history of. - Family history:: not pertinent. - Hospitalizations: : No recent hospitalization is reported. ROS: 13:22 Constitutional: Negative for fever, chills, and weight loss, Eyes: Negative for injury, rn pain, redness, and discharge, Neck: Negative for injury, pain, and swelling, Cardiovascular: Positive for chest wall pain following fall Respiratory: Negative for shortness of breath, cough, wheezing, and pleuritic chest pain, Abdomen/GI: Negative for abdominal pain, nausea, vomiting, diarrhea, and constipation, Back: Positive for mid back pain MS/Extremity: Negative for injury and deformity, Skin: Negative for injury, rash, and discoloration, Neuro: Negative for headache, weakness, numbness, tingling, and seizure, Exam: 13:22 Constitutional: This is a well developed, well nourished patient who is awake, alert, rn and in no acute distress. Head/Face: Normocephalic, atraumatic. Neck: No midline cervical tenderness Chest/axilla: Mild peristernal tenderness without crepitus or mobile segments Cardiovascular: Regular rate and rhythm. No pulse deficits. Respiratory: No increased work of breathing, no retractions or nasal flaring. MS/ Extremity: Pulses equal, no cyanosis. Neurovascular intact. Full, normal range of motion. Equal circumference. Neuro: Awake and alert, GCS 15, oriented to person, place, time, and situation. Cranial nerves II-XII grossly intact. Motor strength 5/5 in all extremities. Sensory grossly intact. Cerebellar exam normal. 15:57 ECG was reviewed by the Attending Physician. rn Vital Signs: 11:29 BP 215 / 113; Pulse 86; Resp 22 S; Temp 97.6(TE); Pulse Ox 98% on R/A; Weight 181.44 kg aa5 (R); Height 5 ft. 8 in. (R); 13:17 BP 189 / 87; Pulse 74; Resp 18; Temp 98; Pulse Ox 100% on R/A; kj2 14:13 BP 169 / 75; Pulse 73; Resp 20; Temp 98; Pulse Ox 100% on R/A; kj2 11:29 Body Mass Index 60.82 (181.44 kg, 172.72 cm) aa5 MDM: 11:25 Medical Screening Exam initiated rn 14:03 Differential Diagnosis: aortic aneurysm, cardiac arrhythmia, emotional response, rn idiopathic syncope, vasovagal episode. Data reviewed: vital signs, nurses notes, lab test result(s), EKG, radiologic studies, CT scan, plain films, and as a result, I will discharge patient. Counseling: I had a detailed discussion with the patient and/or guardian regarding the historical points, exam findings, and any diagnostic results supporting the discharge/admit diagnosis, the presence of at least one elevated blood pressure reading (>120/80) during this emergency department visit, lab results, radiology results, the need for outpatient follow up, to return to the emergency department if symptoms worsen or persist or if there are any questions or concerns that arise at home. Special discussion: I have referred the patient to see his PCP for further evaluation of high blood pressure. I discussed with the patient/guardian in detail that at this point there is no indication for admission to the hospital. It is understood, however, that if the symptoms persist or worsen the patient needs to return immediately for re-evaluation. Based on the history and exam findings, there is no indication for further emergent testing or inpatient evaluation. I discussed with the patient/guardian the need to see the patient resource coordinator for further evaluation of the symptoms. I discussed with the patient/guardian the need to see the primary care provider for further evaluation of the symptoms. ED course: No acute findings and workup for syncope or trauma. Troponin negative. ECG without ischemia. Will discharge home with return precautions and recommend cardiology follow-up. I have personally reviewed all of the results, including but not limited to blood tests and imaging deemed necessary to safely discharge this patient at this time. All results given to and printed out for patient. I personally went over all the results with the patient and answered all questions. Patient will follow-up with PCP and or specialist as discussed. Return precautions given and understood.. 07/29 11:41 Order name: Basic Metabolic Panel; Complete Time: 13:37 rn 07/29 11:41 Order name: CBC with Diff; Complete Time: 12:12 rn 07/29 11:41 Order name: Hepatic Function; Complete Time: 13:37 rn 07/29 11:41 Order name: Magnesium; Complete Time: 13:37 rn 07/29 11:41 Order name: Protime (+inr); Complete Time: 13:37 rn 07/29 11:41 Order name: Ptt, Activated; Complete Time: 13:37 rn 07/29 11:41 Order name: Troponin High Sensitivity; Complete Time: 13:37 rn 07/29 11:41 Order name: Chest Single View XRAY; Complete Time: 13:37 rn 07/29 11:56 Order name: Head C Spine Mpr Wo Con; Complete Time: 13:57 EDMS 07/29 11:57 Order name: Chest Abdomen Pelvis W Cont; Complete Time: 13:57 EDMS 07/29 11:41 Order name: Cardiac monitoring; Complete Time: 11:49 rn 07/29 11:41 Order name: EKG - Nurse/Tech; Complete Time: 11:49 rn 07/29 11:41 Order name: IV Saline Lock; Complete Time: 11:58 rn 07/29 11:41 Order name: Labs collected and sent; Complete Time: 11:58 rn 07/29 11:41 Order name: NPO; Complete Time: 11:42 rn 07/29 11:41 Order name: O2 Per Protocol; Complete Time: 11:42 rn 07/29 11:41 Order name: O2 Sat Monitoring; Complete Time: 11:42 rn EC:57 Rate is 79 beats/min. Rhythm is regular. QRS [place] is Normal. QRS interval is prolonged. rn QT interval is normal. No Q waves. T waves are Normal. No ST changes noted. Clinical impression: NSR w/ Non-specific ST/T Changes. Interpreted by me. Reviewed by me. Administered Medications: 13:14 Drug: Ondansetron IVP 4 mg IVP once; over 2 minutes Route: IVP; Site: left antecubital; kj2 14:14 Follow up: Response: No adverse reaction kj2 Disposition Summary: 07/29/24 14:05 Discharge Ordered Notes: Location: Home rn Problem: new rn Symptoms: have improved rn Condition: Stable rn Diagnosis - Syncope rn - Contusion of front wall of thorax rn - Contusion of back wall of thorax rn Followup: rn - With: Private Physician - When: As needed - Reason: Recheck today's complaints, Re-evaluation by your physician Discharge Instructions: - Discharge Summary Sheet rn - Contusion rn - Syncope rn Forms: - Medication Reconciliation Form rn - Antibiotic inspector government property - Prescription Opioid Use rn - Patient Portal Instructions rn - Leadership Thank You Letter rn Signatures: Dispatcher [employer] EDMS Shmuel Holm MD MD rn Calderon, Audri RN RN aa5 Melvi Eng RN RN kj2 Corrections: (The following items were deleted from the chart) 11:41 11:41 BASIC METABOLIC PANEL+C.LAB.BRZ ordered. EDMS EDMS 11:41 11:41 CBC+H.LAB.BRZ ordered. EDMS EDMS 11:41 11:41 HEPATIC FUNCTION+C.LAB.BRZ ordered. EDMS EDMS 11: 11:41 MAGNESIUM+C.LAB.BRZ ordered. EDMS EDMS 11: 11:41 PROTIME (+INR)+COAG.LAB.BRZ ordered. EDMS EDMS 11: 11:41 PTT, ACTIVATED+COAG.LAB.BRZ ordered. EDMS EDMS 11: 11:41 Troponin High Sensitivity+C.LAB.BRZ ordered. EDMS EDMS 11: 11:41 Urinalysis+U.LAB.BRZ ordered. EDMS EDMS 11: 11:41 Chest Single View+RAD.RAD.BRZ ordered. EDMS EDMS 11: 11:41 Head C Spine CAP W Con+CT.RAD.BRZ ordered. EDMS EDMS
--- NOTE | 2024-07-29 14:05 | ER ---
Nurse's Notes [facility] Name: Julienne Tucker Age: 58 yrs Sex: Female : 1965 Arrival Date: 07/29/2024 Time: 11:19 Bed 15 Private MD: Diagnosis: Syncope;Contusion of front wall of thorax;Contusion of back wall of thorax Presentation: 07/29 11:29 Chief complaint: Patient states: syncopal episode walking from her car to her house, pt aa5 c/o right low back pain and pain to right side of chest. 11:29 Coronavirus screen: At this time, the client does not indicate any symptoms associated aa5 with coronavirus-19. Ebola Screen: Patient denies travel to an Ebola-affected area in the 21 days before illness onset. Initial Sepsis Screen: Does the patient meet any 2 criteria? No. Patient's initial sepsis screen is negative. Does the patient have a suspected source of infection? No. Patient's initial sepsis screen is negative. Risk Assessment: Do you want to hurt yourself or someone else? Patient reports no desire to harm self or others. Onset of symptoms was July 29, 2024. 11:29 Acuity: RJ 2 aa5 11:29 Method Of Arrival: Ambulatory aa5 Historical: - Allergies: 11:42 Amoxicillin; aa5 11:42 Azithromycin; aa5 11:42 Compazine; aa5 11:42 Demerol; aa5 11:42 Erythromycin; aa5 11:42 Levofloxacin; aa5 11:42 Tetracycline; aa5 11:42 Vancomycin; aa5 - PMHx: 11:42 Depression; Hypertension; aa5 - PSHx: 11:42 Appendectomy; Coronary artery bypass graft; hysterectomy; left foot; aa5 - Immunization history:: Adult Immunizations unknown. - Infectious Disease History:: Denies. - Social history:: Smoking status: Patient denies any tobacco usage or history of. - Family history:: not pertinent. - Hospitalizations: : No recent hospitalization is reported. Screenin:59 [facility] ED Fall Risk Assessment (Adult) History of falling in the last 3 months, ll1 including since admission Yes- physiologic fall (2 pts) Confusion or Disorientation No (0 pts) Intoxicated or Sedated No (0 pts) Impaired Gait No (0 pts) Mobility Assist Device Used No (0 pt) Altered Elimination No (0 pt) Score/Fall Risk Level 0 - 2 = Low Risk Maintained a safe environment, Hourly rounding (assess needs \T\ fall precautionary measures) done. Abuse screen: Denies threats or abuse. Nutritional screening: No deficits noted. Tuberculosis screening: No symptoms or risk factors identified. Assessment: 11:59 General: Appears in no apparent distress. Behavior is calm, cooperative, appropriate ll1 for age. Pain: Complains of pain in back Quality of pain is described as aching, crampy. Neuro: Reports a syncopal episode weakness. Musculoskeletal: Reports pain in back. 13:17 Reassessment: Patient appears in no apparent distress at this time. Patient and/or kj2 family updated on plan of care and expected duration. Pain level reassessed. Patient is alert, oriented x 3, equal unlabored respirations, skin warm/dry/pink. 14:13 Reassessment: Patient appears in no apparent distress at this time. Patient and/or kj2 family updated on plan of care and expected duration. Pain level reassessed. Patient is alert, oriented x 3, equal unlabored respirations, skin warm/dry/pink. Vital Signs: 11:29 BP 215 / 113; Pulse 86; Resp 22 S; Temp 97.6(TE); Pulse Ox 98% on R/A; Weight 181.44 kg aa5 (R); Height 5 ft. 8 in. (R); 13:17 BP 189 / 87; Pulse 74; Resp 18; Temp 98; Pulse Ox 100% on R/A; kj2 14:13 BP 169 / 75; Pulse 73; Resp 20; Temp 98; Pulse Ox 100% on R/A; kj2 11:29 Body Mass Index 60.82 (181.44 kg, 172.72 cm) aa5 ED Course: 11:22 Patient arrived in ED. mr 11:25 Shmuel Holm MD is Attending Physician. rn 11:29 Arm band placed on Patient placed in an exam room, on a stretcher. aa5 11:46 Triage completed. aa5 11:49 Akua Dickson, THOMAS is Primary Nurse. aa5 11:58 Initial lab(s) drawn, by mi, sent to lab. Inserted saline lock: 22 gauge in left ll1 antecubital area, using aseptic technique. Blood collected. Flushed with 10 mL NS. 11:59 Patient has correct armband on for positive identification. Bed in low position. Call ll1 light in reach. Provided Education on: ER procedures and process. 12:04 Chest Single View XRAY In Process Unspecified. EDMS 13:02 Head C Spine Mpr Wo Con In Process Unspecified. EDMS 13:02 Chest Abdomen Pelvis W Cont In Process Unspecified. EDMS 14:13 No provider procedures requiring assistance completed. IV discontinued, intact, kj2 bleeding controlled, No redness/swelling at site. Pressure dressing applied. Administered Medications: 13:14 Drug: Ondansetron IVP 4 mg IVP once; over 2 minutes Route: IVP; Site: left antecubital; kj2 14:14 Follow up: Response: No adverse reaction kj2 Medication: 14:13 VIS not applicable for this client. kj2 Outcome: 14:05 Discharge ordered by . rn 14:14 Discharged to home ambulatory, kj2 14:14 Condition: stable 14:14 Discharge instructions given to patient, Instructed on discharge instructions, follow up and referral plans. Demonstrated understanding of instructions, follow-up care, 14:40 Patient left the ED. kj2 Signatures: Dispatcher [employer] EDMS [place], Reg Reg mr Shmuel Holm MD MD rn Calderon, Audri, RN RN aa5 Akua Dickson RN RN ll1 Melvi Eng, THOMAS RN kj2 Corrections: (The following items were deleted from the chart) 17:30 11:49 Briana Phelan, RN is Primary Nurse. fátima aa5 17:30 11:49 Primary Nurse role handed off by Briana Phelan, THOMAS [email or web address] aa5
[2024-07-29 14:45] VITALS: TEMP 98; O2SAT 100
[2024-07-29 14:47] VITALS: BP 169/75
--- NOTE | 2024-07-30 14:41 | EKG ---
Test Date: 2024-07-29 Test Time: 11:46:27 [employer]: LML MEASUREMENT RESULTS: Intervals: Rate: 79 TN: 154 QRSD: 176 QT: 444 QTc: 509 [place]: P: 58 TN: 154 QRS: 12 T: 58 INTERPRETIVE STATEMENTS: Normal sinus rhythm Right bundle branch block Abnormal ECG Compared to ECG 12/04/2023 12:14:27 No significant changes Electronically Signed On 07-30-24 14:39:59 CDT by Keegan Acosta
== END 2024-07-29 14:40 | disposition home or self-care (01) ==
LOC: ER 11:19
DX: R55 Syncope and collapse (principal); S20.219A Contusion of unspecified front wall of thorax, initial encounter; S20.229A Contusion of unspecified back wall of thorax, initial encounter; I10 Essential (primary) hypertension; Z95.1 Presence of aortocoronary bypass graft
CPT/HCPCS: 36415; 70450; 71045; 71260; 72125; 74177; 80048; 80076; 83735; 84484; 85025; 85610; 85730; 93005; 96374; 99284; J2405

== ENCOUNTER 2024-09-08 14:29 | Emergency (ER) | payer SELFPAY ==
--- OUTSIDE RECORDS SUMMARY | 2024-09-08 14:33 | XMS REPORT | Continuity of Care Document ---
Author Name Unknown Address [address] [facility] [address] [place] [address] [facility] Address [address] [facility] [place] [address] Care Team Providers Care Hose Sprayer Name Role Phone Bergeron PAPITO [facility] Primary Care Physician [id number] PRACHI RODRIGUEZ Attending Clinician Unavailable MD LAUREN Attending Clinician Unavailab JASSON Beltrán Attending Clinician Unavailable LAB90 Attending Clinician Unavailable TESTING, CAMILLE FOWLER Attending Clinician U JUAN Alva Attending Clinician Unavailable LAB53 Attending Clinician Unavailable Prachi Rodriguez DO Attending Clinician [phone] Payers Payer Name Policy Type Policy Number Effective Date Expirati on Date Source [facility] 2 [id number] 2022 00:00:00 [facility] 3 [id number] 2021 00:00:00 Problems Condition Name Condition Details [...] in adult Disease Active 01-15 00:00: 00 Auprva Seybold - Externa l EZEKIEL (obstructi ve [...] 00 Other reaction( s): Hives/Bernard danitza Mixon Semanri Ramireza l Lidocain e Hcl Propensi ty [...] mg capsule 12-09 00:00: 00 Yes 1mg Shraavn Crocker TAKE 1 CAPSULE BY MOUTH EVERY [...] MG oral Tablet 2022-05 00:00: 00 Yes [id number] 50mg QD Take 1 tablet (50 mg total) by mouth nightly as needed for anxiety (insomnia) . Apurva simeon Duloxetine HCl [address] Particles 2022-05 00:00: 00 Yes [id number] 60mg Take 1 capsule (60 mg total) by mouth daily. Apurva simeon Folic Acid 1 MG oral tablet 2022-05 00:00: 00 Yes [id number] 1mg Take 1 tablet (1 mg total) by mouth daily. Apurva simeon Aspirin 81 MG oral Tablet Delayed Response 2022-05 00:00: 00 Yes [id number] 81mg Take 1 tablet (81 mg total) [...] 00:00: 00 03-18 00:00 :00 No 50mg Q.[id number] 3D Take 1 tablet (50 mg total) by mouth every 8 hours as needed. Apurva simeon Folic Acid 1 MG oral tablet 02-13 00:00: 00 03-18 00:00 :00 No 1mg Take 1 tablet (1 mg total) by mouth daily. Apurva simeon Venlafaxine HCl 150 MG oral Capsule 24 Hour Sustained Release 01-15 00:00: 00 03-18 00:00 :00 No [id number] 150mg Take 1 capsule (150 mg total) [...] Hour Sustained Release 12-24 00:00: 00 Yes [id number] 150mg Take 1 capsule (150 mg total) by mouth daily Apurva simeon Alprazolam 0.5 MG oral Tablet 12-24 00:00: 00 Yes [id number] .5mg QD Take 1 tablet (0.5 mg [...] E-DM 2-30-10 MG/5ML 10 00:00: 00 Yes [id number] Shravan Crocker Metoprolol Tartrate 50 MG oral Tablet 07-16 09:21: 40 Yes 50mg Take 50 mg by mouth 2 times daily Apurva simeon Semaglutide (2 mg/dose) 8 mg/3 mL SQ Solution Pen-Injecto r 07-16 00:00: 00 Yes [id number] 2mg Inject 2 mg into the skin [...] 100-10 MG/5 ML 05-28 00:00: 00 Yes [id number] Shravan Crocker Metoprolol Tartrate 50 MG oral Tablet 05-27 15:41: 41 Yes 50mg Take 50 mg by mouth 2 times daily Apurav simeon Guaifenesin (Mucinex) 600 MG oral Tablet 12 Hour Sustained Release 05-27 00:00: 00 Yes [id number] 1200mg Take 2 tablets (1,200 mg total) by mouth 2 times daily Apurva simeon Amoxicillin 500 MG oral Capsule 05-27 00:00: 00 Yes [id number] 500mg Take 1 capsule (500 mg total) by mouth 3 times daily Apurva ismeon Albuterol Sulfate 2.5 MG/0.5ML inhalation Inhalant Solution 05-27 00:00: 00 Yes [id number] 2.5mg Take 2.5 mg by nebulizati on once for 1 dose Apurva simeon guaiFENesin -Codeine (Cheratussi n AC) 100-10 MG/5ML oral Syrup 05-27 00:00: 00 Yes [id number] 5mL Q.[id number] 3D Take 5 mL by mouth 3 times daily as needed for cough Apurva simeon TAKE 1 CAPSULE (500 MG TOTAL) BY MOUTH 3 TIMES DAILY 05-27 00:00: 00 Yes Shravan Crocker Albuterol (PROVENTIL) (2.5 MG/3ML) 0.083% inhalation Inhalant Solution 05-27 00:00: 00 07-16 00:00 :00 No [id number] 2.5mg Q4H Take 2.5 mg by nebulizati on every 4 hours as needed for wheezing Apurva simeon Semaglutide (1 mg/dose) 2 mg/1.5 mL SQ Solution Pen-Injecto r 05-21 00:00: 00 Yes [id number] 1mg Inject 1 mg into the skin once a week Apurva simeon OZEMPIC 1 MG/DOSE (4 MG/3 ML) 05-21 00:00: 00 Yes [id number] Shravan Crocker Benzonatate 200 MG oral Capsule [...] 2021-05 00:00: 00 12-24 00:00 :00 No [id number] 50mg Take 1 tablet (50 mg total) by mouth daily Apurva simeon Losartan Potassium 25 MG oral Tablet 2021-05- 00:00: 00 05-10 00:00 :00 No [id number] 25mg Take 1 tablet (25 mg total) by mouth daily Apurva simeon Metoprolol Tartrate 50 MG oral Tablet 2021-05 16:31: 17 Yes 50mg Take 50 mg by mouth 2 times daily Apurva simeon Losartan Potassium 25 MG oral Tablet 2021-05 00:00: 00 Yes [id number] 25mg Take 1 tablet (25 mg total) by mouth daily Apurva Seemilyold - Externa l TAKE 1 TABLET (25 MG TOTAL) BY MOUTH DAILY. 2021-05 00:00: 00 Yes Shravan Crocker Cyclobenzap rine HCl 10 MG oral Tablet 2021-05 00:00: 00 12-24 00:00 :00 No [id number] 10mg Q.5D Take 1 tablet (10 mg total) by mouth 2 times daily as needed for muscle spasms Apurva Semarni - Externa l Metoprolol Tartrate 50 MG oral Tablet 2021-05 13:28: 16 Yes 50mg Take 50 mg by mouth 2 times daily Apurva Yanes - Externa l Cyclobenzap rine HCl 10 MG oral Tablet 2021-05 00:00: 00 Yes [id number] 10mg Q.5D Take 1 tablet (10 mg total) by mouth 2 times daily as needed for muscle spasms Apurva Yanes - Externa l CYCLOBENZAP RINE 10 MG 2021-05 00:00: 00 Yes 10 Shravan Crocker Tramadol HCl 50 MG oral Tablet 2021-05 00:00: 00 12-24 00:00 :00 No [id number] 50mg Q.5D Take 1 tablet (50 mg total) by mouth 2 times daily as needed for pain Apurva Pérez Externa l Metoprolol Tartrate 50 MG oral Tablet 2021-05 13:48: 44 Yes 50mg Take 50 mg by mouth 2 times daily Apurva Pérez Externa l OZEMPIC 0.25-0.5 MG/DOSE PEN 2021-05 00:00: 00 Yes 255 Shravan Crocker Semaglutide (0.25 or 0.5 mg/dose) 2 mg/1.5 mL SQ Solution Pen-Injecto r 2021-05 00:00: 00 Yes [id number] .5mg Inject 0.5 mg into the skin [...] Pen-Injecto r 2021-05 0- 00:00: 00 Yes [id number] 104 .25mg Inject 0.25 mg into the skin once a week Apurva simeon Venlafaxine HCl 75 MG oral Capsule 24 Hour Sustained Release 2021-05 0 00:00: 00 12-24 00:00 :00 No [id number] 75mg Take 1 capsule (75 mg total) by mouth daily Apurva simeon Semaglutide (0.25 or 0.5 mg/dose) 2 mg/1.5 mL SQ Solution Pen-Injecto r 2021-05 0 00:00: 00 04-09 00:00 :00 No [id number] 104 .25mg Inject 0.25 mg into the skin once a week Apurva simeon Ciprofloxac in HCl 500 MG oral Tablet 2021-05 00:00: 00 04-09 00:00 :00 No Apurva simeon SULFAMETHOX AZOLE-TMP DS 2021-05 0-03 00:00: 00 Yes [id number] Shravan Crocker Venlafaxine HCl 75 MG oral [...] 02-12 00:00: 00 04-09 00:00 :00 No [id number] Apply 1 applicatio n topically 2 times daily Apurva simeon TRIMETHOPRI M-SULFAMETH OXAZOLE 800-160 MG oral Tablet 02-12 00:00: 00 02-20 04:59 :00 No [id number] 1{tbl} Take 1 tablet by mouth 2 times daily for 7 days Apurva simeon Blood Pressure does not apply Kit 01-15 00:00: 00 02-12 00:00 :00 No [id number] Check BP daily Apurva Ramireza cailin Immunizations [...] Systolic blood pressure 2022-12-24 13:39:00 137 mm[Hg] Apruva Seybo ld - External Diastolic blood pressure [...] End Date/Time Encounter Type Admission Type Attending [facility] Care Department Encounter ID Source 2023-12-10 15:24:37 2023-12-10 15:24:37 Outpatient SFA SFA [id number] Shravan Crocker 2023-12-10 00:00:00 2023-12-10 00:00:00 Outpatient Visit SFA [id number] Shravan Crocker 2023-04-22 00:00:00 2023-04-22 00:00:00 Outpatient PREZAS, PRACHI MIXON [id number] Apurva [facility] 2023-04-16 00:00:00 2023-04-16 00:00:00 Outpatient MD APURVA MOLINA [id number] Apurva [facility] 2023-03-18 11:00:00 2023-03-18 11:00:00 Outpatient PREZAS, PRACHI MIXON [id number] Apurva [facility] 2023-02-13 11:15:00 2023-02-13 11:15:00 Outpatient PREZAS, PRACHI MIXON [id number] [facility] 2023-01-22 11:15:00 2023-01-22 11:15:00 Outpatient PREZAS, PRACHI MIXON [id number] [facility] 2023-01-15 00:00:00 2023-01-15 00:00:00 Outpatient PREZAS, PRACHI MIXON [id number] [facility] 2023-01-15 00:00:00 2023-01-15 00:00:00 Outpatient PREZAS, PRACHI MIXON [id number] [facility] 2023-01-15 00:00:00 2023-01-15 00:00:00 Outpatient PREZAS, PRACHI MIXON [id number] [facility] 2022-12-31 00:00:00 2022-12-31 00:00:00 Outpatient PREZAS, PRACHI MIXON [id number] [facility] 2022-12-25 00:00:00 2022-12-25 00:00:00 Outpatient JASSON AVALOS [id number] Apurva Yanes 2022-12-24 09:20:00 2022-12-24 09:20:00 Outpatient LAB90 APURVA MIXON [id number] Apurva Yanes 2022-12-24 08:45:00 2022-12-24 08:45:00 Outpatient PREZAS, PRACHI APURVA MIXON [id number] Apurva Yanes 2022-10-07 15:45:00 2022-10-07 15:45:00 Outpatient PREZAS, PRACHI APURVA APURVA [id number] Apurva [facility] 2022-08-26 14:00:00 2022-08-26 14:00:00 Outpatient TESTING, CAMILLE MIXON [id number] Apurva [facility] 2022-08-26 00:00:00 2022-08-26 00:00:00 Outpatient PREZAS, PRACHI APURVA MIXON [id number] Apurva [facility] 2022-08-07 00:00:00 2022-08-07 00:00:00 Outpatient ROBBIE, JASSON APURVA MIXON [id number] Apurva [facility] 2022-07-30 10:00:00 2022-07-30 10:00:00 Outpatient LAB90 APURVA MIXON [id number] Apurva [facility] 2022-07-16 09:30:00 2022-07-16 09:30:00 Outpatient PREZAS, PRACHI APURVA MIXON [id number] Apurva Yanes 2022-07-09 08:10:00 2022-07-09 08:10:00 Outpatient LAB90 APURVA MIXON [id number] [facility] 2022-06-21 13:45:00 2022-06-21 13:45:00 Outpatient PREZAS, PRACHI APURVA MIXON [id number] [facility] 2022-05-29 00:00:00 2022-05-29 00:00:00 Outpatient JUAN BAZAN [id number] [facility] 2022-05-27 15:30:00 2022-05-27 15:30:00 Outpatient JUAN BAZAN [id number] [facility] 2022-05-24 00:00:00 2022-05-24 00:00:00 Outpatient PREZAS, PRACHI HARRISONSEY [id number] Apurva Seybold 2022-05-21 00:00:00 2022-05-21 00:00:00 Outpatient PREZAS, PRACHI MIXON [id number] Apurva Seybold 2022-05-21 00:00:00 2022-05-21 00:00:00 Outpatient PREZAS, PRACHI MIXON [id number] [facility] 2022-05-19 00:00:00 2022-05-19 00:00:00 Outpatient PREZAS, PRACHI MIXON APURVA [id number] [facility] 2022-05-10 09:45:00 2022-05-10 09:45:00 Outpatient PREZAS, PRACHI MIXON APURVA [id number] [facility] 2022-05-07 16:15:00 2022-05-07 16:15:00 Outpatient PREZAS, PRACHI MIXON APURVA [id number] [facility] 2022-05-01 00:00:00 2022-05-01 00:00:00 Outpatient PREZAS, PRACHI MIXON APURVA [id number] [facility] 2022-05-01 00:00:00 2022-05-01 00:00:00 Outpatient ROBBIE, JASSON MIXON APURVA [id number] [facility] 2022-04-29 16:30:00 2022-04-29 16:30:00 Outpatient PREZAS, PRACHI MIXON APURVA [id number] Apurva Seybold 2022-04-17 13:30:00 2022-04-17 13:30:00 Outpatient PREZAS, PRACHI APURVA APURVA [id number] Apurva Seybold 2022-04-17 00:00:00 2022-04-17 00:00:00 Outpatient PREZAS, PRACHI APURVA APURVA [id number] Apurva Seybold 2022-04-15 14:35:00 2022-04-15 14:35:00 Outpatient LABMiguel Angel MIXON [id number] Apurva Seybold 2022-04-15 14:00:00 2022-04-15 14:00:00 Outpatient ROBBIEJASSON Santos [id number] [facility] 2022-04-09 16:15:00 2022-04-09 16:15:00 Outpatient PRACHI RODRIGUEZ [id number] [facility] 2022-03-12 15:00:00 2022-03-12 15:00:00 Outpatient PREZAPRACHI Herron APURVA [id number] [facility] 2022-02-12 15:15:00 2022-02-12 15:15:00 Outpatient PREZASPRACHI APURVA [id number] [facility] 2022-02-12 13:45:00 2022-02-12 13:45:00 Outpatient PRACHI RODRIGUEZ [id number] [facility] 2022-01-31 00:00:00 2022-01-31 00:00:00 Outpatient PRACHI RODRIGUEZ APURVA [id number] [facility] 2022-01-22 08:50:00 2022-01-22 08:50:00 Outpatient LAB90 APURVA MIXON [id number] [facility] 2022-01-16 00:00:00 2022-01-16 00:00:00 Outpatient PRACHI RODRIGUEZ [id number] [facility] 2022-01-15 08:55:00 2022-01-15 08:55:00 Outpatient LAB90 APURVA APURVA [id number] Apurva [facility] 2022-01-15 08:00:00 2022-01-15 08:30:00 Office Visit Prachi Rodriguez [id number] Ap[facility]va [facility] Notes Date/Time Note Provider Source Shravan Tripp [facility]
[2024-09-08] MEDS ORDERED: ONDANSETRON 4 MG/2 ML VIAL ONE (15:23)
[2024-09-08] MEDS ORDERED: NA CHLORIDE 0.9% 1,000 ML ONE (15:24)
[2024-09-08] MEDS ORDERED: MORPHINE 4 MG/ML SYR ONE (15:24)
[2024-09-08 15:39] LABS: Absolute Eosinophils 0.2 K/uL (0-0.5); Absolute Lymphocytes (CBC) 1.4 K/uL (0.7-4.9); Absolute Monocytes 0.3 K/uL (0.1-1.3); Absolute Neutrophil 3.1 K/uL (1.8-8.0); Basophils % 0.9 % (0-1.3); Eosinophils % 3.2 % (0-4.4); Hematocrit 37.9 % (36.0-45.0); Hemoglobin 13.3 g/dL (12.0-15.0); MCH 30.6 pg (27.0-35.0); MCHC 35.1 g/dL (32.0-36.0); MPV 8.2 fL (7.6-11.3); Monocytes % 6.7 % (3.3-12.3); Neutrophils % 61.2 % (41.7-73.7); Nucleated Red Blood Cells % 0.2 % (0-0); Platelets 237 thou/uL (152-406); RBC Red Blood Cell Count 4.36 M/uL (3.86-4.86); Red Cell Distribution Width 12.6 % (12.1-15.2)
--- NOTE | 2024-09-08 16:09 | RAD REPORT ---
Abdomen Exam Limited: 09/08/2024 3:57 PM CLINICAL HISTORY: ABD PAIN STUDY: Limited right upper quadrant ultrasound of abdomen. COMPARISON: 10/24/2023 FINDINGS: Liver: Limited evaluation but hepatic steatosis present. Bile ducts: No intrahepatic or extrahepatic biliary ductal dilatation. Common bile duct measures 4 mm. Gallbladder: Gallbladder is full of gallstones. No gallbladder wall thickening. No pericholecystic fl uid. A sonographic Ryder sign was reported. IMPRESSION: Gallstones and reported positive sonographic Ryder sign but no other findings to suggest acute walter cystitis. The findings are equivocal for the presence of acute cholecystitis.
[2024-09-08 16:10] LABS: Albumin 3.4 g/dL (3.4-5.0); Albumin/Globulin Ratio 0.8 (1.1-1.8); Bilirubin Total 0.5 mg/dL (0.2-1.0); Globulin 4.2 g/dL (2.3-3.5); Protein, Total 7.6 g/dL (6.4-8.2)
--- NOTE | 2024-09-08 17:15 | RAD REPORT ---
EXAMINATION: Abdomen Pelvis W Contrast CLINICAL INDICATION: Female, 58 years old.ABD PAIN TECHNIQUE: CT abdomen and pelvis was performed, after the administration of IV contrast, as per [facility] protocol. Axial, sagittal and coronal reconstructions were obtained. One or more of the following dose reduction techniques were used: Automated exposure control, adjustment of the mA and/o r kV according to patient size, and/or iterative reconstruction. Unless otherwise specified, incidental findings do not require dedicated imaging follow-up. [id number]. COMPARISON: 05/26/2023 FINDINGS: LOWER CHEST: No acute process identified.Mild cardiomegaly. UPPER GI: No significant abnormality. LIVER: Hepatic steatosis, but otherwise unremarkable. GALLBLADDER/BILE DUCTS: Cholelithiasis without CT evidence of acute cholecystitis.? PANCREAS: No mass, ductal dilation, or chin-pancreatic fluid. SPLEEN: Unremarkable. ADRENALS: No adrenal masses. KIDNEYS AND URETERS: No hydronephrosis.No suspicious renal mass.No renal calculi.No ureteral calculi. ABDOMINAL AORTA AND OTHER VESSELS: Mild atherosclerotic changes. PERITONEUM: No abnormal free fluid. No free air. LYMPH NODES: No pathologic lymphadenopathy. ABDOMINAL WALL: Unremarkable SMALL BOWEL/COLON: Small bowel has normal course and caliber. No colonic wall thickening or pericolon ic inflammatory changes.Appendix absent. Low formed stool burden. URINARY BLADDER: Underdistended but grossly unremarkable. REPRODUCTIVE ORGANS: Uterus surgically absent. No adnexal abnormality. MUSCULOSKELETAL: Multilevel degenerative changes in the spine. No acute fracture. ADDITIONAL FINDINGS: None. IMPRESSION: No acute findings within the abdomen or pelvis. Cholelithiasis without CT evidence of acute cholecyst itis. Ancillary findings as noted above.
[2024-09-08 17:21] LABS: Specific Gravity 1.017 (1.005-1.030); Urine Bilirubin NEGATIVE (Negative); Urine Blood Negative (Negative); Urine Clarity Clear (Clear); Urine Color Light-Yellow (Yellow); Urine Glucose NEGATIVE (Negative); Urine Ketones NEGATIVE (Negative); Urine Microscopic Reflex YN NO UMIC; Urine Nitrite NEGATIVE (Negative); Urine Protein NEGATIVE (Negative); Urine Urobilinogen Normal (Normal); Urine pH 5.5 (5.0-7.0)
--- NOTE | 2024-09-08 17:21 | EDPHYS ---
Physician Documentation [facility] Name: Julienne Tucker Age: 58 yrs Sex: Female : 1965 Arrival Date: 09/08/2024 Time: 14:29 Bed 6 Private MD: ED Physician Karlie Vaughn HPI: 09/08 15:15 This 58 yrs old Female presents to ER via Ambulatory with complaints of Shoulder Pain, sp3 Abdominal Pain, Fever. 15:15 58-year-old female with history of morbid obesity, hypertension, depression presents to [facility] the ED with right upper quadrant abdominal pain she has known gallstones. Her past surgical history includes appendectomy, hysterectomy. She denies any vomiting, diarrhea, left-sided abdominal pain, chest pain, shortness of breath, fever, URI symptoms, syncope, bleeding, or any other signs or symptoms on ROS at this time.. Historical: - Allergies: 14:52 Amoxicillin; iw 14:52 Azithromycin; iw 14:52 Compazine; iw 14:52 Demerol; iw 14:52 Erythromycin; iw 14:52 Levofloxacin; iw 14:52 Tetracycline; iw 14:52 Vancomycin; iw - PMHx: 14:52 Depression; Hypertension; iw - PSHx: 14:52 Appendectomy; Coronary artery bypass graft; hysterectomy; left foot; cyst removed from iw back; - Immunization history:: Adult Immunizations not up to date, Pneumococcal vaccine is not up to date, Flu vaccine is not up to date. - Infectious Disease History:: Denies. - Social history:: Smoking status: Patient denies any tobacco usage or history of. ROS: 15:15 Constitutional: Negative for fever, chills, and weight loss, Eyes: Negative for injury, sp3 pain, redness, and discharge, ENT: Negative for injury, pain, and discharge, Neck: Negative for injury, pain, and swelling, Cardiovascular: Negative for chest pain, palpitations, and edema, Respiratory: Negative for shortness of breath, cough, wheezing, and pleuritic chest pain, Back: Negative for injury and pain, MS/Extremity: Negative for injury and deformity, Skin: Negative for injury, rash, and discoloration, Neuro: Negative for headache, weakness, numbness, tingling, and seizure, Psych: Negative for depression, anxiety, suicide ideation, homicidal ideation, and hallucinations, Allergy/Immunology: Negative for hives, rash, and allergies, Endocrine: Negative for neck swelling, polydipsia, polyuria, polyphagia, and marked weight changes, Hematologic/Lymphatic: Negative for swollen nodes, abnormal bleeding, and unusual bruising, 15:15 All other systems are negative, Exam: 15:16 Constitutional: This is a well developed, well nourished patient who is awake, alert, sp3 and in no acute distress. Head/Face: Normocephalic, atraumatic. Eyes: Pupils equal round and reactive to light, extra-ocular motions intact. Lids and lashes normal. Conjunctiva and sclera are non-icteric and not injected. Cornea within normal limits. Periorbital areas with no swelling, redness, or edema. Neck: Trachea midline, no thyromegaly or masses palpated, and no cervical lymphadenopathy. Supple, full range of motion without nuchal rigidity, or vertebral point tenderness. No Meningismus. Chest/axilla: Normal chest wall appearance and motion. Nontender with no deformity. No lesions are appreciated. Cardiovascular: Regular rate and rhythm with a normal S1 and S2. No gallops, murmurs, or rubs. Normal PMI, no JVD. No pulse deficits. Respiratory: Lungs have equal breath sounds bilaterally, clear to auscultation and percussion. No rales, rhonchi or wheezes noted. No increased work of breathing, no retractions or nasal flaring. Back: No spinal tenderness. No costovertebral tenderness. Full range of motion. Skin: Warm, dry with normal turgor. Normal color with no rashes, no lesions, and no evidence of cellulitis. MS/ Extremity: Pulses equal, no cyanosis. Neurovascular intact. Full, normal range of motion. Neuro: Awake and alert, GCS 15, oriented to person, place, time, and situation. Cranial nerves II-XII grossly intact. Motor strength 5/5 in all extremities. Sensory grossly intact. Cerebellar exam normal. Normal gait. Psych: Awake, alert, with orientation to person, place and time. Behavior, mood, and affect are within normal limits. 15:16 Abdomen/GI: Right upper quad abdominal pain to palpation without peritoneal signs, rebound or guarding. Physical severely limited secondary to obesity., Vital Signs: 14:50 BP 196 / 97; Pulse 82; Resp 16; Temp 98.6; Pulse Ox 98% on R/A; Weight 176.9 kg; Height iw 5 ft. 8 in. ; Pain 8/10; 16:24 BP 185 / 91; Pulse 73; Resp 19 S; Pulse Ox 96% on R/A; ha1 17:20 BP 173 / 86; Pulse 78; Resp 17 S; Pulse Ox 96% on R/A; ha1 14:50 Body Mass Index 59.30 (176.90 kg, 172.72 cm) iw 14:50 Pain Scale: Adult iw MDM: 14:55 Medical Screening Exam initiated sp3 15:16 Data reviewed: vital signs, nurses notes, lab test result(s), radiologic studies. ED sp3 course: 58-year-old female with known gallstones with right upper quadrant abdominal pain. Differential diagnosis includes cholecystitis, cholelithiasis, biliary pathology, gastritis, other abdominal pathology, colitis, among others. I am not highly suspicious of vascular pathology including aorta, acute coronary syndrome, PE, aortic dissection, sepsis, shock or any other critical process at this time. Workup will include CT scan of the abdomen pelvis with IV contrast, ultrasound right upper quadrant, and general labs. Pain medication and IV fluids as needed. Disposition pending workup and patient course.. 17:19 ED course: Full workup negative. Patient has cholelithiasis without any evidence of sp3 cholecystitis. Will place on tramadol and have her follow-up with outpatient general surgery.. 09/08 15:02 Order name: CBC with Diff; Complete Time: 16:13 sp3 09/08 15:02 Order name: CMP; Complete Time: 16:13 sp3 09/08 15:02 Order name: Lipase; Complete Time: 16:13 sp3 09/08 15:02 Order name: Urinalysis w/ reflexes; Complete Time: 17:22 sp3 09/08 15:02 Order name: Abdomen Limited US; Complete Time: 16:13 sp3 09/08 15:02 Order name: CT Abd/Pelvis - IV Contrast Only; Complete Time: 17:18 sp3 09/08 15:02 Order name: IV Saline Lock; Complete Time: 15:30 sp3 09/08 15:02 Order name: Labs collected and sent; Complete Time: 15:30 sp3 Administered Medications: 15:28 Drug: Ondansetron IVP 4 mg IVP once; over 2 minutes Route: IVP; Site: left antecubital; ha1 16:00 Follow up: Response: No adverse reaction; Marked relief of symptoms ha1 15:30 Drug: NS 0.9% IV 1000 ml IV at 1 bolus Per protocol; to be given as a bolus over 60 ha1 minutes Route: IV; Rate: 1 bolus; Site: left antecubital; 17:39 Follow up: Response: No adverse reaction; IV Status: Completed infusion ha1 15:31 Drug: morphine IVP or IV 4 mg IVP once over 4 mins Route: IVP; Infused Over: 4 mins; ha1 Site: left antecubital; 16:00 Follow up: Response: No adverse reaction; Marked relief of symptoms; Pain is decreased; ha1 RASS: Alert and Calm (0) Disposition Summary: 09/08/24 17:20 Discharge Ordered Notes: Location: Home sp3 Condition: Stable sp3 Diagnosis - Cholelithiasis, abdominal pain, biliary colic sp3 Followup: sp3 - With: Tony Rojas MD - When: Upon discharge from the Emergency Department - Reason: Continuance of care Discharge Instructions: - Discharge Summary Sheet sp3 - Biliary Colic, Adult sp3 Forms: - Medication Reconciliation Form sp3 - Antibiotic Education sp3 - Prescription Opioid Use sp3 - Patient Portal Instructions sp3 - Leadership Thank You Letter sp3 Prescriptions: - Tramadol 50 mg Oral Tablet - take 1 tablet ORAL route every 8 hours as needed; 12 tablet; Refills: 0, sp3 Product Selection Permitted Signatures: Dispatcher [employer] Melodie Dave RN RN Karlie Vaughn MD MD sp3 Stacy Urena RN RN ha1 Corrections: (The following items were deleted from the chart) 15:02 15:02 Abdomen Limited+US.RAD.BRZ ordered. EDMS EDMS 15:02 15:02 Abdomen Pelvis W Con+CT.RAD.BRZ ordered. EDMS EDMS
--- NOTE | 2024-09-08 17:21 | ER ---
Nurse's Notes [facility] Name: Julienne Tucker Age: 58 yrs Sex: Female : 1965 Arrival Date: 09/08/2024 Time: 14:29 Bed 6 Private MD: Diagnosis: Cholelithiasis, abdominal pain, biliary colic Presentation: 09/08 14:50 Chief complaint: Patient states: having pain on right upper abdomen, from middle to iw right side, feels similar to gallstones and having pain in right shoulder started yesterday morning , pain persisted through night. Coronavirus screen: At this time, the client does not indicate any symptoms associated with coronavirus-19. Ebola Screen: No symptoms or risks identified at this time. Initial Sepsis Screen: Does the patient meet any 2 criteria? No. Patient's initial sepsis screen is negative. Does the patient have a suspected source of infection? No. Patient's initial sepsis screen is negative. Risk Assessment: Do you want to hurt yourself or someone else? Patient reports no desire to harm self or others. Onset of symptoms was September 07, 2024. 14:50 Method Of Arrival: Ambulatory iw 14:50 Acuity: RJ 3 iw Triage Assessment: 14:54 General: Appears in no apparent distress. Behavior is calm, cooperative. Pain: iw Complains of pain in right upper quadrant. GI: Abdomen is non-distended, Reports upper abdominal pain. Historical: - Allergies: 14:52 Amoxicillin; iw 14:52 Azithromycin; iw 14:52 Compazine; iw 14:52 Demerol; iw 14:52 Erythromycin; iw 14:52 Levofloxacin; iw 14:52 Tetracycline; iw 14:52 Vancomycin; iw - PMHx: 14:52 Depression; Hypertension; iw - PSHx: 14:52 Appendectomy; Coronary artery bypass graft; hysterectomy; left foot; cyst removed from iw back; - Immunization history:: Adult Immunizations not up to date, Pneumococcal vaccine is not up to date, Flu vaccine is not up to date. - Infectious Disease History:: Denies. - Social history:: Smoking status: Patient denies any tobacco usage or history of. Screenin:[address] [facility] ED Fall Risk Assessment (Adult) History of falling in the last 3 months, ha1 including since admission Yes- single mechanical fall (1 pt) Confusion or Disorientation No (0 pts) Intoxicated or Sedated No (0 pts) Impaired Gait Yes (1 pt) Mobility Assist Device Used Yes (1 pt) Altered Elimination No (0 pt) Score/Fall Risk Level 3 or more points = High Risk Oriented to surroundings, Maintained a safe environment, Educated pt \T\ family on fall prevention, incl call for assistance when getting out of bed, Hourly rounding (assess needs \T\ fall precautionary measures) done. Abuse screen: Denies threats or abuse. Denies injuries from another. Nutritional screening: No deficits noted. Tuberculosis screening: No symptoms or risk factors identified. Assessment: 14:45 General: Appears uncomfortable, Behavior is calm, cooperative. Pain: Complains of pain ha1 in abdomen and right upper quadrant Pain currently is 8 out of 10 on a pain scale. Quality of pain is described as aching. Neuro: Level of Consciousness is awake, alert, obeys commands, Oriented to person, place, time, situation. Cardiovascular: Capillary refill < 3 seconds Patient's skin is warm and dry. Respiratory: Airway is patent Respiratory effort is even, unlabored, Respiratory pattern is regular, symmetrical. GI: Abdomen is round obese, Bowel sounds present X 4 quads. Abd is soft and non tender Reports lower abdominal pain, upper abdominal pain. : No signs and/or symptoms were reported regarding the genitourinary system. Derm: Skin is normal. Musculoskeletal: Circulation, motion, and sensation intact. 15:50 Reassessment: Patient and/or family updated on plan of care and expected duration. Pain ha1 level reassessed. Patient is alert, oriented x 3, equal unlabored respirations, skin warm/dry/pink. 16:25 Reassessment: Patient and/or family updated on plan of care and expected duration. Pain ha1 level reassessed. Patient is alert, oriented x 3, equal unlabored respirations, skin warm/dry/pink. 17:36 Reassessment: Patient and/or family updated on plan of care and expected duration. Pain ha1 level reassessed. Patient is alert, oriented x 3, equal unlabored respirations, skin warm/dry/pink. Patient states symptoms have improved. 17:37 Reassessment: PROVIDED EDUCATION ON ELEVATED BLOOD PRESSURE AND FOLLOW UPS. ha1 Vital Signs: 14:50 BP 196 / 97; Pulse 82; Resp 16; Temp 98.6; Pulse Ox 98% on R/A; Weight 176.9 kg; Height iw 5 ft. 8 in. ; Pain 8/10; 16:24 BP 185 / 91; Pulse 73; Resp 19 S; Pulse Ox 96% on R/A; ha1 17:20 BP 173 / 86; Pulse 78; Resp 17 S; Pulse Ox 96% on R/A; ha1 14:50 Body Mass Index 59.30 (176.90 kg, 172.72 cm) iw 14:50 Pain Scale: Adult iw ED Course: 14:32 Patient arrived in ED. im 14:35 Karlie Vaughn MD is Attending Physician. sp3 14:45 Patient has correct armband on for positive identification. Placed in gown. Bed in low ha1 position. Call light in reach. Side rails up X2. 14:45 Provided Education on: plan of care . Client placed on continuous cardiac and pulse ha1 oximetry monitoring. NIBP monitoring applied. 14:51 Triage completed. iw 14:53 Arm band placed on. iw 15:03 Patient placed in an exam room, on a stretcher. iw 15:25 Inserted saline lock: 20 gauge in left antecubital area, using aseptic technique. Blood ha1 collected. Flushed with 10 mL NS Accessed peripheral vein via ultrasound, utilizing dynamic ultrasound technique. 15:30 CBC with Diff Sent. ha1 15:30 CMP Sent. ha1 15:30 Lipase Sent. ha1 15:59 Abdomen Limited US In Process Unspecified. EDMS 16:22 Stacy Urena, RN is Primary Nurse. ha1 16:54 CT Abd/Pelvis - IV Contrast Only In Process Unspecified. EDMS 17:20 Tony Rojas MD is Referral Physician. sp3 17:38 No provider procedures requiring assistance completed. IV discontinued, intact, ha1 bleeding controlled, No redness/swelling at site. Pressure dressing applied. Administered Medications: 15:28 Drug: Ondansetron IVP 4 mg IVP once; over 2 minutes Route: IVP; Site: left antecubital; ha1 16:00 Follow up: Response: No adverse reaction; Marked relief of symptoms ha1 15:30 Drug: NS 0.9% IV 1000 ml IV at 1 bolus Per protocol; to be given as a bolus over 60 ha1 minutes Route: IV; Rate: 1 bolus; Site: left antecubital; 17:39 Follow up: Response: No adverse reaction; IV Status: Completed infusion ha1 15:31 Drug: morphine IVP or IV 4 mg IVP once over 4 mins Route: IVP; Infused Over: 4 mins; ha1 Site: left antecubital; 16:00 Follow up: Response: No adverse reaction; Marked relief of symptoms; Pain is decreased; ha1 RASS: Alert and Calm (0) Medication: 17:37 VIS not applicable for this client. ha1 Outcome: 17:20 Discharge ordered by . ford 17:39 Discharged to home ambulatory, ha1 17:39 Condition: stable 17:39 Discharge instructions given to patient, Instructed on discharge instructions, follow up and referral plans. medication usage, Demonstrated understanding of instructions, follow-up care, medications, Prescriptions given X 1, 17:39 Patient left the ED. ha1 Signatures: Dispatcher [employer] EDMS Melodie Jackosn RN RN iw Karlie Vaughn MD MD sp3 Stacy Urena RN RN 1 Sylvia Vivar Corrections: (The following items were deleted from the chart) 14:52 14:50 BP 196 / 97; Pulse 82bpm; Resp 16bpm; Pulse Ox 98% RA; Temp 98.6F; iw iw
[2024-09-08 18:15] VITALS: TEMP 98.6
[2024-09-08 18:17] VITALS: O2SAT 96
[2024-09-08 18:19] VITALS: BP 173/86
== END 2024-09-08 17:39 | disposition home or self-care (01) ==
LOC: ER 14:29
DX: K80.20 Calculus of gallbladder without cholecystitis without obstruction (principal); K80.50 Calculus of bile duct without cholangitis or cholecystitis without obstruction
CPT/HCPCS: 36415; 74177; 76705; 80053; 81003; 83690; 85025; J2405; J7030; Q9967

== ENCOUNTER 2024-10-08 20:25 | Emergency (ER) | payer SELFPAY ==
--- OUTSIDE RECORDS SUMMARY | 2024-10-08 20:29 | XMS REPORT | Continuity of Care Document ---
Author Name Unknown Address [address] [facility] [address] [place] [address] [facility] [address] [facility]. [address] [place] [address] Care Team Providers Care Custom Bookbinder Name Role Phone Bergeronmiguelina COBOS, Joanie Primary Care Physician [phone] Campaigns, Generic Provider Attending Clinician Unavailable Colten Ponce Attending Clinician [phone] COLTEN MATA Attending Clinician Unavailable PRACHI RODRIGUEZ Attending Clinician Unavailable MD LAUREN Attending Clinician Unavailab JASSON Beltrán Attending Clinician Unavailable LAB90 Attending Clinician Unavailable TESTING, CAMILLE FOWLER Attending Clinician U JUAN Alva Attending Clinician Unavailable LAB53 Attending Clinician Unavailable Prachi Rodriguez DO Attending Clinician [phone] COLTEN MATA Admitting Clinician Unavailable Payers Payer Name Policy Type Policy Number Effective Date Expirati on Date Source [id number] 2016 00:00:00 [employer] 2 [id number] 2022 00:00:00 [facility] 3 [id number] 2021 00:00:00 Problems Condition Name Condition Details Condition Category Status Onset Date Resolution Date Last Treatment Date Treating Clinician Comments Source Ganglion cyst Ganglion cyst Disease Active 12-24 00:00: 00 Apurva Pelaezold - Externa l Acute left-sided low back pain with left-sided sciatica Acute left-sided low back pain with left-sided sciatica Disease Active 2021-05 00:00: 00 Apurva Pelaezold - Externa l Infected sebaceous cyst Infected sebaceous cyst Disease Active 02-12 00:00: 00 Apurva Mcmillanybold - Externa l Fatty liver Fatty liver Disease Active 02-12 00:00: 00 Apurva Seybold - Externa l Prediabete s Prediabete s Disease Active 01-16 00:00: 00 Overview: Formattin g of this note might be different from the original. Lab 01/07 A1c 5.8 Apurva Pelaezold - Externa l Well adult exam Well adult exam Disease Active 01-15 00:00: 00 Apurva Pelaezold - Externa l Primary hypertensi on Primary hypertensi on Disease Active 01-15 00:00: 00 Apurva Pelaezold - Externa l Attention deficit hyperactiv ity [...] different from the original. PSYC-Kailey n Apurva Mcmillanybold - Externa l Class 3 severe obesity with serious comorbidit y and body mass index (BMI) of 60.0 to 69.9 in adult Class 3 severe obesity with serious comorbidit y and body mass index (BMI) of 60.0 to 69.9 in adult Disease Active 01-15 00:00: 00 Apurva Pelaezold - Externa l EZEKIEL (obstructi ve sleep apnea) EZEKIEL (obstructi ve sleep apnea) Disease Active 01-15 00:00: 00 Apurva Pelaezold - Externa l Chronic right shoulder pain Chronic right shoulder pain Disease Active 2022-0 8-30 00:00: 00 Apurva Farzana Ramireza cailin Allergies, Adverse Reactions, Alerts Allergy Name Allergy Type Status Severity Reaction(s) Onset Date Inactive Date Treating Clinician Comments Source Amoxicil nadiya Drug Intolera nce Active Nausea and/or Vomiting 09-14 00:00: 00 [facility] AMOXICIL NADIYA DRUG INGREDI Active Low N/V 09-14 00:00: 00 [facility] demol (Not Checked) Propensi ty to adverse reaction to drug Active 12-09 00:00: 00 Shravan Emelyn Crocker Aluminum Hydroxid e Propensi ty to adverse reaction s Active 2021-05 00:00: 00 Other reaction( s): Alma Mixon Farzana - Jamesa l Calcium Carbonat e Propensi ty to adverse reaction s Active 2021-05 00:00: 00 Other reaction( s): Alma Mixon Farzana simeon Dimethic one Copolyol Propensi ty to adverse reaction s Active 2021-05 00:00: 00 Other reaction( s): Alma Mixon Farzana simeon Erythrom ycin Base Propensi ty to adverse reaction s Active 2021-05 00:00: 00 Other reaction( s): Alma Mixon Farzana Jacob l Levoflox acin Propensi ty to adverse reaction s Active 2021-05 00:00: 00 Other reaction( s): Hives/Bernard danitza Mixon Farzana Pérez Externa l Lidocain e Hcl Propensi ty to adverse reaction s Active 2021-05 00:00: 00 Other reaction( s): Hives? Apurvakyle Ramireza l Magnesiu m Hydroxid e Propensi ty to adverse reaction s Active 2021-05 00:00: 00 Other reaction( s): Alma Mixon Farzana - Jamesa l Meperidi ne Hcl Propensi ty to adverse reaction s Active 2021-05 00:00: 00 Other reaction( s): Alma Sheridankyle Ramireza l Prochlor perazine Edisylat e Propensi ty to adverse reaction s Active 2021-05 00:00: 00 Other reaction( s): Hivhector Mixon Seybold - Externa l Prochlor perazine Maleate Propensi ty to adverse reaction s Active 2021-05 00:00: 00 Other reaction( s): Hives Apurva Mcmillanybold - Externa l Azithrom ycin Propensi ty to adverse reaction s Active Rash 01-15 00:00: 00 Apurva Seybold - Externa l Penicill ins Propensi ty to adverse reaction s Active Nausea Only 01-15 00:00: 00 Apurva Seybold - Externa l Tetracyc lines Propensi ty to adverse reaction s Active Rash 01-15 00:00: 00 Apurva Mcmillanybold - Externa l Prochlor perazine Edisylat e Propensi ty to adverse reaction s Active Rash 07-09 00:00: 00 [facility] Meperidi ne Hcl Propensi ty to adverse reaction s Active Other - See comments 07-09 00:00: 00 Blood Pressure drops [facility] Erythrom ycin Propensi ty to adverse reaction s Active Rash 07-09 00:00: 00 [facility] Levoflox acin Propensi ty to adverse reaction s Active Hives 07-09 00:00: 00 [facility] Tetracyc line Propensi ty to adverse reaction s Active Rash 07-09 00:00: 00 [facility] PROCHLOR PERAZINE EDISYLAT E DRUG INGREDI Active Rash 07-09 00:00: 00 [facility] MEPERIDI NE HCL DRUG INGREDI Active Other-Cmnt 07-09 00:00: 00 [facility] ERYTHROM YCIN DRUG Active Rash 07-09 00:00: 00 [facility] LEVOFLOX ACIN DRUG INGREDI Active Hives 07-09 00:00: 00 [facility] TETRACYC LINE DRUG INGREDI Active Rash 07-09 00:00: 00 [facility] Social History Social Habit Start Date Stop Date Quantity Comments Source History of tobacco use Passive smoker Apurva nava - External Gender identity Dot dora Yanes - External ASSERTION Not [facility] intake 2023-03-18 00:00:00 2023-03-18 00:00:00 Ex-drinker (finding) Apurva Yanes - External Tobacco use and exposure 2022-12-24 00:00:00 2022-12-24 00:00:00 Smokeless tobacco non-user Apurva Yanes - External Education 2022-01-15 00:00:00 2022-01-15 00:00:00 13 Apurva Yanes - External Alcoholic beverage intake 2017-07-15 00:00:00 2017-07-15 00:00:00 Current non-drinker of alcohol (finding) [facility] History of Social function 2017-07-09 00:00:00 2017-07-09 00:00:00 [facility] Sex assigned at 1965 00:00:00 1965 00:00:00 [facility] Smoking Status Start Date Stop Date Source Never smoked tobacco Apurva Yanes - External Medications Ordered Medication Name Filled Medication Name Start Date Stop Date Current Medication? Ordering Clinician Indication Dosage Frequency Signature (SIG) Comments Components Source dicyclomine (BENTYL) injection 20 mg 09-14 21:00: 00 09-14 21:46 :00 No 20mg 20 mg, Intramuscu lar, ONCE, 1 dose, On Fri09/14/24 at 1600, [facility] famotidine (PEPCID (PF)) injection 20 mg 09-14 20:00: 00 09-14 21:41 :00 No 20mg 20 mg, Slow IV Push, ONCE, 1 dose, On Fri09/14/24 at 1500, [facility] ondansetron (ZOFRAN (PF)) injection 4 mg 09-14 20:00: 00 09-14 21:42 :00 No 4mg 4 mg, Slow IV Push, ONCE, 1 dose, On Fri09/14/24 at 1500, Administer over 2-5 Minutes, 2 mL [facility] ketorolac (TORADOL) injection 15 mg 09-14 20:00: 00 09-14 21:39 :00 No 15mg 15 mg, Slow IV Push, ONCE, 1 dose, On Fri09/14/24 at 1500, [facility] atorvastati n 20 mg tablet 09-14 17:59: 50 Yes 20mg Take 20 mg by mouth at bedtime. [facility] buPROPion XL 150 mg 24 hr tablet 09-14 17:59: 50 Yes 150mg Take 150 mg by mouth daily. [facility] diazePAM 5 mg tablet 09-14 17:59: 50 Yes 5mg Take 5 mg by mouth as needed. [facility] escitalopra m oxalate 20 mg tablet 09-14 17:59: 50 Yes 20mg Take 20 mg by mouth daily. [facility] hydroCHLORO thiazide 12.5 mg capsule 09-14 17:59: 50 Yes 12.5mg Take 12.5 mg by mouth daily. [facility] lisinopril 40 mg tablet 09-14 17:59: 50 Yes 40mg Take 40 mg by mouth 2 (two) times daily. [facility] metoprolol succinate XL 50 mg 24 hr tablet 09-14 17:59: 50 Yes 50mg Take 50 mg by mouth daily. [facility] traMADOL 50 mg tablet 09-14 17:59: 50 Yes 50mg Take 50 mg by mouth every 6 (six) hours as needed. [facility] omeprazole 20 mg capsule 09-14 17:59: 50 Yes 20mg Take 20 mg by mouth daily. [facility] dicyclomine 20 mg tablet 09-14 00:00: 00 Yes [id number] 20mg Take 1 tablet by mouth 4 (four) times daily as needed for Abdominal pain. [facility] ondansetron 4 mg disintegrat ing tablet 09-14 00:00: 00 Yes [id number] 4mg Take 1 tablet by mouth every 8 (eight) hours as needed for Nausea and Vomiting (N/V). [facility] pantoprazol e 40 mg EC tablet 09-14 00:00: 00 11-14 04:59 :00 Yes [id number] 40mg Take 1 tablet by mouth in the morning for 60 days. [facility] benzonatate 100 mg capsule 12-09 00:00: 00 Yes 1mg Shravan Crocker TAKE 1 CAPSULE BY MOUTH EVERY 12 HOURS FOR 5 DAYS 06-10 00:00: 00 Yes Shravan Crocker PLEASE SEE ATTACHED FOR DETAILED DIRECTIONS 2022-05 00:00: 00 Yes Shravan Crocker Aspirin 81 MG oral Tablet Delayed Response 2022-05 11:29: 43 03-18 00:00 :00 No 81mg Take 1 tablet (81 mg total) by mouth daily. Apurva simeon TAKE 1 TABLET BY MOUTH EVERY DAY 2022-05 00:00: 00 Yes Shravan Crocker APPLY TO THE SKIN TWICE DAILY. 2022-05 00:00: 00 Yes Shravan Crocker TAKE 1 CAPSULE BY MOUTH EVERY DAY 2022-05 00:00: 00 Yes Shravan Crocker hydrOXYzine HCl 50 MG oral Tablet 2022-05 00:00: 00 Yes [id number] 50mg QD Take 1 tablet (50 mg total) by mouth nightly as needed for anxiety (insomnia) . Apurva simeon Duloxetine HCl [address] Particles 2022-05 00:00: 00 Yes [id number] 60mg Take 1 capsule (60 mg total) by mouth daily. Apurva simeon Folic Acid 1 MG oral tablet 2022-05 00:00: 00 Yes [id number] 1mg Take 1 tablet (1 mg total) by mouth daily. Apurva simeon Aspirin 81 MG oral Tablet Delayed Response 2022-05 00:00: 00 Yes [id number] 81mg Take 1 tablet (81 mg total) by mouth daily. Apurva simeon Duloxetine HCl [address] Particles 02-14 00:00: 00 03-18 00:00 :00 No 60mg Take 1 capsule (60 mg total) by mouth daily. Apurva simeon TAKE ONE CAPSULE BY MOUTH EVERY DAY. 02-13 00:00: 00 Yes Shravan Emelyn Obi TAKE 1 TABLET BY MOUTH EVERY 8 HOURS NEEDED FOR ANXIETY 02-13 00:00: 00 Yes Shravan Dunaway Obi TAKE 1 TABLET BY MOUTH EVERY NIGHT AT BEDTIME 02-13 00:00: 00 Yes Shravan Emelyn Crocker hydrOXYzine HCl 50 MG oral Tablet 02-13 00:00: 00 03-18 00:00 :00 No 50mg [id number] 3D Take 1 tablet (50 mg total) by mouth every 8 hours as needed. Apurva simeon Folic Acid 1 MG oral tablet 02-13 00:00: 00 03-18 00:00 :00 No 1mg Take 1 tablet (1 mg total) by mouth daily. Apurva simeon Venlafaxine HCl 150 MG oral Capsule 24 Hour Sustained Release 01-15 00:00: 00 03-18 00:00 :00 No [id number] 150mg Take 1 capsule (150 mg total) by mouth daily. Apurva simeon PREDNISOLON E AC 1% EYE DROP 12-27 00:00: 00 Yes Shravan Crocker APPLY 1 DROP INTO LEFT EYE FOUR TIMES A DAY STARTING THE DAY OF SURGERY.... ....AFTER SURGERY 12-27 00:00: 00 Tanvi Crocker APPLY 1 DROP INTO LEFT EYE FOUR TIMES A DAY STARTING THE DAY OF SURGERY.... ..AFTER SURGERY 12-27 00:00: 00 Yes Shravan Crocker Metoprolol Tartrate 50 MG oral Tablet 12-24 08:39: 22 Yes 50mg Take 1 tablet (50 mg total) by mouth 2 times daily Apurva simeon TAKE 1 CAPSULE BY MOUTH EVERY DAY 12-24 00:00: 00 Yes Shravan Emelyn Obi TAKE 1 TABLET BY MOUTH NIGHTLY NEEDED FOR SLEEP OR ANXIETY. 8- 00:00: 00 Yes Shravan Dunaway Obi Venlafaxine HCl 150 MG oral Capsule 24 Hour Sustained Release 12-24 00:00: 00 Yes [id number] 150mg Take 1 capsule (150 mg total) by mouth daily Apurva simeon Alprazolam 0.5 MG oral Tablet 12-24 00:00: 00 Yes [id number] .5mg QD Take 1 tablet (0.5 mg total) by mouth nightly as needed for sleep or anxiety Apurva simeon TAKE ONE TABLET BY MOUTH EVERY 8 HOURS - 00:00: 00 Yes Shravan Dunaway Obi BROMPHEN-PS E-DM 2-30-10 MG/5ML 4- 00:00: 00 Yes [id number] Shravan Dunaway Obi Metoprolol Tartrate 50 MG oral Tablet 07-16 09:21: 40 Yes 50mg Take 50 mg by mouth 2 times daily Apurva simeon Semaglutide (2 mg/dose) 8 mg/3 mL SQ Solution Pen-Injecto r 07-16 00:00: 00 Yes [id number] 2mg Inject 2 mg into the skin once a week Apurva simeon VENLAFAXINE HCL ER 75 MG - 00:00: 00 Yes 75 Shravan Dunaway Obi Nebulizers (InnoSpire Essence Nebulizer) does not apply [facility] [place] 00:[place]: 00 Yes USE DIRECTED FOUR TIMES A DAY Apurva simeon TAKE 1 TABLET BY MOUTH EVERY 6 HOURS NEEDED FOR PAIN -12 00:00: 00 Yes Shravan Emelyn Obi ALBUTEROL SUL 2.5 MG/3 ML SOLN -12 00:00: 00 Yes 253 Shravan Dunaway Obi BENZONATATE 100 MG CAPSULE -12 00:00: 00 Yes 100 Shravan Dunaway Obi IPRATROPIUM BR 0.02% SOLN -12 00:00: 00 Yes 2 Shravan Dunaway Obi GUAIFEN-COD EINE 100-10 MG/5 ML 05-28 00:00: 00 Yes [id number] Shravan Crocker Metoprolol Tartrate 50 MG oral Tablet 05-27 15:41: 41 Yes 50mg Take 50 mg by mouth 2 times daily Apurva simeon Guaifenesin (Mucinex) 600 MG oral Tablet 12 Hour Sustained Release 05-27 00:00: 00 Yes [id number] 1200mg Take 2 tablets (1,200 mg total) by mouth 2 times daily Apurva simeon Amoxicillin 500 MG oral Capsule 05-27 00:00: 00 Yes [id number] 500mg Take 1 capsule (500 mg total) by mouth 3 times daily Apurva simeon Albuterol Sulfate 2.5 MG/0.5ML inhalation Inhalant Solution 05-27 00:00: 00 Yes [id number] 2.5mg Take 2.5 mg by nebulizati on once for 1 dose Apurva santosFENvishal -Codeine (Cheratussi n AC) 100-10 MG/5ML oral Syrup 05-27 00:00: 00 Yes [id number] 5mL Q.[id number] 3D Take 5 mL by mouth 3 times daily as needed for cough Apurva simeon TAKE 1 CAPSULE (500 MG TOTAL) BY MOUTH 3 TIMES DAILY 05-27 00:00: 00 Yes Shravan Crocker Albuterol (PROVENTIL) (2.5 MG/3ML) 0.083% inhalation Inhalant Solution 05-27 00:00: 00 07-16 00:00 :00 No [id number] 2.5mg Q4H Take 2.5 mg by nebulizati on every 4 hours as needed for wheezing Apurva simeon Semaglutide (1 mg/dose) 2 mg/1.5 mL SQ Solution Pen-Injecto r 05-21 00:00: 00 Yes [id number] 1mg Inject 1 mg into the skin once a week Apurva simeon OZEMPIC 1 MG/DOSE (4 MG/3 ML) 05-21 00:00: 00 Yes [id number] Shravan Crocker Benzonatate 200 MG oral Capsule [...] 2021-05 00:00: 00 12-24 00:00 :00 No [id number] 50mg Take 1 tablet (50 mg total) by mouth daily Apurva simeon Losartan Potassium 25 MG oral Tablet 2021-05 00:00: 00 05-10 00:00 :00 No [id number] 25mg Take 1 tablet (25 mg total) by mouth daily Apurva simeon Metoprolol Tartrate 50 MG oral Tablet 2021-05 16:31: 17 Yes 50mg Take 50 mg by mouth 2 times daily Apurva simeon Losartan Potassium 25 MG oral Tablet 2021-05 00:00: 00 Yes [id number] 25mg Take 1 tablet (25 mg total) by mouth daily Apurva simeon TAKE 1 TABLET (25 MG TOTAL) BY MOUTH DAILY. 2021-05 00:00: 00 Yes Shravan Crocker Cyclobenzap rine HCl 10 MG oral Tablet 2021-05 00:00: 00 12-24 00:00 :00 No [id number] 10mg Q.5D Take 1 tablet (10 mg total) by mouth 2 times daily as needed for muscle spasms Apurva simeon Metoprolol Tartrate 50 MG oral Tablet 2021-05 13:28: 16 Yes 50mg Take 50 mg by mouth 2 times daily Apurva simeon Cyclobenzap rine HCl 10 MG oral Tablet 2021-05 00:00: 00 Yes [id number] 10mg Q.5D Take 1 tablet (10 mg total) by mouth 2 times daily as needed for muscle spasms Apurva simeon CYCLOBENZAP RINE 10 MG 2021-05 00:00: 00 Yes 10 Shravan Crocker Tramadol HCl 50 MG oral Tablet 2021-05 00:00: 00 12-24 00:00 :00 No [id number] 50mg Q.5D Take 1 tablet (50 mg total) by mouth 2 times daily as needed for pain Apurva simeon Metoprolol Tartrate 50 MG oral Tablet 2021-05 13:48: 44 Yes 50mg Take 50 mg by mouth 2 times daily Apurva simeon OZEMPIC 0.25-0.5 MG/DOSE PEN 2021-05 00:00: 00 Yes 255 Shravan Crocker Semaglutide (0.25 or 0.5 mg/dose) 2 mg/1.5 mL SQ Solution Pen-Injecto r 2021-05 00:00: 00 Yes [id number] .5mg Inject 0.5 mg into the skin once a week Apurva simeon SODIUM CHLORIDE 0.9% IRRIG. 2021-05 00:00: 00 Yes 9 Shravan Crocker Venlafaxine HCl 75 MG oral Capsule 24 Hour Sustained Release 2021-05 15:05: 13 03-12 00:00 :00 No 75mg Take 75 mg by mouth daily Apurva simeon Semaglutide (0.25 or 0.5 mg/dose) 2 mg/1.5 mL SQ Solution Pen-Injecto r 2021-05 00:00: 00 Yes [id number] 104 .25mg Inject 0.25 mg into the skin once a week Apurva simeon Venlafaxine HCl 75 MG oral Capsule 24 Hour Sustained Release 2021-05 00:00: 00 12-24 00:00 :00 No [id number] 75mg Take 1 capsule (75 mg total) by mouth daily Apurva simeon Semaglutide (0.25 or 0.5 mg/dose) 2 mg/1.5 mL SQ Solution Pen-Injecto r 2021-05 025 00:00: 00 04-09 00:00 :00 No [id number] 104 .25mg Inject 0.25 mg into the skin once a week Apurva simeon Ciprofloxac in HCl 500 MG oral Tablet 2021-05 00:00: 00 04-09 00:00 :00 No Apurva simeon SULFAMETHOX AZOLE-TMP DS 2021-05 003 00:00: 00 Yes [id number] Shravan Crocker Venlafaxine HCl 75 MG oral [...] 02-12 00:00: 00 04-09 00:00 :00 No [id number] Apply 1 applicatio n topically 2 times daily Apurva simeon TRIMETHOPRI M-SULFAMETH OXAZOLE 800-160 MG oral Tablet 02-12 00:00: 00 02-20 04:59 :00 No [id number] 1{tbl} Take 1 tablet by mouth 2 times daily for 7 days Apurva simeon Blood Pressure does not apply Kit 01-15 00:00: 00 02-12 00:00 :00 No [id number] Check BP daily Apurva simeon Immunizations Ordered [...] Value Comments S ource Systolic blood pressure 2024-09-14 22:46:37 165 mm[Hg] [facility] Diastolic blood pressure 2024-09-14 22:46:37 82 mm[Hg] [facility] Heart rate 2024-09-14 22:46:37 77 /min [facility] Body temperature 2024-09-14 22:46:37 36.83 Kimi [facility] Respiratory rate 2024-09-14 22:46:37 23 /min [facility] Oxygen saturation in Arterial blood by Pulse oximetry 2024-09-14 22:46:37 96 /min [facility] Body height 2024-09-14 19:45:00 172.7 cm [facility] Body weight 2024-09-14 19:45:00 179.171 kg [facility] BMI 2024-09-14 19:45:00 60.06 kg/m2 [facility] Systolic blood pressure 2023-03-18 16:12:00 158 mm[Hg] [...] Pulse oximetry 2022-04-15 19:47:00 93 /min Apurva Seybo ld - External Body weight 2022-04-09 21:51:00 [...] 64.32 kg/m2 Dot ey Seybold - External Procedures Procedure Date / Time Performed Performing Clinicia n Source LIPASE 2024-09-14 21:38:00 Colten Mata [facility] COMP. METABOLIC PANEL ([id number]) 2024-09-14 21:38:00 Colten Mata [facility] CBC WITH DIFF 2024-09-14 21:38:00 Colten Mata [facility] Encounters Start Date/Time End Date/Time Encounter Type Admission Type Attending Clinicians Care Facility Care Department Encounter ID Source 2024-09-22 00:00:00 2024-09-22 10:07:01 Letter (Out) Campaigns, Generic Provider Campaigns, Generic Provider [facility] [id number] [facility] 2024-09-14 14:48:00 2024-09-14 17:59:00 Emergency Colten Mata [facility] [id number] [facility] 2024-09-14 14:48:00 2024-09-14 17:59:00 Emergency X COLTEN MATA [facility] ERT [id number] [facility] 2023-12-10 15:24:37 2023-12-10 15:24:37 Outpatient SFA SFA [id number] Shravan Crocker 2023-12-10 00:00:00 2023-12-10 00:00:00 Outpatient Visit SFA [id number] Shravan Crocker 2023-04-22 00:00:00 2023-04-22 00:00:00 Outpatient PRACHI RODRIGUEZ [id number] [facility] 2023-04-16 00:00:00 2023-04-16 00:00:00 Outpatient MD APURVA MOLINA [id number] [facility] 2023-03-18 11:00:00 2023-03-18 11:00:00 Outpatient PREZAS, PRACHI MIXON APURVA [id number] [facility] 2023-02-13 11:15:00 2023-02-13 11:15:00 Outpatient PREZAS, PRACHI MIXON APURVA [id number] [facility] 2023-01-22 11:15:00 2023-01-22 11:15:00 Outpatient PREZAS, PRACHI MIXON [facility] [id number] [facility] 00:00:00 2023-01-15 00:00:00 Outpatient PREZAS, PRACHI MIXON [facility] [id number] [facility] 2023-01-15 00:00:00 2023-01-15 00:00:00 Outpatient PREZAS, PRACHI APURVA [facility] [id number] [facility] 2023-[facility]-15 00:00:00 2023-01-15 00:00:00 Outpatient PREZAS, PRACHI APURVA APURVA [id number] [facility] 2022-12-31 00:00:00 2022-12-31 00:00:00 Outpatient PREZAS, PRACHI APURVA MIXON [id number] [facility] 2022-12-25 00:00:00 2022-12-25 00:00:00 Outpatient ROBBIE, JASSON [facility] [id number] [facility] 2022-12-24 09:20:00 2022-12-24 09:20:00 Outpatient LAB90 [facility]IXON [id number] [facility] 2022-12-24 08:45:00 2022-12-24 08:45:00 Outpatient PREZAS, PRACHI [facility] MIXON [id number] [facility] 2022-10-07 15:45:00 2022-10-07 15:45:00 Outpatient PREZAS, PRACHI [facility]IX[facility] [id number] [facility] 2022-08-26 14:00:00 2022-08-26 14:00:00 Outpatient TESTING, CAMILLE MIXON [id number] [facility] 2022-08-26 00:00:00 2022-08-26 00:00:00 Outpatient PREZAS, PRACHI MIXON [facility] [id number] [facility] 2022-08-07 00:00:00 2022-08-07 00:00:00 Outpatient ROBBIE, JASSON MIXON APURVA [id number] [facility] 2022-07-30 10:00:00 2022-07-30 10:00:00 Outpatient LAB90 APURVA APURVA [id number] [facility] 2022-07-16 09:30:00 2022-07-16 09:30:00 Outpatient PREZAS, PRACHI MIXON [facility] [id number] [facility] 2022-07-09 08:10:00 2022-07-09 08:10:00 Outpatient LAB90 APURVA [facility] [id number] [facility] 2022-06-21 13:45:00 2022-06-21 13:45:00 Outpatient PREZAS, PRACHI [facility]IX[id number] [facility] 2022-05-29 00:00:00 2022-05-29 00:00:00 Outpatient HUNDL, JUAN MIXON [facility] [id number] [facility] 2022-05-27 15:30:00 2022-05-27 15:30:00 Outpatient HUNDL, JUAN MIXON [facility] [id number] [facility] 2022-05-24 00:00:00 2022-05-24 00:00:00 Outpatient PREZAS, PRACHI APURVA MIXON [id number] [facility] 2022-05-21 00:00:00 2022-05-21 00:00:00 Outpatient PREZAS, PRACHI APURVA MIXON [id number] [facility] 2022-05-21 00:00:00 2022-05-21 00:00:00 Outpatient PREZAS, PRACHI AP[facility]VA MIXON [id number] [facility] 2022-05-19 00:00:00 2022-05-19 00:00:00 Outpatient PREZAS, PRACHI APURVA MIXON [id number] [facility] 2022-05-10 09:45:00 2022-05-10 09:45:00 Outpatient PREZAS, PRACHI MIXON APURVA [id number] [facility] 2022-05-07 16:15:00 2022-05-07 16:15:00 Outpatient PREZAS, PRACHI MIXON [id number] [facility] 2022-05-01 00:00:00 2022-05-01 00:00:00 Outpatient PREZAS, PRACHI MIXON APURVA [id number] [facility] 2022-05-01 00:00:00 2022-05-01 00:00:00 Outpatient ROBBIE, JASSON MIXON APURVA [id number] [facility] 2022-04-29 16:30:00 2022-04-29 16:30:00 Outpatient PREZAS, PRACHI MIXON APURVA [id number] [facility] 2022-04-17 13:30:00 2022-04-17 13:30:00 Outpatient PREZAS, PRACHI MIXON APURVA [id number] [facility] 2022-04-17 00:00:00 2022-04-17 00:00:00 Outpatient PREZAS, PRACHI MIXON APURVA [id number] [facility] [facility] 2022-04-15 14:35:00 2022-04-15 14:35:00 Outpatient LABMiguel Angel MIXON APURVA [id number] [facility] 2022-04-15 14:00:00 2022-04-15 14:00:00 Outpatient ROBBIE, JASSON APURVA MIXON [id number] [facility] 2022-04-09 16:15:00 2022-04-09 16:15:00 Outpatient PREZAS, PRACHI APURVA MIXON [id number] [facility] 2022-03-12 15:00:00 2022-03-12 15:00:00 Outpatient PREZAS, PRACHI APURVA MIXON [id number] [facility] 2022-02-12 15:15:00 2022-02-12 15:15:00 Outpatient PREZAS, PRACHI APURVA MIXON [id number] [facility] 2022-02-12 13:45:00 2022-02-12 13:45:00 Outpatient PRACHI RODRIGUEZ [id number] [facility] 2022-01-31 00:00:00 2022-01-31 00:00:00 Outpatient PRACHI RODRIGUEZ [id number] [facility] 2022-01-22 08:50:00 2022-01-22 08:50:00 Outpatient LAB90 APURVA MIXON [id number] [facility] 2022-01-16 00:00:00 2022-01-16 00:00:00 Outpatient PRACHI RODRIGUEZ [id number] [facility] 2022-01-15 08:55:00 2022-01-15 08:55:00 Outpatient LAB90 APURVA MIXON [id number] [facility] 2022-01-15 08:00:00 2022-01-15 08:30:00 Office Visit Prachi Rodriguez [id number] [facility] Results Test Description Test Time Test Comments Results Result [facility]* Test Item Value Reference Range Interpretation Comme nts LIPASE (test code = 3247226585) 73 U/L 0-220 Lab Interpretation (test cod e = 39968-4) [facility] [id number] 21:58:17* Test Item Value Reference Range Interpretation Comme nts WBC (test code = 6690-2) 5.98 4.30-11.10 RBC (test code = 789-8) 4.52 3.93-5.25 HGB (test code = 718-7) 13.9 g/dL 11.6-15.0 HCT (test code = 4544-3) 40.7 % 35.7-45.2 MCV (test code = 787-2) 90 fL 80.6-95.5 MCH (test code = 785-6) 30.8 pg 25.9-32.8 MCHC (test code = 786-4) 34.2 g/dL 31.6-35.1 RDW-SD (test code = 68049-6) 39.1 fL 39.0-49.9 RDW-CV (test code = 788-0) 11.9 % 12.0-15.5 L PLT (test code = 777-3) 252 166-358 MPV (test code = 29735-6) 10.2 fL 9.5-12.9 NRBC/100 WBC (test code = 7438101343) 0 0.0-10.0 NRBC x10^3 (test code = 6959410762) See_Comment [Automated messa ge] The system which generated this result transmitted reference range: 10*3/?L. The reference range was not used to interpret this result as normal/abnormal. GRAN MAT (NEUT) % (test code = 770-8) 63.3 % IMM GRAN % (test code = 3432165769) 0.3 % LYMPH % (test code = 736-9) 25.9 % MONO % (test code = 5905-5) 6.5 % EOS % (test code = 713-8) 3.5 % BASO % (test code = 706-2) 0.5 % GRAN MAT x10^3(ANC) (test code = 8685913216) 3.78 10*3/uL 1.88-7.09 IMM GRAN x10^3 (test code = 1893611747) 0.00-0.06 LYMPH x10^3 (test code = 731-0) 1.55 10*3/uL 1.32-3.29 MONO x10^3 (test code = 742-7) 0.39 10*3/uL 0.33-0.92 EOS x10^3 (test code = 711-2) 0.21 10*3/uL 0.03-0.39 BASO x10^3 (test code = 704-7) 0.03 10*3/uL 0.01-0.07 Lab Interpretation (test code = 03983-8) Abnormal [facility] Notes Date/Time Note Provider Source 2024-09-14 17:58:17 Pt discharged with diagnosis of other acute gastritis without hemorrhage, RUQ abdominal pain, gallstones, and biliary colic. Printed and verbal instructions reviewed with and given to pt. Prescriptions given x 3. pt verbalized understanding of teaching and recommended follow-up. Denies questions or concerns at this time. Pt ambulatory at discharge. Appears in no apparent distress. No ataxia noted. Avril Gibbs RN [facility] 2024-09-14 14:42:56 Pt presents to ED with c/o right upper quadrant pain radiating to right shoulder for 1 week. Pt states it worsens after she eats. Pt has known gallstones. Pt rates pain8/10. Pt states she also has high blood pressure. [facility] Shravan Tripp [facility]
[2024-10-08] MEDS ORDERED: FENTANYL CITR 100 MCG/2 ML ONE (21:41)
[2024-10-08] MEDS ORDERED: KETOROLAC 30 MG/ML INJ ONE (21:41)
[2024-10-08 21:51] LABS: Absolute Basophils 0.1 K/uL (0-0.5); Absolute Eosinophils 0.2 K/uL (0-0.5); Absolute Lymphocytes (CBC) 1.5 K/uL (0.7-4.9); Absolute Monocytes 0.5 K/uL (0.1-1.3); Absolute Neutrophil 6.2 K/uL (1.8-8.0); Basophils % 0.6 % (0-1.3); Eosinophils % 2.2 % (0-4.4); Hematocrit 38.5 % (36.0-45.0); Hemoglobin 13.5 g/dL (12.0-15.0); Lymphocytes % 18.3 % (15.3-44.8); MCV 88.4 fL (80-100); MPV 8.6 fL (7.6-11.3); Monocytes % 5.5 % (3.3-12.3); Neutrophils % 73.4 % (41.7-73.7); Platelets 243 thou/uL (152-406); RBC Red Blood Cell Count 4.36 M/uL (3.86-4.86); Red Cell Distribution Width 12.7 % (12.1-15.2)
[2024-10-08 21:59] LABS: Specific Gravity 1.022 (1.005-1.030); Sqamous Epithelial <5 /HPF (None Seen); Urine Bacteria <20 /HPF (<20); Urine Bilirubin NEGATIVE (Negative); Urine Blood 3+ (OVER) (Negative); Urine Clarity Extremely Turbid (Clear); Urine Color Yellow (Yellow); Urine Culture Reflex Order REFLEXED; Urine Glucose NEGATIVE (Negative); Urine Ketones NEGATIVE (Negative); Urine Microscopic Reflex YN ORDER UMIC; Urine Mucus 1+ /HPF (None Seen); Urine Nitrite NEGATIVE (Negative); Urine Protein 1+ (Negative); Urine RBC >50 /HPF (None Seen); Urine Urobilinogen 1+ (Normal); Urine WBC >50 /HPF (<5)
[2024-10-08 22:09] LABS: Albumin 3.4 g/dL (3.4-5.0); Albumin/Globulin Ratio 0.8 (1.1-1.8); Anion Gap 7.2 mEq/L (5.0-15.0); Bilirubin Total 0.6 mg/dL (0.2-1.0); Globulin 4.5 g/dL (2.3-3.5); Potassium 4.2 mEq/L (3.5-5.1); Protein, Total 7.9 g/dL (6.4-8.2)
--- NOTE | 2024-10-08 23:53 | EDPHYS ---
Physician Documentation [facility] Name: Julienne Tucker Age: 59 yrs Sex: Female : 1965 Arrival Date: 10/08/2024 Time: 20:25 Bed 11 Private MD: ED Physician Henrry Polanco HPI: 10/08 21:48 This 59 yrs old Female presents to ER via Ambulatory with complaints of Abdominal Pain, sb4 Urinary Problem. 21:48 Patient reports lower abdominal pain and blood in urine since this morning. States that sb4 she feels a pressure sensation in her lower abdomen at the end of her stream. Denies any burning with urination. Does report history of UTIs, but it has been several years. Endorses nausea, no vomiting. No fever or chills. Historical: - Allergies: 20:58 Amoxicillin; dd2 20:58 Azithromycin; dd2 20:58 Compazine; dd2 20:58 Demerol; dd2 20:58 Erythromycin; dd2 20:58 Levofloxacin; dd2 20:58 Tetracycline; dd2 20:58 Vancomycin; dd2 - PMHx: 20:58 Depression; Hypertension; dd2 - PSHx: 20:58 Appendectomy; Coronary artery bypass graft; cyst removed from back; hysterectomy; left dd2 foot; - Immunization history:: Adult Immunizations up to date. - Infectious Disease History:: Denies. - Social history:: Smoking status: Patient denies any tobacco usage or history of. ROS: 21:48 Constitutional: Negative for fever, chills, and weight loss, sb4 21:48 Abdomen/GI: Positive for abdominal pain, nausea, 21:48 : Positive for urinary symptoms, hematuria, 21:48 All other systems are negative, Exam: 21:48 Head/Face: Normocephalic, atraumatic. Eyes: Extra-ocular motions intact. Periorbital sb4 areas with no swelling, redness, or edema. ENT: Mucous membranes moist. Cardiovascular: Regular rate and rhythm with a normal S1 and S2. Respiratory: No increased work of breathing, no retractions or nasal flaring. Abdomen/GI: Soft, non-tender, no distension. Skin: Warm, dry with normal turgor. Normal color with no rashes, no lesions, and no evidence of cellulitis. 21:48 Constitutional: The patient appears in no acute distress, alert, awake, obese, Vital Signs: 20:56 BP 196 / 106; Pulse 89; Resp 18; Temp 98.3; Pulse Ox 99% on R/A; Weight 176.9 kg; dd2 Height 5 ft. 8 in. ; Pain 7/10; 22:06 BP 171 / 79; Pulse 84; Resp 18 S; Pulse Ox 99% on R/A; ha1 23:00 BP 141 / 86; Pulse 81; Resp 18 S; Pulse Ox 99% on R/A; ha1 10/09 00:20 BP 146 / 85; Pulse 79; Resp 16 S; Pulse Ox 99% on R/A; ha1 10/08 20:56 Body Mass Index 59.30 (176.90 kg, 172.72 cm) dd2 10/08 20:56 Pain Scale: Adult dd2 MDM: 10/08 20:48 Medical Screening Exam initiated sb4 23:51 Differential diagnosis: non-specific abd pain, Pyelonephritis, Ureterolithiasis, sb4 urinary tract infection. Data reviewed: vital signs, nurses notes, lab test result(s), radiologic studies, and as a result, I will discharge patient. Care significantly affected by the following chronic conditions: Hypertension, Obesity. Counseling: I had a detailed discussion with the patient and/or guardian regarding the historical points, exam findings, and any diagnostic results supporting the discharge/admit diagnosis, the presence of at least one elevated blood pressure reading (>120/80) during this emergency department visit, lab results, radiology results, the need for outpatient follow up, for definitive care, to return to the emergency department if symptoms worsen or persist or if there are any questions or concerns that arise at home. 10/08 21:05 Order name: UA Rfx Jayesh Cult if indicated; Complete Time: 22:02 sb4 10/08 21:25 Order name: CBC with Diff; Complete Time: 22:02 sb4 10/08 21:25 Order name: CMP; Complete Time: 22:11 sb4 10/08 21:25 Order name: Lipase; Complete Time: 22:11 sb4 10/08 22:02 Order name: Urine Culture EDMS 10/08 22:11 Order name: CT Abd/Pelvis - IV Contrast Only sb4 10/08 21:25 Order name: IV Saline Lock; Complete Time: 21:40 sb4 10/08 21:25 Order name: Labs collected and sent; Complete Time: 21:40 sb4 Administered Medications: 21:45 Drug: Ketorolac IVP 15 mg IVP once Route: IVP; Site: left antecubital; cp4 22:00 Follow up: Response: No adverse reaction; Marked relief of symptoms ha1 21:45 Drug: fentaNYL (PF) IVP 25 mcg IVP once Route: IVP; Site: left antecubital; cp4 22:00 Follow up: Response: No adverse reaction; Marked relief of symptoms; Pain is decreased; ha1 RASS: Alert and Calm (0) 10/09 00:30 Drug: Rocephin IV 1 grams IV at calculated rate once; Given slow IV push per pharmacy ha1 instructions Route: IV; Rate: calculated rate; Site: left antecubital; 00:44 Follow up: Response: No adverse reaction; IV Status: Completed infusion ha1 00:30 Drug: HYDROcodone-acetaminophen PO 5 mg-325 mg 1 tabs PO once Route: PO; ha1 00:43 Follow up: Response: No adverse reaction; Pain is decreased; RASS: Alert and Calm (0) ha1 Disposition: 06:32 Co-signature as Attending Physician, Henrry Polanco MD I agree with the assessment sp4 and plan of care. I reviewed the patient's care provided by the Advanced Practice Provider and agree with the diagnosis and treatment plan. Disposition Summary: 10/08/24 23:52 Discharge Ordered Notes: Location: Home sb4 Problem: new sb4 Symptoms: have improved sb4 Condition: Stable sb4 Diagnosis - UTI/ Urinary tract infection, site not specified sb4 Followup: sb4 - With: Emergency Department - When: As needed - Reason: Fever > 102 F, Worsening of condition Discharge Instructions: - Discharge Summary Sheet sb4 - Urinary Tract Infection, Adult, [id number] sb4 Forms: - Antibiotic Education sb4 - Patient Portal Instructions sb4 - Leadership Thank You Letter sb4 Prescriptions: - Pyridium 200 mg Oral Tablet - take 1 tablet ORAL route every 8 hours for 3 days; 9 tablet; Refills: 0, sb4 Product Selection Permitted - cefpodoxime 100 mg Oral Tablet - take 1 tablet ORAL route every 12 hours for 10 days take with food; 20 tablet; sb4 Refills: 0, Product Selection Permitted Signatures: Dispatcher [employer] Stacy Liu, RN RN ha1 Gayathri Lowry, PAAngelica PA-C sb4 Henrry Polanco MD MD sp4 Kizzy Ochoa cp4 ANGELICA COOL RN RN dd2
--- NOTE | 2024-10-08 23:53 | ER ---
Nurse's Notes [facility] Name: Julienne Tucker Age: 59 yrs Sex: Female : 1965 Arrival Date: 10/08/2024 Time: 20:25 Bed 11 Private MD: Diagnosis: UTI/ Urinary tract infection, site not specified Presentation: 10/08 20:56 Chief complaint: Patient states: ABDOMINAL PAIN, AND BLOOD IN URINE X1 DAY. Coronavirus dd2 screen: At this time, the client does not indicate any symptoms associated with coronavirus-19. Ebola Screen: No symptoms or risks identified at this time. Initial Sepsis Screen: Does the patient meet any 2 criteria? No. Patient's initial sepsis screen is negative. Does the patient have a suspected source of infection? No. Patient's initial sepsis screen is negative. Risk Assessment: Do you want to hurt yourself or someone else? Patient reports no desire to harm self or others. Onset of symptoms was October 08, 2024 at 12:00. 20:56 Method Of Arrival: Ambulatory dd2 20:56 Acuity: RJ 3 dd2 Triage Assessment: 20:58 General: Appears in no apparent distress. uncomfortable, Behavior is calm, cooperative, dd2 appropriate for age. Pain: Complains of pain in abdomen. GI: Abdomen is non-distended, obese, Reports lower abdominal pain, upper abdominal pain. :. Historical: - Allergies: 20:58 Amoxicillin; dd2 20:58 Azithromycin; dd2 20:58 Compazine; dd2 20:58 Demerol; dd2 20:58 Erythromycin; dd2 20:58 Levofloxacin; dd2 20:58 Tetracycline; dd2 20:58 Vancomycin; dd2 - PMHx: 20:58 Depression; Hypertension; dd2 - PSHx: 20:58 Appendectomy; Coronary artery bypass graft; cyst removed from back; hysterectomy; left dd2 foot; - Immunization history:: Adult Immunizations up to date. - Infectious Disease History:: Denies. - Social history:: Smoking status: Patient denies any tobacco usage or history of. Screenin:25 [facility] ED Fall Risk Assessment (Adult) History of falling in the last 3 months, cp4 including since admission No falls in past 3 months (0 pts) Confusion or Disorientation No (0 pts) Intoxicated or Sedated No (0 pts) Impaired Gait No (0 pts) Mobility Assist Device Used No (0 pt) Altered Elimination No (0 pt) Score/Fall Risk Level 0 - 2 = Low Risk Oriented to surroundings, Maintained a safe environment, Assessed \T\ reinforced patient's understanding of fall precautions, Hourly rounding (assess needs \T\ fall precautionary measures) done. Abuse screen: Denies threats or abuse. Denies injuries from another. Nutritional screening: No deficits noted. Tuberculosis screening: No symptoms or risk factors identified. Never had TB. Assessment: 21:25 General: Appears in no apparent distress. uncomfortable, Behavior is calm, cooperative, cp4 appropriate for age. Pain: Complains of pain in abdomen Pain does not radiate. Pain currently is 7 out of 10 on a pain scale. Neuro: Level of Consciousness is awake, alert, obeys commands, Oriented to person, place, time, situation. Cardiovascular: Patient's skin is warm and dry. Respiratory: Airway is patent Respiratory effort is even, unlabored. GI: Abdomen is round non-distended, Bowel sounds present X 4 quads. Abd is soft and non tender X 4 quads. : Reports blood in urine. 21:25 EENT: No signs and/or symptoms were reported regarding the EENT system. cp4 21:25 Derm: No signs and/or symptoms reported regarding the dermatologic system. cp4 Musculoskeletal: No signs and/or symptoms reported regarding the musculoskeletal system. 22:06 Reassessment: Patient and/or family updated on plan of care and expected duration. Pain ha1 level reassessed. Patient is alert, oriented x 3, equal unlabored respirations, skin warm/dry/pink. 23:10 Reassessment: Patient and/or family updated on plan of care and expected duration. Pain ha1 level reassessed. Patient is alert, oriented x 3, equal unlabored respirations, skin warm/dry/pink. 10/09 00:20 Reassessment: Patient and/or family updated on plan of care and expected duration. Pain ha1 level reassessed. Patient is alert, oriented x 3, equal unlabored respirations, skin warm/dry/pink. Vital Signs: 10/08 20:56 BP 196 / 106; Pulse 89; Resp 18; Temp 98.3; Pulse Ox 99% on R/A; Weight 176.9 kg; dd2 Height 5 ft. 8 in. ; Pain 7/10; 22:06 BP 171 / 79; Pulse 84; Resp 18 S; Pulse Ox 99% on R/A; ha1 23:00 BP 141 / 86; Pulse 81; Resp 18 S; Pulse Ox 99% on R/A; ha1 10/09 00:20 BP 146 / 85; Pulse 79; Resp 16 S; Pulse Ox 99% on R/A; ha1 10/08 20:56 Body Mass Index 59.30 (176.90 kg, 172.72 cm) dd2 10/08 20:56 Pain Scale: Adult dd2 ED Course: 10/08 20:27 Patient arrived in ED. im 20:34 Gayathri Lowry PA-C is PHCP. sb4 20:34 Henrry Polanco MD is Attending Physician. sb4 20:58 Triage completed. dd2 20:58 Arm band placed on right wrist. dd2 21:24 Kizzy Ochoa is Primary Nurse. cp4 21:25 Bed in low position. Call light in reach. Side rails up X 1. cp4 21:50 No provider procedures requiring assistance completed. Inserted saline lock: 20 gauge ha1 in left antecubital area, using aseptic technique. Blood collected. Flushed with 10 mL NS. 23:07 CT Abd/Pelvis - IV Contrast Only In Process Unspecified. EDMS 10/09 00:48 Provided Education on: MEDICATION ADMINISTRATION . ha1 00:48 IV discontinued, intact, bleeding controlled, No redness/swelling at site. Pressure ha1 dressing applied. Administered Medications: 10/08 21:45 Drug: Ketorolac IVP 15 mg IVP once Route: IVP; Site: left antecubital; cp4 22:00 Follow up: Response: No adverse reaction; Marked relief of symptoms ha1 21:45 Drug: fentaNYL (PF) IVP 25 mcg IVP once Route: IVP; Site: left antecubital; cp4 22:00 Follow up: Response: No adverse reaction; Marked relief of symptoms; Pain is decreased; ha1 RASS: Alert and Calm (0) 10/09 00:30 Drug: Rocephin IV 1 grams IV at calculated rate once; Given slow IV push per pharmacy ha1 instructions Route: IV; Rate: calculated rate; Site: left antecubital; 00:44 Follow up: Response: No adverse reaction; IV Status: Completed infusion 1 00:30 Drug: HYDROcodone-acetaminophen PO 5 mg-325 mg 1 tabs PO once Route: PO; 1 00:43 Follow up: Response: No adverse reaction; Pain is decreased; RASS: Alert and Calm (0) [facility] Medication: 10/08 21:25 VIS not applicable for this client. cp4 Outcome: 23:52 Discharge ordered by . sb4 10/09 00:47 Discharged to home ambulatory, with family, [facility] Condition: stable Discharge instructions given to patient, family, Instructed on discharge instructions, follow up and referral plans. medication usage, Demonstrated understanding of instructions, follow-up care, medications, Prescriptions given X 2, 00:49 Patient left the ED. [facility] Addendum: 10/12/2024 07:30 Addendum: Culture Results: Positive urine culture. No further action required. Bacteria s s sensitive to prescribed antibiotic. Signatures: Dispatcher [employer] EDMS Lo Saab RN RN Stacy Urena RN RN ha1 Gayathri Lowry, PA-C PA-C sb4 Sylvia Vivar Christina cp4 ANGELICA COOL RN RN dd2
[2024-10-09] MEDS ORDERED: CEFTRIAXONE 1000 MG/VIAL ONE (00:12)
[2024-10-09] MEDS ORDERED: HYDROCODONE/APAP 5/325 MG TAB ONE (00:13)
--- NOTE | 2024-10-09 00:18 | RAD REPORT ---
PROCEDURE: CT Abdomen and Pelvis With Intravenous Contrast CLINICAL INDICATION: The patient is 59 years old and is Female; ABD PAIN TECHNIQUE: Axial computed tomography images of the abdomen and pelvis with intravenous contrast. Sagittal and coronal reformatted images were created and reviewed. This CT exam was performed using one or more of the following dose reduction techniques: automated exposure control, adjustment of the mA a nd/or kV according to patient size, and/or use of iterative reconstruction technique. DLP: 2772 mGy*cm COMPARISON: CT abdomen and pelvis dated 09/08/2024. FINDINGS: LUNG BASES: Unremarkable. No mass. No consolidation. ABDOMEN: LIVER: Unremarkable. No mass. GALLBLADDER AND BILE DUCTS: Cholelithiasis and/or biliary sludge. No pericholecystic fluid. No ductal dilation. PANCREAS: Unremarkable. No mass. No ductal dilation. SPLEEN: Unremarkable. No splenomegaly. ADRENALS: Unremarkable. No mass. KIDNEYS AND URETERS: Unremarkable. No solid mass. No hydronephrosis. STOMACH AND BOWEL: Unremarkable. No obstruction. No mucosal thickening. PELVIS: APPENDIX: Prior appendectomy. BLADDER: Bladder is decompressed. REPRODUCTIVE: Prior hysterectomy. ABDOMEN and PELVIS: INTRAPERITONEAL SPACE: Unremarkable. No free air. No significant fluid collection. BONES/JOINTS: Osteopenia. Advanced multilevel degenerative changes. No acute fracture. No dislocation. SOFT TISSUES: Unremarkable. VASCULATURE: Unremarkable. No abdominal aortic aneurysm. LYMPH NODES: Unremarkable. No enlarged lymph nodes. IMPRESSION: 1. No acute abdominal or pelvic abnormality. 2. Cholelithiasis and/or biliary sludge. No pericholecystic fluid. 3. Osteopenia. Advanced multilevel degenerative changes. Electronically signed by: Ernie Patrick DO 10/08/2024 11:46 PM CDT 9 Due to temporary technical issues with the PACS/CiRBA reporting system, reports are being juan antonio d by the in-house radiologist without review as a courtesy to ensure prompt reporting the interpreting radiologist is fully responsible for the content of the report. Transcribed Date/Time: 10/09/2024 12:17 AM
[2024-10-09 01:02] VITALS: O2SAT 99
[2024-10-09 01:04] VITALS: TEMP 98.3
[2024-10-09 01:06] VITALS: BP 146/85
== END 2024-10-09 00:49 | disposition home or self-care (01) ==
LOC: ER 20:25
DX: N39.0 Urinary tract infection, site not specified (principal)
CPT/HCPCS: 36415; 74177; 80053; 81001; 83690; 85025; 87077; 87086; 87088; 87186; 96374; 96375; 99284; J0696; J3010; Q9967

== ENCOUNTER 2025-01-09 17:35 | Inpatient (IN) | payer SELFPAY ==
--- OUTSIDE RECORDS SUMMARY | 2025-01-09 17:40 | XMS REPORT | Continuity of Care Document ---
Author Name Unknown Address [address] [facility] [address] [place] [address] [facility] Address [address] [facility]. [address] [place] [address] Care Team Providers Care Dental Hygienist Name Role Phone Bergeronmiguelina COBOS, Joanie Primary Care Physician [phone] Campaigns, Generic Provider Attending Clinician Unavailable Colten Ponce Attending Clinician [phone] COLTEN MATA Attending Clinician Unavailable PRACHI RODRIGUEZ Attending Clinician Unavailable MD LAUREN Attending Clinician Unavailab JASSON Beltrán Attending Clinician Unavailable LAB90 Attending Clinician Unavailable TESTING, CAMILLE FOWLER Attending Clinician U JUAN Alva Attending Clinician Unavailable LAB53 Attending Clinician Unavailable Prachi Rodriguez DO Attending Clinician [phone] COLTEN MATA Admitting Clinician Unavailable Payers Payer Name Policy Type Policy Number Effective Date Expirati on Date Source [facility] [place] [id number] 2016 00:00:00 BC[employer] 2 [id number] 2022 00:00:00 [facility] 3 [id number] 2021 00:00:00 Problems Condition Name Condition Details [...] different from the original. PSYC-Kailey n Apurva Mcmillnaybold - Externa l Class 3 severe obesity [...] Nausea and/or Vomiting 09-14 00:00: 00 [facility] AMOXICIL NADIYA DRUG INGREDI Active Low N/V 09-14 00:00: 00 [facility] demol (Not Checked) Propensi ty to adverse [...] reaction s Active Rash 07-09 00:00: 00 [facility] Meperidi ne Hcl Propensi ty to adverse reaction s Active Other - See comments 07-09 00:00: 00 Blood Pressure drops [facility] Erythrom ycin Propensi ty to adverse reaction s Active Rash 07-09 00:00: 00 [facility] Levoflox acin Propensi ty to adverse reaction s Active Hives 07-09 00:00: 00 [facility] Tetracyc line Propensi ty to adverse reaction s Active Rash 07-09 00:00: 00 [facility] PROCHLOR PERAZINE EDISYLAT E DRUG INGREDI Active Rash 07-09 00:00: 00 [facility] MEPERIDI NE HCL DRUG INGREDI Active Other-Cmnt 07-09 00:00: 00 [facility] ERYTHROM YCIN DRUG Active Rash 07-09 00:00: 00 [facility] LEVOFLOX ACIN DRUG INGREDI Active Hives 07-09 00:00: 00 [facility] TETRACYC LINE DRUG INGREDI Active Rash 07-09 00:00: 00 [facility] Social History Social Habit Start Date Stop Date Quantity Comments Source History of tobacco use Passive smoker Apurva nava - External Gender identity Dot dora Yanes - External ASSERTION Not [facility] Alcohol intake 2023-03-18 00:00:00 2023-03-18 00:00:00 Ex-drinker (finding) Apurva Yanes - External Tobacco use and exposure 2022-12-24 00:00:00 2022-12-24 00:00:00 Smokeless tobacco non-user Apurva Yanes - External Education 2022-01-15 00:00:00 2022-01-15 00:00:00 13 Apurva Yanes - External Alcoholic beverage intake 2017-07-15 00:00:00 2017-07-15 00:00:00 Current non-drinker of alcohol (finding) [facility] History of Social function 2017-07-09 00:00:00 2017-07-09 00:00:00 [facility] Sex assigned at 1965 00:00:00 1965 00:00:00 [facility] Smoking Status Start Date Stop Date Source Never smoked tobacco Apurva Yanes - External Medications Ordered Medication Name Filled Medication Name Start Date Stop Date Current Medication? Ordering Clinician Indication Dosage Frequency Signature (SIG) Comments Components Source dicyclomine (BENTYL) injection 20 mg 09-14 21:00: 00 09-14 21:46 :00 No 20mg 20 mg, Intramuscu lar, ONCE, 1 dose, On Fri09/14/24 at 1600, [facility] famotidine (PEPCID (PF)) injection 20 mg 09-14 20:00: 00 09-14 21:41 :00 No 20mg 20 mg, Slow IV Push, ONCE, 1 dose, On Fri09/14/24 at 1500, [facility] ondansetron (ZOFRAN (PF)) injection 4 mg 09-14 20:00: 00 09-14 21:42 :00 No 4mg 4 mg, Slow IV Push, ONCE, 1 dose, On Fri09/14/24 at 1500, Administer over 2-5 Minutes, 2 mL [facility] ketorolac (TORADOL) injection 15 mg 09-14 20:00: 00 09-14 21:39 :00 No 15mg 15 mg, Slow IV Push, ONCE, 1 dose, On Fri09/14/24 at 1500, [facility] atorvastati n 20 mg tablet 09-14 17:59: 50 Yes 20mg Take 20 mg by mouth at bedtime. [facility] buPROPion XL 150 mg 24 hr tablet 09-14 17:59: 50 Yes 150mg Take 150 mg by mouth daily. [facility] diazePAM 5 mg tablet 09-14 17:59: 50 Yes 5mg Take 5 mg by mouth as needed. [facility] escitalopra m oxalate 20 mg tablet 09-14 17:59: 50 Yes 20mg Take 20 mg by mouth daily. [facility] hydroCHLORO thiazide 12.5 mg capsule 09-14 17:59: 50 Yes 12.5mg Take 12.5 mg by mouth daily. [facility] lisinopril 40 mg tablet 09-14 17:59: 50 Yes 40mg Take 40 mg by mouth 2 (two) times daily. [facility] metoprolol succinate XL 50 mg 24 hr tablet 09-14 17:59: 50 Yes 50mg Take 50 mg by mouth daily. [facility] traMADOL 50 mg tablet 09-14 17:59: 50 Yes 50mg Take 50 mg by mouth every 6 (six) hours as needed. [facility] omeprazole 20 mg capsule 09-14 17:59: 50 Yes 20mg Take 20 mg by mouth daily. [facility] dicyclomine 20 mg tablet 09-14 00:00: 00 Yes [id number] 20mg Take 1 tablet by mouth 4 (four) times daily as needed for Abdominal pain. [facility] ondansetron 4 mg disintegrat ing tablet 09-14 00:00: 00 Yes [id number] 4mg Take 1 tablet by mouth every 8 (eight) hours as needed for Nausea and Vomiting (N/V). [facility] pantoprazol e 40 mg EC tablet 09-14 00:00: 00 11-14 04:59 :00 No [id number] 40mg Take 1 tablet by mouth in the morning for 60 days. [facility] benzonatate 100 mg capsule 12-09 00:00: 00 [...] MG oral Tablet 2022-05 00:00: 00 Yes [id number] 50mg QD Take 1 tablet (50 mg total) by mouth nightly as needed for anxiety (insomnia) . Apurva simeon Duloxetine HCl [address] Particles 2022-05 00:00: 00 Yes [id number] 60mg Take 1 capsule (60 mg total) by mouth daily. Apurva simeon Folic Acid 1 MG oral tablet 2022-05 00:00: 00 Yes [id number] 1mg Take 1 tablet (1 mg total) by mouth daily. Apurva simeon Aspirin 81 MG oral Tablet Delayed Response 2022-05 00:00: 00 Yes [id number] 81mg Take 1 tablet (81 mg total) [...] 00:00: 00 03-18 00:00 :00 No 50mg Q.[id number] 3D Take 1 tablet (50 mg total) by mouth every 8 hours as needed. Apurva simeon Folic Acid 1 MG oral tablet 02-13 00:00: 00 03-18 00:00 :00 No 1mg Take 1 tablet (1 mg total) by mouth daily. Apurva simeon Venlafaxine HCl 150 MG oral Capsule 24 Hour Sustained Release 01-15 00:00: 00 03-18 00:00 :00 No [id number] 150mg Take 1 capsule (150 mg total) [...] Hour Sustained Release 12-24 00:00: 00 Yes [id number] 150mg Take 1 capsule (150 mg total) by mouth daily Apurva simeon Alprazolam 0.5 MG oral Tablet 12-24 00:00: 00 Yes [id number] .5mg QD Take 1 tablet (0.5 mg total) by mouth nightly as needed for sleep or anxiety Apurva simeon TAKE ONE TABLET BY MOUTH EVERY 8 HOURS - 00:00: 00 Yes Shravan Dunaway Obi BROMPHEN-PS E-DM 2-30-10 MG/5ML 4- 00:00: 00 Yes [id number] Shravan Dunaway Obi Metoprolol Tartrate 50 MG oral Tablet 07-16 09:21: 40 Yes 50mg Take 50 mg by mouth 2 times daily Apurva simeon Semaglutide (2 mg/dose) 8 mg/3 mL SQ Solution Pen-Injecto r 07-16 00:00: 00 Yes [id number] 2mg Inject 2 mg into the skin once a week Apurva simeon VENLAFAXINE HCL ER 75 MG - 00:00: 00 Yes 75 Shravan Dunaway Obi Nebulizers (InnoSpire Essence Nebulizer) does not apply [facility] - 00:00: 00 Yes USE DIRECTED FOUR [...] 100-10 MG/5 ML 05-28 00:00: 00 Yes [id number] Shravan Crocker Metoprolol Tartrate 50 MG oral Tablet 05-27 15:41: 41 Yes 50mg Take 50 mg by mouth 2 times daily Apurva simeon Guaifenesin (Mucinex) 600 MG oral Tablet 12 Hour Sustained Release 05-27 00:00: 00 Yes [id number] 1200mg Take 2 tablets (1,200 mg total) by mouth 2 times daily Apurva simeon Amoxicillin 500 MG oral Capsule 05-27 00:00: 00 Yes [id number] 500mg Take 1 capsule (500 mg total) by mouth 3 times daily Apurva simeon Albuterol Sulfate 2.5 MG/0.5ML inhalation Inhalant Solution 05-27 00:00: 00 Yes [id number] 2.5mg Take 2.5 mg by nebulizati on once for 1 dose Apurva santosFENvishal -Codeine (Cheratussi n AC) 100-10 MG/5ML oral Syrup 05-27 00:00: 00 Yes [id number] 5mL Q.[id number] 3D Take 5 mL by mouth 3 times daily as needed for cough Apurva simeon TAKE 1 CAPSULE (500 MG TOTAL) BY MOUTH 3 TIMES DAILY 05-27 00:00: 00 Yes Shravan Crocker Albuterol (PROVENTIL) (2.5 MG/3ML) 0.083% inhalation Inhalant Solution 05-27 00:00: 00 07-16 00:00 :00 No [id number] 2.5mg Q4H Take 2.5 mg by nebulizati on every 4 hours as needed for wheezing Apurva simeon Semaglutide (1 mg/dose) 2 mg/1.5 mL SQ Solution Pen-Injecto r 05-21 00:00: 00 Yes [id number] 1mg Inject 1 mg into the skin once a week Apurva simeon OZEMPIC 1 MG/DOSE (4 MG/3 ML) 05-21 00:00: 00 Yes [id number] Shravan Crocker Benzonatate 200 MG oral Capsule [...] 2021-05 00:00: 00 12-24 00:00 :00 No [id number] 50mg Take 1 tablet (50 mg total) by mouth daily Apurva simeon Losartan Potassium 25 MG oral Tablet 2021-05 00:00: 00 05-10 00:00 :00 No [id number] 25mg Take 1 tablet (25 mg total) by mouth daily Apurva simeon Metoprolol Tartrate 50 MG oral Tablet 2021-05 16:31: 17 Yes 50mg Take 50 mg by mouth 2 times daily Apurva simeon Losartan Potassium 25 MG oral Tablet 2021-05 00:00: 00 Yes [id number] 25mg Take 1 tablet (25 mg total) by mouth daily Apurva simeon TAKE 1 TABLET (25 MG TOTAL) BY MOUTH DAILY. 2021-05 00:00: 00 Yes Shravan Crocker Cyclobenzap rine HCl 10 MG oral Tablet 2021-05 00:00: 00 12-24 00:00 :00 No [id number] 10mg Q.5D Take 1 tablet (10 mg total) by mouth 2 times daily as needed for muscle spasms Apurva simeon Metoprolol Tartrate 50 MG oral Tablet 2021-05 13:28: 16 Yes 50mg Take 50 mg by mouth 2 times daily Apurva simeon Cyclobenzap rine HCl 10 MG oral Tablet 2021-05 00:00: 00 Yes [id number] 10mg Q.5D Take 1 tablet (10 mg total) by mouth 2 times daily as needed for muscle spasms Apurva simeon CYCLOBENZAP RINE 10 MG 2021-05 00:00: 00 Yes 10 Shravan Crocker Tramadol HCl 50 MG oral Tablet 2021-05 00:00: 00 12-24 00:00 :00 No [id number] 50mg Q.5D Take 1 tablet (50 mg [...] Solution Pen-Injecto r 2021-05 00:00: 00 Yes [id number] .5mg Inject 0.5 mg into the skin [...] Solution Pen-Injecto r 2021-05 00:00: 00 Yes [id number] 104 .25mg Inject 0.25 mg into the skin once a week Apurva simeon Venlafaxine HCl 75 MG oral Capsule 24 Hour Sustained Release 2021-05 00:00: 00 12-24 00:00 :00 No [id number] 75mg Take 1 capsule (75 mg total) by mouth daily Apurva simeon Semaglutide (0.25 or 0.5 mg/dose) 2 mg/1.5 mL SQ Solution Pen-Injecto r 2021-05 025 00:00: 00 04-09 00:00 :00 No [id number] 104 .25mg Inject 0.25 mg into the skin once a week Apurva simeon Ciprofloxac in HCl 500 MG oral Tablet 2021-05 00:00: 00 04-09 00:00 :00 No Apurva simeon SULFAMETHOX AZOLE-TMP DS 2021-05 003 00:00: 00 Yes [id number] Shravan Crocker Venlafaxine HCl 75 MG oral [...] 02-12 00:00: 00 04-09 00:00 :00 No [id number] Apply 1 applicatio n topically 2 times daily Apurva simeon TRIMETHOPRI M-SULFAMETH OXAZOLE 800-160 MG oral Tablet 02-12 00:00: 00 02-20 04:59 :00 No [id number] 1{tbl} Take 1 tablet by mouth 2 times daily for 7 days Apurva simeon Blood Pressure does not apply Kit 01-15 00:00: 00 02-12 00:00 :00 No [id number] Check BP daily Apurva simeon Immunizations Ordered [...] Systolic blood pressure 2024-09-14 22:46:37 165 mm[Hg] [facility] Diastolic blood pressure 2024-09-14 22:46:37 82 mm[Hg] [facility] Heart rate 2024-09-14 22:46:37 77 /min [facility] Body temperature 2024-09-14 22:46:37 36.83 Kimi [facility] Respiratory rate 2024-09-14 22:46:37 23 /min [facility] Oxygen saturation in Arterial blood by Pulse oximetry 2024-09-14 22:46:37 96 /min [facility] Body height 2024-09-14 19:45:00 172.7 cm [facility] acute hospital Body weight 2024-09-14 19:45:00 179.171 kg [facility] acute hospital BMI 2024-09-14 19:45:00 60.06 kg/m2 [facility] acute [facility] Systolic blood pressure 2023-03-18 16:12:00 158 mm[Hg] [...] n Source LIPASE 2024-09-14 21:38:00 Colten Mata [facility] COMP. METABOLIC PANEL ([id number]) 2024-09-14 21:38:00 Colten Mata [facility] CBC WITH DIFF 2024-09-14 21:38:00 Colten Mata [facility] Encounters Start Date/Time End Date/Time Encounter Type Admission Type Attending Clinicians Care Facility Care Department Encounter ID Source 2024-09-22 00:00:00 2024-09-22 10:07:01 Letter (Out) Campaigns, Generic Provider Campaigns, Generic Provider [facility] [id number] [facility] 2024-09-14 14:48:00 2024-09-14 17:59:00 Emergency Colten Mata [facility] [id number] [facility] 2024-09-14 14:48:00 2024-09-14 17:59:00 Emergency X COLTEN MATA [facility] ERT [id number] [facility] 2023-12-10 15:24:37 2023-12-10 15:24:37 Outpatient SFA SFA [id number] Shravan Crocker 2023-12-10 00:00:00 2023-12-10 00:00:00 Outpatient Visit SFA [id number] Shravan Crocker 2023-04-22 00:00:00 2023-04-22 00:00:00 Outpatient PRACHI RODRIGUEZ [id number] [facility] 2023-04-16 00:00:00 2023-04-16 00:00:00 Outpatient MD APURVA MOLINA [id number] Apurva [facility] 2023-03-18 11:00:00 2023-03-18 11:00:00 Outpatient PREZAS, PRACHI MIXON APURVA [id number] Apurva [facility] 2023-02-13 11:15:00 2023-02-13 11:15:00 Outpatient PREZAS, PRACHI MIXON APURVA [id number] Apurva Mcmillannehal 2023-01-22 11:15:00 2023-01-22 11:15:00 Outpatient PREZAS, PRACHI MIXON APURVA [id number] [facility] 2023-01-15 00:00:00 2023-01-15 00:00:00 Outpatient PREZAS, PRACHI MIXON APURVA [id number] [facility] 2023-01-15 00:00:00 2023-01-15 00:00:00 Outpatient PREZAS, PRACHI APURVA APURVA [id number] [facility] 2023-01-15 00:00:00 2023-01-15 00:00:00 Outpatient PREZAS, PRACHI APURVA APURVA [id number] Apurva [facility] 2022-12-31 00:00:00 2022-12-31 00:00:00 Outpatient PREZAS, PRACHI APURVA MIXON [id number] Apurva [facility] 2022-12-25 00:00:00 2022-12-25 00:00:00 Outpatient ROBBIE, JASSON APURVA MIXON [id number] [facility] 2022-12-24 09:20:00 2022-12-24 09:20:00 Outpatient LAB90 APURVA MIXON [id number] [facility] 2022-12-24 08:45:00 2022-12-24 08:45:00 Outpatient PREZAS, PRACHI APURVA MIXON [id number] [facility] 2022-10-07 15:45:00 2022-10-07 15:45:00 Outpatient PREZAS, PRACHI APURVA MIXON [id number] [facility] 2022-08-26 14:00:00 2022-08-26 14:00:00 Outpatient TESTING, CAMILLE MIXON [id number] [facility] 2022-08-26 00:00:00 2022-08-26 00:00:00 Outpatient PREZAS, PRACHI MIXON APURVA [id number] [facility] 2022-08-07 00:00:00 2022-08-07 00:00:00 Outpatient ROBBIE, JASSON MIXON APURVA [id number] Apurva [facility] 2022-07-30 10:00:00 2022-07-30 10:00:00 Outpatient LAB90 APURVA APURVA [id number] Apurva Sey[facility] 2022-07-16 09:30:00 2022-07-16 09:30:00 Outpatient PREZAS, PRACHI MIXON APURVA [id number] [facility] 2022-07-09 08:10:00 2022-07-09 08:10:00 Outpatient LAB90 APURVA APURVA [id number] [facility] 2022-06-21 13:45:00 2022-06-21 13:45:00 Outpatient PREZAS, PRACHI MIXON [facility] [id number] [facility] 2022-05-29 00:00:00 2022-05-29 00:00:00 Outpatient HUNDL, JUAN MIXON APURVA [id number] [facility] 2022-05-27 15:30:00 2022-05-27 15:30:00 Outpatient HUNDL, JUAN MIXON APURVA [id number] [facility] 2022-05-24 00:00:00 2022-05-24 00:00:00 Outpatient PREZAS, PRACHI APURVA MIXON [id number] [facility] 2022-05-21 00:00:00 2022-05-21 00:00:00 Outpatient PREZAS, PRACHI APURVA MIXON [id number] Apurva Seybold 2022-05-21 00:00:00 2022-05-21 00:00:00 Outpatient PREZAS, PRACHI APURVA MIXON [id number] [facility] 2022-05-19 00:00:00 2022-05-19 00:00:00 Outpatient PREZAS, PRACHI APURVA MIXON [id number] [facility] 2022-05-10 09:45:00 2022-05-10 09:45:00 Outpatient PREZAS, PRACHI MIXON APURVA [id number] [facility] 2022-05-07 16:15:00 2022-05-07 16:15:00 Outpatient PREZAS, PRACHI MIXON [id number] [facility] 2022-05-01 00:00:00 2022-05-01 00:00:00 Outpatient PREZAS, PRACHI MIXON APURVA [id number] [facility] 2022-05-01 00:00:00 2022-05-01 00:00:00 Outpatient ROBBIE, JASSON MIXON APURVA [id number] [facility]va [facility] 2022-04-29 16:30:00 2022-04-29 16:30:00 Outpatient PREZAS, PRACHI MIXON APURVA [id number] [facility] 2022-04-17 13:30:00 2022-04-17 13:30:00 Outpatient PREZAS, PRACHI MIXON APURVA [id number] [facility] 2022-04-17 00:00:00 2022-04-17 00:00:00 Outpatient PREZAS, PRACHI MIXON APURVA [id number] [facility] 2022-04-15 14:35:00 2022-04-15 14:35:00 Outpatient LABMiguel Angel MIXON APURVA [id number] [facility] 2022-04-15 14:00:00 2022-04-15 14:00:00 Outpatient ROBBIE, JASSON APURVA MIXON [id number] [facility] 2022-04-09 16:15:00 2022-04-09 16:15:00 Outpatient PREZAS, PRACHI APURVA MIXON [id number] [facility] 2022-03-12 15:00:00 2022-03-12 15:00:00 Outpatient PREZAS, PRACHI APURVA MIXON [id number] [facility] 2022-02-12 15:15:00 2022-02-12 15:15:00 Outpatient PREZAS, PRACHI APURVA MIXON [id number] [facility] 2022-02-12 13:45:00 2022-02-12 13:45:00 Outpatient PRACHI RODRIGUEZ [id number] Apurva Yanes 2022-01-31 00:00:00 2022-01-31 00:00:00 Outpatient PRACHI RODRIGUEZ [id number] Apurva Yanes 2022-01-22 08:50:00 2022-01-22 08:50:00 Outpatient LAB90 APURVA MIXON [id number] Auprva Yanes 2022-01-16 00:00:00 2022-01-16 00:00:00 Outpatient PRACHI RODRIGUEZ [id number] Apurva Yanes 2022-01-15 08:55:00 2022-01-15 08:55:00 Outpatient LAB90 APURVA MIXON [id number] Apurva Yanes 2022-01-15 08:00:00 2022-01-15 08:30:00 Office Visit Prachi Rodriguez [id number] [facility] Results Test Description Test Time Test Comments Results Result Co mments Source [facility] 22:07:20* Test Item Value Reference Range Interpretation Comme nts LIPASE (test code = 1283928918) 73 U/L 0-220 Lab Interpretation (test cod e = 15207-4) Normal [facility] WITH [id number] 21:58:17* Test Item Value Reference Range Interpretation [...] 34.2 g/dL 31.6-35.1 RDW-SD (test code = 52596-0) 39.1 fL 39.0-49.9 RDW-CV (test code = 788-0) 11.9 % 12.0-15.5 L PLT (test code = 777-3) 252 166-358 MPV (test code = 59396-7) 10.2 fL 9.5-12.9 NRBC/100 WBC (test code = 7222299277) 0 0.0-10.0 NRBC x10^3 (test code = 5034740756) See_Comment [Automated messa ge] The system which generated this result transmitted reference range: 10*3/?L. The reference range was not used to interpret this result as normal/abnormal. GRAN MAT (NEUT) % (test code = 770-8) 63.3 % IMM GRAN % (test code = 2158623762) 0.3 % LYMPH % (test code = 736-9) 25.9 % MONO % (test code = 5905-5) 6.5 % EOS % (test code = 713-8) 3.5 % BASO % (test code = 706-2) 0.5 % GRAN MAT x10^3(ANC) (test code = 4041884974) 3.78 10*3/uL 1.88-7.09 IMM GRAN x10^3 (test code = 5270937627) 0.00-0.06 LYMPH x10^3 (test code = 731-0) 1.55 10*3/uL 1.32-3.29 MONO x10^3 (test code = 742-7) 0.39 10*3/uL 0.33-0.92 EOS x10^3 (test code = 711-2) 0.21 10*3/uL 0.03-0.39 BASO x10^3 (test code = 704-7) 0.03 10*3/uL 0.01-0.07 Lab Interpretation (test code = 47126-9) Abnormal [facility] Notes Date/Time Note Provider Source 2024-09-14 17:58:17 [...] distress. No ataxia noted. Avril Gibbs RN [facility] 2024-09-14 14:42:56 Pt presents to ED with c/o right upper quadrant pain radiating to right shoulder for 1 week. Pt states it worsens after she eats. Pt has known gallstones. Pt rates pain8/10. Pt states she also has high blood pressure. [facility] Shravan Tripp [facility]
--- NOTE | 2025-01-09 18:37 | RAD REPORT ---
Procedure: Chest Single View HISTORY: Chest pain COMPARISON: July 2024 FINDINGS: The lungs appear clear of acute infiltrate. No significant pleural effusion noted. The heart is mildly enlarged. Post surgical changes involve the chest. IMPRESSION: No acute abnormality is displayed.
[2025-01-09] MEDS ORDERED: ASPIRIN 81 MG CHEWABLE TABLET ONE (18:48)
[2025-01-09 18:59] LABS: Absolute Lymphocytes (CBC) 1.5 K/uL (0.7-4.9); Hematocrit 39.9 % (36.0-45.0); Hemoglobin 13.7 g/dL (12.0-15.0); MCH 30.3 pg (27.0-35.0); MCHC 34.2 g/dL (32.0-36.0); MCV 88.5 fL (80-100); MPV 8.7 fL (7.6-11.3); Nucleated RBC Absolute Count 0.0 (0-0); Nucleated Red Blood Cells % 0.0 % (0-0); RBC Red Blood Cell Count 4.51 M/uL (3.86-4.86); White Blood Count 6.60 thou/uL (4.3-10.9)
[2025-01-09 19:09] LABS: ALT/SGPT 40.0 U/L (13-56); AST/SGOT 19.0 U/L (15-37); Albumin 3.5 g/dL (3.4-5.0); Albumin/Globulin Ratio 0.9 (1.1-1.8); Alkaline Phosphatase 107.0 U/L (45-117); Anion Gap 7.5 mEq/L (5.0-15.0); BUN Blood Urea Nitrogen 12.0 mg/dL (7-18); Bilirubin Indirect, Calculated 0.4 mg/dL (0.2-0.8); Globulin 4.1 g/dL (2.3-3.5); Glucose Level 110.0 mg/dL (74-106); Magnesium 2.1 mg/dL (1.6-2.4); NT PRO-BNP 134.0 pg/mL (<125); Potassium 3.5 mEq/L (3.5-5.1); Troponin High Sensitivity 5.7 pg/mL (<58.9)
--- NOTE | 2025-01-09 19:26 | EDPHYS ---
Physician Documentation [facility] Name: Julienne Tucker Age: 59 yrs Sex: Female : 1965 Arrival Date: 01/09/2025 Time: 17:35 Bed 7 Private MD: ED Physician Shmuel Holm HPI: 01/09 17:55 This 59 yrs old Female presents to ER via Wheelchair with complaints of Chest Pain, kb Back Pain. 17:55 Pt is a 59 year old female who presents for chest pain, shortness of breath, and back kb pain that has been intermittent for one week. states the pain returned 1.5 hours ago and has been worse so she came in for evaluation. Reports CABG 10 years ago and hypertension history. States she does not have insurance so she doesn't see any dr and doesn't take any medications. Historical: - Allergies: 17:54 Amoxicillin; iw 17:54 Azithromycin; iw 17:54 Compazine; iw 17:54 Demerol; iw 17:54 Erythromycin; iw 17:54 Levofloxacin; iw 17:54 Tetracycline; iw 17:54 Vancomycin; iw - PMHx: 17:54 Depression; Hypertension; iw - PSHx: 17:54 Appendectomy; Coronary artery bypass graft; cyst removed from back; hysterectomy; left iw foot; - Immunization history:: Adult Immunizations not up to date. - Infectious Disease History:: Denies. - Social history:: Smoking status: Patient denies any tobacco usage or history of. ROS: 17:55 Constitutional: As per HPI kb Exam: 17:52 Constitutional: This is a well developed, well nourished patient who is awake, alert, kb and in no acute distress. Head/Face: Normocephalic, atraumatic. ENT: Moist Mucous membranes Cardiovascular: Regular rate Respiratory: Respirations even and unlabored. No increased work of breathing. Talking in full sentences Skin: Warm, dry with normal turgor. Normal color. MS/ Extremity: Pulses equal, no cyanosis. Neurovascular intact. Full, normal range of motion. Neuro: Awake and alert, GCS 15, oriented to person, place, time, and situation. 17:52 ECG was reviewed by the Attending Physician. 17:52 Abdomen/GI: Inspection: obese Bowel sounds: normal, Palpation: abdomen is soft and non-tender, Vital Signs: 17:54 BP 199 / 95; Pulse 97; Resp 19; Temp 98.2; Pulse Ox 95% on R/A; Weight 174.63 kg; iw Height 5 ft. 8 in. ; Pain 8/10; 19:00 BP 160 / 99; Pulse 87; Resp 18; Pulse Ox 96% on R/A; kb4 20:30 BP 190 / 97; Pulse 85; Resp 18; Pulse Ox 96% on R/A; kb4 21:15 BP 178 / 97; Pulse 88; Resp 18; Pulse Ox 96% on R/A; al5 17:54 Body Mass Index 58.54 (174.63 kg, 172.72 cm) iw 17:54 Pain Scale: Adult iw MDM: 17:40 Medical Screening Exam initiated kb 19:23 Data reviewed: vital signs, nurses notes. kb 19:23 Differential diagnosis: acute mi, arrhythmia, CAD. Consideration of kb Admission/Observation Patient was admitted/placed on observation. Escalation of care including admission/observation considered. Management of patient was discussed with the following: Hospitalist: Dr Malloy accepts pt for admission. Care significantly affected by the following chronic conditions: Hypertension, CABG. Counseling: I had a detailed discussion with the patient and/or guardian regarding the historical points, exam findings, and any diagnostic results supporting the discharge/admit diagnosis, lab results, radiology results, the need for further work-up and treatment in the hospital. 19:25 ED course: heart score 4. kb 01/09 17:45 Order name: Basic Metabolic Panel; Complete Time: 19: kb 01/09 17:45 Order name: CBC with Diff; Complete Time: 19: kb 01/09 17:45 Order name: LFT's; Complete Time: 19: kb 01/09 17:45 Order name: Magnesium; Complete Time: 19: kb 01/09 17:45 Order name: NT PRO-BNP; Complete Time: 19: kb 01/09 17:45 Order name: Troponin HS; Complete Time: 19: kb 01/09 20:26 Order name: CBC with Automated Diff EDMS 01/09 20:26 Order name: CBC with Automated Diff EDMS 01/09 20:26 Order name: Comprehensive Metabolic Panel EDMS 01/09 20:26 Order name: Comprehensive Metabolic Panel EDMS 01/09 20:26 Order name: Troponin High Sensitivity EDMS 01/09 20:26 Order name: Troponin High Sensitivity [facility] 01/09 17:45 Order name: XRAY Chest (1 view); Complete Time: 18:38 kb 01/09 17:45 Order name: Cardiac monitoring; Complete Time: 20:25 kb 01/09 17:45 Order name: EKG - Nurse/Tech; Complete Time: 18:39 kb 01/09 17:45 Order name: IV Saline Lock; Complete Time: 20:25 kb 01/09 17:45 Order name: Labs collected and sent; Complete Time: 18:50 kb 01/09 17:45 Order name: O2 Per Protocol; Complete Time: 18:50 kb 01/09 17:45 Order name: O2 Sat Monitoring; Complete Time: 18:50 kb EC:52 Rate is 98 beats/min. Rhythm is regular. QRS [place] is Normal. LA interval is normal at kb 178 msec. QRS interval is normal at 148 msec. QT interval is prolonged at 510 msec. Administered Medications: 18:50 Drug: Aspirin PO Chewable Tablet 324 mg PO once; 81 mg tablets x 4 Route: PO; 01/10 00:32 Follow up: Response: No adverse reaction 4 01/09 21:00 Drug: Ativan IVP 1 mg IVP once Route: IVP; Site: right antecubital; 4 21:00 Follow up: Response: No adverse reaction 4 01/10 00:32 Follow up: Response: No adverse reaction kb4 Disposition Summary: 01/09/25 19:25 Hospitalization Ordered Notes: Hospitalization Status: Observation kb Provider: Junaid Malloy Location: Telemetry/MedSurg (observation) kb Condition: Stable kb Problem: new kb Symptoms: are unchanged kb Bed/Room Type: Standard Room Assignment: 225(01/09/25 20:45) vc1 Diagnosis - Chest pain, unspecified kb Forms: - Medication Reconciliation Form kb - SBAR form kb - Leadership Thank You Letter kb Addendum: 01/11/2025 07:05 Co-signature as Attending Physician, Shmuel Holm MD I reviewed the patient's care r n provided by the Advanced Practice Provider and agree with the diagnosis and treatment plan. Signatures: Dispatcher [employer] Justina Tovar, PAPITO-C ORAL AND MAXILLOFACIAL SURGERY-Ckb Melodie Jackson RN Shmuel Ruvalcaba MD MD rn Calcote, Vanessa, RN RN vc1 Blanca Mahan RN RN kb4 Corrections: (The following items were deleted from the chart) 01/09 17:46 17:46 BASIC METABOLIC PANEL+C.LAB.BRZ ordered. EDMS EDMS 17:46 17:46 CBC+H.LAB.BRZ ordered. EDMS EDMS 17:46 17:46 HEPATIC FUNCTION+C.LAB.BRZ ordered. EDMS EDMS 17:46 17:46 MAGNESIUM+C.LAB.BRZ ordered. EDMS EDMS 17:46 17:46 PROBNP+C.LAB.BRZ ordered. EDMS EDMS 17:46 17:46 Troponin High Sensitivity+C.LAB.BRZ ordered. EDMS EDMS 17:46 17:46 Chest Single View+RAD.RAD.BRZ ordered. EDMS EDMS 20:45 19:25 kb vc1
--- NOTE | 2025-01-09 19:26 | ER ---
Nurse's Notes [facility] Name: Julienne Tucker Age: 59 yrs Sex: Female : 1965 Arrival Date: 01/09/2025 Time: 17:35 Bed 7 Private MD: Diagnosis: Chest pain, unspecified Presentation: 01/09 17:53 Chief complaint: Patient states: midsternal chest pain X 90 minutes today, started a iw week ago off and on. Coronavirus screen: At this time, the client does not indicate any symptoms associated with coronavirus-19. Ebola Screen: No symptoms or risks identified at this time. Initial Sepsis Screen: Does the patient meet any 2 criteria? HR > 90 bpm. Does the patient have a suspected source of infection? No. Patient's initial sepsis screen is negative. Risk Assessment: Do you want to hurt yourself or someone else? Patient reports no desire to harm self or others. Onset of symptoms was January 02, 2025. 17:53 Method Of Arrival: Wheelchair iw 17:53 Acuity: RJ 2 iw Historical: - Allergies: 17:54 Amoxicillin; iw 17:54 Azithromycin; iw 17:54 Compazine; iw 17:54 Demerol; iw 17:54 Erythromycin; iw 17:54 Levofloxacin; iw 17:54 Tetracycline; iw 17:54 Vancomycin; iw - PMHx: 17:54 Depression; Hypertension; iw - PSHx: 17:54 Appendectomy; Coronary artery bypass graft; cyst removed from back; hysterectomy; left iw foot; - Immunization history:: Adult Immunizations not up to date. - Infectious Disease History:: Denies. - Social history:: Smoking status: Patient denies any tobacco usage or history of. Screenin:50 [facility] ED Fall Risk Assessment (Adult) History of falling in the last 3 months, al5 including since admission No falls in past 3 months (0 pts) Confusion or Disorientation No (0 pts) Intoxicated or Sedated No (0 pts) Impaired Gait No (0 pts) Mobility Assist Device Used No (0 pt) Altered Elimination No (0 pt) Score/Fall Risk Level 0 - 2 = Low Risk Oriented to surroundings, Maintained a safe environment, Hourly rounding (assess needs \T\ fall precautionary measures) done. Abuse screen: Denies threats or abuse. Denies injuries from another. Nutritional screening: No deficits noted. Tuberculosis screening: No symptoms or risk factors identified. Assessment: 19:45 General: Appears in no apparent distress. comfortable, Behavior is cooperative, kb4 anxious. Pain: Complains of pain in chest Pain does not radiate. Pain began 2wks. Cardiovascular: Heart tones S1 S2 Patient's skin is warm and dry. Rhythm is regular. Respiratory: Airway is patent Respiratory effort is even, unlabored, Respiratory pattern is regular, symmetrical. 19:45 Derm: Skin is intact, Skin is pink, warm \T\ dry. normal. Musculoskeletal: No signs kb4 and/or symptoms reported regarding the musculoskeletal system. 21:00 Reassessment: No changes from previously documented assessment. Patient and/or family kb4 updated on plan of care and expected duration. Pain level reassessed. Patient is alert, oriented x 3, equal unlabored respirations, skin warm/dry/pink. ativan given for anxiety per pt request and provider order. Vital Signs: 17:54 BP 199 / 95; Pulse 97; Resp 19; Temp 98.2; Pulse Ox 95% on R/A; Weight 174.63 kg; iw Height 5 ft. 8 in. ; Pain 8/10; 19:00 BP 160 / 99; Pulse 87; Resp 18; Pulse Ox 96% on R/A; kb4 20:30 BP 190 / 97; Pulse 85; Resp 18; Pulse Ox 96% on R/A; kb4 21:15 BP 178 / 97; Pulse 88; Resp 18; Pulse Ox 96% on R/A; al5 17:54 Body Mass Index 58.54 (174.63 kg, 172.72 cm) iw 17:54 Pain Scale: Adult iw ED Course: 17:38 Patient arrived in ED. ts1 17:40 Justina Mora FNP-C is PHCP. kb 17:40 Shmuel Holm MD is Attending Physician. kb 17:54 Triage completed. iw 17:55 Arm band placed on. EKG completed in triage. Results shown to MD. iw 18:27 XRAY Chest (1 view) In Process Unspecified. EDMS 19:25 Junaid Malloy MD is Hospitalizing Provider. kb 19:50 Patient has correct armband on for positive identification. Bed in low position. Call al5 light in reach. Side rails up X2. Provided Education on: plan of carre. Client placed on continuous cardiac and pulse oximetry monitoring. NIBP monitoring applied. 19:50 No provider procedures requiring assistance completed. Inserted saline lock: 20 gauge al5 in right antecubital area, using aseptic technique. Blood collected. Flushed with 10 mL NS. 19:50 Patient maintains SpO2 saturation greater than 95% on room air. al5 20:25 Hilda Braxton, RN is Primary Nurse. al5 21:50 Patient admitted, IV remains in place. al5 Administered Medications: 18:50 Drug: Aspirin PO Chewable Tablet 324 mg PO once; 81 mg tablets x 4 Route: PO; iw 01/10 00:32 Follow up: Response: No adverse reaction kb4 01/09 21:00 Drug: Ativan IVP 1 mg IVP once Route: IVP; Site: right antecubital; kb4 21:00 Follow up: Response: No adverse reaction kb4 01/10 00:32 Follow up: Response: No adverse reaction kb4 Medication: 01/09 19:50 VIS not applicable for this client. al5 Outcome: 19:25 Decision to Hospitalize by Provider. kb 21:50 Admitted to Med/surg accompanied by tech, via stretcher, room 225, with chart, al5 21:50 Condition: stable 21:50 Instructed on the need for admit, 22:38 Patient left the ED. al5 Signatures: Dispatcher [employer] EDMS Justina Mora, CTE TEACHER-C CTE TEACHER-Ckb Melodie Jackson RN RN iw Nadia Schaefer, PAS PAS ts1 Hilda Braxton RN RN al5 Blanca Mahan RN RN kb4 Corrections: (The following items were deleted from the chart) 01/10 00:36 01/09 19:45 Pain: Complains of pain in chest Pain does not radiate. kb4 kb4 01/10 00:37 01/09 19:45 Pain: Complains of pain in chest Pain does not radiate. kb4 kb4
--- NOTE | 2025-01-09 20:13 | P.HP ---
Certification for Inpatient Patient admitted to: Inpatient With expected LOS: >2 Midnights Practitioner: I am a practitioner with admitting privileges, knowledge of patient current condition, hospital course, and medical plan of care. Services: Services provided to patient in accordance with Admission requirements found in Title 42 Section 412.3 of the Code of Federal Regulations Patient History Date of Service: 01/10/25 Reason for admission: Chest Pain History of Present Illness: 59 year-old female with past medical history of hypertension, depression, obesity, congenital heart disease status post correction surgery COPD, hyperlipidemia, morbid obesity, history of cervical cancer, depression, fatty liver brought to ER with chest pain and shortness of breath which has been going on for last 1 week and has been progressively getting worse and was brought to ER. Denies any fever or chills. No nausea vomiting or diarrhea. Has been noncompliant with medications. Patient was assessed in the ER and was admitted for further management to rule out ACS. She also has a bilateral lower extremity swelling. Allergies aluminum hydroxide [From Maalox] Allergy (Verified 10/20/23 04:33) Hives calcium carbonate [From Maalox] Allergy (Verified 10/20/23 04:33) Hives erythromycin base [Erythromycin Base] Allergy (Verified 10/20/23 04:33) Hives levofloxacin [From Levaquin] Allergy (Verified 10/20/23 04:33) Hives/Rash lidocaine [Lidocaine] Allergy (Verified 10/20/23 04:33) Hives? magnesium hydroxide [From Maalox] Allergy (Verified 10/20/23 04:33) Hives meperidine HCl [From Demerol] Allergy (Verified 10/20/23 04:33) Hives prednisone Allergy (Verified 10/20/23 04:33) Hives prochlorperazine edisylate [From Compazine] Allergy (Verified 10/20/23 04:33) Hives prochlorperazine maleate [From Compazine] Allergy (Verified 10/20/23 04:33) Hives simethicone [From Maalox] Allergy (Verified 10/20/23 04:33) Hives tetracycline [Tetracycline] Allergy (Verified 10/20/23 04:33) Hives zpac Allergy (Uncoded 02/15/22 08:29) Hives Home medications list reviewed: Yes - Past Medical/Surgical History Diabetic: No Past Medical History: Reviewed- Non-Contributory -: Hypertension -: Depression -: Cervical Cancer -: Obesity Hypoventilation Syndrome -: Fatty Liver Past Surgical History: Reviewed- Non-Contributory -: Hysterectomy -: CABG -: Brackets on sternum from CABG Sx -: Cyst removal on back Psychosocial/ Personal History: Patient is . - Family History Family History: Reviewed- Non-Contributory - Family History Father -: Heart disease - Social History Smoking Status: Never smoker Alcohol use: No CD- Drugs: No Caffeine use: Yes Review of Systems 10-point ROS is otherwise unremarkable Physical Examination - Vital Signs Temperature: 97.7 F Blood Pressure: 187/91 Pulse: 86 Respirations: 18 Pulse Ox (%): 94 - Physical Exam General: Alert, Oriented x3, Obese HEENT: Atraumatic, Normocephalic Neck: Supple, No Thyromegaly Respiratory: Clear to auscultation bilaterally, Normal air movement, Crackles/rales Cardiovascular: Regular rate/rhythm, Normal S1 S2 Capillary refill: <2 Seconds Gastrointestinal: Soft and benign, W/out hepatosplenomegaly Musculoskeletal: No clubbing, Swelling Integumentary: No rashes Neurological: Other (Alert awake nonfocal) Lymphatics: No axilla or inguinal lymphadenopathy - Studies Laboratory Data (last 24 hrs) 01/09/25 01/09/25 18:38 18:38 WBC 6.60 Hgb 13.7 Hct 39.9 Plt Count 234 Sodium 138 Potassium 3.5 BUN 12 Creatinine 0.93 Glucose 110 H Magnesium 2.1 Total Bilirubin 0.6 AST 19 ALT 40 Alkaline Phosphatase 107 Assessment and Plan - Plan Unstable angina Will trend cardiac enzymes Will monitor telemetry Started on aspirin and statin Will get an echocardiogram Cardiology consult Acute on chronic CHF possibly systolic/diastolic Monitor closely on telemetry Started on aggressive diuresis X-ray findings consistent with CHF Oxygen supplementation Will try to wean down oxygen requirement Continue home medications Titrate as needed Will obtain an echocardiogram Cardiology consult Monitor closely on telemetry Oxygen supplementation Will try to wean down oxygen requirement Morbid obesity Current Visit: No Status: Chronic Plan: Lifestyle modification Elevated LFTs Monitor LFTs closely GI/DVT prophylaxis Advanced directive full code Discharge Plan: Home Plan to discharge in: 48 Hours - Advance Directives Does patient have a Living Will: No Does patient have a Durable POA for Healthcare: No - Code Status/Comfort Care Code Status: Full Code Time Spent Managing Pts Care (In Minutes): 48
[2025-01-09] MEDS ORDERED: ALBUTEROL 2.5 MG/3 ML NEB SOL NEB PRN (20:21)
[2025-01-09] MEDS ORDERED: ACETAMINOPHEN 325 MG TABLET PO PRN (20:21)
[2025-01-09] MEDS ORDERED: LORazepam 2 MG/ML VIAL ONE (20:48)
[2025-01-09] MEDS: HYDROCODONE/APAP 5/325 MG TAB PO PRN (23:19)
[2025-01-09] MEDS: FUROSEMIDE 40 MG/4 ML VIAL IV SCH (23:20)
[2025-01-10] MEDS: HYDRALAZINE HCL 20 MG/ML VIAL IV PRN (00:35)
[2025-01-10] MEDS: IPRATROPIUM BROM 0.5MG/2.5ML NEB SCH (01:00)
[2025-01-10 04:37] LABS: Absolute Lymphocytes (CBC) 1.6 K/uL (0.7-4.9); Hematocrit 37.1 % (36.0-45.0); Hemoglobin 13.0 g/dL (12.0-15.0); MCH 30.8 pg (27.0-35.0); MCHC 35.0 g/dL (32.0-36.0); MCV 88.1 fL (80-100); MPV 8.5 fL (7.6-11.3); Nucleated RBC Absolute Count 0.0 (0-0); Nucleated Red Blood Cells % 0.1 % (0-0); RBC Red Blood Cell Count 4.22 M/uL (3.86-4.86); White Blood Count 6.00 thou/uL (4.3-10.9)
[2025-01-10 04:47] LABS: ALT/SGPT 37.0 U/L (13-56); AST/SGOT 13.0 U/L (15-37); Albumin 3.2 g/dL (3.4-5.0); Albumin/Globulin Ratio 0.9 (1.1-1.8); Alkaline Phosphatase 99.0 U/L (45-117); Anion Gap 9.6 mEq/L (5.0-15.0); BUN Blood Urea Nitrogen 14.0 mg/dL (7-18); Globulin 3.6 g/dL (2.3-3.5); Glucose Level 113.0 mg/dL (74-106); Potassium 3.6 mEq/L (3.5-5.1)
[2025-01-10] MEDS: MORPHINE 2 MG/ML SYR IV PRN (08:42)
[2025-01-10] MEDS: POTASSIUM CL SA 10 MEQ TAB PO ONE (08:43)
[2025-01-10] MEDS: METOPROLOL XL 25 MG TAB PO SCH (08:43)
[2025-01-10] MEDS: ASPIRIN EC 81 MG TAB PO SCH (08:43)
[2025-01-10] MEDS: AMLODIPINE 10 MG TAB PO SCH (08:43)
[2025-01-10] MEDS: ONDANSETRON 4 MG/2 ML VIAL IV PRN (10:34)
--- NOTE | 2025-01-10 11:46 | P.CNS ---
Date of Consult: 01/10/25 Chief Complaint: Chest Pain History of Present Illness: Pateint with PMH of CAD s/p CABG 13 year ago at [facility], HTN, Morbid obesity, presented with chest pain that started yesterday, mid chest, no radiation, patient also report FREEMAN, SOB, denies any other cardiac symptoms, patient has not been complaint with medications. Allergies aluminum hydroxide [From Maalox] Allergy (Verified 10/20/23 04:33) Hives calcium carbonate [From Maalox] Allergy (Verified 10/20/23 04:33) Hives erythromycin base [Erythromycin Base] Allergy (Verified 10/20/23 04:33) Hives levofloxacin [From Levaquin] Allergy (Verified 10/20/23 04:33) Hives/Rash lidocaine [Lidocaine] Allergy (Verified 10/20/23 04:33) Hives? magnesium hydroxide [From Maalox] Allergy (Verified 10/20/23 04:33) Hives meperidine HCl [From Demerol] Allergy (Verified 10/20/23 04:33) Hives prednisone Allergy (Verified 10/20/23 04:33) Hives prochlorperazine edisylate [From Compazine] Allergy (Verified 10/20/23 04:33) Hives prochlorperazine maleate [From Compazine] Allergy (Verified 10/20/23 04:33) Hives simethicone [From Maalox] Allergy (Verified 10/20/23 04:33) Hives tetracycline [Tetracycline] Allergy (Verified 10/20/23 04:33) Hives zpac Allergy (Uncoded 02/15/22 08:29) Hives Home medications list reviewed: Yes - Past Medical/Surgical History Diabetic: No -: Hypertension -: Depression -: Cervical Cancer -: Obesity Hypoventilation Syndrome -: Fatty Liver -: Hysterectomy -: CABG -: Brackets on sternum from CABG Sx -: Cyst removal on back Psychosocial/ Personal History: Patient is . - Family History Father Medical History: Heart disease - Social History Smoking Status: Unknown if ever smoked Alcohol use: No CD- Drugs: No Caffeine use: Yes Place of Residence: Home Review of Systems 10-point ROS is otherwise unremarkable Physical Examination Temp Pulse Resp BP Pulse Ox 97.6 F 79 18 166/80 H 100 08/25/25 08:00 01/10/25 08:00 01/10/25 08:00 01/10/25 08:00 01/10/25 08:00 General: Alert, In no apparent distress HEENT: Atraumatic, PERRLA, Mucous membr. moist/pink, EOMI, Sclerae nonicteric Neck: Supple, 2+ carotid pulse no bruit, No LAD, Without JVD or thyroid abnormality Respiratory: Clear to auscultation bilaterally, Normal air movement Cardiovascular: Regular rate/rhythm, Normal S1 S2 Gastrointestinal: Normal bowel sounds, No tenderness Musculoskeletal: No tenderness Integumentary: No rashes Neurological: Normal gait, Normal speech, Normal tone, Normal affect Lymphatics: No axilla or inguinal lymphadenopathy Laboratory Data (last 24 hrs) 01/09/25 01/09/25 18:38 18:38 WBC 6.60 Hgb 13.7 Hct 39.9 Plt Count 234 Sodium 138 Potassium 3.5 BUN 12 Creatinine 0.93 Glucose 110 H Magnesium 2.1 Total Bilirubin 0.6 AST 19 ALT 40 Alkaline Phosphatase 107 - Problems (1) CAD (coronary artery disease) of artery bypass graft Current Visit: Yes Status: Acute Plan: Troponin negative x 3 get echo ASA 81 mg daily Lipitor 40 mg daily (2) Hypertension Current Visit: No Status: Chronic Plan: switch toprol to lopressor 25 mg po BID due to cost issues continue Norvasc switch lasix to 40 mg po BID Add Aldactone 25 mg daily Qualifiers: Hypertension type: primary hypertension Qualified Code(s): I10 - Essential (primary) hypertension
[2025-01-10] MEDS: LORazepam 2 MG/ML VIAL IV ONE (12:29)
[2025-01-10] MEDS ORDERED: ALBUTEROL 2.5 MG/3 ML NEB SOL NEB PRN (12:41)
[2025-01-10] MEDS: ESCITALOPRAM 20 MG TAB PO SCH (14:29)
[2025-01-10] MEDS: clonazePAM 0.5 MG TAB PO PRN (20:58)
[2025-01-10] MEDS: ATORVASTATIN 40 MG TAB PO SCH (20:59)
[2025-01-10] MEDS: IPRATROPIUM BROM 0.5MG/2.5ML ONE (23:00)
[2025-01-10 23:07] VITALS: BMI 58.4
--- NOTE | 2025-01-11 05:35 | P.PN ---
Date of Service: 01/10/25 Subjective Patient very tearful and depressed. She has had a really difficult situation going through a divorce and she is not working and does not have health insurance. She is not suicidal but she states that she sometimes thinks about it. She may benefit from [facility] evaluation. Physical Examination - Vital Signs Reviewed - Physical Exam General: Alert, Oriented x3, Obese Respiratory: Clear to auscultation bilaterally, Normal air movement, Crackles/rales Cardiovascular: Regular rate/rhythm, Normal S1 S2 Gastrointestinal: Soft and benign, W/out hepatosplenomegaly Musculoskeletal: No clubbing, Swelling Integumentary: No rashes Neurological: Other (Alert awake nonfocal) Assessment and Plan - Assessment/Plan 1. Unstable angina; Started on aspirin and statin. Will get an echocardiogram. Cardiology consultAppreciated. Continue with workup at this time. If no extensive cardiac workup is needed then outpatient follow-up. 2. Acute on chronic CHF possibly systolic/diastolic; Monitor closely on telemetry. Started on aggressive diuresis. Oxygen supplementation Will try to wean down oxygen requirement; Continue home medications. Will obtain an echocardiogram Cardiology consult; Monitor closely on telemetry 3. Morbid obesity; Lifestyle modification. GLP-1 agonist treatment may be necessary. 4. Elevated LFTs; Steatohepatitis. Evaluate for right-sided heart failure. Monitor LFTs closely 5. Major depressive disorder; continue with antidepressants. May need MR evualation Monitor LFTs closely GI/DVT prophylaxis Advanced directive full code Discharge Plan: Home Plan to discharge in: 48 Hours - Advance Directives Does patient have a Living Will: No Does patient have a Durable POA for Healthcare: No - Code Status/Comfort Care Code Status: Full Code Time Spent Managing Pts Care (In Minutes): 30
[2025-01-11 06:35] VITALS: TEMP 97.8
[2025-01-11] MEDS: ESCITALOPRAM OXALATE 10 MG TABLET PO SCH (08:51)
[2025-01-11 09:03] VITALS: O2SAT 90
[2025-01-11 10:37] VITALS: BP 137/74
--- NOTE | 2025-01-11 12:16 | P.PN ---
Subjective Date of Service: 01/11/25 Chief Complaint: Chest Pain Subjective: No new changes, No C/O voiced, Tolerating diet, Ambulating, Improving Review of Systems 10-point ROS is otherwise unremarkable Physical Examination - Vital Signs Temperature: 97.8 F Blood Pressure: 137/74 Pulse: 73 Respirations: 20 Pulse Ox (%): 90 - Physical Exam General: Alert, In no apparent distress HEENT: Atraumatic, PERRLA, EOMI Neck: Supple, JVD not distended Respiratory: Clear to auscultation bilaterally, Normal air movement Cardiovascular: Regular rate/rhythm, Normal S1 S2 Gastrointestinal: Normal bowel sounds, No tenderness Musculoskeletal: No tenderness Integumentary: No rashes Neurological: Normal speech, Normal tone, Normal affect Lymphatics: No axilla or inguinal lymphadenopathy - Studies Medications List Reviewed: Yes Assessment And Plan - Current Problems (Diagnosis) (1) CAD (coronary artery disease) of artery bypass graft Current Visit: Yes Status: Acute Plan: Troponin negative x 3 get echo ASA 81 mg daily Lipitor 40 mg daily (2) Hypertension Current Visit: No Status: Chronic Plan: switch toprol to lopressor 25 mg po BID due to cost issues continue Norvasc switch lasix to 40 mg po BID Add Aldactone 25 mg daily Qualifiers: Hypertension type: primary hypertension Qualified Code(s): I10 - Essential (primary) hypertension
--- NOTE | 2025-01-12 06:46 | P.DS ---
Admission Date: 01/09/25 Discharge Date: 01/11/25 Disposition: ROUTINE DISCHARGE Discharge Condition: GOOD Reason for Admission: Chest Pain Consultations: Cardiology - Dr. Acosta Brief History of Present Illness: 59 yo F, PMH: hypertension, depression, obesity, congenital heart disease status post correction surgery COPD, hyperlipidemia, morbid obesity, history of cervical cancer, depression, fatty liver Patient brought to ER with chest pain and shortness of breath which has been going on for last 1 week and has been progressively getting worse and was brought to ER. Denies any fever or chills. No nausea vomiting or diarrhea. Has been noncompliant with medications. Patient was assessed in the ER and was admitted for further management to rule out ACS. She also has a bilateral lower extremity swelling. Hospital Course: Problem List Chest pain Acute on chronic CHF exacerbation Depression Hyperetnsion Hx cervical cancer Hx fatty liver Physician discharge instructions: Patient presented with chest pain associated with shortness of breath and lower extremity edema for 1 week which has been progressively getting worse secondary to acute on chronic congestive heart failure. Chest xray was negative for any acute findings, noted mild cardiomegaly. EKG was without ischemic changes. Troponins were negative. The rest of her labwork on admission was unremarkable. She was started on IV lasix and had improvement of her symptoms. IV lasix was deescalated to oral lasix and patient continued to improve. Cardiology was consulted and recommended echocardiogram to further evaluate. Echocardiogram was done 01/11 however pending official report upon discharge. Given her negative work up, no findings to warrant further inpatient evaluation. Can discuss echo results at follow up appointment with cardiology in next few weeks. Patient was feeling better, chest pain improved, lower extremity edema resolved and was deemed stable for discharge. Most consistent with anxiety in combination with some degree of CHF exacerbation. She reported not having any medications/prescriptions for some time. So new scripts were sent Medications: Lopressor 25 mg BID Aspirin 81mg daily atorvastatin 40mg at bedtime Lasix 40mg twice daily Lexapro 10mg daily Follow up: PCP 3-5 days Cardiology in 1-2 weeks Please call to schedule / confirm appointments Physical Exam: GEN: Alert, oriented, NAD CV: Regular rate and rhythm, no edema Pulm:Nonlabored respirations on room air, clear bilaterally ABD: soft, nontender, nondistended Neuro: Normal speech, normal affect Vital Signs/Physical Exam: Temp Pulse Resp BP Pulse Ox 97.8 F 73 20 137/74 90 L 01/11/25 12:16 01/11/25 12:16 01/11/25 12:16 01/11/25 12:16 01/11/25 12:16 Laboratory Data at Discharge: WBC 6.00 thou/uL (4.3-10.9) 01/10/25 04:04 Hgb 13.0 g/dL (12.0-15.0) 01/10/25 04:04 Hct 37.1 % (36.0-45.0) 01/10/25 04:04 Plt Count 218 thou/uL (152-406) 01/10/25 04:04 Sodium 141 mEq/L (136-145) 01/10/25 04:04 Potassium 3.6 mEq/L (3.5-5.1) 01/10/25 04:04 BUN 14 mg/dL (7-18) 01/10/25 04:04 Creatinine 0.92 mg/dL (0.55-1.02) 01/10/25 04:04 Glucose 113 mg/dL (74-106) H 01/10/25 04:04 Magnesium 2.1 mg/dL (1.6-2.4) 01/09/25 18:38 Total Bilirubin 0.5 mg/dL (0.2-1.0) 01/10/25 04:04 AST 13 U/L (15-37) L 01/10/25 04:04 ALT 37 U/L (13-56) 01/10/25 04:04 Alkaline Phosphatase 99 U/L (45-117) 01/10/25 04:04 Home Medications: Amlodipine [Norvasc*] 10 mg PO DAILY 30 Days #30 tab 01/11/25 Atorvastatin Calcium [Lipitor] 40 mg PO BEDTIME 30 Days #30 tab 01/11/25 Escitalopram Oxalate [Lexapro] 10 mg PO DAILY 30 Days #30 tab 01/11/25 Furosemide [Lasix] 40 mg PO BID 30 Days #60 tab 01/11/25 Metoprolol Tartrate [Lopressor] 25 mg PO BID 30 Days #60 tab 01/11/25 New Medications: Furosemide [Lasix] 40 mg PO BID 30 Days #60 tab Escitalopram Oxalate [Lexapro] 10 mg PO DAILY 30 Days #30 tab Atorvastatin Calcium [Lipitor] 40 mg PO BEDTIME 30 Days #30 tab Metoprolol Tartrate [Lopressor] 25 mg PO BID 30 Days #60 tab Amlodipine [Norvasc*] 10 mg PO DAILY 30 Days #30 tab Physician Discharge Instructions: Physician discharge instructions: Patient presented with chest pain associated with shortness of breath and lower extremity edema for 1 week which has been progressively getting worse secondary to acute on chronic congestive heart failure. Chest xray was negative for any acute findings, noted mild cardiomegaly. EKG was without ischemic changes. Troponins were negative. The rest of her labwork on admission was unremarkable. She was started on IV lasix and had improvement of her symptoms. IV lasix was deescalated to oral lasix and patient continued to improve. Cardiology was consulted and recommended echocardiogram to further evaluate. Echocardiogram was done 01/11 however pending official report upon discharge. Given her negative work up, no findings to warrant further inpatient evaluation. Can discuss echo results at follow up appointment with cardiology in next few weeks. Patient was feeling better, chest pain improved, lower extremity edema resolved and was deemed stable for discharge. Most consistent with anxiety in combination with some degree of CHF exacerbation. She reported not having any medications/prescriptions for some time. So new scripts were sent Medications: Lopressor 25 mg BID Aspirin 81mg daily atorvastatin 40mg at bedtime Lasix 40mg twice daily Lexapro 10mg daily Follow up: PCP 3-5 days Cardiology in 1-2 weeks Please call to schedule / confirm appointments Followup: NONE,NONE [Primary Care Provider] - Time spent managing pt's care (in minutes): 45
== END 2025-01-11 13:57 | disposition home or self-care (01) | DRG 291 ==
LOC: ER 17:35 → ERHOLD 20:21 → 2ND 22:15
PROVIDERS: ADMIT Family Medicine; ATTEND Hospitalist
DX: I11.0 Hypertensive heart disease with heart failure (principal); I50.43 Acute on chronic combined systolic (congestive) and diastolic (congestive) heart failure; Z68.43 Body mass index [BMI] 50.0-59.9, adult; E66.01 Morbid (severe) obesity due to excess calories; E78.5 Hyperlipidemia, unspecified; F41.9 Anxiety disorder, unspecified; K75.81 Nonalcoholic steatohepatitis (NASH); J44.9 Chronic obstructive pulmonary disease, unspecified; F32.9 Major depressive disorder, single episode, unspecified; I25.700 Atherosclerosis of coronary artery bypass graft(s), unspecified, with unstable angina pectoris; R79.89 Other specified abnormal findings of blood chemistry; Z88.5 Allergy status to narcotic agent; Z95.1 Presence of aortocoronary bypass graft; Z88.1 Allergy status to other antibiotic agents; Z88.8 Allergy status to other drugs, medicaments and biological substances; Z90.49 Acquired absence of other specified parts of digestive tract; Z85.41 Personal history of malignant neoplasm of cervix uteri; Z90.710 Acquired absence of both cervix and uterus
CPT/HCPCS: 36415; 71045; 80048; 80053; 80076; 83735; 83880; 84484; 85025; 93005; 93306; 94760; 96374; 99285; J0360; J1938; J2270; J2405; J7644